=== PATIENT | female | born 1935 | race Caucasian/White ===

== ENCOUNTER → 2016-07-26 | Outpatient (CLI) | payer OTHER ==
[~2016-07-26] MED LIST: ACET-1257 PO; ARC10 PO; ATEN25TA PO; CLTP PO; CTP2 PO; DIPH-416 PO; ESCI1TAB10 PO; FRRG PO; FRS/40 PO; HYDR-5688 PO; KFL250 PO; LEVO75TA PO; LEVO75TA5 PO; LISI10TA PO; MISCTAB30 PO; MULT-190 PO; MULT-506 PO; NUTRTAB55 PO; PANT1TAB48 PO; POTA10CA28 PO; PROM12.57 PO; PRT40 PO; SIMV20TA2 PO; SPIR25TA PO; TRAM-10 PO; compound cream
[2016-07-26 16:08] LABS: BASO % 0.3 %; BASO ABS # 0.02 K/uL (0-0.2); COMPLETE YES; EOS % 2.7 %; HEMATOCRIT 38.5 % (37-47); IG% 0.2 %; LYMPH % 22.9 %; LYMPH ABS # 1.33 K/uL (1.2-3.4); MEAN CELL VOLUME 96.5 fL (80-100); MEAN CORPUSCULAR HEMOGLOBIN 33.6 pg (25-34); MEAN CORPUSCULAR HGB CONC 34.8 g/dl (32-36); MEAN PLATELET VOLUME 11.3 fL (7.4-10.4); MONO % 5.7 %; NEUT % 68.2 %; PLATELET COUNT 227 K/uL (130-400); RED BLOOD COUNT 3.99 M/uL (4.2-5.4); WHITE BLOOD COUNT 5.82 K/uL (4.8-10.8)
[2016-07-26 16:17] LABS: ALT/SGPT 14 U/L (12-78); AST/SGOT 15 U/L (15-37); BLOOD UREA NITROGEN 59 mg/dl (7-18); BUN/CREATININE RATIO 16.5 (10-20); CALCIUM 9.7 mg/dl (8.5-10.1); CARBON DIOXIDE 21 mmol/L (21-32); CHLORIDE 103 mmol/L (98-107); GLUCOSE 103 mg/dl (70-99); SODIUM 140 mmol/L (136-145)
[2016-07-26 16:27] LABS: ALKALINE PHOSPHATASE 60 U/L (45-117); THYROID STIMULATING HORMONE 0.479 uIu/ml (0.300-4.500)
== END | disposition home or self-care (01) ==
LOC: C.LABSPEC 14:45
PROVIDERS: ATTEND Internal Medicine
DX: I10 Essential (primary) hypertension (principal); R53.83 Other fatigue; E03.9 Hypothyroidism, unspecified

== ENCOUNTER 2016-07-27 12:20 | Inpatient (IN) | payer OTHER ==
[~2016-07-27] VITALS: Ht 170.2 cm; Wt 65.4 kg
[~2016-07-27 12:20] MED LIST changes: -ACET-1257 PO; -ARC10 PO; -DIPH-416 PO; -HYDR-5688 PO; -KFL250 PO; -LEVO75TA5 PO; -NUTRTAB55 PO; -POTA10CA28 PO; -PROM12.57 PO
[2016-07-27] MEDS ORDERED: ONDANSETRON INJ 8 MG in DEXTROSE 5% 50ML 50 ML IV PRN (12:30)
[2016-07-27 14:00] VITALS: BP 154/57; PULSE 35; TEMP 36.4; Ht 170.2 cm; Wt 65.4 kg
[2016-07-27 14:11] LABS: BASO % 0.5 %; BASO ABS # 0.03 K/uL (0-0.2); EOS % 2.7 %; HEMATOCRIT 36.6 % (37-47); IG% 0.4 %; LYMPH % 26.7 %; LYMPH ABS # 1.51 K/uL (1.2-3.4); MEAN CELL VOLUME 93.8 fL (80-100); MEAN CORPUSCULAR HEMOGLOBIN 33.3 pg (25-34); MEAN PLATELET VOLUME 10.5 fL (7.4-10.4); MONO % 6.5 %; NEUT % 63.2 %; PLATELET COUNT 215 K/uL (130-400); WHITE BLOOD COUNT 5.66 K/uL (4.8-10.8)
[2016-07-27 14:23] LABS: COMPLETE YES; MEAN CORPUSCULAR HGB CONC 35.5 g/dl (32-36); PARTIAL THROMBOPLASTIN RATIO 0.9
[2016-07-27 14:37] LABS: ALT/SGPT 14 U/L (12-78); BLOOD UREA NITROGEN 62 mg/dl (7-18); BUN/CREATININE RATIO 19.3 (10-20); CALCIUM 9.2 mg/dl (8.5-10.1); CARBON DIOXIDE 23 mmol/L (21-32); CHLORIDE 105 mmol/L (98-107); GLUCOSE 103 mg/dl (70-99); MAGNESIUM 2.6 mg/dl (1.8-2.4); POTASSIUM 3.6 mmol/L (3.5-5.1); SODIUM 139 mmol/L (136-145)
[2016-07-27 14:42] LABS: ALB/GLOB RATIO 1.1 (0.9-2); ALKALINE PHOSPHATASE 62 U/L (45-117); AST/SGOT 19 U/L (15-37); PHOSPHORUS 3.2 mg/dl (2.5-4.9)
--- NOTE | 2016-07-27 14:43 | DIAGNOSTIC IMAGING REPORT ---
CHEST 2 VIEWS ROUTINE CLINICAL HISTORY: RENAL FAILURE COMPARISON STUDY: 01/09/2013 FINDINGS: The heart is normal in size. There is gas present retrocardiac region, likely secondary to a hiatal hernia. There is no focal pulmonary consolidation. There is no failure. There are no pleural effusions. There is minor left basilar atelectasis. There is mild apical pleural thickening. There are postsurgical changes within the lumbar spine.[ IMPRESSION: No active disease in the chest. Electronically signed by: Christiano Mena M.D. 07/27/2016 2:41 PM Dictated Date/Time: 07/27/2016 2:41 PM
[2016-07-27] MEDS: SODIUM CHLORIDE 0.9% 1000ML 1,000 ML IV SCH ×2 (14:56→23:43)
[2016-07-27 15:56] VITALS: BP 135/55; PULSE 101; TEMP 36.4; O2SAT 91
--- NOTE | 2016-07-27 16:28 | HISTORY & PHYSICAL EXAMINATION ---
DATE OF ADMISSION: 07/27/2016 HISTORY OF PRESENT ILLNESS: An 81-year-old female admitted directly from home with acute renal failure and dehydration. The patient is with multiple medical problems including arterial hypertension, chronic kidney disease, history of spinal stenosis requiring surgery, hypothyroidism and memory deficit. She also has general debilitation and weakness and decline in functional ability. The patient was seen in the office yesterday for her regularly scheduled visit. She was having multiple problems. She has not been feeling well for a few weeks. Her appetite has declined. She is lacking energy. Requiring more sleep time over 13 hours. Not able to walk as she did. Does not really want to do anything or get up or move around. On examination yesterday, she seemed weak and tired. Multiple laboratory tests were done including a CBC showing WBC count of 5820, hemoglobin 13.4, hematocrit 38.5, and platelet count 227,000. Her chemistry profile results, which became available and I received them today, showed a sodium of 140, potassium 4.0, chloride 103, CO2 of 21, BUN 59, creatinine 3.6, glucose 103, and calcium 9.7. Total bilirubin 0.4. AST 15, ALT 14, and alkaline phosphatase 60. Total protein 7.7, albumin 3.9, and globulin 3.8. TSH is 0.479 and free T4 is 1.51. Once I received her lab results today, we called the patient and given the deterioration in her renal function. Her creatinine is usually around 2-2.5, but this marked significant increase in her BUN and creatinine. She is symptomatic as noted above. I made arrangements for her to be admitted. There was also quite a bit of confusion discovered yesterday about the medication that she has at home and what she should be taking. I did ask her to bring all the medications she has at home to the office for me to go through with them. At this point, the patient was admitted to medical bed for further evaluation and hydration and monitoring of her renal function. PAST MEDICAL HISTORY: 1. She was last hospitalized on 12/01/2015 with severe anemia. Her hemoglobin was 6.4. She had evidence of GI bleed. She was evaluated and had endoscopy done. She had peptic ulcer disease with gastric erosions. The anemia was thought to be related to her bleeding. She did require transfusion. She was on iron supplement after her discharge, but her hemoglobin seems to have recovered very nicely. 2. Spinal stenosis, requiring decompression surgery. The first time was done on 10/08/2009, but she had persistent pain and she required additional surgery to evacuate a seroma/hematoma. 3. Total left knee arthroplasty done on 09/22/2000. 4. Right total knee arthroplasty done on 02/21/2003. 5. Partial thyroidectomy back in 1976. She had a benign nodule. She has been hypothyroid and compensated. 6. Benign lesion removed from her left breast in the remote past. 7. Arterial hypertension. Longstanding. She has had required a multidrug regimen in the past. 8. History of gastric ulcer back in 2009. 9. Chronic kidney disease. Over the last 2-3 years, her renal function has been deteriorating. She does see Dr. Okeefe in nephrology. 10. Memory deficit and mental decline. She does see Dr. Benjamín Alicea in neurology and she is on Aricept. Initially, she was on 5 mg daily, but now she is on 10 mg daily. SOCIAL HISTORY: She is . She has 2 adopted children. Denied any smoking or alcohol or drugs. She is a retired registered nurse. She works at the [employer] on the 3rd floor in the past. FAMILY HISTORY: Her mother at age 80, had heart disease. Her father at age 79, had arterial hypertension. Her siblings are doing well. ALLERGIES: IT IS LISTED ON HER ALLERGY LIST THAT SHE HAS HAD REACTION TO MULTIPLE MEDICATIONS, INCLUDING AMITRIPTYLINE, AMLODIPINE, ATENOLOL, CELEBREX, CHLORTHALIDONE, ESTROGEN, GABAPENTIN, HYDROCHLOROTHIAZIDE, SULFA MEDICATIONS, METOPROLOL, AND PREDNISONE, but actually it is not really accurate because she is on atenolol. AMLODIPINE ONLY CAUSED SOME SWELLING IN HER ANKLES. CURRENT MEDICATIONS: Actually, I am not really sure what she is taking. Today, her put all the medications they have at home for her and brought them to the office. The list that I made from what he brought to the office Include: 1. Aricept 10 mg daily. 2. Promethazine 25 mg every 4 hours as needed. 3. Furosemide 40 mg twice a day. 4. Tramadol 50 mg 1-2 tablets every 4 hours as needed. 5. Lisinopril 5 mg daily. 6. Atenolol 25 mg daily. 7. Zofran ODT 8 mg as needed for nausea. 8. Levothyroxine 75 mcg daily. 9. Lomotil 2.5 mg as needed for diarrhea. Also, when her came to the office yesterday, he brought a note that they had these medications on hand, including the Zofran, levothyroxine, atenolol and Lomotil, but he did not think that she was taking them. I am not really sure what happened at this time, but in the past, they have been very meticulous with the medication list and also what she is taking. So, there is some confusion regarding this issue and it will be clarified. REVIEW OF SYSTEMS: She denied any headache. She is complaining of feeling weak and tired. She does get lightheaded. Denied any earache or sore throat or neck pain. Denied any chest pain, pressure or tightness. No shortness of breath. She has been feeling nauseous. Poor appetite. She has not been eating or drinking sufficiently. She has had nausea, but no vomiting. She has had some diarrhea. No blood in her stool that was noticeable. No urinary problem. She does have chronic pain in her back and extremities. There was no swelling in her ankles. PHYSICAL EXAMINATION: GENERAL: When she was seen in the office yesterday, her weight was 144.6 pounds, height 64 inches, and BMI 24.82. Her weight represents a significant weight loss since 03/23/2016. At that time, she weighed 159.4 pounds. VITAL SIGNS: Blood pressure 134/60, pulse 58, she has multiple premature beats and temperature 98.2. Her respiration was 16. SKIN: Warm and dry. No rash. No bruising. HEENT: She wears glasses. She has dentures. No mucosal abnormality in her nose, mouth or throat. NECK: Supple without lymph node or thyroid enlargement. No JVD. Normal carotid pulses. No bruit. Surgical scar from prior partial thyroidectomy. CHEST: Normal. HEART: Regular heart sounds with multiple premature beats. 1/6 systolic murmur. LUNGS: Clear. ABDOMEN: Soft and nontender. No organomegaly or masses. BACK: No spinal or CVA tenderness. Surgical scar. EXTREMITIES: No edema, clubbing, or cyanosis. No joint or muscle tenderness. Osteoarthritis. Surgical scars. Good pulses. NEUROLOGIC: She was alert, but slowing down significantly physically and mentally. There was no lateralized deficit. When I saw her in the office yesterday and the laboratory tests were done and the results are all as noted above. Also did the rhythm strips. She had runs of bigeminy. She also had a sinus bradycardia. LABORATORY DATA: Today's laboratory test done after her admission: CBC showed a WBC count of 5660, hemoglobin 13, hematocrit 36.6, and platelet count 215,000. Prothrombin time 11, INR 1.0, and PTT 24.5. Sodium 139, potassium 3.6, chloride 105, CO2 of 23, BUN 62, creatinine 3.2, glucose 103, calcium 9.2, phosphorus 3.2, and magnesium 2.6. Total bilirubin 0.5, AST 19, ALT 14, and alkaline phosphatase 62. Total protein 7.7, albumin 4.1, and globulin 3.6. Her chest x-ray showed no evidence of any congestive heart failure. No evidence of any significant disease noted. Her electrocardiogram showed a sinus bradycardia. Frequent premature ventricular complexes in the pattern of bigeminy. Nonspecific ST-T wave changes were also noted. Urinalysis and urine random sodium and creatinine are still pending. ASSESSMENT: 1. Acute renal failure. 2. Chronic kidney disease. 3. Dehydration. 4. Arterial hypertension. 5. Hypothyroidism. 6. Osteoarthritis. 7. History of depression. 8. Cognitive impairment. 9. History of peptic ulcer disease with bleeding, requiring transfusion, the last time was in November of 2015. 10. Sinus bradycardia. 11. Frequent premature ventricular contractions. PLAN: The patient was admitted to medical bed. Resuscitation level 1. All her laboratory tests were ordered. She was started on IV fluid with normal saline. Given Zofran for any nausea or vomiting. We will reintroduce her diet. See how she tolerates it. We will monitor her intake and output. Physical and occupation therapies will be ordered. We will monitor her renal functions. She will go back to her baseline with hydration. The patient has been seen by Dr. Okeefe in the past for her nephrology followup. At this point, we will hydrate her. Monitor her renal function. See how she does with her therapies. Decide on the need for any further testing or treatment.
[2016-07-27 17:47] LABS: URINE BILIRUBIN NEG (NEG); URINE NITRITE NEG (NEG); URINE SPECIFIC GRAVITY 1.018 (1.000-1.030); UROBILINOGEN NEG (NEG)
[2016-07-27 18:05] LABS: MANUAL MICROSCOPIC REQUIRED? NO; REVIEW REQ? NO; URINE APPEARANCE N (CLEAR); URINE COLOR N
[2016-07-27] MEDS: HEPARIN SOD 5000 UNIT/0.5 ML CARP SQ SCH (21:16)
[2016-07-28 01:35] VITALS: BP 122/51; PULSE 76; TEMP 36.4; O2SAT 100
--- NOTE | 2016-07-28 07:26 | Clinical Documentation Query ---
[facility] : CLINICAL DOCUMENTATION QUERY Patient is an 81 year old female admitted for evaluation and treatment of acute renal failure and dehydration. Documentation includes CKD, not otherwise specified. Baseline creatinine noted to be 2-2.5 mg/dl. Estimated GFR range during the interval coinciding with the creatinine range is 16-23 ml/min. She is being monitored by serial chemistries and is recieving IV NSS. Please clarify as clinically appropriate. Thank you. In your clinical opinion is this patient being managed for: ( x ) LORNA on CKD stage 4 ( ) Other explanation of clinical findings (Please Explain) ( ) Unable to determine (Please Define) ( ) Need to Discuss ( ) Not Agree The medical record reflects the following clinical findings, treatment, and risk factors. Clinical Indicators: As above Treatment:She is being monitored by serial chemistries and is recieving IV NSS Risk Factors: Age, hypertension Please clarify and document your clinical opinion in the progress notes and discharge summary. Terms such as "probable", "suspected", "likely", "questionable", "possible", or "still to be ruled out" are acceptable. IF IN AGREEMENT, YOU MUST DOCUMENT ABOVE DIAGNOSTIC STATEMENT IN DAILY PROGRESS NOTES AND DISCHARGE SUMMARY. This document is not part of the patient's record. Thank You, Ray Quiroga RN [phone]
[2016-07-28 07:41] LABS: BUN/CREATININE RATIO 19.8 (10-20); CALCIUM 8.2 mg/dl (8.5-10.1); CREATININE 2.2 mg/dl (0.60-1.20); POTASSIUM 3.9 mmol/L (3.5-5.1)
[2016-07-28 08:00] VITALS: O2SAT 100
[2016-07-28 08:25] VITALS: BP 164/64; PULSE 53; TEMP 36.5; O2SAT 97
[2016-07-28] MEDS ORDERED: NURSING VERBAL MED ORDER ONE (08:45)
[2016-07-28] MEDS ORDERED: ACETAMINOPHEN 325 MG TAB PO SCH (09:00)
[2016-07-28] MEDS: HEPARIN SOD 5000 UNIT/0.5 ML CARP SQ SCH ×2 (09:20→21:02)
[2016-07-28] MEDS: SODIUM CHLORIDE 0.9% 1000ML 1,000 ML IV SCH ×2 (09:23→19:45)
[2016-07-28] MEDS ORDERED: ACETAMINOPHEN 500 MG TAB PO PRN (11:30)
[2016-07-28] MEDS ORDERED: LISINOPRIL 5 MG TAB PO ONE (12:00)
[2016-07-28 16:07] VITALS: BP 111/62; PULSE 52; TEMP 37; O2SAT 98
[2016-07-28] MEDS: CEPHALEXIN MONOHYDRATE 250 MG CAP PO SCH ×2 (16:24→21:16)
[2016-07-28 16:32] VITALS: O2SAT 100
[2016-07-28] MEDS ORDERED: CIPROFLOXACIN 500 MG TAB PO SCH (20:00)
--- NOTE | 2016-07-28 20:57 | PROGRESS NOTE ---
DATE: 07/28/2016 SUBJECTIVE: An 81-year-old female admitted with dehydration and acute renal failure. Her medical problems also include arterial hypertension, chronic kidney disease, cognitive impairment, degenerative disc disease, history of spinal stenosis, osteoarthritis, general debilitation and decreased functional status. The patient was admitted. All her laboratory tests were ordered. She was started on IV fluid. Today, her condition has improved. She is much more awake and alert and communicative. Denied any headache or dizziness or lightheadedness. No chest pain, no shortness of breath. No abdominal pain, no nausea, no vomiting. No ankle edema. Her urinalysis did show evidence of urinary tract infection. PHYSICAL EXAMINATION: GENERAL: Well-developed in no distress. VITAL SIGNS: Blood pressure 164/64, pulse 53, respirations 17, temperature 36.5, oxygen saturation 97% on room air. SKIN: Warm and dry. No rash. HEENT: No evidence of any mucosal abnormality. NECK: No JVD. No adenopathy. HEART: Regular heart sounds, but with premature beats. LUNGS: Clear. ABDOMEN: Soft, nontender. BACK: Surgical scar. EXTREMITIES: No edema, clubbing, or cyanosis. TODAY'S LABORATORY TESTS: Sodium 146, potassium 3.9, chloride 113, CO2 24, BUN 44, creatinine 2.2, glucose 90, calcium 8.2. As noted, her urinalysis is showing evidence of urinary tract infection. ASSESSMENT: 1. Acute renal failure. 2. Dehydration. 3. Chronic kidney disease stage IV. 4. Arterial hypertension. 5. Cognitive impairment. 6. Osteoarthritis. 7. Degenerative disc disease and spinal stenosis. PLAN: 1. Her creatinine did show marked improvement. 2. We will continue hydration. 3. Continue physical therapy. 4. Urine will be sent for culture. 5. She was started on oral Keflex. 6. Continue with her therapy, decide on her ability to go back home, that is what it is anticipated.
[2016-07-29 00:08] VITALS: BP 159/68; PULSE 81; TEMP 36.6; O2SAT 95
[2016-07-29] MEDS: SODIUM CHLORIDE 0.9% 1000ML 1,000 ML IV SCH (05:31)
[2016-07-29] MEDS: CEPHALEXIN MONOHYDRATE 250 MG CAP PO SCH ×3 (05:31→20:51)
[2016-07-29] MEDS: LEVOTHYROXINE 75 MCG TAB PO SCH (05:31)
[2016-07-29] MEDS: TRAMADOL HCL 50 MG TAB PO PRN ×3 (05:34→20:12)
[2016-07-29 07:30] LABS: CREATININE 1.6 mg/dl (0.60-1.20)
[2016-07-29 07:31] LABS: BASO % 0.6 %; BASO ABS # 0.02 K/uL (0-0.2); BUN/CREATININE RATIO 17.2 (10-20); CALCIUM 7.6 mg/dl (8.5-10.1); COMPLETE YES; EOS % 3.1 %; HEMATOCRIT 28.8 % (37-47); IG% 0.3 %; LYMPH % 31.6 %; LYMPH ABS # 1.11 K/uL (1.2-3.4); MEAN CELL VOLUME 94.4 fL (80-100); MEAN CORPUSCULAR HEMOGLOBIN 32.8 pg (25-34); MEAN CORPUSCULAR HGB CONC 34.7 g/dl (32-36); MEAN PLATELET VOLUME 10.4 fL (7.4-10.4); MONO % 9.4 %; PLATELET COUNT 148 K/uL (130-400); POTASSIUM 3.6 mmol/L (3.5-5.1); RED BLOOD COUNT 3.05 M/uL (4.2-5.4); WHITE BLOOD COUNT 3.51 K/uL (4.8-10.8)
[2016-07-29 08:00] VITALS: O2SAT 95
[2016-07-29 08:04] VITALS: BP 180/73; PULSE 74; TEMP 36.2; O2SAT 91
[2016-07-29] MEDS: DONEPEZIL HCL 10 MG TAB PO SCH (08:21)
[2016-07-29] MEDS: LISINOPRIL 10 MG TAB PO SCH (08:22)
[2016-07-29] MEDS: HEPARIN SOD 5000 UNIT/0.5 ML CARP SQ SCH ×2 (08:27→20:53)
[2016-07-29] MEDS: SODIUM CHLORIDE 0.45% 1000ML 1,000 ML IV SCH ×2 (08:28→20:50)
[2016-07-29 14:20] VITALS: BP 131/75; PULSE 53; TEMP 36.8; O2SAT 97
[2016-07-29 14:58] VITALS: BP 150/60
[2016-07-29 15:25] VITALS: BP 143/64; PULSE 53; TEMP 36.4; O2SAT 97
--- NOTE | 2016-07-29 21:00 | PROGRESS NOTE ---
DATE: 07/29/2016 SUBJECTIVE: An 81-year-old female admitted with acute renal failure superimposed on chronic kidney disease. She was markedly dehydrated. Her medical problems also include arterial hypertension and degenerative joint and disk disease. Also, her urine culture is showing growth of gram negative bacilli. Her condition has markedly improved. She is quite more alert and communicative and sitting up in the chair and eating. Her appetite has improved. Denied any headache. No dizziness. No chest pain. No shortness of breath. No abdominal pain, no nausea, no vomiting. PHYSICAL EXAMINATION: GENERAL: Well-developed in no distress. VITAL SIGNS: Blood pressure 180/73, pulse 74, respirations 18, temperature 36.2, oxygen saturation 91% on room air. During the day after she received her medications, her blood pressure improved to 131/75 and 143/64. SKIN: Warm and dry. No rash. HEENT: No mucosal abnormality. NECK: No JVD, no adenopathy. HEART: Regular heart sounds. LUNGS: Clear. ABDOMEN: Soft, nontender. EXTREMITIES: No edema, clubbing, or cyanosis. TODAY'S LABORATORY TESTS: WBC count 3510, hemoglobin 10, hematocrit 28.8, platelet count 148,000. Sodium 150, potassium 3.6, chloride 119, CO2 21, BUN 28, creatinine 1.6, glucose 96, calcium 7.6. ASSESSMENT: 1. Acute renal failure, resolved. 2. Chronic kidney disease. 3. Arterial hypertension. 4. Dehydration. 5. Urinary tract infection. PLAN: 1. I changed her IV to half normal saline. 2. She is on oral Keflex. The results of the culture and sensitivity is still pending. 3. Continuing physical therapy she seems to be doing quite well. 4. The intent is for her to go back home. I spoke with her and her when I saw them this evening.
[2016-07-30] VITALS: BP 140/56; PULSE 72; TEMP 36.8; O2SAT 93
[2016-07-30] MEDS: TRAMADOL HCL 50 MG TAB PO PRN (02:27)
[2016-07-30] MEDS: LEVOTHYROXINE 75 MCG TAB PO SCH (05:24)
[2016-07-30] MEDS: CEPHALEXIN MONOHYDRATE 250 MG CAP PO SCH (05:25)
[2016-07-30 06:33] LABS: BASO % 0.4 %; BASO ABS # 0.02 K/uL (0-0.2); COMPLETE YES; EOS % 5.1 %; HEMATOCRIT 28.9 % (37-47); IG% 0.2 %; LYMPH % 31.5 %; LYMPH ABS # 1.48 K/uL (1.2-3.4); MEAN CELL VOLUME 94.4 fL (80-100); MEAN CORPUSCULAR HGB CONC 34.9 g/dl (32-36); MEAN PLATELET VOLUME 10.4 fL (7.4-10.4); MONO % 9.6 %; NEUT % 53.2 %; PLATELET COUNT 151 K/uL (130-400); RED BLOOD COUNT 3.06 M/uL (4.2-5.4)
[2016-07-30 06:59] LABS: CALCIUM 7.6 mg/dl (8.5-10.1); CREATININE 1.3 mg/dl (0.60-1.20); POTASSIUM 3.4 mmol/L (3.5-5.1)
[2016-07-30] MEDS ORDERED: KFL250 PO (07:55)
[2016-07-30] MEDS ORDERED: ARC10 PO (07:55)
[2016-07-30] MEDS ORDERED: ACET-1257 PO (07:55)
--- NOTE | 2016-07-30 07:58 | Discharge Instructions ---
Discharge Instructions Date of Service Jul 30, 2016. Admission Reason for Admission: Renal Failure, Dehydration Discharge Discharge Diagnosis / Problem: acute renal faiture. dehydration.chronic kidney disease. cognitive impairme Discharge Goals Goal(s): Decrease discomfort, Improve function, Increase independence, Improve disease control Activity Recommendations Activity Limitations: resume your previous activity . Instructions / Follow-Up Instructions / Follow-Up dr vincent in one week Current Hospital Diet Patient's current hospital diet: AHA Diet (Heart Healthy) Discharge Diet Recommended Diet: AHA Diet (Heart Healthy) Pending Studies Studies pending at discharge: no Medical Emergencies . Who to Call and When: Medical Emergencies: If at any time you feel your situation is an emergency, please call 911 immediately. . Non-Emergent Contact Non-Emergency issues call your: Primary Care Provider . . "Provider Documentation" section prepared by Daniel Vincent. VTE Core Measure Inpt VTE Proph given/why not?: Treatment not indicated
[2016-07-30] MEDS ORDERED: POTASSIUM CHLORIDE 10 MEQ TABCR PO ONE ×2 (08:00→08:30)
[2016-07-30 08:10] VITALS: BP 159/67; PULSE 93; TEMP 36.3; O2SAT 94
[2016-07-30] MEDS: LISINOPRIL 10 MG TAB PO SCH (09:29)
[2016-07-30] MEDS: DONEPEZIL HCL 10 MG TAB PO SCH (09:30)
[2016-07-30] MEDS: HEPARIN SOD 5000 UNIT/0.5 ML CARP SQ SCH (09:31)
[2016-07-30 09:40] VITALS: BP 159/67; PULSE 93; TEMP 36.3; O2SAT 94
[2016-07-30] MEDS: SODIUM CHLORIDE 0.45% 1000ML 1,000 ML IV SCH (09:47)
--- NOTE | 2016-07-30 21:47 | PROGRESS NOTE ---
DATE: 07/30/2016 An 81-year-old female admitted with acute renal failure and dehydration. She has chronic kidney disease, arterial hypertension, hypothyroidism. The patient was admitted. She was started on IV fluids. Physical and occupational therapies were ordered. Her condition improved. Her nausea subsided. She was tolerating her diet. She was improving with physical therapy. She was improving with hydration. Her creatinine normalized. Her urine showed evidence of urinary tract infection. The culture grew E. coli. She is on Keflex. She denied any headache or dizziness. No chest pain, no shortness of breath. No abdominal pain, no nausea, no vomiting. No problem urinating. PHYSICAL EXAMINATION: GENERAL: Well developed, in no distress. VITAL SIGNS: Blood pressure 159/67, pulse 93, respirations 16, temperature 36.3, oxygen saturation 94% on room air. SKIN: Warm and dry. No rash. HEENT: No mucosal abnormality. NECK: No adenopathy. No JVD. HEART: Regular heart sounds. LUNGS: Clear. ABDOMEN: Soft, nontender. EXTREMITIES: No edema, clubbing, or cyanosis. TODAY'S LABORATORY TESTS: WBC count 4700, hemoglobin 10.1, hematocrit 28.9, platelet count 151,000. Sodium 145, potassium 3.4, chloride 116, CO2 of 21, BUN 20, creatinine 1.3, glucose 81, calcium 7.6. As noted, her urine culture did grow E. coli. ASSESSMENT: 1. Acute renal failure. 2. Chronic kidney disease. 3. Dehydration. 4. Urinary tract infection. 5. Dementia. 6. Hypothyroidism. PLAN: 1. Overall, patient has improved remarkably since her admission. She is tolerating her diet. She is doing well with her therapy. Mentally she is much more alert and expressive. 2. She was continued on Keflex. 3. Discharged home today. 4. There was a confusion about her medications. Asked her to go by the new medication list. Her already brought all her medications to the office and we went through all her medications and later this afternoon, he came back and we did clarify all their questions they had about what she should be taking. 5. Follow up in the office in 1 week.
--- NOTE | 2016-08-08 23:09 | DISCHARGE SUMMARY ---
DISCHARGE DIAGNOSES: 1. Acute renal failure. 2. Dehydration. 3. Chronic kidney disease. 4. Arterial hypertension. 5. Hypothyroidism. 6. Osteoarthritis. 7. Frequent premature ventricular contractions. DISCHARGE MEDICATIONS: Included: 1. Extra strength Tylenol 500 mg every 4 hours as needed for pain. 2. Cephalexin 250 mg every 8 hours for 5 days. 3. Aricept 10 mg daily. 4. Calcium with vitamin D 600 mg twice a day. 5. Lexapro 20 mg daily. 6. Levothyroxine 75 mcg daily. 7. Lisinopril 10 mg twice a day. 8. Multivitamin 1 daily. 9. Ocuvite PreserVision 1 tablet daily. 10. Simvastatin 20 mg daily. She was on multiple other medications that were discontinued, including atenolol, clonidine, ferrous gluconate, furosemide, pantoprazole, spironolactone and tramadol. An 81-year-old female, admitted directly from home with acute renal failure and dehydration. Patient with multiple medical problems as noted above. She was seen in the office on the day prior to her admission. She was having multiple problems. She was not feeling well for a few weeks. Her appetite has declined. She was lacking energy. She was requiring more sleep, approximately 13 hours. She was not able to walk as she did before. She did not really want to do anything or move around. On examination, she seemed weak and tired. Multiple laboratory tests were done. Her creatinine increased to 3.6 and her BUN was 59. Once I received the results of her test results, I called the patient and made arrangements for her to be admitted for further evaluation and treatment. In addition to the problems that she was complaining of, I noted that she was more confused. She has not had any problem taking her medications as she should in the past, but there was significant confusion as far as what she has been taking and what she should be taking. PAST MEDICAL HISTORY, SOCIAL HISTORY AND FAMILY HISTORY: All as noted on her history and physical. ALLERGIES: IT IS NOTED THAT SHE HAS A LARGE NUMBER OF ALLERGIES, INCLUDING AMLODIPINE, AMITRIPTYLINE, ATENOLOL, CELEBREX, CHLORTHALIDONE, ESTROGEN, GABAPENTIN, HYDROCHLOROTHIAZIDE, SULFA MEDICATION, METOPROLOL AND PREDNISONE, BUT ACTUALLY SHE IS NOT REALLY ALLERGIC TO MOST OF THESE MEDICATIONS. She is on atenolol. She has taken hydrochlorothiazide. THE ONLY TRUE ALLERGY IS SULFA AND ALSO AMLODIPINE, WHICH CAUSED HER SWELLING IN HER ANKLES. MEDICATIONS ON ADMISSION: All as noted on her admission history and physical. PHYSICAL EXAMINATION AND ADMISSION LABORATORY TESTS: All as noted. HOSPITAL COURSE: The patient was admitted to a medical bed. Resuscitation level 1. All her laboratory tests were ordered. She was started on IV fluids. Given Zofran for nausea and vomiting. Physical and occupational therapies were ordered. Her renal function was monitored. With hydration, her renal function gradually improved. From 3.2 to 2.2 to 1.8 and on 07/30/2016, it was down to 1.3. Her condition improved. She was tolerating her therapies. She was able to ambulate. Her appetite improved. She was tolerating her diet. She did not have any recurrent nausea. No vomiting. Once her condition improved and her renal function returned toward the normal range, the patient was discharged home. Medications as noted above. Follow up in the office 1 week after her discharge.
[2016-10-08] MEDS ORDERED: DIPH-416 PO (14:21)
[2016-10-08] MEDS ORDERED: HYDR-5688 PO (14:21)
[2016-10-08] MEDS ORDERED: POTA10CA28 PO (14:21)
[2016-10-08] MEDS ORDERED: ESCI1TAB10 PO (14:21)
[2016-10-08] MEDS ORDERED: NUTRTAB55 PO (14:21)
[2016-10-08] MEDS ORDERED: LEVO75TA5 PO (14:21)
[2016-10-08] MEDS ORDERED: FRS/40 PO (14:21)
[2016-10-08] MEDS ORDERED: PROM12.57 PO (14:21)
[2016-10-08] MEDS ORDERED: SIMV20TA2 PO (14:21)
== END 2016-07-30 11:15 | disposition home or self-care (01) | DRG 683 ==
LOC: C.MS4W 13:11
PROVIDERS: ADMIT Internal Medicine; ATTEND Internal Medicine
DX: N17.9 Acute kidney failure, unspecified (principal); N39.0 Urinary tract infection, site not specified; E86.0 Dehydration; I12.9 Hypertensive chronic kidney disease with stage 1 through stage 4 chronic kidney disease, or unspecified chronic kidney disease; R53.81 Other malaise; Z87.19 Personal history of other diseases of the digestive system; Z96.653 Presence of artificial knee joint, bilateral; E89.0 Postprocedural hypothyroidism; Z87.11 Personal history of peptic ulcer disease; Z82.49 Family history of ischemic heart disease and other diseases of the circulatory system; Z88.8 Allergy status to other drugs, medicaments and biological substances; Z88.2 Allergy status to sulfonamides; Z79.899 Other long term (current) drug therapy; M19.90 Unspecified osteoarthritis, unspecified site; I49.3 Ventricular premature depolarization; F32.9 Major depressive disorder, single episode, unspecified; M48.00 Spinal stenosis, site unspecified; N18.4 Chronic kidney disease, stage 4 (severe); B96.20 Unspecified Escherichia coli [E. coli] as the cause of diseases classified elsewhere; F03.90 Unspecified dementia, unspecified severity, without behavioral disturbance, psychotic disturbance, mood disturbance, and anxiety

== ENCOUNTER → 2016-08-16 | Outpatient (CLI) | payer OTHER ==
[~2016-08-16] MED LIST changes: +ACET-1257 PO; +ARC10 PO; -ATEN25TA PO; +CIPR250T3 PO; -CTP2 PO; +DIPH-416 PO; -FRRG PO; +HYDR-5688 PO; +KFL250 PO; +LEVO75TA5 PO; -MISCTAB30 PO; +NUTRTAB55 PO; -PANT1TAB48 PO; +POTA10CA28 PO; +PROM12.57 PO; -PRT40 PO; -SPIR25TA PO; -TRAM-10 PO; -compound cream
[2016-08-16 14:55] LABS: BASO % 0.7 %; BASO ABS # 0.03 K/uL (0-0.2); COMPLETE YES; EOS % 2.9 %; HEMATOCRIT 39.1 % (37-47); IG% 0.2 %; LYMPH % 31.3 %; MONO % 8.7 %; NEUT % 56.2 %; PLATELET COUNT 271 K/uL (130-400); RED BLOOD COUNT 4.03 M/uL (4.2-5.4); WHITE BLOOD COUNT 4.47 K/uL (4.8-10.8)
[2016-08-16 15:33] LABS: ALT/SGPT 23 U/L (12-78); BLOOD UREA NITROGEN 17 mg/dl (7-18); BUN/CREATININE RATIO 12.3 (10-20); CALCIUM 8.8 mg/dl (8.5-10.1); CARBON DIOXIDE 25 mmol/L (21-32); CHLORIDE 105 mmol/L (98-107); GLUCOSE 101 mg/dl (70-99); POTASSIUM 3.2 mmol/L (3.5-5.1); SODIUM 140 mmol/L (136-145)
[2016-08-16 15:43] LABS: ALB/GLOB RATIO 1.1 (0.9-2); ALKALINE PHOSPHATASE 69 U/L (45-117); AST/SGOT 22 U/L (15-37); THYROID STIMULATING HORMONE 0.943 uIu/ml (0.300-4.500)
== END | disposition home or self-care (01) ==
LOC: C.LABSPEC 14:40
PROVIDERS: ATTEND Internal Medicine
DX: I12.9 Hypertensive chronic kidney disease with stage 1 through stage 4 chronic kidney disease, or unspecified chronic kidney disease (principal); N18.9 Chronic kidney disease, unspecified; E03.9 Hypothyroidism, unspecified

== ENCOUNTER → 2016-08-17 | Outpatient (CLI) | payer OTHER ==
[2016-08-17 13:29] LABS: URINE APPEARANCE CLOUDY (CLEAR); URINE BILIRUBIN NEG (NEG); URINE COLOR YELLOW; URINE NITRITE NEG (NEG); URINE PH 5.5 (4.5-7.5); URINE SPECIFIC GRAVITY 1.016 (1.000-1.030); UROBILINOGEN NEG (NEG)
[2016-08-17 13:37] LABS: MANUAL MICROSCOPIC REQUIRED? NO; REVIEW REQ? NO
== END | disposition home or self-care (01) ==
LOC: C.LABSPEC 12:34
PROVIDERS: ATTEND Internal Medicine
DX: N39.0 Urinary tract infection, site not specified (principal)

== ENCOUNTER → 2016-08-23 | Outpatient (CLI) | payer OTHER ==
--- NOTE | 2016-08-23 18:23 | DIAGNOSTIC IMAGING REPORT ---
CHEST 2 VIEWS ROUTINE CLINICAL HISTORY: DYSPNEA COMPARISON STUDY: 07/27/2016 FINDINGS: The heart is mildly enlarged. There is a retrocardiac opacity consistent with a hiatal hernia. There is no failure. There is no lobar consolidation. Prominent left basal markings are likely atelectatic. No pleural effusions are visualized. IMPRESSION: 1. Mild cardiomegaly 2. Hiatal hernia 3. Prominent left basilar markings likely atelectatic Electronically signed by: Christiano Mena M.D. 08/23/2016 6:21 PM Dictated Date/Time: 08/23/2016 6:20 PM
== END | disposition home or self-care (01) ==
LOC: C.RAD 17:57
PROVIDERS: ATTEND Internal Medicine
DX: R06.00 Dyspnea, unspecified (principal)

== ENCOUNTER → 2016-08-23 | Outpatient (CLI) | payer OTHER ==
[2016-08-23 15:46] LABS: BLOOD UREA NITROGEN 32 mg/dl (7-18); BUN/CREATININE RATIO 16.6 (10-20); CALCIUM 8.8 mg/dl (8.5-10.1); CARBON DIOXIDE 29 mmol/L (21-32); CHLORIDE 104 mmol/L (98-107); GLUCOSE 99 mg/dl (70-99); MAGNESIUM 2.5 mg/dl (1.8-2.4); POTASSIUM 4.1 mmol/L (3.5-5.1); SODIUM 140 mmol/L (136-145)
== END ==
LOC: C.LABSPEC 14:55
PROVIDERS: ATTEND Internal Medicine
DX: N18.4 Chronic kidney disease, stage 4 (severe) (principal); E87.6 Hypokalemia

== ENCOUNTER → 2016-10-18 | Day surgery (SDC) | payer OTHER ==
[2016-10-08 14:21] VITALS: Ht 170.2 cm; Wt 68.2 kg
[~2016-10-18] VITALS: Ht 170.2 cm; Wt 68.2 kg
[~2016-10-18] MED LIST changes: +500ML BSS 0.3ML EPI 1:1000PF IRRIG ONE; -ACET-1257 PO; +ACETAMINOPHEN 325 MG TAB PO PRN; +AMVISC PLUS 0.8ML SYRINGE INT OCU ONE; -ARC10 PO; +ATROPINE SULFATE 0.1 MG/ML 5ML SYR IV PRN; +BRIMONIDINE TART 0.2% OP SOLN PER DROP CHARGE ONE; +BSS FLUSH ONE; +ENDOCOAT 0.85ML SYRINGE INT OCU ONE; +EpHEDrine SULFATE INJ 50 MG/ML AMP IV PRN; +EpINEphrine INJ 1MG/ML AMP 1 MG/ML AMP ONE; +FENTANYL CITRATE INJ 50 MCG/1 ML 2 ML VIAL ONE; -KFL250 PO; +LACTATED RINGER'S 1000ML 500 ML IV SCH; -LEVO75TA PO; +LIDOCAINE 4% OP SOLN DROP CHARGE ONE; +LIDOCAINE 4% OP SOLN DROP CHARGE OPR SCH; +LIDOCAINE HCL 1% MPF 2 ML VIAL ONE; +MIDAZOLAM HCL 1 MG/ML 2ML VIAL ONE; +MOXIFLOXACIN OPH SOLN PER DROP CHARGE ONE; -MULT-190 PO; +POVIDONE-IODINE OP SOLN 30 ML BTL ONE; +PROPARACAINE 0.5% OP SOLN PER DROP CHARGE OPR SCH; +TOBRAMYCIN/DEXAMETHASONE OPH OINT PER APPLN CHARGE ONE
[2016-10-18] MEDS: PHENYLEPHRINE HCL 2.5% OP SOLN PER DROP CHARGE OPR SCH ×2 (10:54→10:59)
[2016-10-18] MEDS: TROPICAMIDE 1% OP SOLN PER DROP CHARGE OPR SCH ×2 (10:55→11:00)
[2016-10-18] MEDS: CYCLOPENTOLATE HCL 1% OP SOLN PER DROP CHARGE OPR SCH ×2 (10:56→11:01)
[2016-10-18] MEDS: KETOROLAC 0.5% OP SOLN PER DROP CHARGE OPR SCH ×2 (10:57→11:04)
[2016-10-18] MEDS: MOXIFLOXACIN OPH SOLN PER DROP CHARGE OPR SCH ×2 (10:57→11:07)
--- NOTE | 2016-10-18 12:10 | History & Physical Bridge - [place] ---
H&P Re-Evaluation Bridge Note: I have examined the patient, reviewed the History & Physical and in the interval since the performance of the History & Physical I have noted the following changes of clinical significance: No changes noted
[2016-10-18 12:37] VITALS: TEMP 36.5
--- NOTE | 2016-10-18 12:37 | Discharge Instructions-SurgCtr ---
Discharge Instructions Date of Service Oct 18, 2016. Visit Reason for Visit: Cataract Right Eye Discharge Discharge Diagnosis / Problem: cataract right eye Discharge Goals Goal(s): Improve function Activity Recommendations Activity Limitations: per Instructions/Follow-up section Lifting Limitations: no more than 5 pounds Anesthesia . Post Anesthesia Instructions: If you have had General Anesthesia or IV Sedation: * Do not drive today. * Resume driving when surgeon permits. * Do not make important decisions or sign legal documents today. * Call surgeon for: 1. Temperature elevations greater than 101 degrees F. 2. Uncontrollable pain. 3. Excessive bleeding. 4. Persistent nausea and vomiting. 5. Medication intolerance (nausea, vomiting or rash). * For nausea and vomiting use only clear liquids such as: tea, soda, bouillon until nausea subsides, then gradually increase diet as tolerated. * If you have any concerns or questions, call your surgeon's office. If physician is unavailable and it is an emergency, call 911 or go to the nearest emergency room. . Instructions / Follow-Up Instructions / Follow-Up ACTIVITY RECOMMENDATIONS: * Light activities * You may walk outside, read, watch television. * Mild irritation and blurred vision are common for the first few days, redness around the white part of the eye is common. MEDICATIONS: Resume previous medications unless instructed otherwise by your surgeon. Eye drops (today and tomorrow): Cipro - one drop in operative eye every 2 hours while awake Prednisolone 1% - one drop in operative eye every 2 hours while awake SPECIAL CARE INSTRUCTIONS: * If any problems or concerns, please call Dr. Salomon's office at . * Keep plastic shield taped over eye to sleep at night. * Keep plastic shield taped over eye except to administer eye drops. * Keep plastic shield on until office visit the following day. FOLLOW UP VISIT: Follow-up with Dr. Salomon in the [place] office as scheduled. If not already scheduled, please call the office at . Diet Recommendations Home Diet: resume previous diet Procedures Procedures Performed: Right Cataract Phacoemulsification With Intraocular Lens Implant Pending Studies Studies pending at discharge: no Medical Emergencies . Who to Call and When: Medical Emergencies: If at any time you feel your situation is an emergency, please call 911 immediately. . Non-Emergent Contact Non-Emergency issues call your: Group Home Paraprofessional . . "Provider Documentation" section prepared by Cory Salomon. .
--- NOTE | 2016-10-18 12:37 | [facility] Post Operative Brief Note ---
Immediate Operative Summary Operative Date Oct 18, 2016. Pre-Operative Diagnosis Right Eye Cataract Post-Operative Diagnosis same Procedure(s) Performed Right Cataract Phacoemulsification With Intraocular Lens Implant Surgeon Dr. Carol Salomon Auto Transport Driver Surgeon(s) 0 Estimated Blood Loss 0 Findings cataract right eye Specimens none Complication(s) None Disposition Recovery Room / PACU
[2016-10-18 12:54] VITALS: BP 172/63; PULSE 58; O2SAT 97
--- NOTE | 2016-10-18 13:02 | Anesthesia Progress Nt - [facility] ---
Anesthesia Post Op Note Date & Time Oct 18, 2016 at 13:02 Vital Signs Pain Intensity: 0 Vital Signs Past 12 Hours Date Time Temp Pulse Resp B/P (MAP) Pulse Ox O2 Delivery O2 Flow Rate FiO2 10/18/16 12:54 58 22 172/63 (99) 97 Room Air 10/18/16 12:37 36.5 75 16 179/72 (107) 98 Room Air 10/18/16 10:45 36.2 57 16 175/70 (105) 98 Room Air Notes Mental Status: alert / awake / arousable, participated in evaluation Pt Amnestic to Procedure: Yes Nausea / Vomiting: adequately controlled Pain: adequately controlled Airway Patency, RR, SpO2: stable & adequate BP & HR: stable & adequate Hydration State: stable & adequate Anesthetic Complications: no major complications apparent
--- NOTE | 2016-10-18 15:05 | OPERATIVE REPORT ---
DATE OF OPERATION: 10/18/2016 PREOPERATIVE DIAGNOSIS: Cataract, right eye. POSTOPERATIVE DIAGNOSIS: Cataract, right eye. PROCEDURE: Phacoemulsification cataract extraction with intraocular lens placement, right eye. SURGEON: Dr. Salomon. COMPLICATIONS: None. ESTIMATED BLOOD LOSS: None. ANESTHESIA: Topical with sedation. OPERATION AND FINDINGS: After informed consent was obtained in the holding area the patient was wheeled back to the Operating Room where cardiac monitoring leads and oxygen by nasal cannula was administered by Anesthesia. Gentle IV sedation was given, and the patient's right eye was prepped and draped in usual sterile fashion. A wire lid speculum was placed into the right eye and the operating microscope was swung into position. Using 0.12 forceps and a Supersharp blade a paracentesis port was made 3 o'clock hours away from the 9 o'clock position of patient's right eye. 1% non-preserved Lidocaine was then injected into the anterior chamber for anesthesia. A 2.2 mm keratotome blade was then used to make a shelved clear corneal incision at the 9 o'clock position of her right eye. Amvisc was injected into the anterior chamber and a cystotome and Utrata forceps were used to perform a curvilinear capsulorrhexis. BSS on a hydrodissection cannula was used to hydrodissect the lens nucleus away from the capsular bag. The phacoemulsification handpiece was then used in a stop and chop fashion to remove the lens nucleus. The irrigation and aspiration handpiece was then used to remove the residual cortical material. Amvisc was injected into the capsular bag and anterior chamber and a Bausch [employer] Lomb MX60, 19.5 Diopter intraocular lens was injected into the capsular bag. Irrigation and aspiration handpiece was used to remove the residual viscoelastic material. The wounds were hydrated and noted to be watertight. The wire lid speculum was removed from the eye. Vigamox, Brimonidine, and TobraDex ointment were placed on the eye and it was shielded. It should be noted that EndoCoat was used throughout the case to protect the cornea endothelium. DISPOSITION: The patient tolerated the procedure well and was wheeled to the post anesthesia care unit in stable condition. I attest to the content of the Intraoperative Record and any orders documented therein. Any exceptions are noted below. I attest to the content of the Intraoperative Record and any orders documented therein. Any exception s are noted below.
== END | disposition home or self-care (01) ==
LOC: X.SURG 10:12
PROVIDERS: ATTEND Ophthalmology
DX: H26.9 Unspecified cataract (principal); I25.10 Atherosclerotic heart disease of native coronary artery without angina pectoris; I12.9 Hypertensive chronic kidney disease with stage 1 through stage 4 chronic kidney disease, or unspecified chronic kidney disease; I50.9 Heart failure, unspecified; M19.90 Unspecified osteoarthritis, unspecified site; N18.9 Chronic kidney disease, unspecified; Z98.890 Other specified postprocedural states; Z96.653 Presence of artificial knee joint, bilateral; Z79.899 Other long term (current) drug therapy; Z68.23 Body mass index [BMI] 23.0-23.9, adult

== ENCOUNTER → 2016-11-01 | Day surgery (SDC) | payer OTHER ==
[2016-10-28 09:00] VITALS: Ht 170.2 cm; Wt 68.2 kg
[~2016-11-01] VITALS: Ht 170.2 cm; Wt 68.2 kg
[~2016-11-01] MED LIST changes: +LIDOCAINE 4% OP SOLN DROP CHARGE OPL SCH; -LIDOCAINE 4% OP SOLN DROP CHARGE OPR SCH; +LIDOCAINE HCL 2% 2 ML VIAL (20MG/ML) ONE; +PROPARACAINE 0.5% OP SOLN PER DROP CHARGE OPL SCH; -PROPARACAINE 0.5% OP SOLN PER DROP CHARGE OPR SCH; +PROPOFOL IV EMULSION 10 MG/ML 20 ML VIAL IV ONE
[2016-11-01] MEDS: PHENYLEPHRINE HCL 2.5% OP SOLN PER DROP CHARGE OPL SCH ×2 (09:57→10:06)
[2016-11-01] MEDS: TROPICAMIDE 1% OP SOLN PER DROP CHARGE OPL SCH ×2 (09:58→10:07)
[2016-11-01] MEDS: CYCLOPENTOLATE HCL 1% OP SOLN PER DROP CHARGE OPL SCH ×2 (10:01→10:08)
[2016-11-01] MEDS: MOXIFLOXACIN OPH SOLN PER DROP CHARGE OPL SCH ×2 (10:04→10:16)
[2016-11-01] MEDS: KETOROLAC 0.5% OP SOLN PER DROP CHARGE OPL SCH (10:08)
--- NOTE | 2016-11-01 11:15 | Discharge Instructions-SurgCtr ---
Discharge Instructions Date of Service Nov 01, 2016. Visit Reason for Visit: Cataract Left Eye Discharge Discharge Diagnosis / Problem: cataract left eye Discharge Goals Goal(s): Improve function Activity Recommendations Activity Limitations: per Instructions/Follow-up section Lifting Limitations: no more than 5 pounds Anesthesia . Post Anesthesia Instructions: If you have had General Anesthesia or IV Sedation: * Do not drive today. * Resume driving when surgeon permits. * Do not make important decisions or sign legal documents today. * Call surgeon for: 1. Temperature elevations greater than 101 degrees F. 2. Uncontrollable pain. 3. Excessive bleeding. 4. Persistent nausea and vomiting. 5. Medication intolerance (nausea, vomiting or rash). * For nausea and vomiting use only clear liquids such as: tea, soda, bouillon until nausea subsides, then gradually increase diet as tolerated. * If you have any concerns or questions, call your surgeon's office. If physician is unavailable and it is an emergency, call 911 or go to the nearest emergency room. . Instructions / Follow-Up Instructions / Follow-Up ACTIVITY RECOMMENDATIONS: * Light activities * You may walk outside, read, watch television. * Mild irritation and blurred vision are common for the first few days, redness around the white part of the eye is common. MEDICATIONS: Resume previous medications unless instructed otherwise by your surgeon. Eye drops (today and tomorrow): Cipro - one drop in operative eye every 2 hours while awake Prednisolone 1% - one drop in operative eye every 2 hours while awake SPECIAL CARE INSTRUCTIONS: * If any problems or concerns, please call Dr. Salomon's office at . * Keep plastic shield taped over eye to sleep at night. * Keep plastic shield taped over eye except to administer eye drops. * Keep plastic shield on until office visit the following day. FOLLOW UP VISIT: Follow-up with Dr. Salomon in the [place] office as scheduled. If not already scheduled, please call the office at . Diet Recommendations Home Diet: resume previous diet Procedures Procedures Performed: Left Cataract Phacoemulsification With Intraocular Lens Implant Pending Studies Studies pending at discharge: no Medical Emergencies . Who to Call and When: Medical Emergencies: If at any time you feel your situation is an emergency, please call 911 immediately. . Non-Emergent Contact Non-Emergency issues call your: High Speed Operator . . "Provider Documentation" section prepared by Cory Salomon. .
--- NOTE | 2016-11-01 11:15 | [facility] Post Operative Brief Note ---
Immediate Operative Summary Operative Date Nov 01, 2016. Pre-Operative Diagnosis Cataract Left Eye Post-Operative Diagnosis Same Procedure(s) Performed Left Cataract Phacoemulsification With Intraocular Lens Implant Surgeon Dr. Salomon Central Office Supervisor Surgeon(s) None Estimated Blood Loss 0 Findings cataract left eye Specimens 0 Complication(s) None Disposition Recovery Room / PACU
[2016-11-01 11:24] VITALS: TEMP 36.2
--- NOTE | 2016-11-01 11:25 | OPERATIVE REPORT ---
DATE OF OPERATION: 11/01/2016 POSTOPERATIVE DIAGNOSIS: Cataract, left eye. PROCEDURE: Phacoemulsification cataract extraction with intraocular lens placement, left eye. SURGEON: Dr. Salomon. COMPLICATIONS: None. ESTIMATED BLOOD LOSS: None. ANESTHESIA: Topical with sedation. OPERATION AND FINDINGS: After informed consent was obtained in the holding area the patient was wheeled back to the Operating Room where cardiac monitoring leads and oxygen by nasal cannula was administered by Anesthesia. Gentle IV sedation was given, and the patient's left eye was prepped and draped in usual sterile fashion. A wire lid speculum was placed into the left eye and the operating microscope was swung into position. Using 0.12 forceps and a Supersharp blade a paracentesis port was made 3 o'clock hours away from the 3 o'clock position of patient's left eye. 1% non-preserved Lidocaine was then injected into the anterior chamber for anesthesia. A 2.2 mm keratotome blade was then used to make a shelved clear corneal incision at the 3 o'clock position of his left eye. Amvisc was injected into the anterior chamber and a cystotome and Utrata forceps were used to perform a curvilinear capsulorrhexis. BSS on a hydrodissection cannula was used to hydrodissect the lens nucleus away from the capsular bag. The phacoemulsification handpiece was then used in a stop and chop fashion to remove the lens nucleus. The irrigation and aspiration handpiece was then used to remove the residual cortical material. Amvisc was injected into the capsular bag and anterior chamber and a Bausch & Lomb MX60 19.5 Diopter intraocular lens was injected into the capsular bag. Irrigation and aspiration handpiece was used to remove the residual viscoelastic material. The wounds were hydrated and noted to be watertight. The wire lid speculum was removed from the eye. Vigamox, Brimonidine, and TobraDex ointment were placed on the eye and it was shielded. It should be noted that EndoCoat was used during the case to protect the cornea endothelium. A mixture of 1 mL of non-preserved epinephrine and 3 mL of BSS was also injected into the eye at the beginning of the case to aid with pupillary dilation in this [place] patient. DISPOSITION: The patient tolerated the procedure well and was wheeled to the post anesthesia care unit in stable condition. I attest to the content of the Intraoperative Record and any orders documented therein. Any exceptions are noted below. I attest to the content of the Intraoperative Record and any orders documented therein. Any exception s are noted below.
--- NOTE | 2016-11-01 11:35 | Anesthesia Progress Nt - [facility] ---
Anesthesia Post Op Note Date & Time Nov 01, 2016 at 11:35 Vital Signs Pain Intensity: 0 Vital Signs Past 12 Hours Date Time Temp Pulse Resp B/P (MAP) Pulse Ox O2 Delivery O2 Flow Rate FiO2 11/01/16 11:24 36.2 50 16 116/55 (75) 97 Room Air 11/01/16 09:50 36.9 58 20 144/72 (96) 94 Room Air Notes Mental Status: alert / awake / arousable, participated in evaluation Pt Amnestic to Procedure: Yes Nausea / Vomiting: adequately controlled Pain: adequately controlled Airway Patency, RR, SpO2: stable & adequate BP & HR: stable & adequate Hydration State: stable & adequate Anesthetic Complications: no major complications apparent
[2016-11-01 11:38] VITALS: BP 143/60; PULSE 57; O2SAT 97
== END | disposition home or self-care (01) ==
LOC: X.SURG 09:20
PROVIDERS: ATTEND Ophthalmology
DX: H26.9 Unspecified cataract (principal); I10 Essential (primary) hypertension; Z98.41 Cataract extraction status, right eye; Z96.659 Presence of unspecified artificial knee joint

== ENCOUNTER 2017-03-14 19:19 | Inpatient (IN) | payer OTHER ==
[~2017-03-14] VITALS: Ht 170.2 cm; Wt 69.2 kg
[~2017-03-14 19:19] MED LIST changes: -500ML BSS 0.3ML EPI 1:1000PF IRRIG ONE; -ACETAMINOPHEN 325 MG TAB PO PRN; -AMVISC PLUS 0.8ML SYRINGE INT OCU ONE; -ATROPINE SULFATE 0.1 MG/ML 5ML SYR IV PRN; -BRIMONIDINE TART 0.2% OP SOLN PER DROP CHARGE ONE; -BSS FLUSH ONE; -CIPR250T3 PO; -ENDOCOAT 0.85ML SYRINGE INT OCU ONE; -EpHEDrine SULFATE INJ 50 MG/ML AMP IV PRN; -EpINEphrine INJ 1MG/ML AMP 1 MG/ML AMP ONE; -FENTANYL CITRATE INJ 50 MCG/1 ML 2 ML VIAL ONE; -LACTATED RINGER'S 1000ML 500 ML IV SCH; -LIDOCAINE 4% OP SOLN DROP CHARGE ONE; -LIDOCAINE 4% OP SOLN DROP CHARGE OPL SCH; -LIDOCAINE HCL 1% MPF 2 ML VIAL ONE; -LIDOCAINE HCL 2% 2 ML VIAL (20MG/ML) ONE; -MIDAZOLAM HCL 1 MG/ML 2ML VIAL ONE; -MOXIFLOXACIN OPH SOLN PER DROP CHARGE ONE; -POVIDONE-IODINE OP SOLN 30 ML BTL ONE; -PROPARACAINE 0.5% OP SOLN PER DROP CHARGE OPL SCH; -PROPOFOL IV EMULSION 10 MG/ML 20 ML VIAL IV ONE; -TOBRAMYCIN/DEXAMETHASONE OPH OINT PER APPLN CHARGE ONE
[2017-03-14] MEDS ORDERED: SODIUM CHLORIDE 0.9% 500ML 500 ML IV STA (19:29)
--- NOTE | 2017-03-14 19:34 | EMERGENCY ROOM VISIT NOTE ---
History Report prepared by Amelia: Rosa Carvajal Under the Supervision of: Dr. Getachew Wilson M.D. 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 The patient states that she felt faint tonight and lightheaded and she lost consciousness after her vision went dark. She reports that she did not hit her head during the episode and is now just feeling woozy and lightheaded. She notes that she has some dizziness and diarrhea for the last few days. The patient denies any chest pain , shortness of breath, urinary symptoms, abdominal pain and nausea. She reports a history of hypertension and previous kidney issues. She notes that her symptoms worsen with sitting up. Source of History: patient Onset: just SERVICE SHOP FOREMAN Position: other (global) Quality: other (syncope) Associated Symptoms: + LOC, + diarrhea, No chest pain, No SOB, No nausea, No abdominal pain, No urinary symptoms Note: Pt has dark vision, dizziness, and lightheadedness. Review of Systems See HPI for pertinent positives & negatives. A total of 10 systems reviewed and were otherwise negative. Past Medical & Surgical Medical Problems: (1) ACUTE RENAL FAIL.,DEHYDRATION (2) GI bleed (3) SYNCOPE, DEHYDRATION Family History No pertinent family history stated. Social History Smoking Status: Never Smoker Marital Status: Housing Status: lives with significant other Occupation Status: retired Current/Historical Medications Scheduled Calcium/Vitamin D (Caltrate 600 Plus *), 1 TAB PO QAM Escitalopram Oxalate (Lexapro), 20 MG PO QAM Furosemide (Lasix), 40 MG PO QAM Levothyroxine Sodium (Levothyroxine Sodium), 1 TAB PO QAM Lisinopril (Prinivil), 10 MG PO BID Multivitamin (Multivitamin), 1 TAB PO QAM Nutritional Supplements (Osteo Advance), 1 TAB PO QAM Potassium Chloride (Micro-K Ext Rel), 10 MEQ PO QAM Simvastatin (Zocor), 20 MG PO QPM Scheduled PRN Diphenoxylate/Atropine (Lomotil), 1 TAB PO DAILY PRN for PRN Hydrocodone/Acetaminophen 5MG/325MG ([place] 5MG/325MG), 1 TABLET PO QID PRN for Pain Promethazine (Phenergan ), 12.5 MG PO Q6H PRN for Nausea or Vomiting Allergies Coded Allergies: Amlodipine (Verified Allergy, Severe, ., 03/14/17) CAN TAKE LOWER DOSES, HIGHER DOSES CLOSES HER THROAT Atenolol (Verified Allergy, Severe, ., 03/14/17) CAN TAKE LOW DOSE-HIGHER DOSES CLOSE HER THROAT Estrogens (Verified Allergy, Intermediate, ., 03/14/17) ALLERGIC PREMPRO BUT TAKES PREMARIN AT HOME Methyltestosterone (Verified Allergy, Intermediate, ., 03/14/17) Replaces PREMPRO ALLERGIC TO PREMPRO, BUT CAN TAKE COMPONENTS SEPARATELY (TAKES AT HOME) Progestins (Verified Allergy, Intermediate, ., 03/14/17) Replaces PREMPRO ALLERGIC TO PREMPRO, BUT CAN TAKE COMPONENTS SEPARATELY (TAKES AT HOME) Amitriptyline (Verified Allergy, Unknown, ., 03/14/17) Celecoxib (Verified Allergy, Unknown, 03/14/17) Chlorthalidone (Verified Allergy, Unknown, 11/01/16) Gabapentin (Verified Allergy, Unknown, HIVES, 03/14/17) Hydrochlorothiazide (Verified Allergy, Unknown, 03/14/17) Metoprolol (Verified Allergy, Unknown, 03/14/17) Sulfa Antibiotics (Verified Allergy, Unknown, ., 03/14/17) Prednisone (Verified Adverse Reaction, Unknown, HEADACHE,FLUSHING, 03/14/17 ) Physical Exam Vital Signs Date Time Temp Pulse Resp B/P (MAP) Pulse Ox O2 Delivery O2 Flow Rate FiO2 03/14/17 20:32 67 19 187/69 97 Room Air 03/14/17 19:34 62 03/14/17 19:19 36.3 63 16 165/50 98 Room Air Physical Exam GENERAL: Patient is weak and tired appearing. She is symptomatic with sitting up. HEENT: No acute trauma, normocephalic atraumatic, mucous membranes dry, no nasal congestion, no scleral icterus. NECK: No stridor, no adenopathy, no meningismus, trachea is midline. LUNGS: No dyspnea. Clear to auscultation and equal bilaterally. No wheeze, no rhonchi. HEART: Regular rate and rhythm. No murmurs, rubs, gallops appreciated. ABDOMEN: Soft, nontender, bowel sounds positive, no masses appreciated, no peritonitis. BACK: No midline tenderness, no CVA tenderness EXTREMITIES: Normal motion all extremities, no cyanosis, no edema. NEUROLOGIC: Alert and oriented, no acute motor or sensory deficits, no focal weakness, cranial nerves grossly intact. SKIN: No rash, no jaundice, no diaphoresis. Medical Decision & Procedures ER Provider Diagnostic Interpretation: Radiology results and stated below per my review and radiologist interpretation: HEAD WITHOUT CONTRAST (CT) Findings: The paranasal sinuses and mastoid air cells are clear. Findings of considerable chronic small vessel change or perhaps slightly progressive compared to the prior exam. There is no evidence however for an acute intracranial abnormality. Mastoid air cells are clear. There is no deviation of the midline structures. Impression: 1. No acute intracranial abnormality. 2. Chronic small vessel change subtle progressive from the prior study The above report was generated using voice recognition software. It may contain grammatical, syntax or spelling errors. Electronically signed by: Sotero Hogan M.D. 03/14/2017 8:13 PM Dictated Date/Time: 03/14/2017 8:11 PM CHEST ONE VIEW PORTABLE FINDINGS: Mild emphysematous change. Minimal platelike atelectasis both lung bases. No focal infiltrate. IMPRESSION: No acute process The above report was generated using voice recognition software. It may contain grammatical, syntax or spelling errors. Electronically signed by: Sotero Hogan M.D. 03/14/2017 7:41 PM Dictated Date/Time: 03/14/2017 7:40 PM Laboratory Results 03/14/17 19:10 Red Blood Count 3.54, Mean Corpuscular Volume 95.5, Mean Corpuscular Hemoglobin 31.9, Mean Corpuscular Hemoglobin Concent 33.4, Mean Platelet Volume 9.5, Neutrophils (%) (Auto) 46.8, Lymphocytes (%) (Auto) 41.9, Monocytes (%) (Auto) 8.1, Eosinophils (%) (Auto) 2.8, Basophils (%) (Auto) 0.4, Neutrophils # (Auto) 2.66, Lymphocytes # (Auto) 2.38, Monocytes # (Auto) 0.46, Eosinophils # (Auto) 0.16, Basophils # (Auto) 0.02 03/14/17 19:10 Test 03/14/17 19:10 White Blood Count 5.68 K/uL (4.8-10.8) Red Blood Count 3.54 M/uL (4.2-5.4) Hemoglobin 11.3 g/dL (12.0-16.0) Hematocrit 33.8 % (37-47) Mean Corpuscular Volume 95.5 fL (80-100) Mean Corpuscular Hemoglobin 31.9 pg (25-34) Mean Corpuscular Hemoglobin Concent 33.4 g/dl (32-36) Platelet Count 247 K/uL (130-400) Mean Platelet Volume 9.5 fL (7.4-10.4) Neutrophils (%) (Auto) 46.8 % Lymphocytes (%) (Auto) 41.9 % Monocytes (%) (Auto) 8.1 % Eosinophils (%) (Auto) 2.8 % Basophils (%) (Auto) 0.4 % Neutrophils # (Auto) 2.66 K/uL (1.4-6.5) Lymphocytes # (Auto) 2.38 K/uL (1.2-3.4) Monocytes # (Auto) 0.46 K/uL (0.11-0.59) Eosinophils # (Auto) 0.16 K/uL (0-0.5) Basophils # (Auto) 0.02 K/uL (0-0.2) RDW Standard Deviation 46.4 fL (36.4-46.3) RDW Coefficient of Variation 13.2 % (11.5-14.5) Immature Granulocyte % (Auto) 0.0 % Immature Granulocyte # (Auto) 0.00 K/uL (0.00-0.02) Prothrombin Time 10.7 SECONDS (9.0-12.0) Prothromb Time International Ratio 1.0 (0.9-1.1) Activated Partial Thromboplast Time 23.8 SECONDS (21.0-31.0) Partial Thromboplastin Ratio 0.9 Anion Gap 9.0 mmol/L (3-11) Estimated GFR () 25.8 Estimated GFR (Non- 22.3 BUN/Creatinine Ratio 22.9 (10-20) Calcium Level 9.3 mg/dl (8.5-10.1) Phosphorus Level 4.3 mg/dl (2.5-4.9) Magnesium Level 2.6 mg/dl (1.8-2.4) Total Bilirubin 0.4 mg/dl (0.2-1) Direct Bilirubin < 0.1 mg/dl (0-0.2) Aspartate Amino Transf (AST/SGOT) 17 U/L (15-37) Alanine Aminotransferase (ALT/SGPT) 18 U/L (12-78) Alkaline Phosphatase 78 U/L (45-117) Total Creatine Kinase 45 U/L (26-192) Creatine Kinase MB 0.6 ng/ml (0.5-3.6) Creatine Kinase MB Ratio 1.3 (0-3.0) Troponin I < 0.015 ng/ml (0-0.045) Total Protein 8.0 gm/dl (6.4-8.2) Albumin 3.9 gm/dl (3.4-5.0) Lipase 2677 U/L (73-393) Laboratory results as reviewed by me. Medications Administered Medications (Trade) Dose Ordered Sig/Jace Route Start Time Stop Time Status Last Admin Dose Admin Sodium Chloride 500 ml @ 999 mls/hr Q31M STAT IV 03/14/17 19:29 03/14/17 19:59 DC 03/14/17 19:29 999 MLS/HR ECG Indication: syncope Rate (beats per minute): 73 Rhythm: sinus rhythm Findings: PVC (multiple), other (no STEMI, prolonged QTC, poor baseline) ED Course 1919: The patient was evaluated in room B8. A complete history and physical exam was performed. 1928: Sodium Chloride 500 ml @ 999 mls/hr IV. 2037: Discussed the patient's case with Dr. Chun. He will come in to see the patient. The patient will be evaluated for further treatment and disposition. 2055: Upon reevaluation, the patient is doing well. Discussed results and treatment plan with the patient. She verbalized understanding and agreement with the treatment plan. The patient will be evaluated for further management. Medical Decision Differential: Vaso-vagal, Intracerebral Event, Neurologic, Infectious, Volume Deficiency, Hypoglycemia, Electrolyte Abnormality, Cardiac Source, Toxicologic, amongst other pathologies entertained. 82 yr old female with worsening dementia and diarrhea over last few weeks who has not been eating well and this evening she had a syncopal event. With sitting up she becomes woozy and lightheaded thus laid back down and given IV NSS bolus. Labs with minimal worsening of Cr. Vitals stable. CT head looks good. She does have unexplained elevation of Lipase but she is without any abdominal pain, nausea, back pain. She is stable, breathing comfortably but with syncope and unusual lipase elevation I consulted her primary physician who will bring her in to hospital for further work-up and evaluation. Medication Reconcilliation Current Medication List: was personally reviewed by me Blood Pressure Screening Patient's blood pressure: Elevated blood pressure Blood pressure disposition: Referred to PCP Consults Time Called: 2031 Consulting Physician: Dr. Chun Returned Call: 2037 Discussed the patient's case with Dr. Chun. The patient will be evaluated for further treatment and disposition. Impression Primary Impression: Dehydration Additional Impressions: Syncope Elevated lipase Scribe Attestation The scribe's documentation has been prepared under my direction and personally reviewed by me in its entirety. I confirm that the note above accurately reflects all work, treatment, procedures, and medical decision making performed by me. Departure Information Dispostion Being Evaluated By Hospitalist Referrals Daniel Albert M.D. (PCP) Problem Qualifiers
--- NOTE | 2017-03-14 19:42 | DIAGNOSTIC IMAGING REPORT ---
CHEST ONE VIEW PORTABLE CLINICAL HISTORY: Generalized Weakness pain COMPARISON STUDY: 08/23/2016 FINDINGS: Mild emphysematous change. Minimal platelike atelectasis both lung bases. No focal infiltrate. IMPRESSION: No acute process The above report was generated using voice recognition software. It may contain grammatical, syntax or spelling errors. Electronically signed by: Sotreo Hogan M.D. 03/14/2017 7:41 PM Dictated Date/Time: 03/14/2017 7:40 PM
[2017-03-14 19:47] LABS: BASO % 0.4 %; BASO ABS # 0.02 K/uL (0-0.2); COMPLETE YES; EOS % 2.8 %; HEMATOCRIT 33.8 % (37-47); LYMPH % 41.9 %; LYMPH ABS # 2.38 K/uL (1.2-3.4); MEAN CELL VOLUME 95.5 fL (80-100); MEAN CORPUSCULAR HEMOGLOBIN 31.9 pg (25-34); MEAN CORPUSCULAR HGB CONC 33.4 g/dl (32-36); MEAN PLATELET VOLUME 9.5 fL (7.4-10.4); MONO % 8.1 %; NEUT % 46.8 %; PLATELET COUNT 247 K/uL (130-400); RED BLOOD COUNT 3.54 M/uL (4.2-5.4); WHITE BLOOD COUNT 5.68 K/uL (4.8-10.8)
[2017-03-14 20:04] LABS: PARTIAL THROMBOPLASTIN RATIO 0.9; PROTHROMBIN TIME (PATIENT) 10.7 SECONDS (9.0-12.0)
[2017-03-14 20:09] LABS: ALT/SGPT 18 U/L (12-78); BLOOD UREA NITROGEN 47 mg/dl (7-18); BUN/CREATININE RATIO 22.9 (10-20); CALCIUM 9.3 mg/dl (8.5-10.1); CARBON DIOXIDE 24 mmol/L (21-32); CHLORIDE 104 mmol/L (98-107); CREATININE 2.03 mg/dl (0.60-1.20); GLUCOSE 113 mg/dl (70-99); MAGNESIUM 2.6 mg/dl (1.8-2.4); POTASSIUM 4.1 mmol/L (3.5-5.1); SODIUM 137 mmol/L (136-145)
--- NOTE | 2017-03-14 20:15 | DIAGNOSTIC IMAGING REPORT ---
HEAD WITHOUT CONTRAST (CT) CT DOSE: 537.48 mGy.cm HISTORY: Mental status change Generalized Weakness TECHNIQUE: Multiaxial CT images of the head were performed without the use of intravenous contrast. A dose lowering technique was utilized adhering to the principles of ALARA. Comparison: 07/16/2011 Findings: The paranasal sinuses and mastoid air cells are clear. Findings of considerable chronic small vessel change or perhaps slightly progressive compared to the prior exam. There is no evidence however for an acute intracranial abnormality. Mastoid air cells are clear. There is no deviation of the midline structures. Impression: 1. No acute intracranial abnormality. 2. Chronic small vessel change subtle progressive from the prior study The above report was generated using voice recognition software. It may contain grammatical, syntax or spelling errors. Electronically signed by: Sotero Hogan M.D. 03/14/2017 8:13 PM Dictated Date/Time: 03/14/2017 8:11 PM
[2017-03-14 20:16] LABS: ALKALINE PHOSPHATASE 78 U/L (45-117); AST/SGOT 17 U/L (15-37); CKMB/CK RATIO 1.3 (0-3.0); PHOSPHORUS 4.3 mg/dl (2.5-4.9)
--- NOTE | 2017-03-14 22:13 | History and Physical ---
History & Physical Date of Service Mar 14, 2017. History & Physical ADMISSION DATE: 03/14/2017 CHIEF COMPLAINT: 82-year-old female admitted through the emergency room after she had a syncopal episode. PRESENT ILLNESS: patient with multiple medical problems including arterial hypertension, chronic kidney disease, hypothyroidism, depression, cognitive impairment with memory deficit, degenerative disc disease of the lumbar spine, and debilitation and functional decline. Patient was at home. She felt lightheaded. Who is having problem with her balance. Everything went black. She had a syncopal episode. Witnessed by her family. She did not strike her head. There was no incontinence. No seizure activity. She just felt weak and lightheaded and passed out. She denied any associated headache. No chest pain no palpitations. No shortness of breath. No nausea or vomiting. She has had recurrent diarrhea recently. Her appetite has declined. Her intake has been poor. Patient was brought to the emergency room by ambulance. She was evaluated by Dr. Dietrich. Multiple tests were done. She was back to her usual mental status. She was given IV fluid. I saw the patient in the emergency room. Arrangements were made for admission to PCU with telemetry. PAST MEDICAL HISTORY: * her last hospitalization was in July of 2016 with acute renal failure and dehydration. * Hospitalization in November of 2015 with severe anemia. Her hemoglobin was down to 6.4. She had evidence of GI bleed. She had peptic ulcer disease with gastric erosions. She did require transfusions. Her hemoglobin corrected with iron supplementation * Spinal stenosis. Lumbar spine. Had surgery in 2009. * left total knee arthroplasty in 2000 * Right total knee arthroplasty in 2002 * Partial thyroidectomy in 1976 for benign nodule. She has been hypothyroid. * Benign lesion removed from her left breast in the remote past * Arterial hypertension. Long-standing. * Chronic kidney disease. Her renal function has been deteriorating. She does see Dr. Okeefe in nephrology. * Cognitive impairment with rapidly declining mental function and memory deficit. She has had a neurology evaluation in the past. At one time she was on Aricept. * Bilateral cataract surgery. Right eye on 10/18/2016, left eye on 11/01/2016 SOCIAL HISTORY: she is . Has 2 adopted children. No history of any smoking or alcohol or drugs. 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 FAMILY HISTORY: her mother at age 80 of heart disease. Her father age 79 not sure of the immediate cause of his . He was also hypertensive. Siblings are well. ALLERGIES: she has a long list of allergic reactions to multiple medications including amitriptyline, amlodipine, atenolol, Celebrex, chlorthalidone, gabapentin, hydrochlorothiazide, metoprolol, prednisone. Also to sulfa. The only true allergy is to sulfa. Amlodipine caused swelling in her feet and ankles. She had been on atenolol. It is really questionable whether she had any true allergy to any of the other medications listed. CURRENT MEDICATIONS: as noted on her home medication list REVIEW OF SYSTEMS: she is resting comfortably. She denied any headache. No dizziness no lightheadedness. No earache sore throat. No neck pain.Denies any chest pain. No shortness of breath. No abdominal pain. She does complain of nausea at times. No vomiting. She has had intermittent diarrhea. EXAMINATION: GENERAL : Well developed. Well nourished. No acute distress.weight 70.7 kg, height 170.2 cm, BMI 24.4. VITAL SIGNS : Blood Pressure : 165/50, pulse 63, respirations 16, temperature 36.3, oxygen saturation 98% on room air SKIN : Warm and dry. No rash.Multiple bruises HEENT : She is post cataract surgery. She usually with glasses. Has dentures. No mucosal adenoma appendectomy noted. NECK : Supple. No adenopathy. No thyromegaly. No JVD. Normal carotid pulses. No carotid bruit.Scar from prior thyroid surgery CHEST : Normal HEART: Regular heart tones with 2/6 systolic murmur. No rub no gallop. LUNGS: Clear. Normal breath sounds. ABDOMEN: Soft nontender. No organomegaly or masses. Good bowel sounds. BACK: No spine or CVA tenderness.Surgical scar EXTREMITIES : No edema clubbing or cyanosis. No joint or muscle tenderness. Good peripheral pulses. Scars of her knees from prior surgeries NEUROLOGICAL EXAMINATION: She does have known cognitive impairment with memory deficit. At this time she is awake and alert and communicative. Answering appropriately. No evidence of any lateralized deficit. LABORATORY TEST; WBC count 5680, hemoglobin 11.3, hematocrit 33.8, platelet count 247,000. Sodium 137, potassium 4.1, chloride 104, CO2 24, BUN 47, creatinine 2.03, glucose 113, calcium 9.3, phosphorus 4.3, magnesium 2.6, total bilirubin 0.4, AST 17, ALT 18, alkaline phosphatase 78, total CK 45, MB fraction 0.6, troponin I less than 0.015, total protein 8.0, albumin 3.9, lipase 2677. Prothrombin time 10.7, INR 1.0, PTT 23.8. Chest x-ray showed no acute changes. CT scan showed no significant abnormalities of the head. Monitor is showing sinus rhythm. ASSESSMENT: * syncope * Dehydration * Acute superimposed on chronic renal failure * Elevated lipase. She is completely asymptomatic. We need to confirm. * Arterial hypertension * Hypothyroidism * Cognitive impairment * Degenerative disc disease and spinal stenosis lumbar spine had prior surgery PLAN: patient was admitted to PCU with telemetry. Resuscitation status one. All her laboratory tests were ordered. Will monitor for any arrhythmias. Repeat her electrocardiogram. Repeat her lipase. Decide on any need for abdominal imaging study. Physical and occupational therapies had been ordered. Her functional status has been declining significantly. Her memory deficit has been worsening. She will be hydrated. We'll monitor her renal function. Increase her activity as tolerated. Depending on how she does will decide if she needs to go to rehabilitation before being discharged home. I spoke with the patient, her and her daughter who were with her in the emergency room.
[2017-03-14 22:27] LABS: URINE APPEARANCE CLEAR (CLEAR); URINE BILIRUBIN NEG (NEG); URINE COLOR YELLOW; URINE EPITHELIAL CELL AUTO 0-5 /lpf (0-5); URINE NITRITE POS (NEG); URINE SPECIFIC GRAVITY 1.018 (1.000-1.030); UROBILINOGEN NEG (NEG); ZZUR CULT IF INDIC CLEAN CATCH YES
[2017-03-14 22:31] LABS: MANUAL MICROSCOPIC REQUIRED? NO; REVIEW REQ? NO
[2017-03-14 22:39] VITALS: BP 153/97; PULSE 74; TEMP 36.3; O2SAT 94
[2017-03-14] MEDS: SODIUM CHLORIDE 0.9% 1000ML 1,000 ML IV SCH (23:11)
[2017-03-14] MEDS: HEPARIN SOD 5000 UNIT/0.5 ML CARP SQ SCH (23:52)
[2017-03-14] MEDS: SIMVASTATIN 20 MG TAB PO SCH (23:53)
[2017-03-15] VITALS (8 sets, daily range): BP systolic 153–175; BP diastolic 70–97; PULSE 58–79; TEMP 36.3–36.8; O2SAT 94–98; Ht 170.2 cm; Wt 69.2 kg
[2017-03-15] MEDS: LEVOTHYROXINE 75 MCG TAB PO SCH (06:21)
[2017-03-15 06:22] LABS: BASO % 0.5 %; BASO ABS # 0.02 K/uL (0-0.2); COMPLETE YES; EOS % 3.2 %; HEMATOCRIT 32.4 % (37-47); LYMPH % 34.8 %; LYMPH ABS # 1.43 K/uL (1.2-3.4); MEAN CELL VOLUME 95.6 fL (80-100); MEAN CORPUSCULAR HEMOGLOBIN 31.6 pg (25-34); MEAN PLATELET VOLUME 9.4 fL (7.4-10.4); NEUT % 52.5 %; PLATELET COUNT 206 K/uL (130-400); RED BLOOD COUNT 3.39 M/uL (4.2-5.4); WHITE BLOOD COUNT 4.11 K/uL (4.8-10.8)
[2017-03-15 06:50] LABS: CALCIUM 8.9 mg/dl (8.5-10.1); CREATININE 1.56 mg/dl (0.60-1.20); POTASSIUM 4.1 mmol/L (3.5-5.1)
[2017-03-15 06:51] LABS: PHOSPHORUS 3.5 mg/dl (2.5-4.9)
[2017-03-15] MEDS: MULTIVITAMIN TAB PO SCH (07:57)
[2017-03-15] MEDS: HEPARIN SOD 5000 UNIT/0.5 ML CARP SQ SCH ×2 (07:57→20:33)
[2017-03-15] MEDS: SODIUM CHLORIDE 0.9% 1000ML 1,000 ML IV SCH ×2 (07:58→19:27)
[2017-03-15] MEDS: ACETAMINOPHEN 325 MG TAB PO PRN ×3 (09:02→23:54)
[2017-03-15] MEDS: ESCITALOPRAM OXALATE 20 MG TAB PO SCH (09:03)
[2017-03-15] MEDS: LISINOPRIL 10 MG TAB PO SCH ×2 (09:03→20:32)
--- NOTE | 2017-03-15 09:15 | Clinical Documentation Query ---
CLINICAL DOCUMENTATION QUERY An 82 yo female patient with multiple medical problems including arterial hypertension, chronic kidney disease, hypothyroidism, depression, cognitive impairment with memory deficit, degenerative disc disease of the lumbar spine, and debilitation and functional decline. In your clinical opinion is this patient being managed for: ( ) Chronic kidney disease, stage 4 (x ) Not Agree ( ) Other explanation of clinical findings (Please Explain) ( ) Unable to determine (Please Define) ( ) Need to Discuss The medical record reflects the following clinical findings, treatment, and risk factors. Clinical Indicators: GFR range 16.0 to 29.9, creatinine 2.03 Treatment: I&O, serial PRPs Risk Factors: Age, HTN, dehydration Please clarify and document your clinical opinion in the progress notes and discharge summary. Terms such as "probable", "suspected", "likely", "questionable", "possible", or "still to be ruled out" are acceptable. IF IN AGREEMENT, YOU MUST DOCUMENT ABOVE DIAGNOSTIC STATEMENT IN DAILY PROGRESS NOTES AND DISCHARGE SUMMARY. This document is not part of the patient's record. Thank You, Allyssa Bill RN [phone]
[2017-03-15] MEDS ORDERED: CIPROFLOXACIN 250 MG TAB PO ONE (12:00)
--- NOTE | 2017-03-15 14:33 | DIAGNOSTIC IMAGING REPORT ---
ABDOMEN LIMITED (US) HISTORY: Abnormal pancreatic enzymes elevated amylase, lipase. COMPARISON: None. FINDINGS: Pancreas: The pancreas demonstrates a normal echotexture. Liver: Unremarkable. Gallbladder: No gallbladder wall thickening. No gallstones. CBD: 5 mm Right kidney: No hydronephrosis. IMPRESSION: Normal study The above report was generated using voice recognition software. It may contain grammatical, syntax or spelling errors. Electronically signed by: Sotero Hogan M.D. 03/15/2017 2:31 PM Dictated Date/Time: 03/15/2017 2:30 PM
--- NOTE | 2017-03-15 18:06 | Progress Note ---
Progress Note Date of Service Mar 15, 2017. Progress Note 82-year-old female admitted with multiple problems including syncopal episode, severe dehydration, acute kidney failure superimposed on chronic kidney disease, arterial hypertension, hypothyroidism, elevated lipase, degenerative disc disease of the lumbar spine. General debilitation and weakness. Patient was admitted. On her laboratory tests were ordered. She was started on IV fluid. Imitated upper abdominal ultrasound was ordered because of the elevation of her lipase. Overall her condition has improved. She sitting in her chair. Denied any headache no dizziness no lightheadedness. No chest pain. No shortness of breath. She is tolerating her diet. No nausea no vomiting. She did have a bowel movement. She has no problem urinating. EXAMINATION : GENERAL: Well-developed. No acute distress. VITAL SIGNS: Blood pressure 173/72, pulse 68, respiration 18, temperature 36.5, oxygen saturation 97% on room air. SKIN: Warm and dry. No rash. Areas of bruising. HEENT: Wears glasses. No mucosal abnormality NECK: Supple. Nontender. No JVD no adenopathy. HEART: Regular heart sounds LUNGS: Clear. ABDOMEN: Soft nontender without organomegaly or masses BACK: Chronic lower back pain EXTREMITIES: No edema clubbing or cyanosis LABORATORY TESTS : WBC count 4110, hemoglobin 10.7, hematocrit 32.4, platelet count 20 6000. Sodium 140, potassium 4.1, chloride 109, CO2 23, BUNs 39, creatinine 1.56, glucose 91, calcium 8.9, phosphorus 3.5, albumin 3.4, amylase 176, lipase 613. Upper abdominal ultrasound was completely negative. ASSESSMENT : * Syncope. No documented arrhythmias. 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 She is quite awake and communicative. No evidence of any deficits. No evidence of any arrhythmias. Her renal function has improved. Just with hydration. * Her lipase has improved. Would continue monitoring. There is no obvious etiology for the elevation at this point. * Physical and occupational therapies have been ordered. * Continue all her medications. * Continue IV fluid tonight. * Repeating her laboratory tests in the morning
[2017-03-15] MEDS: CIPROFLOXACIN 250 MG TAB PO SCH (20:31)
[2017-03-15] MEDS: SIMVASTATIN 20 MG TAB PO SCH (20:32)
[2017-03-16] VITALS (10 sets, daily range): BP systolic 142–195; BP diastolic 61–83; PULSE 60–100; TEMP 36.3–36.9; O2SAT 93–97
[2017-03-16] MEDS: SODIUM CHLORIDE 0.9% 1000ML 1,000 ML IV SCH ×2 (04:49→13:50)
[2017-03-16] MEDS: LEVOTHYROXINE 75 MCG TAB PO SCH (05:35)
[2017-03-16] MEDS: ACETAMINOPHEN 325 MG TAB PO PRN ×3 (05:35→21:06)
[2017-03-16 06:12] LABS: BASO ABS # 0.04 K/uL (0-0.2); COMPLETE YES; EOS % 3.6 %; HEMATOCRIT 30.1 % (37-47); IG% 0.3 %; LYMPH % 37.4 %; LYMPH ABS # 1.46 K/uL (1.2-3.4); MEAN CELL VOLUME 95.6 fL (80-100); MEAN CORPUSCULAR HEMOGLOBIN 32.1 pg (25-34); MEAN CORPUSCULAR HGB CONC 33.6 g/dl (32-36); MEAN PLATELET VOLUME 9.3 fL (7.4-10.4); MONO % 10.3 %; NEUT % 47.4 %; PLATELET COUNT 192 K/uL (130-400); RED BLOOD COUNT 3.15 M/uL (4.2-5.4)
[2017-03-16 06:48] LABS: BUN/CREATININE RATIO 18.4 (10-20); CALCIUM 8.2 mg/dl (8.5-10.1); CREATININE 1.47 mg/dl (0.60-1.20)
[2017-03-16 06:54] LABS: PHOSPHORUS 2.4 mg/dl (2.5-4.9)
[2017-03-16] MEDS: HEPARIN SOD 5000 UNIT/0.5 ML CARP SQ SCH ×2 (07:56→21:04)
[2017-03-16] MEDS: LISINOPRIL 10 MG TAB PO SCH ×2 (07:57→21:02)
[2017-03-16] MEDS: MULTIVITAMIN TAB PO SCH (07:57)
[2017-03-16] MEDS: ESCITALOPRAM OXALATE 20 MG TAB PO SCH (07:57)
[2017-03-16] MEDS: CIPROFLOXACIN 250 MG TAB PO SCH ×2 (07:57→21:03)
[2017-03-16] MEDS ORDERED: HydrALAZINE HCL 20 MG/ML VIAL IV. PRN (12:00)
[2017-03-16] MEDS ORDERED: HydrALAZINE HCL 20 MG/ML VIAL ONE (12:28)
[2017-03-16] MEDS ORDERED: LORAZEPAM 0.5 MG TAB SL STA (13:31)
[2017-03-16] MEDS ORDERED: LORAZEPAM 0.5 MG TAB ONE (13:43)
--- NOTE | 2017-03-16 20:49 | Progress Note ---
Progress Note Date of Service Mar 16, 2017. Progress Note 82-year-old female admitted through the emergency room with: * syncope * Dehydration * Acute renal failure superimposed on chronic kidney disease * Arterial hypertension * General debilitation * Hypothyroidism * Degenerative disc disease lumbar spine * Urinary tract infection * Elevated lipase Patient was admitted. She was started on IV fluid. laboratory tests were ordered. Renal function monitored. Abdominal ultrasound was done because of the elevated lipase level. It was unremarkable. Her lipase level is coming down toward normal range. Her blood pressure has been elevated. Today she was given one dose of IV hydralazine. Her blood pressure improved. She had a reaction with diaphoresis. She was feeling anxious. She was given one dose of sublingual lorazepam. Her symptoms subsided. Hydralazine was discontinued. Physical and occupation therapy ordered. EXAMINATION: GENERAL : Well developed. Well nourished. No acute distress. VITAL SIGNS : Blood Pressure : 142/61, pulse 100, respiration 18, temperature 36.5, oxygen saturation 96% on room air SKIN : Warm and dry. No rash. HEENT :She was contacted. No mucosal abnormalities. NECK : Supple. No adenopathy. No thyromegaly. No JVD. Normal carotid pulses. No carotid bruit. HEART: Regular heart tones with 2/6 systolic murmur. No rub no gallop. LUNGS: Clear. Normal breath sounds. BACK: No spine or CVA tenderness. EXTREMITIES : No edema clubbing or cyanosis. No joint or muscle tenderness. LABORATORY TESTS: WBC count 3900, hemoglobin 10.1, hematocrit 30.1, platelet count 192,000. Sodium 142, potassium 4.0,chloride 112, CO2 22, BUN 27, creatinine 1.47, glucose 91, calcium 8.2, phosphorus 2.4, albumin 3.3, amylase 116, lipase 468. ASSESSMENT: * syncope * Dehydration * Acute superimposed on chronic renal failure * Arterial hypertension * Degenerative medication * Elevated amylase and lipase. Improving. No evidence of any biliary or pancreatic disease. PLAN: * continue the same medication * Clonidine was added to her antihypertensive regimen. She has had a reaction to other medications in the past including beta blockers and amlodipine. * Physical and occupational therapies * Anticipating that she will go back home after her acute hospitalization
[2017-03-16] MEDS: SIMVASTATIN 20 MG TAB PO SCH (21:03)
[2017-03-16] MEDS: CLONIDINE HCL 0.1 MG TAB PO SCH (21:03)
[2017-03-17 00:14] VITALS: BP 151/75; PULSE 71; TEMP 36.7; O2SAT 96
[2017-03-17] MEDS: SODIUM CHLORIDE 0.9% 1000ML 1,000 ML IV SCH ×2 (00:14→07:39)
[2017-03-17 04:28] VITALS: BP_SYST 162; BP_SYST 177; BP_DIAS 77; BP_DIAS 83; PULSE 74; TEMP 37.2; O2SAT 97
[2017-03-17] MEDS: LEVOTHYROXINE 75 MCG TAB PO SCH (06:20)
[2017-03-17 06:42] LABS: BASO % 0.4 %; BASO ABS # 0.02 K/uL (0-0.2); COMPLETE YES; EOS % 2.3 %; HEMATOCRIT 28.4 % (37-47); LYMPH % 28.5 %; LYMPH ABS # 1.35 K/uL (1.2-3.4); MEAN CELL VOLUME 96.3 fL (80-100); MEAN CORPUSCULAR HEMOGLOBIN 31.5 pg (25-34); MEAN CORPUSCULAR HGB CONC 32.7 g/dl (32-36); MEAN PLATELET VOLUME 9.3 fL (7.4-10.4); MONO % 8.4 %; NEUT % 60.4 %; PLATELET COUNT 179 K/uL (130-400); RED BLOOD COUNT 2.95 M/uL (4.2-5.4); WHITE BLOOD COUNT 4.74 K/uL (4.8-10.8)
[2017-03-17 07:14] LABS: BUN/CREATININE RATIO 14.2 (10-20); CALCIUM 7.7 mg/dl (8.5-10.1); CREATININE 1.32 mg/dl (0.60-1.20); PHOSPHORUS 2.3 mg/dl (2.5-4.9); POTASSIUM 3.9 mmol/L (3.5-5.1)
[2017-03-17 07:26] VITALS: BP 183/77; PULSE 70; TEMP 36.6; O2SAT 95
[2017-03-17] MEDS: CLONIDINE HCL 0.1 MG TAB PO SCH (07:36)
[2017-03-17] MEDS: MULTIVITAMIN TAB PO SCH (07:36)
[2017-03-17] MEDS: ESCITALOPRAM OXALATE 20 MG TAB PO SCH (07:37)
[2017-03-17] MEDS: LISINOPRIL 10 MG TAB PO SCH (07:37)
[2017-03-17] MEDS: CIPROFLOXACIN 250 MG TAB PO SCH (07:37)
[2017-03-17] MEDS: HEPARIN SOD 5000 UNIT/0.5 ML CARP SQ SCH (07:38)
[2017-03-17] MEDS: ACETAMINOPHEN 325 MG TAB PO PRN ×2 (08:02→15:49)
[2017-03-17 11:22] VITALS: BP 121/80; PULSE 56; TEMP 36.4; O2SAT 97
[2017-03-17 14:26] VITALS: BP 125/68; PULSE 62; TEMP 36.5; O2SAT 96
[2017-03-17] MEDS ORDERED: CIPR250T3 PO (17:35)
--- NOTE | 2017-03-17 17:37 | Discharge Instructions ---
Discharge Instructions Date of Service Mar 17, 2017. Admission Reason for Admission: Syncope, Dehydration Arterial hypertension Hypothyroidism Cognitive impairment Degenerative disc disease Osteoarthritis Discharge Discharge Diagnosis / Problem: syncope. Dehydration. Arterial hypertension. Discharge Goals Goal(s): Decrease discomfort, Improve function, Increase independence, Improve disease control, Improve nutritional status Activity Recommendations Activity Limitations: resume your previous activity . Instructions / Follow-Up Instructions / Follow-Up Dr. KIM in 1 week Current Hospital Diet Patient's current hospital diet: Regular Diet Discharge Diet Recommended Diet: Regular Diet Pending Studies Studies pending at discharge: no Medical Emergencies . Who to Call and When: Medical Emergencies: If at any time you feel your situation is an emergency, please call 911 immediately. . Non-Emergent Contact Non-Emergency issues call your: Primary Care Provider . . "Provider Documentation" section prepared by Daniel Vincent. . VTE Core Measure Inpt VTE Proph given/why not?: Treatment not indicated
--- NOTE | 2017-03-17 17:53 | Progress Note ---
Progress Note Date of Service Mar 17, 2017. Progress Note 82-year-old female admitted with syncopal episode. She was dehydrated. Her medical problems also include arterial hypertension osteoarthritis hypothyroidism degenerative disc disease of the lumbar spine. She was admitted. She was placed on the monitor. She did not the manifest any significant abnormalities. Today she presented with a short run of atrial fibrillation. The rate was controlled. Was very short lasting. Was completely asymptomatic. Her blood pressure was elevated. But it has improved since then. She does have chronic kidney disease. Her creatinine was elevated on admission because of the dehydration but with IV fluids her creatinine level improved. Physical and occupational therapies were ordered. She did well. She was ambulating with the therapist. EXAMINATION : GENERAL: Well-developed in no distress VITAL SIGNS: Blood pressure 121/80, pulse 56, respiration 18, temperature 36.4, oxygen saturation 97% on room air. SKIN: Warm and dry. No rash. HEENT: No mucosal abnormalities. NECK: Supple. Nontender. No JVD. HEART: Regular heart sounds. LUNGS: Clear. ABDOMEN: Soft nontender. BACK: No spinal tenderness. EXTREMITIES: No edema clubbing or cyanosis. LABORATORY TESTS : WBC count 4740, hemoglobin 9.3, hematocrit 28.4, platelet count 179,000. Sodium 144, potassium 3.9, chloride 1:15, CO2 22, BUNs 19, creatinine 1.32, glucose 95, calcium 7.7, phosphorus 2.3, albumin 3.2, amylase 80, lipase 213. ASSESSMENT : * Syncope * Dehydration * Chronic kidney disease with acute exacerbation related to the dehydration. * Elevated amylase and lipase level. Abdominal ultrasound showed no evidence of any biliary or pancreatic pathology. * Arterial hypertension * Urinary tract infection * Hypothyroidism * Cognitive impairment * Osteoarthritis * Degenerative disc disease PLAN : * I did see the patient early this morning. She was doing well. During the day she tolerated her therapy without any problem and she was ambulating. She is completely asymptomatic at this point. * Her family is at her bedside tonight her and her daughter. * She is anxious to go home. * I did not see any reason to keep her overnight so I did discharge her tonight. * Follow up in the office in one week * We will monitor her blood pressure during her office visits. I did put her on clonidine but I would hold off on that. Will decide on adding any additional medication in the future. * She is discharged on ciprofloxacin 250 mg twice a day for 7 days for her urinary tract infection.
[2017-03-17 18:07] VITALS: BP 125/68; PULSE 62; TEMP 36.5; O2SAT 96
--- NOTE | 2017-03-27 13:50 | Discharge Summary ---
Discharge Summary Date of Service Mar 27, 2017. Discharge Summary ADMISSION DATE: 03/14/2017 DISCHARGE DATE: 03/17/2017 DISCHARGE DIAGNOSES: * syncope * Dehydration * Arterial hypertension * Cognitive impairment * Hypothyroidism * Degenerative disc disease of the lumbar spine * Osteoarthritis * Acute superimposed on chronic renal insufficiency * urinary tract infection DISCHARGE MEDICATIONS: * ciprofloxacin 250 mg twice a day for 7 days * Calcium with vitamin D 600 mg in the morning * Lomotil 2.5 mg as needed for diarrhea * Lexapro 20 mg daily * Furosemide 40 mg daily * Lisinopril 10 mg twice a day * Multivitamin one daily * Potassium chloride 10 mEq daily * Simvastatin 20 mg daily * Nutritional supplement one daily 82-year-old female admitted through the emergency room after a syncopal episode. Patient with multiple medical problems as noted above. She is at home. With her . Her daughter is also staying with them. She has been having problem with her balance and equilibrium. She felt lightheaded. She fell backward. She had a syncopal episode. Witnessed by her family. There was no head trauma. No incontinence. No seizure activity. She felt weak and lightheaded and passed out. He denied any associated headache. No chest pain or palpitation. No shortness of breath. No nausea or vomiting. She has had recent diarrhea. Her appetite has declined. Her intake has been poor. She was brought to the emergency room by ambulance. Arrangements were made for admission to PCU with telemetry. PAST MEDICAL HISTORY, SOCIAL HISTORY, FAMILY HISTORY: As noted on admission history and physical ALLERGIES: multiple medications are listed as allergies. Including amitriptyline, chlorthalidone, hydrochlorothiazide, metoprolol, prednisone, atenolol, amlodipine, gabapentin, Celebrex, sulfa medication, estrogen, progesterone. It is not really sure at this point if these are all true allergies. ADMISSION MEDICATIONS: As noted on the home medication list PHYSICAL EXAMINATION AND LABORATORY TESTS ARE NOTED ON ADMISSION HITORY AND PHYSICAL HOSPITAL COURSE: patient was admitted to PCU. Resuscitation status I. All her laboratory tests were ordered. Her lipase was elevated. It was monitored. Physical and occupational therapies were ordered. On her laboratory tests were monitored. Her BUN and creatinine improved. Amylase and lipase were elevated. But they gradually came down toward the normal range. An abdominal ultrasound showed no evidence of abnormality in the liver bile ducts or pancreas. The exact etiology of the elevation of her lipase was not clearly determined. Her condition improved. She was tolerating her diet. She had a urinary tract infection. She was started on ciprofloxacin. Urine culture did grow Escherichia coli. Her blood pressure was elevated. She does have multiple intolerances to different medications for her blood pressure. Clonidine was added. Was tolerated. Her blood pressure improved. She was quite anxious to go home. Arrangements were made. Family support at home. Followup in the office in one week.
== END 2017-03-17 18:48 | disposition home or self-care (01) | DRG 683 ==
LOC: EDBD 19:19 → C.EDB 19:20 → C.MED 20:51 → ENRESERV 21:37
PROVIDERS: ADMIT Internal Medicine; ATTEND Internal Medicine
DX: N17.9 Acute kidney failure, unspecified (principal); N39.0 Urinary tract infection, site not specified; I12.9 Hypertensive chronic kidney disease with stage 1 through stage 4 chronic kidney disease, or unspecified chronic kidney disease; Z88.2 Allergy status to sulfonamides; R55 Syncope and collapse; F03.90 Unspecified dementia, unspecified severity, without behavioral disturbance, psychotic disturbance, mood disturbance, and anxiety; E86.0 Dehydration; E03.9 Hypothyroidism, unspecified; N18.9 Chronic kidney disease, unspecified; F32.9 Major depressive disorder, single episode, unspecified; M51.36 Other intervertebral disc degeneration, lumbar region; Z96.652 Presence of left artificial knee joint; M48.061 Spinal stenosis, lumbar region without neurogenic claudication; M19.90 Unspecified osteoarthritis, unspecified site; B96.20 Unspecified Escherichia coli [E. coli] as the cause of diseases classified elsewhere

== ENCOUNTER → 2017-06-20 | Outpatient (CLI) | payer OTHER ==
[~2017-06-20] MED LIST changes: +CIPR250T3 PO; -HYDR-5688 PO; -PROM12.57 PO
[2017-06-20 14:48] LABS: BASO % 0.6 %; BASO ABS # 0.02 K/uL (0-0.2); EOS % 2.6 %; EOS ABS # 0.09 K/uL (0-0.5); HEMATOCRIT 27.8 % (37-47); HEMOGLOBIN 8.9 g/dL (12.0-16.0); LYMPH % 21.6 %; LYMPH ABS # 0.75 K/uL (1.2-3.4); MEAN CELL VOLUME 86.3 fL (80-100); MEAN CORPUSCULAR HEMOGLOBIN 27.6 pg (25-34); MEAN PLATELET VOLUME 9.8 fL (7.4-10.4); MONO % 7.8 %; MONO ABS # 0.27 K/uL (0.11-0.59); NEUT % 67.4 %; NEUT ABS # 2.35 K/uL (1.4-6.5); PLATELET COUNT 295 K/uL (130-400); RED CELL DISTRIBUTION WIDTH CV 13.9 % (11.5-14.5); RED CELL DISTRIBUTION WIDTH SD 44.1 fL (36.4-46.3); WHITE BLOOD COUNT 3.48 K/uL (4.8-10.8)
[2017-06-20 14:58] LABS: ALBUMIN 3.7 gm/dl (3.4-5.0); ALT/SGPT 20 U/L (12-78); AST/SGOT 17 U/L (15-37); BLOOD UREA NITROGEN 27 mg/dl (7-18); CALCIUM 8.9 mg/dl (8.5-10.1); CARBON DIOXIDE 28 mmol/L (21-32); CREATININE 1.77 mg/dl (0.60-1.20); GLUCOSE 82 mg/dl (70-99); POTASSIUM 3.9 mmol/L (3.5-5.1); SODIUM 136 mmol/L (136-145)
[2017-06-20 15:09] LABS: ALKALINE PHOSPHATASE 77 U/L (45-117); TOTAL PROTEIN 7.5 gm/dl (6.4-8.2)
== END | disposition home or self-care (01) ==
LOC: C.LABSPEC 14:35
PROVIDERS: ATTEND Internal Medicine
DX: I12.9 Hypertensive chronic kidney disease with stage 1 through stage 4 chronic kidney disease, or unspecified chronic kidney disease (principal); E03.9 Hypothyroidism, unspecified; N18.9 Chronic kidney disease, unspecified; M62.838 Other muscle spasm

== ENCOUNTER 2017-07-14 05:15 | Inpatient (IN) | payer OTHER ==
[~2017-07-14] VITALS: Ht 170.2 cm; Wt 68.0 kg
[2017-07-14] MEDS ORDERED: ACETAMINOPHEN 500 MG TAB PO STA (05:30)
[2017-07-14] MEDS ORDERED: TRAMADOL HCL 50 MG TAB PO STA (05:30)
[2017-07-14] MEDS ORDERED: SODIUM CHLORIDE 0.9% 500ML 500 ML IV STA (05:30)
--- NOTE | 2017-07-14 05:36 | EMERGENCY ROOM VISIT NOTE ---
History First contact with patient: 05:30 Chief Complaint: LEG PAIN,LEG INJURY Stated Complaint: PAIN IN BOTH LEGS History of Present Illness The patient is a 82 year old female who presents to the Emergency Room for evaluation of bilateral lower leg pain. Notes pain from knees down that started this evening. notes she awoke around 2 am complaining of pain. Associated with difficulty keeping legs still. No medications prior to arrival. Regularly takes Tramadol but didn't have any last 24 hours. She is on Lexapro and the dose was decreased 2 days ago. She has no fevers, vomiting, syncope, cp, sob, abdominal pain, diarrhea, urinary symptoms, rashes, swelling, nor other symptoms. She had slide off bed last week without injury nor trauma. She did not strike her head. Notes mild headache this morning. No neck pain. She denies any low back pain, urinary/bowel changes. Family denies history of previous leg complaints like this. Family makes clear that patient is much more confused than her baseline and that she has been very weak, not eating and they are concerned that she is too weak to be at home. Review of Systems See HPI for pertinent positives & negatives. A total of 10 systems reviewed and were otherwise negative. Past Medical/Surgical History Medical Problems: (1) ACUTE RENAL FAIL.,DEHYDRATION (2) GI bleed (3) SYNCOPE, DEHYDRATION Social History Smoking Status: Never Smoker Marital Status: Housing Status: lives with significant other Occupation Status: retired Current/Historical Medications Scheduled Calcium/Vitamin D (Caltrate 600 Plus *), 1 TAB PO QAM Ciprofloxacin (Cipro), 250 MG PO BID Escitalopram Oxalate (Lexapro), 20 MG PO QAM Furosemide (Lasix), 40 MG PO QAM Levothyroxine Sodium (Levothyroxine Sodium), 1 TAB PO QAM Lisinopril (Prinivil), 10 MG PO BID Multivitamin (Multivitamin), 1 TAB PO QAM Nutritional Supplements (Osteo Advance), 1 TAB PO QAM Potassium Chloride (Micro-K Ext Rel), 10 MEQ PO QAM Simvastatin (Zocor), 20 MG PO QPM Scheduled PRN Diphenoxylate/Atropine (Lomotil), 1 TAB PO DAILY PRN for PRN Physical Exam Vital Signs Date Time Temp Pulse Resp B/P (MAP) Pulse Ox O2 Delivery O2 Flow Rate FiO2 07/14/17 06:49 64 18 128/71 100 Room Air 07/14/17 05:17 36.9 69 20 150/69 99 Room Air Physical Exam GENERAL: Patient is elderly/well appearing and in mild distress. EYES: Mildly sunken. No scleral icterus, unremarkable pupils. ENT: Mucous membranes dry, no nasal congestion. NECK: No masses appreciated, no meningismus, trachea is midline. RESPIRATORY: No dyspnea. Clear to auscultation and equal bilaterally. No wheeze , no rhonchi. CARDIOVASCULAR: Regular rate and rhythm. No murmurs, rubs, gallops appreciated. GASTROINTESTINAL: Abdomen soft, nontender, no peritonitis. Bowel sounds positive. No masses appreciated. BACK: No midline tenderness, no CVA tenderness EXTREMITIES: Good pulses bilateral lower legs. Vague TTP over lower legs from knees down bilaterally. Normal motion all extremities, no cyanosis, no edema. NEUROLOGIC: Alert and oriented, no acute motor or sensory deficits, no focal weakness, cranial nerves grossly intact. Mild dementia SKIN: No rash, no jaundice, no diaphoresis. Medical Decision & Procedures ER Provider Diagnostic Interpretation: Radiologist Reads: Imaging and Reads reviewed by me: CT HEAD WITHOUT CONTRAST: No intra or extra-axial mass lesions are visualized. There is no CT evidence of acute cortical infarction. There is no evidence of midline shift. There is no acute hemorrhage. No calvarial fractures are visualized. There are moderate white matter hypodensities likely on a small vessel basis. There is mild ventricular dilatation, likely secondary to volume loss. There is a stable calcification within the paramesencephalic cistern. There is no evidence of acute sinusitis IMPRESSION: No significant change from the preceding study. Moderately extensive white matter disease likely a small vessel basis. No acute intracranial findings. Electronically signed by: Christiano Mena M.D. CT LUMBAR SPINE WITHOUT CONTRAST: FINDINGS: There are postsurgical changes present. There are posterior laminectomies at the L3-S1 levels. There are postsurgical changes of discectomies and interbody fusions at the L4-5 and L5-S1 levels. There is a chronic grade 1 spondylolisthesis of L4 on L5. There is posterior spinal fusion with pedicle screw fixation at the L3-S1 levels. There is an old S1 fracture with anterior callus/remodeling. No acute fractures are visualized. Since the prior study, the patient has developed extensive degenerative changes at the L2-3 level with a vacuum disc and endplate irregularity. IMPRESSION: 1. Extensive postsurgical change 2. Progressive degenerative changes 3. Old S1 fracture 4. No acute fractures identified Electronically signed by: Christiano Mena M.D. Laboratory Results 07/14/17 05:44 Red Blood Count 3.15, Mean Corpuscular Volume 81.6, Mean Corpuscular Hemoglobin 26.3, Mean Corpuscular Hemoglobin Concent 32.3, Mean Platelet Volume 8.8, Neutrophils (%) (Auto) 46.9, Lymphocytes (%) (Auto) 33.8, Monocytes (%) (Auto) 15.0, Eosinophils (%) (Auto) 3.5, Basophils (%) (Auto) 0.8, Neutrophils # (Auto ) 1.75, Lymphocytes # (Auto) 1.26, Monocytes # (Auto) 0.56, Eosinophils # (Auto ) 0.13, Basophils # (Auto) 0.03 07/14/17 05:44 Test 07/14/17 05:44 07/14/17 06:02 White Blood Count 3.73 K/uL (4.8-10.8) Red Blood Count 3.15 M/uL (4.2-5.4) Hemoglobin 8.3 g/dL (12.0-16.0) Hematocrit 25.7 % (37-47) Mean Corpuscular Volume 81.6 fL (80-100) Mean Corpuscular Hemoglobin 26.3 pg (25-34) Mean Corpuscular Hemoglobin Concent 32.3 g/dl (32-36) Platelet Count 275 K/uL (130-400) Mean Platelet Volume 8.8 fL (7.4-10.4) Neutrophils (%) (Auto) 46.9 % Lymphocytes (%) (Auto) 33.8 % Monocytes (%) (Auto) 15.0 % Eosinophils (%) (Auto) 3.5 % Basophils (%) (Auto) 0.8 % Neutrophils # (Auto) 1.75 K/uL (1.4-6.5) Lymphocytes # (Auto) 1.26 K/uL (1.2-3.4) Monocytes # (Auto) 0.56 K/uL (0.11-0.59) Eosinophils # (Auto) 0.13 K/uL (0-0.5) Basophils # (Auto) 0.03 K/uL (0-0.2) RDW Standard Deviation 44.6 fL (36.4-46.3) RDW Coefficient of Variation 15.0 % (11.5-14.5) Immature Granulocyte % (Auto) 0.0 % Immature Granulocyte # (Auto) 0.00 K/uL (0.00-0.02) Red Blood Cell Morphology Unremarkable Anion Gap 5.0 mmol/L (3-11) Est Creatinine Clear Calc Drug Dose 19.4 ml/min Estimated GFR () 23.8 Estimated GFR (Non- 20.5 BUN/Creatinine Ratio 22.7 (10-20) Calcium Level 8.4 mg/dl (8.5-10.1) Phosphorus Level 2.2 mg/dl (2.5-4.9) Magnesium Level 2.6 mg/dl (1.8-2.4) Total Creatine Kinase 64 U/L (26-192) Urine Color YELLOW Urine Appearance CLEAR (CLEAR) Urine pH 7.0 (4.5-7.5) Urine Specific [place] 1.010 (1.000-1.030) Urine Protein NEG (NEG) Urine Glucose (UA) NEG (NEG) Urine Ketones NEG (NEG) Urine Occult Blood NEG (NEG) Urine Nitrite POS (NEG) Urine Bilirubin NEG (NEG) Urine Urobilinogen NEG (NEG) Urine Leukocyte Esterase MODERATE (NEG) Urine WBC (Auto) 5-10 /hpf (0-5) Urine RBC (Auto) 0-4 /hpf (0-4) Urine Hyaline Casts (Auto) 0 /lpf (0-5) Urine Epithelial Cells (Auto) 20-30 /lpf (0-5) Urine Bacteria (Auto) 3+ (NEG) Medications Administered Medications (Trade) Dose Ordered Sig/Jace Route Start Time Stop Time Status Last Admin Dose Admin Tramadol HCl (Ultram Tab) 50 mg NOW STAT PO 07/14/17 05:30 07/14/17 05:33 DC 07/14/17 05:46 50 MG Acetaminophen (Tylenol Tab) 1,000 mg NOW STAT PO 07/14/17 05:30 07/14/17 05:33 DC 07/14/17 05:46 1,000 MG Sodium Chloride 500 ml @ 999 mls/hr Q31M STAT IV 07/14/17 05:30 07/14/17 06:00 DC 07/14/17 05:46 999 MLS/HR Fentanyl Citrate (Fentanyl Inj) 25 mcg NOW STAT IV 07/14/17 06:19 07/14/17 06:21 DC 07/14/17 06:24 25 MCG Ceftriaxone Sodium (Rocephin Inj) 1 gm NOW STAT IV 07/14/17 06:32 07/14/17 06:33 DC 07/14/17 06:32 1 GM Medical Decision Differential: Sepsis, Infectious (UTI/Pneumonia/Meningitis/etc), Metabolic/ Electrolyte Abnormality, Cardiac, Dehydration, Anemia, Hepatic, Endocrine, Toxicologic, Neurologic, amongst other pathologies entertained. 82 yr old female with mild dementia who arrives for bilateral lower leg pain. Neuro exam intact as are pulses. No significant edema/swelling. Did just start decreasing Lexapro prior to this occurring. During course of stay patient developed worsening low back pain and increased headache thus CT lumbar and head ordered with her recent fall. Family makes clear patient is not acting her normal self and has stopped eating normally. This is consistent with dehydration by exam and worsening renal function from her baseline. NSS bolus given due to dehydration. Patient was initially given Tyl/Tramadol without improvement thus given small dose IV fentanyl for pain control. UA consistent with UTI which may be cause of her multiple symptoms and thus given IV Rocephin. Discussed findings with family who feel uncomfortable with monitoring her at home given her current confusion and lack of eating/drinking. Hospitalist consulted for further evaluation/management. Head Trauma GCS Score: 15 Medication Reconcilliation Current Medication List: was personally reviewed by ut Blood Pressure Screening Patient's blood pressure: Elevated blood pressure Will be monitored by hospitalist Impression Primary Impression: Urinary tract infection Additional Impressions: Confusion Fall Bilateral leg pain Headache Low back pain Dehydration Departure Information Referrals Daniel Albert M.D. (PCP) Patient Instructions My [facility] Problem Qualifiers
[2017-07-14 05:55] LABS: BASO % 0.8 %; BASO ABS # 0.03 K/uL (0-0.2); EOS % 3.5 %; EOS ABS # 0.13 K/uL (0-0.5); HEMATOCRIT 25.7 % (37-47); HEMOGLOBIN 8.3 g/dL (12.0-16.0); LYMPH % 33.8 %; LYMPH ABS # 1.26 K/uL (1.2-3.4); MEAN CELL VOLUME 81.6 fL (80-100); MEAN CORPUSCULAR HEMOGLOBIN 26.3 pg (25-34); MEAN CORPUSCULAR HGB CONC 32.3 g/dl (32-36); MEAN PLATELET VOLUME 8.8 fL (7.4-10.4); MONO ABS # 0.56 K/uL (0.11-0.59); NEUT % 46.9 %; NEUT ABS # 1.75 K/uL (1.4-6.5); PLATELET COUNT 275 K/uL (130-400); RED CELL DISTRIBUTION WIDTH SD 44.6 fL (36.4-46.3); WHITE BLOOD COUNT 3.73 K/uL (4.8-10.8)
[2017-07-14 06:12] LABS: CALCIUM 8.4 mg/dl (8.5-10.1); CREATININE 2.17 mg/dl (0.60-1.20); POTASSIUM 3.8 mmol/L (3.5-5.1)
[2017-07-14 06:16] LABS: PHOSPHORUS 2.2 mg/dl (2.5-4.9)
[2017-07-14] MEDS ORDERED: FENTANYL CITRATE INJ 50 MCG/1 ML 2 ML VIAL IV STA (06:19)
[2017-07-14] MEDS ORDERED: CEFTRIAXONE SOD INJ 1 GM ADDVIAL IV STA (06:32)
--- NOTE | 2017-07-14 06:46 | DIAGNOSTIC IMAGING REPORT ---
CT HEAD WITHOUT CONTRAST (CT) CLINICAL HISTORY: Headache following head trauma COMPARISON STUDY: March 14, 2017 TECHNIQUE: Axial CT of the brain is performed from the vertex to the skull base. IV contrast was not administered for this examination. A dose lowering technique was utilized adhering to the principles of ALARA. CT DOSE: 537.48 mGy.cm FINDINGS: No intra or extra-axial mass lesions are visualized. There is no CT evidence of acute cortical infarction. There is no evidence of midline shift. There is no acute hemorrhage. No calvarial fractures are visualized. There are moderate white matter hypodensities likely on a small vessel basis. There is mild ventricular dilatation, likely secondary to volume loss. There is a stable calcification within the paramesencephalic cistern. There is no evidence of acute sinusitis IMPRESSION: No significant change from the preceding study. Moderately extensive white matter disease likely a small vessel basis. No acute intracranial findings. Electronically signed by: Christiano Mena M.D. 07/14/2017 6:45 AM Dictated Date/Time: 07/14/2017 6:42 AM
--- NOTE | 2017-07-14 06:52 | DIAGNOSTIC IMAGING REPORT ---
CT LUMBAR SPINE WITHOUT CT DOSE: 662.73 mGy.cm CLINICAL HISTORY: Severe back pain status post trauma TECHNIQUE: Helical images were acquired in transverse plane. Reformatted sagittal and coronal images were reviewed. A dose lowering technique was utilized adhering to the principles of ALARA. CONTRAST: No contrast was administered COMPARISON STUDY: January 2010 FINDINGS: There are postsurgical changes present. There are posterior laminectomies at the L3-S1 levels. There are postsurgical changes of discectomies and interbody fusions at the L4-5 and L5-S1 levels. There is a chronic grade 1 spondylolisthesis of L4 on L5. There is posterior spinal fusion with pedicle screw fixation at the L3-S1 levels. There is an old S1 fracture with anterior callus/remodeling. No acute fractures are visualized. Since the prior study, the patient has developed extensive degenerative changes at the L2-3 level with a vacuum disc and endplate irregularity. IMPRESSION: 1. Extensive postsurgical change 2. Progressive degenerative changes 3. Old S1 fracture 4. No acute fractures identified Electronically signed by: Christiano Mena M.D. 07/14/2017 6:51 AM Dictated Date/Time: 07/14/2017 6:45 AM
[2017-07-14] MEDS ORDERED: SODIUM CHLORIDE 0.9% 1000ML 1,000 ML IV STA (07:06)
[2017-07-14 07:15] VITALS: O2SAT 100; Ht 170.2 cm; Wt 68.0 kg
[2017-07-14] MEDS ORDERED: TRAM-10 PO (08:38)
[2017-07-14] MEDS ORDERED: ESCI10TA17 PO (08:38)
[2017-07-14] MEDS ORDERED: DONE10TA12 PO (08:38)
[2017-07-14] MEDS ORDERED: TRAMADOL HCL 50 MG TAB PO PRN (08:45)
[2017-07-14] MEDS ORDERED: DIPHENOXYLATE/ATROPINE 2.5/0.025MG TAB PO PRN (08:45)
--- NOTE | 2017-07-14 08:59 | History and Physical ---
History & Physical Date & Time of Service: Jul 14, 2017 at 08:43 Chief Complaint: Pain In Both Legs Primary Care Physician: Daniel Albert M.D. History of Present Illness Source: patient, family This patient is an very pleasant 82-year-old female with history of depression, dementia, hypothyroidism, HTN, HL, anemia, CKD stage III, and lumbar fusion, who presents to the ER with acute onset of bilateral leg pain and paresthesias that occurred at 2:00 this morning. She did slide out of bed onto her knees about 5 days ago and was down on the ground just for a little bit until her could get her up to a chair. Since then, she did complain of some various muscle aches since then that she had not had before. She has chronic lower back pain since a lumbar surgery but does not think that this is any worse than usual. She has been able to ambulate, but has become weaker in the last few days. Denies fevers chills or sweats at home. Only recent change her medication is a decrease in dose of her Lexapro from 20 down to 15 mg once daily. She has had some cold symptoms off and on the last few weeks but seems better with that. She does have intermittent shortness of breath which seems chronic. Denies chest pain, abdominal pain, constipation, diarrhea, GI bleeding, nausea or vomiting. Her workup in the emergency room revealed a grossly positive urinalysis, worsening renal failure with a creatinine of 2.17. A CT of the lumbar spine showed worsening degenerative changes but no acute fractures. CT of the head showed nothing acute. Her laboratory values otherwise showed chronic anemia which was stable and normal electrolytes. She will be admitted for UTI, acute bilateral leg pain, and acute kidney injury with dehydration. Past Medical/Surgical History PMH: Hypothyroidism HTN HL Depression Chronic anemia CKD stage III Dementia History of chronic lower back pain PSH: Number laminectomy and fusion Breast lump removal-benign Partial or total thyroidectomy Bilateral TKA Bilateral CTS release Cataracts Family History Noncontributory due to advanced age Social History Smoking Status: Never Smoker Alcohol Use: 2 drinks per year Drug Use: none Marital Status: Housing status: lives with significant other Occupational Status: retired Immunizations History of Influenza Vaccine: No Influenza Vaccine Date: Feb 08, 2010 History of Tetanus Vaccine?: Unknown Tetanus Immunization Date: Oct 08, 1972 History of Pneumococcal: Yes Pneumococcal Date: Oct 09, 2007 History of Hepatitis B Vaccine: Unknown Allergies Coded Allergies: Amlodipine (Verified Allergy, Severe, ., 07/14/17) CAN TAKE LOWER DOSES, HIGHER DOSES CLOSES HER THROAT Atenolol (Verified Allergy, Severe, ., 07/14/17) CAN TAKE LOW DOSE-HIGHER DOSES CLOSE HER THROAT Estrogens (Verified Allergy, Intermediate, ., 07/14/17) ALLERGIC PREMPRO BUT TAKES PREMARIN AT HOME Methyltestosterone (Verified Allergy, Intermediate, ., 07/14/17) Replaces PREMPRO ALLERGIC TO PREMPRO, BUT CAN TAKE COMPONENTS SEPARATELY (TAKES AT HOME) Progestins (Verified Allergy, Intermediate, ., 07/14/17) Replaces PREMPRO ALLERGIC TO PREMPRO, BUT CAN TAKE COMPONENTS SEPARATELY (TAKES AT HOME) Amitriptyline (Verified Allergy, Unknown, ., 07/14/17) Celecoxib (Verified Allergy, Unknown, 07/14/17) Chlorthalidone (Verified Allergy, Unknown, 07/14/17) Clonazepam (Unverified Allergy, Unknown, UNKNOWN, 07/14/17) Gabapentin (Verified Allergy, Unknown, HIVES, 07/14/17) Hydrochlorothiazide (Verified Allergy, Unknown, 07/14/17) Metoprolol (Verified Allergy, Unknown, 07/14/17) Sulfa Antibiotics (Verified Allergy, Unknown, ., 07/14/17) Prednisone (Verified Adverse Reaction, Unknown, HEADACHE,FLUSHING, 07/14/17) Home Medications Scheduled Calcium/Vitamin D (Caltrate 600 Plus *), 1 TAB PO QAM Donepezil Hydrochloride (Aricept), 10 MG PO DAILY Escitalopram (Lexapro), 15 MG PO QPM Furosemide (Lasix), 40 MG PO QAM Levothyroxine Sodium (Levothyroxine Sodium), 1 TAB PO QAM Lisinopril (Prinivil), 5 MG PO DAILY Multivitamin (Multivitamin), 1 TAB PO QAM Nutritional Supplements (Osteo Advance), 1 TAB PO QAM Potassium Chloride (Micro-K Ext Rel), 10 MEQ PO QAM Simvastatin (Zocor), 20 MG PO QPM Scheduled PRN Diphenoxylate/Atropine (Lomotil), 1 TAB PO DAILY PRN for PRN Tramadol (Ultram), 50 MG PO Q8H PRN for Pain Review of Systems Constitutional: No fever, No chills Eyes: No problem reported ENT: + sore throat (Off and on the last few weeks) Respiratory: + shortness of breath (Occasionally) Cardiovascular: No chest pain Abdomen: No pain, No nausea, No vomiting, No diarrhea, No constipation, No GI bleeding Musculoskeletal: + joint pain (Chronic lower back pain) Genitourinary - Female: No dysuria, No urinary frequency, No urinary urgency Neurologic: + memory loss Psychiatric: + depression symptoms Endocrine: No problem reported Hematologic / Lymphatic: No problem reported Integumentary: No problem reported Allergic / Immunologic: No problem reported Physical Exam Vital Signs Date Time Temp Pulse Resp B/P (MAP) Pulse Ox O2 Delivery O2 Flow Rate FiO2 07/14/17 07:15 100 Room Air 07/14/17 06:49 64 18 128/71 100 Room Air 07/14/17 05:17 36.9 69 20 150/69 99 Room Air General Appearance: WD/WN, no apparent distress Head: normocephalic, atraumatic Eyes: normal inspection, PERRL, EOMI, sclerae normal ENT: hearing grossly normal, + pertinent finding (Mildly dry mucous membranes in the oropharynx) Neck: supple, no adenopathy, trachea midline, + pertinent finding (Right-sided carotid bruit) Respiratory/Chest: lungs clear, normal breath sounds, no respiratory distress, no accessory muscle use Cardiovascular: regular rate, rhythm, no edema, no murmur, normal peripheral pulses (2+ dorsalis pedis pulses bilaterally) Abdomen/GI: normal bowel sounds, soft, no pulsatile mass, + tenderness (In the suprapubic region without guarding or rebound tenderness, no masses) Back: normal inspection, no muscle spasm Extremities/Musculoskelatal: normal inspection, normal capillary refill, no pedal edema, normal range of motion, + calf tenderness (Got a cramp in the left calf with range of motion actively which was initially tender to palpation and then dissipated on exam), + pertinent finding (Chronic venous stasis changes with hemosiderin deposits in the bilateral distal legs, full 5 out of 5 strength in the upper and lower extremities throughout, sensation intact to light touch bilaterally in the lower extremities equally, DTRs unable to be obtained secondary to bilateral knee replacements in the patellar, no clonus in the ankles) Neurologic/Psych: no motor/sensory deficits (As above), alert, normal mood/ affect, oriented x 3 Skin: normal color, warm/dry, no rash Lymphatic: no adenopathy Diagnostics Laboratory Results Results Past 24 Hours Test 07/14/17 05:44 07/14/17 06:02 Range/Units White Blood Count 3.73 4.8-10.8 K/uL Red Blood Count 3.15 4.2-5.4 M/uL Hemoglobin 8.3 12.0-16.0 g/dL Hematocrit 25.7 37-47 % Mean Corpuscular Volume 81.6 80-100 fL Mean Corpuscular Hemoglobin 26.3 25-34 pg Mean Corpuscular Hemoglobin Concent 32.3 32-36 g/dl Platelet Count 275 130-400 K/uL Mean Platelet Volume 8.8 7.4-10.4 fL Neutrophils (%) (Auto) 46.9 % Lymphocytes (%) (Auto) 33.8 % Monocytes (%) (Auto) 15.0 % Eosinophils (%) (Auto) 3.5 % Basophils (%) (Auto) 0.8 % Neutrophils # (Auto) 1.75 1.4-6.5 K/uL Lymphocytes # (Auto) 1.26 1.2-3.4 K/uL Monocytes # (Auto) 0.56 0.11-0.59 K/uL Eosinophils # (Auto) 0.13 0-0.5 K/uL Basophils # (Auto) 0.03 0-0.2 K/uL RDW Standard Deviation 44.6 36.4-46.3 fL RDW Coefficient of Variation 15.0 11.5-14.5 % Immature Granulocyte % (Auto) 0.0 % Immature Granulocyte # (Auto) 0.00 0.00-0.02 K/uL Red Blood Cell Morphology Unremarkable Sodium Level 138 136-145 mmol/L Potassium Level 3.8 3.5-5.1 mmol/L Chloride Level 105 98-107 mmol/L Carbon Dioxide Level 28 21-32 mmol/L Anion Gap 5.0 3-11 mmol/L Blood Urea Nitrogen 49 7-18 mg/dl Creatinine 2.17 0.60-1.20 mg/dl Est Creatinine Clear Calc Drug Dose 19.4 ml/min Estimated GFR () 23.8 Estimated GFR (Non- 20.5 BUN/Creatinine Ratio 22.7 10-20 Random Glucose 100 70-99 mg/dl Calcium Level 8.4 8.5-10.1 mg/dl Phosphorus Level 2.2 2.5-4.9 mg/dl Magnesium Level 2.6 1.8-2.4 mg/dl Total Creatine Kinase 64 26-192 U/L Urine Color YELLOW Urine Appearance CLEAR CLEAR Urine pH 7.0 4.5-7.5 Urine Specific [place] 1.010 1.000-1.030 Urine Protein NEG NEG Urine Glucose (UA) NEG NEG Urine Ketones NEG NEG Urine Occult Blood NEG NEG Urine Nitrite POS NEG Urine Bilirubin NEG NEG Urine Urobilinogen NEG NEG Urine Leukocyte Esterase MODERATE NEG Urine WBC (Auto) 5-10 0-5 /hpf Urine RBC (Auto) 0-4 0-4 /hpf Urine Hyaline Casts (Auto) 0 0-5 /lpf Urine Epithelial Cells (Auto) 20-30 0-5 /lpf Urine Bacteria (Auto) 3+ NEG Microbiology Results 07/14/17 Urine Culture, Received Pending Diagnostic Radiology CT the lumbar spine and head reports reviewed-no acute disease EKG No ECG performed Impression Assessment and Plan This patient is an very pleasant 82-year-old female with history of depression, dementia, hypothyroidism, HTN, HL, anemia, CKD stage III, and lumbar fusion, who presents to the ER with acute onset of bilateral leg pain and paresthesias that occurred at 2:00 this morning. She did slide out of bed onto her knees about 5 days ago and was down on the ground just for a little bit until her could get her up to a chair. Since then, she did complain of some various muscle aches since then that she had not had before. She has chronic lower back pain since a lumbar surgery but does not think that this is any worse than usual. She has been able to ambulate, but has become weaker in the last few days. Denies fevers chills or sweats at home. Only recent change her medication is a decrease in dose of her Lexapro from 20 down to 15 mg once daily. She has had some cold symptoms off and on the last few weeks but seems better with that. She does have intermittent shortness of breath which seems chronic. Denies chest pain, abdominal pain, constipation, diarrhea, GI bleeding, nausea or vomiting. Her workup in the emergency room revealed a grossly positive urinalysis, worsening renal failure with a creatinine of 2.17. A CT of the lumbar spine showed worsening degenerative changes but no acute fractures. CT of the head showed nothing acute. Her laboratory values otherwise showed chronic anemia which was stable and normal electrolytes. She will be admitted for UTI, acute bilateral leg pain, and acute kidney injury with dehydration. UTI/generalized weakness/acute renal failure in the setting of CKD stage III/ dehydration-no evidence of sepsis at this time. The infection may be contributing to her weakness and recent fall out of bed. -Admit to medical floor -Continue Rocephin 1 g IV once daily -Follow urine culture -Continue IV fluids with normal saline at 75 ML's per hour -Follow PRP -Holding FLOR inhibitor Bilateral leg pain and numbness-no focal neurological deficits on exam. CT lumbar spine with significant degenerative changes and history of lumbar fusion. Perhaps this is all musculoskeletal and related to dehydration and renal failure especially with muscle cramping on exam. CPK was negative. -Consult orthopedic spine surgeon that did her surgery to see if any further imaging is necessary -Hydrating with fluids and treating UTI as above and will see if this helps resolve her symptoms HTN/HL-stable -Continue statin, holding lisinopril for acute renal failure Hypothyroidism-stable -Check TSH in the morning -Continue home dose of levothyroxine Chronic anemia-hemoglobin is fairly stable at 8.3, was 8.9-9 in the last few months. Likely of chronic kidney disease there is no obvious signs of bleeding -Check iron studies, B12, folate, Hemoccult stool -Follow CBC -May be candidate for Procrit as an outpatient Depression-actively being managed by geriatric psychiatry Dr. Perez, stable -Continue newly lowered dose of Lexapro 50 mg once daily -Is transitioning to Effexor next week and has it at home but will not give it here Depression-mild and stable -Continue donepezil -Supportive care and watch for delirium in the hospital Prophylaxis-heparin SQ Disposition-will need PT/OT evaluations to see if stable for discharge to home versus SNF/rehab -Expect stay 2-3 days Advanced Directives Existing Living Will: Yes Existing Power of Career Professional: Yes Resuscitation Status Full code VTE Prophylaxis Will order VTE Prophylaxis: Yes Additional Copies To Daniel Albert M.D.
--- NOTE | 2017-07-14 09:18 | DIAGNOSTIC IMAGING REPORT ---
CHEST ONE VIEW PORTABLE CLINICAL HISTORY: Shortness of breath COMPARISON STUDY: 03/14/2017 FINDINGS: The heart is at the upper limits of normal in size. There is no failure. There is no focal pulmonary consolidation. There are no pleural effusions.[ IMPRESSION: No active disease in the chest. Electronically signed by: Christiano Mena M.D. 07/14/2017 9:17 AM Dictated Date/Time: 07/14/2017 9:16 AM
[2017-07-14 10:24] VITALS: BP 155/69; PULSE 62; TEMP 36.1; O2SAT 100
[2017-07-14] MEDS: SODIUM CHLORIDE 0.9% 1000ML 1,000 ML IV SCH ×2 (10:35→23:20)
[2017-07-14] MEDS: ACETAMINOPHEN 325 MG TAB PO PRN ×3 (10:35→23:19)
[2017-07-14] MEDS: LEVOTHYROXINE 75 MCG TAB PO SCH (12:31)
[2017-07-14] MEDS: DONEPEZIL HCL 10 MG TAB PO SCH (12:31)
[2017-07-14] MEDS: MULTIVITAMIN TAB PO SCH (12:32)
[2017-07-14] MEDS: POTASSIUM CHLORIDE 10 MEQ TABCR PO SCH (12:32)
[2017-07-14] MEDS: CALCIUM 600MG + VIT D 400 IU TAB PO SCH (12:32)
[2017-07-14] MEDS ORDERED: NURSING VERBAL MED ORDER ONE (12:45)
[2017-07-14] MEDS: TRAMADOL HCL 50 MG TAB PO PRN ×2 (13:52→20:53)
[2017-07-14] MEDS: HEPARIN SOD 5000 UNIT/0.5 ML CARP SQ SCH ×2 (13:55→20:48)
[2017-07-14 15:50] VITALS: BP 158/68; PULSE 62; TEMP 36.8; O2SAT 99
--- NOTE | 2017-07-14 19:17 | CONSULTATION REPORT ---
DATE OF CONSULTATION: 07/14/2017 NOTICE TO RECEIVING DEMOCRAT/AGENCY This information is strictly Confidential and protected under [place] law. [place] law prohibits you from making any further disclosure of this information unless further disclosure is expressly permitted by the written consent of the person to whom it pertains or is authorized by law. A general authorization for the release of medical or other information is not sufficient for this purpose. Hospital accepts no responsibility if the information is made available to any other person, INCLUDING THE PATIENT. CHIEF COMPLAINT: Lower extremity weakness. REASON FOR CONSULTATION: Bilateral lower extremity weakness. HISTORY OF PRESENT ILLNESS: Dee is delightful. She is an 82-year-old female who I saw up on the floor approximately 6:30 on evening 07/14/2017. She was alert, seemed to be oriented. She had me confused with another surgeon, so I do agree she does have some dementia, but she was pleasant nevertheless. She presented and has had ongoing lower extremity difficulty, paresthesias, weakness over the last several days. She did slide of her bed. She went to the ground was able to get up. Her could get her up into a chair. She had some aches and pains, some chronic low back pain, lower extremity weakness. She did state to us that she does have difficulty with ambulation. Contrasted with her examination in in her bed she has pretty good motor strength. She had a workup in the Emergency Room which demonstrated a positive urinalysis, worsening renal failure. CT of the head was negative. I looked at the CT scan of the lumbar spine. There were some degenerative changes, but no fracture. Did not appear to have any significant stenosis. PAST MEDICAL HISTORY: Hypothyroidism, hypertension, depression, dementia, chronic anemia, renal disease. PAST SURGICAL HISTORY: Laminectomy and fusion I believe at [facility]; I cannot swear to that. She had a partial thyroidectomy, bilateral TKAs, cataract surgery, breast lump removed. FAMILY HISTORY: Noncontributory. SOCIAL HISTORY: Nonsmoker, non-ETOH user. She is , lives with significant other. She is retired. ALLERGIES: NUMEROUS. SCHEDULED MEDICATIONS: Numerous. P.R.N. MEDICATIONS: Lomotil and Ultram. REVIEW OF SYSTEMS: She denies to me any fevers, sweats, chills. Ear, nose and throat negative. Denies chest pain, palpitations. No nausea, vomiting, diarrhea, constipation. Occasional shortness of breath, but only occasional. No history of urinary frequency, urgency or dysuria. Positive for memory loss, depression. OBJECTIVE: VITAL SIGNS: Blood pressure stable 128/71. HEENT: Pupils react to light and accommodation. Pulse regular. Ear, nose and throat clear. ENT examination once again normal. NECK: Supple, no adenopathy. Trachea midline. LUNGS: Clear. CARDIAC: Regular rate and rhythm. ABDOMEN: Soft, nontender. EXTREMITIES: Normal to palpitation, normal capillary refill. There was no edema, adequate range of motion. No calf tenderness. I was able to get full strength 5/5 of the upper extremities with good creative services specialist. Quadriceps, dorsiflexors, plantar flexors were normal. Light touch normal. SKIN: Warm, dry. No lymphadenopathy. LABORATORY RESULTS: White count of 3.73, hemoglobin 8.3. Positive urine culture. CT scan of the spine did not demonstrate in my opinion a severe stenosis, although she has worsening degenerative changes, but no acute fractures. Well aligned lumbar spine. Again no central or lateral recess stenosis on the lumbar area. SUMMARY: Delightful 82-year-old female who is demented but alert, hypothyroidism, hypertension, anemia that is chronic, depression, early Alzheimer's with lower extremity weakness. DISPOSITION: Surgery is not indicated and really would be contraindicated. There are no surgical issues as far as the spine is concerned. I believe her weakness seems to be more global in nature, may be metabolic, and may be more fear-laden as well and brought on by fear; it is hard to tell. Disposition would include continue her medical regime. PT, OT and I will order those modalities. Get her up on her feet and walk. She will need a walker for support. She will need rehab placement and I will follow her daily.
[2017-07-14] MEDS: ESCITALOPRAM OXALATE 10 MG TAB PO SCH (20:49)
[2017-07-14] MEDS: SIMVASTATIN 20 MG TAB PO SCH (20:49)
[2017-07-15] VITALS: BP 165/63; PULSE 58; TEMP 36.8; O2SAT 99
[2017-07-15] MEDS: CEFTRIAXONE SOD INJ 1 GM in DEXTROSE 5% ADD-VANTAGE 50ML 50 ML IV SCH (05:43)
[2017-07-15] MEDS: LEVOTHYROXINE 75 MCG TAB PO SCH (05:44)
[2017-07-15] MEDS: HEPARIN SOD 5000 UNIT/0.5 ML CARP SQ SCH ×3 (05:48→21:31)
[2017-07-15 06:30] LABS: BASO % 0.6 %; BASO ABS # 0.02 K/uL (0-0.2); EOS % 5.2 %; EOS ABS # 0.16 K/uL (0-0.5); HEMATOCRIT 24.4 % (37-47); HEMOGLOBIN 7.4 g/dL (12.0-16.0); LYMPH % 42.1 %; MEAN CELL VOLUME 82.7 fL (80-100); MEAN CORPUSCULAR HEMOGLOBIN 25.1 pg (25-34); MEAN CORPUSCULAR HGB CONC 30.3 g/dl (32-36); MEAN PLATELET VOLUME 8.7 fL (7.4-10.4); MONO % 9.4 %; MONO ABS # 0.29 K/uL (0.11-0.59); NEUT % 42.7 %; NEUT ABS # 1.32 K/uL (1.4-6.5); PLATELET COUNT 229 K/uL (130-400); RED CELL DISTRIBUTION WIDTH CV 15.2 % (11.5-14.5); WHITE BLOOD COUNT 3.09 K/uL (4.8-10.8)
[2017-07-15 07:08] LABS: CALCIUM 7.8 mg/dl (8.5-10.1); CREATININE 1.54 mg/dl (0.60-1.20); POTASSIUM 3.6 mmol/L (3.5-5.1)
[2017-07-15] MEDS: CALCIUM 600MG + VIT D 400 IU TAB PO SCH (07:39)
[2017-07-15] MEDS: DONEPEZIL HCL 10 MG TAB PO SCH (07:39)
[2017-07-15] MEDS: MULTIVITAMIN TAB PO SCH (07:39)
[2017-07-15] MEDS: POTASSIUM CHLORIDE 10 MEQ TABCR PO SCH (07:40)
[2017-07-15 07:45] VITALS: BP 132/80; PULSE 60; TEMP 36.3; O2SAT 99
[2017-07-15] MEDS: TRAMADOL HCL 50 MG TAB PO PRN ×2 (07:46→13:44)
[2017-07-15 08:03] VITALS: O2SAT 99
[2017-07-15] MEDS: ACETAMINOPHEN 325 MG TAB PO PRN (09:05)
--- NOTE | 2017-07-15 12:07 | Clinical Documentation Query ---
BARBER [employer]ICKS : CLINICAL DOCUMENTATION QUERY Patient is an 82 year old female admitted with UTI, LORNA, and acute bilateral leg pain. ER provider documentation included the following: "Family makes clear that patient is much more confused than her baseline". As appropriate, consider this as a manifestation of the UTI and LORNA. That is, an altered mental status as a symptom of the clinical diagnosis of encephalopathy. Thank you. In your clinical opinion is this patient being managed for: ( x ) Encephalopathy due to UTI and LORNA. ( ) Not Agree ( ) Other explanation of clinical findings (Please Explain) ( ) Unable to determine (Please Define) ( ) Need to Discuss The medical record reflects the following clinical findings, treatment, and risk factors. Clinical Indicators: As above Treatment: IVF, antibiotics, UA, C&S Risk Factors: Age, infection, LORNA Please clarify and document your clinical opinion in the progress notes and discharge summary. Terms such as "probable", "suspected", "likely", "questionable", "possible", or "still to be ruled out" are acceptable. IF IN AGREEMENT, YOU MUST DOCUMENT ABOVE DIAGNOSTIC STATEMENT IN DAILY PROGRESS NOTES AND DISCHARGE SUMMARY. This document is not part of the patient's record. Thank You, Ray Quiroga, LAURYN [phone]
[2017-07-15 12:14] LABS: HEMATOCRIT 25.2 % (37-47)
[2017-07-15] MEDS: SODIUM CHLORIDE 0.9% 1000ML 1,000 ML IV SCH (13:18)
--- NOTE | 2017-07-15 13:45 | Hospitalist Progress Note ---
Hospitalist Progress Note Date of Service Jul 15, 2017. (Ida Jimenez, CLARYC) Subjective Pt evaluation today including: conversation w/ patient, conversation w/ family , physical exam, chart review, lab review, review of studies, review of inpatient medication list Patient seen and evaluated. Reporting feeling a little bit better today. Doesn't feel as weak today compared to yesterday but not baseline. States she is having some pain in the L hip today. She states she was on iron supplementation in the past but got constipation and stopped this. Also had iron infusions previously. Was admitted in 2016 for gastric erosions but no direct bleeding was noted. But did require transfusion due to Hgb 6.5 at that time Constitutional: No fever, No chills Respiratory: No cough, No shortness of breath Cardiovascular: No chest pain Abdomen: No pain, No nausea, No vomiting, No diarrhea, No constipation, No GI bleeding Musculoskeletal: + joint pain (L hip), No calf pain Heme: No abnormal bleeding/bruising (Ida Jimenez, CLARYC) Medications Current Inpatient Medications Medications (Trade) Dose Ordered Sig/Jace Route Start Time Stop Time Status Last Admin Dose Admin Heparin Sodium (Porcine) (Heparin Sq 5000 Unit/0.5ml) 5,000 unit Q8 SQ 07/14/17 14:00 08/13/17 13:59 07/15/17 05:48 5,000 UNIT Acetaminophen (Tylenol Tab) 650 mg Q4H PRN PO 07/14/17 08:45 08/13/17 08:44 07/15/17 09:05 650 MG Ceftriaxone Sodium 1 gm/ Dextrose 50 ml @ 100 mls/hr Q24H IV 07/15/17 06:00 07/19/17 05:59 07/15/17 05:43 100 MLS/HR Sodium Chloride 1,000 ml @ 75 mls/hr [id number] IV 07/14/17 10:30 08/13/17 10:29 07/15/17 13:18 75 MLS/HR Calcium/Vitamin D (Caltrate Plus Tab) 1 tab QAM PO 07/14/17 11:00 08/13/17 10:59 07/15/17 07:39 1 TAB Diphenoxylate HCl/ Atropine (Lomotil Tab) 1 tab DAILY PRN PO 07/14/17 08:45 08/13/17 08:44 Donepezil HCl (Aricept Tab) 10 mg DAILY PO 07/14/17 11:00 08/13/17 10:59 07/15/17 07:39 10 MG Escitalopram Oxalate (Lexapro Tab) 15 mg QPM PO 07/14/17 21:00 08/13/17 20:59 07/14/17 20:49 15 MG Levothyroxine Sodium (Synthroid Tab) 75 mcg DAILYBB PO 07/14/17 11:00 08/13/17 10:59 07/15/17 05:44 75 MCG Multivitamins (Multivitamin Tab) 1 tab QAM PO 07/14/17 11:00 08/13/17 10:59 07/15/17 07:39 1 TAB Potassium Chloride (Klor-Con M10) 10 meq QAM PO 07/14/17 11:00 08/13/17 10:59 07/15/17 07:40 10 MEQ Simvastatin (Zocor Tab) 20 mg QPM PO 07/14/17 21:00 08/13/17 20:59 07/14/17 20:49 20 MG Tramadol HCl (Ultram Tab) 50 mg Q6H PRN PO 07/14/17 12:45 08/13/17 12:44 07/15/17 07:46 50 MG Iron Sucrose 100 mg/Sodium Chloride 105 ml @ 420 mls/hr TODAY ONCE IV 07/15/17 14:00 07/15/17 14:14 Iron Sucrose 100 mg/Sodium Chloride 105 ml @ 420 mls/hr DAILY IV 07/16/17 08:00 07/16/17 08:14 (Ida Jimenez, PA-C) Objective Vital Signs Date Time Temp Pulse Resp B/P (MAP) Pulse Ox O2 Delivery O2 Flow Rate FiO2 07/15/17 08:30 Room Air 07/15/17 08:03 99 Room Air 07/15/17 07:45 36.3 60 14 132/80 (97) 99 Room Air 07/15/17 00:00 36.8 58 18 165/63 (97) 99 Room Air 07/15/17 00:00 Room Air 07/14/17 17:12 Room Air 07/14/17 15:50 36.8 62 18 158/68 (98) 99 Room Air (Ida Jimenez PA-C) Physical Exam General Appearance: WD/WN, no apparent distress ENT: hearing grossly normal Neck: supple, no JVD, trachea midline Respiratory/Chest: lungs clear, normal breath sounds, no respiratory distress, no accessory muscle use Cardiovascular: regular rate, rhythm, no gallop, no murmur Abdomen: normal bowel sounds, non tender, soft Extremities: + pertinent finding (chronic venous stasis changes ) Neurologic/Psychiatric: alert Skin: warm/dry (Ida Jimenez PA-C) Laboratory Results Last 24 Hours Test 07/15/17 06:15 07/15/17 09:34 07/15/17 12:04 White Blood Count 3.09 K/uL Red Blood Count 2.95 M/uL Hemoglobin 7.4 g/dL 8.0 g/dL Hematocrit 24.4 % 25.2 % Mean Corpuscular Volume 82.7 fL Mean Corpuscular Hemoglobin 25.1 pg Mean Corpuscular Hemoglobin Concent 30.3 g/dl Platelet Count 229 K/uL Mean Platelet Volume 8.7 fL Neutrophils (%) (Auto) 42.7 % Lymphocytes (%) (Auto) 42.1 % Monocytes (%) (Auto) 9.4 % Eosinophils (%) (Auto) 5.2 % Basophils (%) (Auto) 0.6 % Neutrophils # (Auto) 1.32 K/uL Lymphocytes # (Auto) 1.30 K/uL Monocytes # (Auto) 0.29 K/uL Eosinophils # (Auto) 0.16 K/uL Basophils # (Auto) 0.02 K/uL RDW Standard Deviation 46.0 fL RDW Coefficient of Variation 15.2 % Immature Granulocyte % (Auto) 0.0 % Immature Granulocyte # (Auto) 0.00 K/uL Red Blood Cell Morphology Unremarkable Sodium Level 141 mmol/L Potassium Level 3.6 mmol/L Chloride Level 113 mmol/L Carbon Dioxide Level 23 mmol/L Anion Gap 5.0 mmol/L Blood Urea Nitrogen 29 mg/dl Creatinine 1.54 mg/dl Est Creatinine Clear Calc Drug Dose 27.4 ml/min Estimated GFR () 36.0 Estimated GFR (Non- 31.1 BUN/Creatinine Ratio 18.6 Random Glucose 96 mg/dl Calcium Level 7.8 mg/dl Magnesium Level 2.4 mg/dl Iron Level 15 mcg/dl Total Iron Binding Capacity 311 mcg/dl Transferrin 237 mg/dl Transferrin % Saturation 5 % Ferritin 27.9 ng/ml Vitamin B12 Level 834 pg/mL Thyroid Stimulating Hormone (TSH) 0.221 uIu/ml Folate 19.74 ng/mL (Ida Jimenez PA-C) Assessment and Plan This patient is an very pleasant 82-year-old female with history of depression, dementia, hypothyroidism, HTN, HL, anemia, CKD stage III, and lumbar fusion, who presents to the ER with acute onset of bilateral leg pain and paresthesias that occurred at 2:00 this morning. Metabolic Encephalopathy 2/2 UTI and LORNA: RESOLVED - Patient appears to have some forgetfulness at baseline - family reporting normal mentation today - Aricept 10 mg daily Generalized Weakness 2/2 UTI vs Anemia vs Dehydration: IMPROVING - UCx with multiple organisms and therefore no sensitivities - review previous UCx and normally grows pansensitive E. coli and mildly resistent Klebsiella - all cx previously sensitive to Rocephin LORNA on CKD Stage III 2/2 Dehydration: IMPROVING - Continue to hold ACEI at this time and gentle hydration with NSS at 75 mL/hr Chronic Anemia likely of Chronic Disease given Kidney Disease: Iron Deficiency - Has H/O non-bleeding gastric erosions but had admission in 2016 requiring transfusion - reports receiving IV iron in the past; was originially on oral supplementation but developed constipation; hemoccult negative - Venofer 100 mg x 2 doses and will need outpatient follow-up as repeat testing - Possible candidate for Procrit as outpatient B/L Leg Pain and Numbness: IMPROVING - States she is more having L hip pain today which is chronic; CT does reveal significant degenerative changes and has H/O fusion - Will utilize Kpad and Lidoderm patch; Ultram PRN - Orthopedic Spine consulted - no surgical intervention - recommending PT/OT and walker use HTN and HLD: STABLE - ACEI on hold; Zocor 20 mg daily Hypothyroidism: STABLE - TSH midly lower than reference which may be normal varient given age - Synthroid 75 mcg daily Depression: Follows with Dr. Perez - Recent decrease in Lexapro - continue Lexapro 15 mg daily DVT Prophylaxis: Heparin 5000 units SC Q8H Disposition: - PT/OT evaluations Continued [facility] stay due to: multiple IV medications needed Discharge planning: uncertain (Ida Jimenez PA-C) Reviewed: Pt Seen/Exam by Me (Keena Bedolla MD) History Physician Hamper Maker Supervision Note: I interviewed and examined the patient. Discussed with IMMANUEL Jimenez and agree with findings and plan as documented in the note. Any exceptions or clarifications are listed here: Patient feeling better today, leg pain is improved, still with some tingling in the legs, no charley horses. Is eating and drinking. Denies chest pain or shortness of breath except with some with exertion, denies abdominal pain. Vitals reviewed Gen: Alert and awake and oriented, NAD HEENT: anicteric sclerae, EOMI CV: RRR no mgr nl S1S2 Pulm: CTAB no wcr Abd: +BS soft NT ND no masses or hernias Ext: no edema, 2+ DP pulses Skin: no rashes, warm/dry Neuro: full strength throughout This patient is an very pleasant 82-year-old female with history of depression, dementia, hypothyroidism, HTN, HL, anemia, CKD stage III, and lumbar fusion, who presents to the ER with acute onset of bilateral leg pain and paresthesias that occurred at 2:00 this morning. She did slide out of bed onto her knees about 5 days ago and was down on the ground just for a little bit until her could get her up to a chair. Since then, she did complain of some various muscle aches since then that she had not had before. She has chronic lower back pain since a lumbar surgery but does not think that this is any worse than usual. She has been able to ambulate, but has become weaker in the last few days. Denies fevers chills or sweats at home. Only recent change her medication is a decrease in dose of her Lexapro from 20 down to 15 mg once daily. She has had some cold symptoms off and on the last few weeks but seems better with that. She does have intermittent shortness of breath which seems chronic. Denies chest pain, abdominal pain, constipation, diarrhea, GI bleeding, nausea or vomiting. Her workup in the emergency room revealed a grossly positive urinalysis, worsening renal failure with a creatinine of 2.17. A CT of the lumbar spine showed worsening degenerative changes but no acute fractures. CT of the head showed nothing acute. Her laboratory values otherwise showed chronic anemia which was stable and normal electrolytes. She will be admitted for UTI, acute bilateral leg pain, and acute kidney injury with dehydration. UTI/generalized weakness/acute renal failure in the setting of CKD stage III/ dehydration-improved, clinically improved with Rocephin despite no urine culture to follow -Continue Rocephin -Discontinue IV fluids at this time Bilateral leg pain and numbness-no focal neurological deficits on exam. CT lumbar spine with significant degenerative changes and history of lumbar fusion. Perhaps this is all musculoskeletal and related to dehydration and renal failure especially with muscle cramping on exam. CPK was negative. -Consult orthopedic spine surgeon appreciated-recommended PT/OT and treatment as above for metabolic conditions Chronic anemia-hemoglobin is fairly stable at 8.3, was 8.9-9 in the last few months. Iron studies show iron deficiency and anemia of chronic disease with low transferrin saturation of 5%. Likely of chronic kidney disease there is no obvious signs of bleeding. Hemoccult negative -We will treat with IV Venofer 100 mg daily 2 days while here and then she can follow-up with nephrology for possible Procrit or continued IV iron infusions as an outpatient Other plan as above Documented By: Keena Bedolla (Keena Bedolla MD)
[2017-07-15 13:49] VITALS: BP 149/86; PULSE 68; TEMP 36.6; O2SAT 99
[2017-07-15] MEDS ORDERED: IRON SUCROSE INJ 100 MG in SODIUM CHLORIDE 0.9% 100ML 100 ML IV ONE (14:00)
[2017-07-15] MEDS ORDERED: LIDODERM (LIDOCAINE) PATCH 5% TD ONE (14:01)
[2017-07-15 14:58] VITALS: BP 157/66; PULSE 75; TEMP 36.3; O2SAT 90
[2017-07-15] MEDS: SIMVASTATIN 20 MG TAB PO SCH (21:29)
[2017-07-15] MEDS: ESCITALOPRAM OXALATE 10 MG TAB PO SCH (21:29)
[2017-07-16] VITALS (19 sets, daily range): BP systolic 143–181; BP diastolic 63–77; PULSE 56–67; TEMP 36.3–37.3; O2SAT 95–99
[2017-07-16] MEDS: TRAMADOL HCL 50 MG TAB PO PRN ×4 (00:45→17:16)
[2017-07-16] MEDS: ACETAMINOPHEN 325 MG TAB PO PRN ×2 (03:12→16:24)
[2017-07-16] MEDS: LEVOTHYROXINE 75 MCG TAB PO SCH (05:57)
[2017-07-16] MEDS: CEFTRIAXONE SOD INJ 1 GM in DEXTROSE 5% ADD-VANTAGE 50ML 50 ML IV SCH (05:57)
[2017-07-16] MEDS: HEPARIN SOD 5000 UNIT/0.5 ML CARP SQ SCH ×3 (05:59→20:33)
[2017-07-16] MEDS: CALCIUM 600MG + VIT D 400 IU TAB PO SCH (07:29)
[2017-07-16] MEDS: DONEPEZIL HCL 10 MG TAB PO SCH (07:29)
[2017-07-16] MEDS: MULTIVITAMIN TAB PO SCH (07:30)
[2017-07-16] MEDS: POTASSIUM CHLORIDE 10 MEQ TABCR PO SCH (07:30)
[2017-07-16] MEDS: LIDODERM (LIDOCAINE) PATCH 5% TD SCH (07:31)
[2017-07-16 07:37] LABS: HEMATOCRIT 22.6 % (37-47); MEAN CELL VOLUME 83.4 fL (80-100); MEAN CORPUSCULAR HEMOGLOBIN 25.8 pg (25-34); MEAN PLATELET VOLUME 9.5 fL (7.4-10.4); PLATELET COUNT 241 K/uL (130-400); RED CELL DISTRIBUTION WIDTH CV 15.2 % (11.5-14.5); RED CELL DISTRIBUTION WIDTH SD 46.3 fL (36.4-46.3); WHITE BLOOD COUNT 4.07 K/uL (4.8-10.8)
[2017-07-16] MEDS ORDERED: IRON SUCROSE INJ 100 MG in SODIUM CHLORIDE 0.9% 100ML 100 ML IV SCH (08:00)
[2017-07-16 08:05] LABS: CALCIUM 7.7 mg/dl (8.5-10.1); CREATININE 1.36 mg/dl (0.60-1.20)
[2017-07-16] MEDS: ONDANSETRON INJ 2 MG/ML 2 ML VIAL IV PRN ×2 (08:35→18:41)
[2017-07-16] MEDS ORDERED: ACETAMINOPHEN 325 MG TAB PO SCH (09:00)
--- NOTE | 2017-07-16 10:08 | Hospitalist Progress Note ---
Hospitalist Progress Note Date of Service Jul 16, 2017. Subjective Pt evaluation today including: conversation w/ patient Patient received IV iron this morning and within a few minutes had sudden onset of nausea and vomiting. It was nonbloody. Denies chest pain, abdominal pain. She had a normal bowel movement yesterday, no melena or hematochezia. She does still complain of this chronic dyspnea on exertion. She does feel a little lightheaded today. Hemoglobin is down to 7.0. All Other Systems: Reviewed and Negative Objective Vital Signs Date Time Temp Pulse Resp B/P (MAP) Pulse Ox O2 Delivery O2 Flow Rate FiO2 07/16/17 08:29 60 143/76 (98) 98 Room Air 07/16/17 07:58 36.3 64 18 148/67 (94) 98 07/16/17 07:32 36.4 67 20 155/63 (93) 99 Room Air 07/16/17 00:06 36.3 63 18 173/66 (101) 99 Room Air 07/16/17 00:00 Room Air 07/15/17 16:58 Room Air 07/15/17 14:58 36.3 75 20 157/66 (96) 90 Room Air 07/15/17 13:49 36.6 68 18 149/86 (107) 99 Room Air Physical Exam General Appearance: no apparent distress, + thin Eyes: normal inspection, sclerae normal ENT: hearing grossly normal, pharynx normal Neck: trachea midline Respiratory/Chest: lungs clear, normal breath sounds, no respiratory distress, no accessory muscle use Cardiovascular: regular rate, rhythm, no edema, no murmur Abdomen: normal bowel sounds, non tender, soft, no organomegaly Extremities: non-tender, normal inspection, no pedal edema, no calf tenderness Neurologic/Psychiatric: alert, normal mood/affect, oriented x 3 Skin: normal color, warm/dry, no rash Laboratory Results Last 24 Hours Test 07/15/17 12:04 07/16/17 06:56 Hemoglobin 8.0 g/dL 7.0 g/dL Hematocrit 25.2 % 22.6 % White Blood Count 4.07 K/uL Red Blood Count 2.71 M/uL Mean Corpuscular Volume 83.4 fL Mean Corpuscular Hemoglobin 25.8 pg Mean Corpuscular Hemoglobin Concent 31.0 g/dl RDW Standard Deviation 46.3 fL RDW Coefficient of Variation 15.2 % Platelet Count 241 K/uL Mean Platelet Volume 9.5 fL Sodium Level 140 mmol/L Potassium Level 4.0 mmol/L Chloride Level 111 mmol/L Carbon Dioxide Level 23 mmol/L Anion Gap 6.0 mmol/L Blood Urea Nitrogen 18 mg/dl Creatinine 1.36 mg/dl Est Creatinine Clear Calc Drug Dose 31.0 ml/min Estimated GFR () 41.9 Estimated GFR (Non- 36.1 BUN/Creatinine Ratio 13.3 Random Glucose 92 mg/dl Calcium Level 7.7 mg/dl Assessment and Plan This patient is an very pleasant 82-year-old female with history of depression, dementia, hypothyroidism, HTN, HL, anemia, CKD stage III, and lumbar fusion, who presents to the ER with acute onset of bilateral leg pain and paresthesias that occurred at 2:00 this morning. She did slide out of bed onto her knees about 5 days ago and was down on the ground just for a little bit until her could get her up to a chair. Since then, she did complain of some various muscle aches since then that she had not had before. She has chronic lower back pain since a lumbar surgery but does not think that this is any worse than usual. She has been able to ambulate, but has become weaker in the last few days. Denies fevers chills or sweats at home. Only recent change her medication is a decrease in dose of her Lexapro from 20 down to 15 mg once daily. She has had some cold symptoms off and on the last few weeks but seems better with that. She does have intermittent shortness of breath which seems chronic. Denies chest pain, abdominal pain, constipation, diarrhea, GI bleeding, nausea or vomiting. Her workup in the emergency room revealed a grossly positive urinalysis, worsening renal failure with a creatinine of 2.17. A CT of the lumbar spine showed worsening degenerative changes but no acute fractures. CT of the head showed nothing acute. Her laboratory values otherwise showed chronic anemia which was stable and normal electrolytes. She will be admitted for UTI, acute bilateral leg pain, and acute kidney injury with dehydration. UTI/generalized weakness/acute renal failure in the setting of CKD stage III/ dehydration-improved, clinically improved with Rocephin despite no urine culture to follow-mixed organisms. Creatinine continues to improve to 1.36 today. Still feels weak but this may be related to anemia as below. Leg pain is resolved and may have been due to acute renal failure. -Continue Rocephin and switch to Omnicef p.o. for a total of 7 days upon discharge -Discontinued IV fluids -Continue to hold FLOR inhibitor Bilateral leg pain and numbness-no focal neurological deficits on exam. CT lumbar spine with significant degenerative changes and history of lumbar fusion. Perhaps this is all musculoskeletal and related to dehydration and renal failure especially with muscle cramping on exam. CPK was negative. Orthopedic spine surgeon recommended PT/OT and treatment as above for metabolic conditions -Resolved now -PT/OT consults recommend acute rehab placement Worsening chronic anemia-hemoglobin had been fairly stable at 8.3, was 8.9-9 in the last few months. Today down to 7.0. Has H/O non-bleeding gastric erosions but had admission in 2016 requiring transfusion - reports receiving IV iron in the past; was originially on oral supplementation but developed constipation and had to stop Iron studies show iron deficiency and anemia of chronic disease with low transferrin saturation of 5%. Likely of chronic kidney disease there is no obvious signs of bleeding. Hemoccult stool negative - treated with IV Venofer 100 mg daily 2 days but developed acute nausea vomiting as an adverse side effect -Transfuse 2 units PRBCs today -Follow-up with nephrology for possible Procrit in the future Acute metabolic Encephalopathy 2/2 UTI and LORNA: RESOLVED Mild cognitive impairment-stable -Continue Aricept 10 mg daily HTN and HLD: STABLE - ACEI on hold; Zocor 20 mg daily Hypothyroidism: STABLE - TSH slightly low -Continue home dose of Synthroid 75 mcg daily Depression: Follows with Dr. Perez - Recent decrease in Lexapro - continue Lexapro 15 mg daily and transitioning to Effexor next week with slow titration upwards DVT Prophylaxis: Heparin 5000 units SC Q8H Disposition: - PT/OT evaluations-possibly do acute inpatient rehab versus home if gets stronger in 1-2 days
[2017-07-16] MEDS ORDERED: NURSING VERBAL MED ORDER ONE (17:15)
[2017-07-16] MEDS ORDERED: TRAMADOL HCL 50 MG TAB PO ONE (17:30)
[2017-07-16] MEDS ORDERED: MoRPHine SULFATE 2 MG/ML CARP ONE (18:32)
[2017-07-16] MEDS ORDERED: HydrALAZINE HCL 20 MG/ML VIAL IV. PRN (18:45)
--- NOTE | 2017-07-16 19:33 | DIAGNOSTIC IMAGING REPORT ---
ABD/PELVIS WITHOUT FOR STONE HISTORY: 82 years-old Female severe lower back pain, UTI, look for stone acute severe low back pain with urinary tract infection. COMPARISON: Lumbar spine CT 07/14/2017 TECHNIQUE: Multiple axial CT images of the abdomen and pelvis were obtained without contrast. A dose lowering technique was used consistent with the principals of BECK. FINDINGS: Linear subsegmental bibasilar opacities suggest atelectasis/scarring. Scattered solid nodules of the right lower lobe are seen measuring up to 5 mm. There is no pneumatosis or pneumoperitoneum identified. Imaged inferior cardiac chambers are mildly enlarged. Study is limited secondary to patient motion] IV contrast. Within the limitations of the study, the liver, gallbladder, spleen, pancreas and adrenal glands are within normal limits. Left kidney appears mildly atrophic with cortical thinning. No renal calculi or obstructive uropathy identified. Ureters appear unremarkable. Mild wall thickening of the urinary bladder with mild perivesicular stranding. Increased prominence of the uterine fundus suggests fibroid uterus with associated calcification. Cystic lesion of the left adnexum measures 3.6 x 3.2 cm. Calcifications are seen within the right adnexum measuring up to 1.4 cm. Atherosclerosis of the aorta without aneurysm. No bulky adenopathy identified. Moderate sized hiatal hernia with partially intrathoracic stomach. No bowel obstruction or focal bowel wall thickening identified. Moderate colonic diverticulosis without CT evidence of acute diverticulitis. Terminal ileum appears unremarkable. Soft tissues are unremarkable. The bones appear moderately demineralized. Degenerative changes noted within the bilateral hips and spine. Extensive posterior decompression with interbody julita and screw fusion at L3-S1. Remote S1 fracture. No acute compression deformity identified. IMPRESSION: 1. Motion degraded study. 2. No acute intra-abdominal or intrapelvic abnormality identified, specifically no renal calculi or obstructive uropathy. 3. Mild wall thickening of the bladder with mild perivesicular inflammatory stranding. Correlate with urinalysis to exclude cystitis. 4. Indeterminate 3.6 cm cystic lesion of the left adnexum. 5. Colonic diverticulosis without CT evidence of acute diverticulitis. 6. Moderate sized hiatal hernia with partially intrathoracic stomach. The above report was generated using voice recognition software. It may contain grammatical, syntax or spelling errors. Electronically signed by: Ever Morris M.D. 07/16/2017 7:32 PM Dictated Date/Time: 07/16/2017 7:24 PM
[2017-07-16] MEDS: SIMVASTATIN 20 MG TAB PO SCH (20:34)
[2017-07-16] MEDS: ESCITALOPRAM OXALATE 10 MG TAB PO SCH (20:34)
[2017-07-16] MEDS: MoRPHine SULFATE 2 MG/ML CARP IV PRN (22:19)
[2017-07-17] VITALS: O2SAT 96
[2017-07-17] MEDS: TRAMADOL HCL 50 MG TAB PO PRN ×4 (00:44→22:44)
[2017-07-17] MEDS: MoRPHine SULFATE 2 MG/ML CARP IV PRN (03:12)
[2017-07-17] MEDS: CEFTRIAXONE SOD INJ 1 GM in DEXTROSE 5% ADD-VANTAGE 50ML 50 ML IV SCH (05:49)
[2017-07-17] MEDS: HEPARIN SOD 5000 UNIT/0.5 ML CARP SQ SCH ×3 (05:50→21:40)
[2017-07-17] MEDS: LEVOTHYROXINE 75 MCG TAB PO SCH (05:52)
[2017-07-17 06:41] LABS: BASO % 0.4 %; BASO ABS # 0.02 K/uL (0-0.2); EOS % 1.6 %; EOS ABS # 0.08 K/uL (0-0.5); HEMATOCRIT 28.3 % (37-47); HEMOGLOBIN 9.1 g/dL (12.0-16.0); IG# 0.01 K/uL (0.00-0.02); LYMPH % 25.5 %; LYMPH ABS # 1.25 K/uL (1.2-3.4); MEAN CORPUSCULAR HGB CONC 32.2 g/dl (32-36); MEAN PLATELET VOLUME 8.6 fL (7.4-10.4); MONO % 7.5 %; MONO ABS # 0.37 K/uL (0.11-0.59); NEUT % 64.8 %; NEUT ABS # 3.18 K/uL (1.4-6.5); PLATELET COUNT 185 K/uL (130-400); RED CELL DISTRIBUTION WIDTH CV 15.3 % (11.5-14.5); RED CELL DISTRIBUTION WIDTH SD 46.8 fL (36.4-46.3); WHITE BLOOD COUNT 4.91 K/uL (4.8-10.8)
[2017-07-17 07:06] LABS: CALCIUM 7.7 mg/dl (8.5-10.1); CREATININE 1.28 mg/dl (0.60-1.20); POTASSIUM 4.1 mmol/L (3.5-5.1)
[2017-07-17] MEDS: DONEPEZIL HCL 10 MG TAB PO SCH (07:39)
[2017-07-17] MEDS: MULTIVITAMIN TAB PO SCH (07:39)
[2017-07-17] MEDS: CALCIUM 600MG + VIT D 400 IU TAB PO SCH (07:39)
[2017-07-17] MEDS: POTASSIUM CHLORIDE 10 MEQ TABCR PO SCH (07:39)
[2017-07-17] MEDS: LIDODERM (LIDOCAINE) PATCH 5% TD SCH (07:40)
[2017-07-17 08:00] VITALS: O2SAT 95
[2017-07-17] MEDS ORDERED: MoRPHine SULFATE 4 MG/ML 1 ML CARP\\VIAL IV PRN (08:00)
[2017-07-17 08:34] VITALS: BP 153/61; PULSE 60; TEMP 36.7; O2SAT 95
--- NOTE | 2017-07-17 09:58 | Hospitalist Progress Note ---
Hospitalist Progress Note Date of Service Jul 17, 2017. Subjective Pt evaluation today including: conversation w/ patient Patient had a lot of lower back pain last night which radiates sometimes into the left buttocks, says that her bilateral leg pain is much improved. She denies numbness or tingling in the legs. She did take a couple of doses of morphine last night and had an increased dose of tramadol yesterday. This morning after eating part of her breakfast, she began to have nausea and vomiting again. I witnessed the vomit and it is bilious in nature, no hematemesis. She denies chest pain or shortness of breath, denies abdominal pain. She thinks that her increased lower back pain over her usual chronic pain is due to inactivity and lying in the hospital bed a lot. Reviewed CT of the abdomen and pelvis results with her including the left adnexal cyst. All Other Systems: Reviewed and Negative Objective Vital Signs Date Time Temp Pulse Resp B/P (MAP) Pulse Ox O2 Delivery O2 Flow Rate FiO2 07/17/17 08:34 36.7 60 17 153/61 (91) 95 Room Air 07/17/17 08:00 95 Room Air 07/17/17 00:00 96 Room Air 07/16/17 23:30 36.7 58 20 181/67 (105) 95 Room Air 07/16/17 20:00 96 Room Air 07/16/17 18:00 36.5 57 20 175/71 96 07/16/17 17:00 36.3 59 20 172/75 99 07/16/17 16:30 36.7 56 20 172/77 98 07/16/17 16:00 Room Air 07/16/17 16:00 36.5 57 20 172/73 07/16/17 15:45 36.7 57 20 168/69 07/16/17 15:24 36.8 58 20 169/70 97 07/16/17 14:40 36.9 62 18 155/75 (101) 98 07/16/17 14:30 37.3 63 18 155/64 97 07/16/17 13:30 36.9 62 18 155/75 98 07/16/17 13:00 37.3 61 18 148/71 97 07/16/17 12:30 37.0 60 18 163/66 97 07/16/17 12:15 37.0 62 18 170/68 97 07/16/17 11:53 36.9 61 20 176/74 98 Physical Exam General Appearance: WD/WN, no apparent distress (Sitting in chair at the bedside) Eyes: normal inspection, sclerae normal ENT: hearing grossly normal Neck: trachea midline Respiratory/Chest: lungs clear, normal breath sounds, no respiratory distress, no accessory muscle use Cardiovascular: regular rate, rhythm, no edema, no gallop, no murmur Abdomen: normal bowel sounds, non tender, soft Extremities: normal inspection, no pedal edema, no calf tenderness, + pertinent finding (Negative straight leg raise bilaterally) Neurologic/Psychiatric: no motor/sensory deficits, alert, normal mood/affect, oriented x 3 Skin: normal color, warm/dry, no rash Laboratory Results Last 24 Hours Test 07/17/17 06:29 White Blood Count 4.91 K/uL Red Blood Count 3.37 M/uL Hemoglobin 9.1 g/dL Hematocrit 28.3 % Mean Corpuscular Volume 84.0 fL Mean Corpuscular Hemoglobin 27.0 pg Mean Corpuscular Hemoglobin Concent 32.2 g/dl Platelet Count 185 K/uL Mean Platelet Volume 8.6 fL Neutrophils (%) (Auto) 64.8 % Lymphocytes (%) (Auto) 25.5 % Monocytes (%) (Auto) 7.5 % Eosinophils (%) (Auto) 1.6 % Basophils (%) (Auto) 0.4 % Neutrophils # (Auto) 3.18 K/uL Lymphocytes # (Auto) 1.25 K/uL Monocytes # (Auto) 0.37 K/uL Eosinophils # (Auto) 0.08 K/uL Basophils # (Auto) 0.02 K/uL RDW Standard Deviation 46.8 fL RDW Coefficient of Variation 15.3 % Immature Granulocyte % (Auto) 0.2 % Immature Granulocyte # (Auto) 0.01 K/uL Sodium Level 140 mmol/L Potassium Level 4.1 mmol/L Chloride Level 112 mmol/L Carbon Dioxide Level 20 mmol/L Anion Gap 8.0 mmol/L Blood Urea Nitrogen 16 mg/dl Creatinine 1.28 mg/dl Est Creatinine Clear Calc Drug Dose 33.0 ml/min Estimated GFR () 45.1 Estimated GFR (Non- 38.9 BUN/Creatinine Ratio 12.5 Random Glucose 80 mg/dl Calcium Level 7.7 mg/dl Magnesium Level 2.3 mg/dl Assessment and Plan This patient is an very pleasant 82-year-old female with history of depression, dementia, hypothyroidism, HTN, HL, anemia, CKD stage III, and lumbar fusion, who presents to the ER with acute onset of bilateral leg pain and paresthesias that occurred at 2:00 this morning. She did slide out of bed onto her knees about 5 days ago and was down on the ground just for a little bit until her could get her up to a chair. Since then, she did complain of some various muscle aches since then that she had not had before. She has chronic lower back pain since a lumbar surgery but does not think that this is any worse than usual. She has been able to ambulate, but has become weaker in the last few days. Denies fevers chills or sweats at home. Only recent change her medication is a decrease in dose of her Lexapro from 20 down to 15 mg once daily. She has had some cold symptoms off and on the last few weeks but seems better with that. She does have intermittent shortness of breath which seems chronic. Denies chest pain, abdominal pain, constipation, diarrhea, GI bleeding, nausea or vomiting. Her workup in the emergency room revealed a grossly positive urinalysis, worsening renal failure with a creatinine of 2.17. A CT of the lumbar spine showed worsening degenerative changes but no acute fractures. CT of the head showed nothing acute. Her laboratory values otherwise showed chronic anemia which was stable and normal electrolytes. She is admitted for UTI, acute bilateral leg pain, and acute kidney injury with dehydration. UTI/generalized weakness/acute renal failure in the setting of CKD stage III/ dehydration-improved, continues to be clinically improved with Rocephin despite no urine culture to follow-mixed organisms. Creatinine continues to improve to 1.28 today. Her generalized weakness is improved and was likely related to anemia as below. Leg pain is resolved and may have been due to acute renal failure. -Continue Rocephin and switch to Omnicef p.o. for a total of 7 days upon discharge -Discontinued IV fluids -Continue to hold FLOR inhibitor and Lasix -Continues on low-dose potassium supplement and patient requesting switching to elixir rather than the tablet as it is hard to swallow Bilateral leg pain and numbness/acute on chronic lower back pain with left- sided sciatica-no focal neurological deficits on exam. CT lumbar spine with significant degenerative changes and history of lumbar fusion. Perhaps this is all musculoskeletal and related to dehydration and renal failure especially with muscle cramping on exam. CPK was negative. Orthopedic spine surgeon recommended PT/OT and treatment as above for metabolic conditions CT abdomen/pelvis without contrast without evidence of cause of acute lower back pain with left-sided radiation. Acute on chronic lower back pain with left-sided sciatica likely exacerbated here by relative inactivity and hospital bed -discussed with nursing and patient about ambulating 3 times daily -PT/OT consults recommend acute rehab placement, but patient tends to want to go home Nausea/vomiting-started after receiving IV Venofer yesterday. Also on morphine overnight which may be contributing. -Treat with IV Zofran -DC morphine and try Dilaudid as needed for severe pain in the lower back Worsening chronic anemia-hemoglobin had been fairly stable at 8.3, was 8.9-9 in the last few months. On 07/16 it dropped down to 7.0. She was given 2 units PRBCs Hemoglobin appropriately increased today to 9.1. She is symptomatically improved Has H/O non-bleeding gastric erosions but had admission in 2016 requiring transfusion - reports receiving IV iron in the past; was originially on oral supplementation but developed constipation and had to stop Iron studies show iron deficiency and anemia of chronic disease with low transferrin saturation of 5%. Likely of chronic kidney disease there is no obvious signs of bleeding. Hemoccult stool negative - treated with IV Venofer 100 mg daily 2 days but developed acute nausea vomiting as an adverse side effect -Follow-up with nephrology for possible Procrit in the future as an outpatient Acute metabolic Encephalopathy 2/2 UTI and LORNA: RESOLVED Mild cognitive impairment-stable -Continue Aricept 10 mg daily HTN and HLD: STABLE - ACEI on hold; Zocor 20 mg daily Hypothyroidism: STABLE - TSH slightly low -Continue home dose of Synthroid 75 mcg daily Depression: Follows with Dr. Perez - Recent decrease in Lexapro - continue Lexapro 15 mg daily and transitioning to Effexor next week with slow titration upwards Left adnexal cystic mass-3.6 [address] scan seen incidentally -Recommended outpatient [facility] follow-up and pelvic ultrasound -Discussed result with patient DVT Prophylaxis: Heparin 5000 units SC Q8H Disposition: - PT/OT evaluations-possibly do acute inpatient rehab versus home if gets stronger in 1-2 days and if tolerating p.o. given recent nausea and vomiting
[2017-07-17] MEDS ORDERED: HYDROmorphone INJ 0.5 MG/0.5 ML SYR IV PRN (10:00)
[2017-07-17] MEDS: ONDANSETRON INJ 2 MG/ML 2 ML VIAL IV PRN ×2 (10:00→16:24)
[2017-07-17] MEDS ORDERED: FAMOTIDINE IV INJ 20 MG in DEXTROSE 5% 100ML 100 ML IV SCH (10:00)
[2017-07-17] MEDS: FAMOTIDINE IV INJ 20 MG in SYRINGE 3 ML IV SCH ×2 (12:56→22:44)
[2017-07-17 14:25] VITALS: BP 154/72; PULSE 61; TEMP 36.4; O2SAT 97
[2017-07-17] MEDS: SIMVASTATIN 20 MG TAB PO SCH (20:34)
[2017-07-17] MEDS: ESCITALOPRAM OXALATE 10 MG TAB PO SCH (20:34)
[2017-07-17 22:06] VITALS: BP 172/74; PULSE 58; TEMP 36.7; O2SAT 95
[2017-07-18] VITALS (8 sets, daily range): BP systolic 144–196; BP diastolic 65–84; PULSE 60–71; TEMP 36.8; O2SAT 96–98
[2017-07-18] MEDS: ACETAMINOPHEN 325 MG TAB PO PRN (03:40)
[2017-07-18] MEDS: CEFTRIAXONE SOD INJ 1 GM in DEXTROSE 5% ADD-VANTAGE 50ML 50 ML IV SCH (05:52)
[2017-07-18] MEDS: LEVOTHYROXINE 75 MCG TAB PO SCH (05:52)
[2017-07-18] MEDS: TRAMADOL HCL 50 MG TAB PO PRN ×2 (05:53→17:08)
[2017-07-18] MEDS: HEPARIN SOD 5000 UNIT/0.5 ML CARP SQ SCH ×2 (05:55→13:14)
[2017-07-18 06:25] LABS: HEMATOCRIT 32.9 % (37-47); HEMOGLOBIN 10.8 g/dL (12.0-16.0); MEAN CORPUSCULAR HEMOGLOBIN 27.9 pg (25-34); MEAN CORPUSCULAR HGB CONC 32.8 g/dl (32-36); PLATELET COUNT 213 K/uL (130-400); RED CELL DISTRIBUTION WIDTH CV 15.9 % (11.5-14.5); RED CELL DISTRIBUTION WIDTH SD 48.6 fL (36.4-46.3); WHITE BLOOD COUNT 5.67 K/uL (4.8-10.8)
[2017-07-18 06:46] LABS: CALCIUM 8.4 mg/dl (8.5-10.1); CREATININE 1.37 mg/dl (0.60-1.20); POTASSIUM 4.1 mmol/L (3.5-5.1)
[2017-07-18] MEDS ORDERED: POTASSIUM CHLORIDE 20MEQ/15ML 473ML PO SCH (08:00)
[2017-07-18] MEDS: CALCIUM 600MG + VIT D 400 IU TAB PO SCH (09:08)
[2017-07-18] MEDS: DONEPEZIL HCL 10 MG TAB PO SCH (09:08)
[2017-07-18] MEDS: MULTIVITAMIN TAB PO SCH (09:08)
[2017-07-18] MEDS: LIDODERM (LIDOCAINE) PATCH 5% TD SCH (09:09)
[2017-07-18] MEDS: FAMOTIDINE IV INJ 20 MG in SYRINGE 3 ML IV SCH (09:09)
[2017-07-18] MEDS ORDERED: LISINOPRIL 10 MG TAB PO ONE (09:15)
[2017-07-18] MEDS ORDERED: NURSING VERBAL MED ORDER ONE (12:15)
[2017-07-18] MEDS ORDERED: VENLAFAXINE HCL XR 37.5 MG CAPXR PO SCH (12:30)
[2017-07-18] MEDS ORDERED: VENL37.593 PO (12:33)
[2017-07-18] MEDS ORDERED: LISI10TA PO (12:33)
[2017-07-18] MEDS ORDERED: CEFD1CAP14 PO (12:33)
[2017-07-18] MEDS ORDERED: LDDP5 TD (12:33)
[2017-07-18] MEDS ORDERED: POTA10SO10 PO (12:33)
--- NOTE | 2017-07-18 12:41 | Discharge Instructions ---
Discharge Instructions Date of Service Jul 18, 2017. Admission Reason for Admission: Bob,Uti Discharge Discharge Diagnosis / Problem: Urinary Tract Infection/Anemia Discharge Goals Goal(s): Decrease discomfort, Improve function, Increase independence Activity Recommendations Activity Limitations: resume your previous activity . Instructions / Follow-Up Instructions / Follow-Up Urinary Tract Infection: - You will be prescribed Omnicef twice a day. Start this on 07/19 as you had antibiotics in the hospital today. Take for 2 more days - Keep yourself hydrated. The best way to check is to look at your urine. You want your urine to be pale yellow or clear and that is a sign you are drinking enough. Anemia: - You have ongoing anemia and you were given some blood to help bring these numbers up. This may have caused some of your weakness. - Your blood counts are up to 10.8 which is great but will need monitored by your family doctor. Anti-Depressant: - Continue your prescribed taper to transition your Lexapro to Effexor. - For your chronic pain, if you are having severe pain you can take Tramadol occasionally. While on both Effexor and Lexapro but if other medications like Tylenol help the pain you can use this. High Blood Pressure: - Your blood pressure has been very high in the hospital. Recommend to take Lisinopril 10 mg daily. A prescription was sent to your pharmacy to help get better control of blood pressure. Please discuss this with your family doctor. Left Ovarian Cyst: - Recommend to have follow-up from gynecology as an outpatient to monitor Please follow-up with your PCP within 1 week. Current Hospital Diet Patient's current hospital diet: AHA Diet (Heart Healthy) Discharge Diet Recommended Diet: AHA Diet (Heart Healthy) Procedures Procedures Performed: CT lumbar spine CT abdomen/pelvis CT head Chest x-ray Pending Studies Studies pending at discharge: no Laboratory Results Last 24 Hours Test 07/18/17 06:08 White Blood Count 5.67 K/uL Red Blood Count 3.87 M/uL Hemoglobin 10.8 g/dL Hematocrit 32.9 % Mean Corpuscular Volume 85.0 fL Mean Corpuscular Hemoglobin 27.9 pg Mean Corpuscular Hemoglobin Concent 32.8 g/dl RDW Standard Deviation 48.6 fL RDW Coefficient of Variation 15.9 % Platelet Count 213 K/uL Mean Platelet Volume 9.0 fL Sodium Level 139 mmol/L Potassium Level 4.1 mmol/L Chloride Level 108 mmol/L Carbon Dioxide Level 22 mmol/L Anion Gap 8.0 mmol/L Blood Urea Nitrogen 16 mg/dl Creatinine 1.37 mg/dl Est Creatinine Clear Calc Drug Dose 30.8 ml/min Estimated GFR () 41.5 Estimated GFR (Non- 35.8 BUN/Creatinine Ratio 11.6 Random Glucose 94 mg/dl Calcium Level 8.4 mg/dl Magnesium Level 2.4 mg/dl Medical Emergencies . Who to Call and When: Medical Emergencies: If at any time you feel your situation is an emergency, please call 911 immediately. . Non-Emergent Contact Non-Emergency issues call your: Primary Care Provider Call Non-Emergent contact if: you have a fever, your pain is concerning you, you have any medication questions . . "Provider Documentation" section prepared by Ida Jimenez. .
[2017-07-18] MEDS ORDERED: LISINOPRIL 5 MG TAB PO ONE (12:45)
--- NOTE | 2017-07-18 14:32 | Discharge Summary ---
Discharge Summary Date of Service Jul 18, 2017. Discharge Summary Admission Date: Jul 14, 2017 at 10:01 Discharge Date: Jul 18, 2017 Discharge Disposition: Home with services Principal Diagnosis: Generalized Weakness from UTI and Anemia, LORNA Problems/Secondary Diagnoses: Hypothyroidism HTN Hypertensive urgency HLD Major depressive disorder Anemia of chronic kidney disease and iron deficiency CKD stage III Dementia Chronic lower back pain Nausea/vomiting Bilateral leg pain and numbness acute on chronic lower back pain with left-sided sciatica Acute metabolic Encephalopathy secondary to UTI and LORNA Mild cognitive impairment Left adnexal cystic mass-3.6 x [address] scan Immunizations: Have You Had Influenza Vaccine: No Influenza Vaccine Date: Feb 08, 2010 History of Tetanus Vaccine?: Unknown Tetanus Immunization Date: Oct 08, 1972 History of Pneumococcal: Yes Pneumococcal Date: Oct 09, 2007 History of Hepatitis B Vaccine: Unknown Procedures: CT LUMBAR SPINE WITHOUT FINDINGS: There are postsurgical changes present. There are posterior laminectomies at the L3-S1 levels. There are postsurgical changes of discectomies and interbody fusions at the L4-5 and L5-S1 levels. There is a chronic grade 1 spondylolisthesis of L4 on L5. There is posterior spinal fusion with pedicle screw fixation at the L3-S1 levels. There is an old S1 fracture with anterior callus/remodeling. No acute fractures are visualized. Since the prior study, the patient has developed extensive degenerative changes at the L2-3 level with a vacuum disc and endplate irregularity. IMPRESSION: 1. Extensive postsurgical change 2. Progressive degenerative changes 3. Old S1 fracture 4. No acute fractures identified CT HEAD WITHOUT CONTRAST (CT) FINDINGS: No intra or extra-axial mass lesions are visualized. There is no CT evidence of acute cortical infarction. There is no evidence of midline shift. There is no acute hemorrhage. No calvarial fractures are visualized. There are moderate white matter hypodensities likely on a small vessel basis. There is mild ventricular dilatation, likely secondary to volume loss. There is a stable calcification within the paramesencephalic cistern. There is no evidence of acute sinusitis IMPRESSION: No significant change from the preceding study. Moderately extensive white matter disease likely a small vessel basis. No acute intracranial findings. ABD/PELVIS WITHOUT FOR STONE FINDINGS: Linear subsegmental bibasilar opacities suggest atelectasis/scarring. Scattered solid nodules of the right lower lobe are seen measuring up to 5 mm. There is no pneumatosis or pneumoperitoneum identified. Imaged inferior cardiac chambers are mildly enlarged. Study is limited secondary to patient motion] IV contrast. Within the limitations of the study, the liver, gallbladder, spleen, pancreas and adrenal glands are within normal limits. Left kidney appears mildly atrophic with cortical thinning. No renal calculi or obstructive uropathy identified. Ureters appear unremarkable. Mild wall thickening of the urinary bladder with mild perivesicular stranding. Increased prominence of the uterine fundus suggests fibroid uterus with associated calcification. Cystic lesion of the left adnexum measures 3.6 x 3.2 cm. Calcifications are seen within the right adnexum measuring up to 1.4 cm. Atherosclerosis of the aorta without aneurysm. No bulky adenopathy identified. Moderate sized hiatal hernia with partially intrathoracic stomach. No bowel obstruction or focal bowel wall thickening identified. Moderate colonic diverticulosis without CT evidence of acute diverticulitis. Terminal ileum appears unremarkable. Soft tissues are unremarkable. The bones appear moderately demineralized. Degenerative changes noted within the bilateral hips and spine. Extensive posterior decompression with interbody julita and screw fusion at L3-S1. Remote S1 fracture. No acute compression deformity identified. IMPRESSION: 1. Motion degraded study. 2. No acute intra-abdominal or intrapelvic abnormality identified, specifically no renal calculi or obstructive uropathy. 3. Mild wall thickening of the bladder with mild perivesicular inflammatory stranding. Correlate with urinalysis to exclude cystitis. 4. Indeterminate 3.6 cm cystic lesion of the left adnexum. 5. Colonic diverticulosis without CT evidence of acute diverticulitis. 6. Moderate sized hiatal hernia with partially intrathoracic stomach. Consultations: 1. Orthopedic - Spine 2. PT/OT Medication Reconciliation New Medications: Cefdinir (Omnicef) 300 Mg Cap 300 MG PO Q12H, #4 CAP Start on 07/19. Lidocaine (Lidocaine) 1 Patch Tdsy 1 PATCH TD QAM for 7 Days, #7 PATCH Potassium Chloride (Potassium Chloride) 10 % Liq 10 MEQ PO QAM for 30 Days, #450 ML Venlafaxine Hcl (Venlafaxine Extended Rel) 37.5 Mg Cap 37.5 MG PO DAILY for 7 Days, #7 CAP Changed Medications: Lisinopril (Prinivil) 10 Mg Tab 10 MG PO DAILY for 30 Days, #30 TAB (Changed from: 5 MG) Continued Medications: Calcium/Vitamin D (Caltrate 600 Plus *) Tab 1 TAB PO QAM, 0 Refills Diphenoxylate/Atropine (Lomotil) Tab 1 TAB PO DAILY PRN for PRN, TAB Donepezil Hydrochloride (Aricept) 10 Mg Tab 10 MG PO DAILY, TAB Escitalopram (Lexapro) 10 Mg Tab 10 MG PO QPM, TAB Furosemide (Lasix) 40 Mg Tab 40 MG PO QAM, TAB Levothyroxine Sodium (Levothyroxine Sodium) 75 Mcg Tab 1 TAB PO QAM, TAB 3 Refills Multivitamin (Multivitamin) Tab 1 TAB PO QAM, 0 Refills Nutritional Supplements (Osteo Advance) 1 Tab Tab 1 TAB PO QAM Simvastatin (Zocor) 20 Mg Tab 20 MG PO QPM, TAB Tramadol (Ultram) 50 Mg Tab 50 MG PO Q8H PRN for Pain, TAB Discontinued Medications: Potassium Chloride (Micro-K Ext Rel) 10 Meq Capcr 10 MEQ PO QAM, CAP Discharge Exam Review of Systems: Constitutional: No fever, No chills ENT: No nasal symptoms, No sore throat Respiratory: No cough, No shortness of breath Cardiovascular: No chest pain Abdomen: No pain, No nausea, No vomiting, No diarrhea, No constipation Musculoskeletal: + problem reported (chronic low back pain - reporting at baseline), No swelling, No calf pain Genitourinary - Female: No dysuria, No urinary frequency Neurologic: No balance problems Hematologic / Lymphatic: No abnormal bleeding/bruising Integumentary: No rash Physical Exam: General Appearance: no apparent distress Eyes: sclerae normal Neck: supple, no JVD, trachea midline Respiratory/Chest: lungs clear, normal breath sounds, no respiratory distress, no accessory muscle use Cardiovascular: regular rate, rhythm, no gallop, no murmur Abdomen / GI: normal bowel sounds, non tender, soft Extremities: no calf tenderness, no pedal edema Neurologic/Psychiatric: alert Skin: normal color, warm/dry Hospital Course ADMISSION: This patient is an very pleasant 82-year-old female with history of depression, dementia, hypothyroidism, HTN, HL, anemia, CKD stage III, and lumbar fusion, who presents to the ER with acute onset of bilateral leg pain and paresthesias that occurred at 2:00 this morning. She did slide out of bed onto her knees about 5 days ago and was down on the ground just for a little bit until her could get her up to a chair. Since then, she did complain of some various muscle aches since then that she had not had before. She has chronic lower back pain since a lumbar surgery but does not think that this is any worse than usual. She has been able to ambulate, but has become weaker in the last few days. Denies fevers chills or sweats at home. Only recent change her medication is a decrease in dose of her Lexapro from 20 down to 15 mg once daily. She has had some cold symptoms off and on the last few weeks but seems better with that. She does have intermittent shortness of breath which seems chronic. Denies chest pain, abdominal pain, constipation, diarrhea, GI bleeding, nausea or vomiting. Her workup in the emergency room revealed a grossly positive urinalysis, worsening renal failure with a creatinine of 2.17. A CT of the lumbar spine showed worsening degenerative changes but no acute fractures. CT of the head showed nothing acute. Her laboratory values otherwise showed chronic anemia which was stable and normal electrolytes. She will be admitted for UTI, acute bilateral leg pain, and acute kidney injury with dehydration. HOSPITAL COURSE: Ms. Saldivar was admitted Generalized Weakness that appears to be from UTI vs LORNA vs Progressive Anemia. She had some mild encephalopathy on admission that is resolved and family reporting baseline mentation. LORNA resolved with gentle hydration and holding of Lasix and ACEI. Creatinine improved from 2.17 to 1.37. UA supports UTI however culture revealed multiple organisms and therefore no sensitivities or specific organisms obtained. UCx on previous assessments were pansensitive E. coli and mildly resistant Klebsiella with both being sensitive to Rocephin which was utilized during admission. She will complete UTI treatment with Cefdinir to complete a 7 day total course. During admission her chronic anemia progressively worsened and dropped to 7. She was initially treated with Venofer due to iron deficiency but developed nausea/vomiting. She states she was previously on iron supplementation but had to stop this due to constipation. She was transfused 2 units on 07/16 with hemoglobin stabilizing at 10.8 at this time. May be a candidate for Procrit as an outpatient if anemia continues. Her back pain is currently at baseline and she does report some pain into L hip and sciatica radiculopathy but is tolerable. She is ambulating hallways with a walker and deemed safe to return home. She has had significantly high BPs during admission to include systolics in 190s. Lisinopril was increased to 10 mg daily and will need to be monitored. She is to continue her previously prescribed Lexapro taper and Effexor initiation per Dr. Perez. Total Time Spent: Greater than 30 minutes This includes examination of the patient, discharge planning, medication reconciliation, and communication with other providers. Discharge Instructions Please refer to the electronic Patient Visit Report (Discharge Instructions) for additional information. Follow-Up With PCP within 1-2 weeks Additional Copies To Daniel Albert M.D. Reviewed: Pt Seen/Exam by Me History Physician Pediatric Critical Care Nurse Supervision Note: I interviewed and examined the patient. Discussed with IMMANUEL Jimenez and agree with findings and plan as documented in the note. Any exceptions or clarifications are listed here: This patient is an very pleasant 82-year-old female with history of depression, dementia, hypothyroidism, HTN, HL, anemia, CKD stage III, and lumbar fusion, who presents to the ER with acute onset of bilateral leg pain and paresthesias Her workup in the emergency room revealed a grossly positive urinalysis, worsening renal failure with a creatinine of 2.17. A CT of the lumbar spine showed worsening degenerative changes but no acute fractures. CT of the head showed nothing acute. Her laboratory values otherwise showed chronic anemia which was stable and normal electrolytes. She was admitted for UTI, acute bilateral leg pain, and acute kidney injury with dehydration. UTI/generalized weakness/acute renal failure in the setting of CKD stage III/ dehydration-improved, continues to be clinically improved with Rocephin despite no urine culture to follow-mixed organisms. Creatinine continues to improve. Her generalized weakness is improved and was likely related to anemia as below. Leg pain is resolved and may have been due to acute renal failure. -Continue Rocephin and switch to Omnicef p.o. for a total of 7 days upon discharge -Received IV fluids -Restarted FLOR inhibitor and Lasix -Continues on low-dose potassium supplement and patient requesting switching to elixir rather than the tablet as it is hard to swallow Bilateral leg pain and numbness/acute on chronic lower back pain with left- sided sciatica-no focal neurological deficits on exam. CT lumbar spine with significant degenerative changes and history of lumbar fusion. Perhaps this is all musculoskeletal and related to dehydration and renal failure especially with muscle cramping on exam. CPK was negative. Orthopedic spine surgeon recommended PT/OT and treatment as above for metabolic conditions CT abdomen/pelvis without contrast without evidence of cause of acute lower back pain with left-sided radiation. Acute on chronic lower back pain with left-sided sciatica likely exacerbated here by relative inactivity and hospital bed-now improved with ambulation -PT/OT consults recommend acute rehab placement, but patient tends to want to go home -Tramadol sparingly, acetaminophen as needed Nausea/vomiting-started after receiving IV Venofer. Also on morphine one evening which may be contributing-resolved -Treated with IV Zofran Acute on chronic anemia-hemoglobin had been fairly stable at 8.3, was 8.9-9 in the last few months. On 07/16 it dropped down to 7.0. She was given 2 units PRBCs Hemoglobin appropriately increased to 10. She is symptomatically improved and no longer has dyspnea on exertion Iron studies show iron deficiency and anemia of chronic disease with low transferrin saturation of 5%. Likely of chronic kidney disease there is no obvious signs of bleeding. Hemoccult stool negative - treated with IV Venofer 100 mg daily 2 days but developed acute nausea vomiting as an adverse side effect -Follow-up with nephrology for possible Procrit in the future as an outpatient Acute metabolic Encephalopathy secondary to UTI and LORNA: RESOLVED Mild cognitive impairment-stable -Continue Aricept 10 mg daily HTN and HLD: Had some significantly elevated blood pressures at times, treated with as needed IV hydralazine, restarted her FLOR inhibitor and her Lasix and had improvement. She has numerous allergies to a lot of blood pressure medications. -Continue lisinopril increased dose of 10 mg -Continue Lasix but at lower dose of 20 mg daily given dehydration on admission -Continue Zocor 20 mg daily Hypothyroidism: STABLE - TSH slightly low -Continue home dose of Synthroid 75 mcg daily Depression: Follows with Dr. Perez - Recent decrease in Lexapro - continue Lexapro taper down and transitioning to Effexor starting today with slow titration upwards Left adnexal cystic mass-3.6 x 3.[address] scan seen incidentally -Recommended outpatient [employer] follow-up and pelvic ultrasound -Discussed result with patient Stable for discharge to home today with home health Documented By: Keena Bedolla
[2017-07-18] MEDS ORDERED: FUROSEMIDE 20 MG TAB PO STA (15:31)
[2017-07-18] MEDS ORDERED: FRS/40 PO (16:45)
[2017-07-18] MEDS ORDERED: ESCITALOPRAM OXALATE 10 MG TAB PO SCH (21:00)
[2017-07-19] MEDS ORDERED: LISINOPRIL 5 MG TAB PO SCH (08:00)
[2017-07-19] MEDS ORDERED: LISINOPRIL 10 MG TAB PO SCH (08:00)
== END 2017-07-18 17:49 | disposition home or self-care (01) | DRG 682 ==
LOC: C.EDB 05:17 → EDBEDREQ 08:59 → ENRESERV 09:09 → C.4E 10:01
PROVIDERS: ADMIT Family Medicine; ATTEND Family Medicine
DX: N17.9 Acute kidney failure, unspecified (principal); G93.41 Metabolic encephalopathy; N39.0 Urinary tract infection, site not specified; E86.0 Dehydration; F02.80 Dementia in other diseases classified elsewhere, unspecified severity, without behavioral disturbance, psychotic disturbance, mood disturbance, and anxiety; G30.0 Alzheimer's disease with early onset; M54.5 Low back pain; E03.9 Hypothyroidism, unspecified; I12.9 Hypertensive chronic kidney disease with stage 1 through stage 4 chronic kidney disease, or unspecified chronic kidney disease; N18.3 Chronic kidney disease, stage 3 (moderate); F32.9 Major depressive disorder, single episode, unspecified; Z88.2 Allergy status to sulfonamides; D64.9 Anemia, unspecified; G31.84 Mild cognitive impairment of uncertain or unknown etiology; Z88.8 Allergy status to other drugs, medicaments and biological substances; Z98.1 Arthrodesis status; Z96.653 Presence of artificial knee joint, bilateral

== ENCOUNTER → 2017-07-21 | Outpatient (CLI) | payer OTHER ==
[~2017-07-21] MED LIST changes: +CEFD1CAP14 PO; -CIPR250T3 PO; +DONE10TA12 PO; +ESCI10TA17 PO; -ESCI1TAB10 PO; +LDDP5 TD; -POTA10CA28 PO; +POTA10SO10 PO; +TRAM-10 PO; +VENL37.593 PO
[2017-07-21 15:48] LABS: BASO % 0.6 %; BASO ABS # 0.03 K/uL (0-0.2); EOS % 3.1 %; EOS ABS # 0.16 K/uL (0-0.5); HEMOGLOBIN 11.7 g/dL (12.0-16.0); IG# 0.03 K/uL (0.00-0.02); LYMPH % 22.6 %; LYMPH ABS # 1.18 K/uL (1.2-3.4); MEAN CELL VOLUME 86.4 fL (80-100); MEAN CORPUSCULAR HEMOGLOBIN 26.6 pg (25-34); MEAN CORPUSCULAR HGB CONC 30.8 g/dl (32-36); MEAN PLATELET VOLUME 9.6 fL (7.4-10.4); MONO % 7.7 %; NEUT % 65.4 %; NEUT ABS # 3.42 K/uL (1.4-6.5); PLATELET COUNT 285 K/uL (130-400); RED CELL DISTRIBUTION WIDTH CV 17.3 % (11.5-14.5); RED CELL DISTRIBUTION WIDTH SD 53.1 fL (36.4-46.3); WHITE BLOOD COUNT 5.22 K/uL (4.8-10.8)
[2017-07-21 16:01] LABS: ALBUMIN 3.5 gm/dl (3.4-5.0); ALT/SGPT 30 U/L (12-78); BLOOD UREA NITROGEN 18 mg/dl (7-18); CALCIUM 8.9 mg/dl (8.5-10.1); CARBON DIOXIDE 28 mmol/L (21-32); CREATININE 1.58 mg/dl (0.60-1.20); GLUCOSE 95 mg/dl (70-99); POTASSIUM 3.5 mmol/L (3.5-5.1); SODIUM 136 mmol/L (136-145)
[2017-07-21 16:04] LABS: ALKALINE PHOSPHATASE 77 U/L (45-117); AST/SGOT 23 U/L (15-37); TOTAL PROTEIN 7.2 gm/dl (6.4-8.2)
== END | disposition home or self-care (01) ==
LOC: C.LABSPEC 14:25
PROVIDERS: ATTEND Internal Medicine
DX: D64.9 Anemia, unspecified (principal); R53.83 Other fatigue

== ENCOUNTER 2017-08-12 07:45 | Inpatient (IN) | payer OTHER ==
[~2017-08-12] VITALS: Ht 170.2 cm; Wt 69.0 kg
[~2017-08-12 07:45] MED LIST changes: -DONE10TA12 PO; -LEVO75TA5 PO; -SIMV20TA2 PO; -TRAM-10 PO
[2017-08-12] MEDS ORDERED: SODIUM CHLORIDE 0.9% 1000ML 1,000 ML IV STA (08:23)
[2017-08-12 08:32] LABS: BASO % 0.4 %; BASO ABS # 0.02 K/uL (0-0.2); EOS % 2.6 %; EOS ABS # 0.14 K/uL (0-0.5); HEMATOCRIT 34.8 % (37-47); HEMOGLOBIN 11.3 g/dL (12.0-16.0); IG# 0.01 K/uL (0.00-0.02); LYMPH % 33.7 %; LYMPH ABS # 1.84 K/uL (1.2-3.4); MEAN CELL VOLUME 85.1 fL (80-100); MEAN CORPUSCULAR HEMOGLOBIN 27.6 pg (25-34); MEAN CORPUSCULAR HGB CONC 32.5 g/dl (32-36); MEAN PLATELET VOLUME 9.7 fL (7.4-10.4); MONO % 7.3 %; NEUT % 55.8 %; NEUT ABS # 3.05 K/uL (1.4-6.5); PLATELET COUNT 208 K/uL (130-400); RED CELL DISTRIBUTION WIDTH CV 19.4 % (11.5-14.5); RED CELL DISTRIBUTION WIDTH SD 60.4 fL (36.4-46.3); WHITE BLOOD COUNT 5.46 K/uL (4.8-10.8)
[2017-08-12] MEDS ORDERED: DONE10TA12 PO (08:38)
[2017-08-12] MEDS ORDERED: TRAM-10 PO (08:38)
[2017-08-12 08:39] LABS: ALBUMIN 3.4 gm/dl (3.4-5.0); ALT/SGPT 21 U/L (12-78); BLOOD UREA NITROGEN 27 mg/dl (7-18); CALCIUM 9.2 mg/dl (8.5-10.1); CARBON DIOXIDE 26 mmol/L (21-32); CREATININE 1.57 mg/dl (0.60-1.20); GLUCOSE 103 mg/dl (70-99); LIPASE 433 U/L (73-393); POTASSIUM 3.5 mmol/L (3.5-5.1); SODIUM 138 mmol/L (136-145)
[2017-08-12 08:42] LABS: PTT PATIENT 23.4 SECONDS (21.0-31.0)
--- NOTE | 2017-08-12 08:49 | DIAGNOSTIC IMAGING REPORT ---
CHEST ONE VIEW PORTABLE CLINICAL HISTORY: EVALUATE WEAKNESS COMPARISON STUDY: Chest radiograph July 14, 2017. FINDINGS: A hiatal hernia is noted. Cardiomediastinal silhouette is stable. No evidence for pulmonary edema. No pneumothorax or pleural effusion is noted. Appearance of the chest is unchanged. IMPRESSION: No acute cardiopulmonary findings. Electronically signed by: Dariusz Hollins M.D. 08/12/2017 8:47 AM Dictated Date/Time: 08/12/2017 8:46 AM
[2017-08-12 08:56] LABS: ALKALINE PHOSPHATASE 86 U/L (45-117); AST/SGOT 17 U/L (15-37); TOTAL PROTEIN 7.4 gm/dl (6.4-8.2)
--- NOTE | 2017-08-12 09:23 | DIAGNOSTIC IMAGING REPORT ---
HEAD CT NONCONTRAST CT DOSE: 1675.84 mGycm HISTORY: Confusion. EVALUATE WEAKNESS TECHNIQUE: Multiaxial CT images of the head were performed without the use of intravenous contrast. Automated exposure control was utilized for this study. A dose lowering technique was utilized adhering to the principles of ALARA. Comparison: Head CT 07/14/2017. Findings: The paranasal sinuses and mastoid air cells are clear. The calvarium and skull base are intact. There is no mass, hematoma, midline shift, acute infarct. White matter hypodensity is nonspecific but suggestive of microvascular ischemic change. The ventricles and sulci demonstrate mild age-related involutional changes. Impression: Motion artifact. No significant change compared to the prior study. No acute intracranial abnormality. Electronically signed by: Tacos Welch M.D. 08/12/2017 9:21 AM Dictated Date/Time: 08/12/2017 9:16 AM
[2017-08-12] MEDS ORDERED: CEFTRIAXONE SOD INJ 1 GM ADDVIAL IV STA (09:37)
[2017-08-12] MEDS ORDERED: FRS/40 PO (09:51)
[2017-08-12] MEDS ORDERED: LISI-461 PO (09:51)
[2017-08-12] MEDS ORDERED: ESCI1TAB10 PO (09:54)
[2017-08-12] MEDS ORDERED: POTA10CA28 PO (09:54)
[2017-08-12] MEDS ORDERED: VENL75CA73 PO (09:54)
[2017-08-12] MEDS ORDERED: VENL1CAP92 PO (09:54)
[2017-08-12] MEDS ORDERED: ACETAMINOPHEN 500 MG TAB PO STA (12:28)
[2017-08-12] MEDS ORDERED: CEFTRIAXONE SOD INJ 1 GM in DEXTROSE 5% ADD-VANTAGE 50ML 50 ML IV SCH (14:00)
--- NOTE | 2017-08-12 14:17 | DIAGNOSTIC IMAGING REPORT ---
LEFT HIP 2 VIEWS HISTORY: left hip pain COMPARISON: None. FINDINGS: There is no fracture or dislocation. Soft tissues are unremarkable. The visualized pelvic bones are intact. Mild osteoarthritis within the left hip. The bones are osteopenic. IMPRESSION: Mild left hip osteoarthritis. No fractures. Electronically signed by: Tacos Welch M.D. 08/12/2017 2:15 PM Dictated Date/Time: 08/12/2017 2:12 PM
[2017-08-12] MEDS ORDERED: LEVO75TA5 PO (14:21)
[2017-08-12] MEDS ORDERED: SIMV20TA2 PO (14:21)
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
[2017-08-12] MEDS: HydrALAZINE HCL 20 MG/ML VIAL IV. PRN (15:29)
--- NOTE | 2017-08-12 15:50 | EMERGENCY ROOM VISIT NOTE ---
History Report prepared by Amelia: Silva Richard Under the Supervision of: Dr. Benjamín Mina M.D. First contact with patient: 07:59 Chief Complaint: CONFUSION Stated Complaint: CONFUSION Nursing Triage Summary: Pt presents to room b02 via [facility]. medic reports that pt lives at home with and has ongoing issues with confusion. called 911 today because pt was more confused thatn normal. pt oriented to person and place and able to report correctly who president is. pt reports "i have no idea what day or year it is." pt cooperative and follows commands. pt has shingles to left breast, left flank and left back. when asked why pt is at the hospital today pt reports "because of my shingles they are painful." History of Present Illness The patient is an 82 year old female who presents to the Emergency Room with worsened confusion starting this morning. The patient presents to the ED by EMS. Her called EMS today because the patient was more confused than usual. She has had an ongoing issue of confusion. Alzheimer's is being considered, but she has not yet been diagnosed. The patient reports that she just now developed shingles on the left flank and chest for which she has not yet seen her doctor. She states multiple times that she has lost her train of thought. Her reports she has had shingles for the past week. She has seen her PCP and finished a course of Valtrex. She reports pain around the shingles. She notes SOB which her states has been ongoing for months. Her legs appear more red than usual. She reports leg pain. She has not been eating much. She ate just a tablespoon of sweet potato for dinner yesterday. She has a history of kidney problems, back surgery, and knee replacement. She is on tramadol for chronic back pain. She has no history of stroke or cellulitis. Pt denies LOC, headache, fevers, chills, diaphoresis, visual changes , neck pain, chest pain, nausea, vomiting, abdominal pain, melena, hematochezia , urinary symptoms, numbness, weakness, lymphadenopathy, or other complaints. Source of History: patient, spouse/significant other Onset: this morning Position: other (mental status) Quality: other (confusion) Timing: worsening Associated Symptoms: + SOB Note: Pt reports leg pain. Review of Systems See HPI for pertinent positives and negatives. A total of ten systems were reviewed and were otherwise negative. Past Medical & Surgical Medical Problems: (1) ACUTE RENAL FAIL.,DEHYDRATION (2) LORNA (acute kidney injury) (3) Confusion (4) GI bleed (5) SYNCOPE, DEHYDRATION (6) UTI (urinary tract infection) Family History Noncontributory secondary to age. Social History Smoking Status: Never Smoker Drug Use: none Marital Status: Housing Status: lives with significant other Occupation Status: retired Current/Historical Medications Scheduled Donepezil Hydrochloride (Aricept), 10 MG PO DAILY Escitalopram Oxalate (Lexapro), 20 MG PO DAILY Furosemide (Lasix), 40 MG PO QAM Levothyroxine Sodium (Levothyroxine Sodium), 75 MG PO QAM Lisinopril (Zestril), 10 MG PO BID Potassium Chloride (Micro-K Ext Rel), 10 MEQ PO DAILY Simvastatin (Zocor), 20 MG PO QPM Venlafaxine Hcl (Effexor Xr), 37.5 MG PO DAILY Venlafaxine Hcl (Venlafaxine Extended Rel), 75 MG PO DAILY Scheduled PRN Tramadol (Ultram), 100 MG PO Q4H PRN for Pain Allergies Coded Allergies: Amlodipine (Verified Allergy, Severe, ., 08/12/17) CAN TAKE LOWER DOSES, HIGHER DOSES CLOSES HER THROAT Atenolol (Verified Allergy, Severe, ., 08/12/17) CAN TAKE LOW DOSE-HIGHER DOSES CLOSE HER THROAT Estrogens (Verified Allergy, Intermediate, ., 08/12/17) ALLERGIC PREMPRO BUT TAKES PREMARIN AT HOME Methyltestosterone (Verified Allergy, Intermediate, ., 08/12/17) Replaces PREMPRO ALLERGIC TO PREMPRO, BUT CAN TAKE COMPONENTS SEPARATELY (TAKES AT HOME) Progestins (Verified Allergy, Intermediate, ., 08/12/17) Replaces PREMPRO ALLERGIC TO PREMPRO, BUT CAN TAKE COMPONENTS SEPARATELY (TAKES AT HOME) Amitriptyline (Verified Allergy, Unknown, ., 08/12/17) Celecoxib (Verified Allergy, Unknown, 08/12/17) Chlorthalidone (Verified Allergy, Unknown, 08/12/17) Clonazepam (Unverified Allergy, Unknown, UNKNOWN, 08/12/17) Gabapentin (Verified Allergy, Unknown, HIVES, 08/12/17) Hydrochlorothiazide (Verified Allergy, Unknown, 08/12/17) Metoprolol (Verified Allergy, Unknown, 08/12/17) Sulfa Antibiotics (Verified Allergy, Unknown, ., 08/12/17) Prednisone (Verified Adverse Reaction, Unknown, HEADACHE,FLUSHING, 08/12/17) Physical Exam Vital Signs Date Time Temp Pulse Resp B/P (MAP) Pulse Ox O2 Delivery O2 Flow Rate FiO2 08/12/17 15:15 72 18 182/81 98 Room Air 08/12/17 14:26 71 186/96 99 Room Air 08/12/17 14:12 73 08/12/17 13:00 71 157/86 99 Room Air 08/12/17 12:00 69 17 212/97 100 Room Air 08/12/17 11:46 74 08/12/17 11:00 75 173/71 100 Room Air 08/12/17 10:09 73 20 166/78 100 Room Air 08/12/17 09:33 78 18 166/115 98 Room Air 181/116 08/12/17 07:57 36.7 72 18 179/73 100 Room Air 08/12/17 07:57 75 08/12/17 07:55 100 Room Air Physical Exam GENERAL: Awake, alert, well-appearing, in no distress HENT: Normocephalic, atraumatic. Oropharynx unremarkable. EYES: Normal conjunctiva. Sclera non-icteric. NECK: Supple. No nuchal rigidity. FROM. No masses. RESPIRATORY: Clear to auscultation. No wheezes. No rales. Normal respiratory effort. CARDIAC: Normal rate. Normal rhythm. No murmurs. No rubs. Extremities warm and well perfused. Pulses equal. No JVD. GI: Soft, non-distended. No tenderness to palpation. No rebound or guarding. No masses. RECTAL: Deferred. MUSCULOSKELETAL: Atraumatic. Chest examination reveals no tenderness. There is no CVA tenderness to palpation. No joint edema. LOWER EXTREMITIES: Calves are equal size bilaterally. No edema. Lower legs and feet with warmth, erythema, and tenderness. NEURO: Demented sensorium. No sensory or motor deficits noted. SKIN: Vesicular eruption on the left flank and left chest over the left breast and left nipple, no secondary cellulitis. Medical Decision & Procedures ER Provider Diagnostic Interpretation: Radiology results as stated below per my review and radiologist interpretation: CHEST ONE VIEW PORTABLE CLINICAL HISTORY: EVALUATE WEAKNESS COMPARISON STUDY: Chest radiograph July 14, 2017. FINDINGS: A hiatal hernia is noted. Cardiomediastinal silhouette is stable. No evidence for pulmonary edema. No pneumothorax or pleural effusion is noted. Appearance of the chest is unchanged. IMPRESSION: No acute cardiopulmonary findings. Electronically signed by: Dariusz Hollins M.D. 08/12/2017 8:47 AM Dictated Date/Time: 08/12/2017 8:[address]AST CT DOSE: 1675.84 mGycm HISTORY: Confusion. EVALUATE WEAKNESS TECHNIQUE: Multiaxial CT images of the head were performed without the use of intravenous contrast. Automated exposure control was utilized for this study. A dose lowering technique was utilized adhering to the principles of ALARA. Comparison: Head CT 07/14/2017. Findings: The paranasal sinuses and mastoid air cells are clear. The calvarium and skull base are intact. There is no mass, hematoma, midline shift, acute infarct. White matter hypodensity is nonspecific but suggestive of microvascular ischemic change. The ventricles and sulci demonstrate mild age-related involutional changes. Impression: Motion artifact. No significant change compared to the prior study. No acute intracranial abnormality. Electronically signed by: Tacos Welch M.D. 08/12/2017 9:21 AM Dictated Date/Time: 08/12/2017 9:16 AM LEFT HIP 2 VIEWS HISTORY: left hip pain COMPARISON: None. FINDINGS: There is no fracture or dislocation. Soft tissues are unremarkable. The visualized pelvic bones are intact. Mild osteoarthritis within the left hip. The bones are osteopenic. IMPRESSION: Mild left hip osteoarthritis. No fractures. Electronically signed by: Tacos Welch M.D. 08/12/2017 2:15 PM Dictated Date/Time: 08/12/2017 2:12 PM Laboratory Results 08/12/17 08:00 Red Blood Count 4.09, Mean Corpuscular Volume 85.1, Mean Corpuscular Hemoglobin 27.6, Mean Corpuscular Hemoglobin Concent 32.5, Mean Platelet Volume 9.7, Neutrophils (%) (Auto) 55.8, Lymphocytes (%) (Auto) 33.7, Monocytes (%) (Auto) 7.3, Eosinophils (%) (Auto) 2.6, Basophils (%) (Auto) 0.4, Neutrophils # (Auto) 3.05, Lymphocytes # (Auto) 1.84, Monocytes # (Auto) 0.40, Eosinophils # (Auto) 0.14, Basophils # (Auto) 0.02 08/12/17 08:00 Test 08/12/17 08:00 08/12/17 08:48 White Blood Count 5.46 K/uL (4.8-10.8) Red Blood Count 4.09 M/uL (4.2-5.4) Hemoglobin 11.3 g/dL (12.0-16.0) Hematocrit 34.8 % (37-47) Mean Corpuscular Volume 85.1 fL (80-100) Mean Corpuscular Hemoglobin 27.6 pg (25-34) Mean Corpuscular Hemoglobin Concent 32.5 g/dl (32-36) Platelet Count 208 K/uL (130-400) Mean Platelet Volume 9.7 fL (7.4-10.4) Neutrophils (%) (Auto) 55.8 % Lymphocytes (%) (Auto) 33.7 % Monocytes (%) (Auto) 7.3 % Eosinophils (%) (Auto) 2.6 % Basophils (%) (Auto) 0.4 % Neutrophils # (Auto) 3.05 K/uL (1.4-6.5) Lymphocytes # (Auto) 1.84 K/uL (1.2-3.4) Monocytes # (Auto) 0.40 K/uL (0.11-0.59) Eosinophils # (Auto) 0.14 K/uL (0-0.5) Basophils # (Auto) 0.02 K/uL (0-0.2) RDW Standard Deviation 60.4 fL (36.4-46.3) RDW Coefficient of Variation 19.4 % (11.5-14.5) Immature Granulocyte % (Auto) 0.2 % Immature Granulocyte # (Auto) 0.01 K/uL (0.00-0.02) Prothrombin Time 10.5 SECONDS (9.0-12.0) Prothromb Time International Ratio 1.0 (0.9-1.1) Activated Partial Thromboplast Time 23.4 SECONDS (21.0-31.0) Partial Thromboplastin Ratio 0.9 Anion Gap 9.0 mmol/L (3-11) Est Creatinine Clear Calc Drug Dose 26.9 ml/min Estimated GFR () 35.2 Estimated GFR (Non- 30.4 BUN/Creatinine Ratio 17.0 (10-20) Calcium Level 9.2 mg/dl (8.5-10.1) Magnesium Level 2.3 mg/dl (1.8-2.4) Total Bilirubin 0.4 mg/dl (0.2-1) Direct Bilirubin < 0.1 mg/dl (0-0.2) Aspartate Amino Transf (AST/SGOT) 17 U/L (15-37) Alanine Aminotransferase (ALT/SGPT) 21 U/L (12-78) Alkaline Phosphatase 86 U/L (45-117) Troponin I < 0.015 ng/ml (0-0.045) Total Protein 7.4 gm/dl (6.4-8.2) Albumin 3.4 gm/dl (3.4-5.0) Lipase 433 U/L (73-393) Thyroid Stimulating Hormone (TSH) 0.740 uIu/ml (0.300-4.500) Urine Color YELLOW Urine Appearance CLEAR (CLEAR) Urine pH 6.5 (4.5-7.5) Urine Specific [place] 1.018 (1.000-1.030) Urine Protein NEG (NEG) Urine Glucose (UA) NEG (NEG) Urine Ketones NEG (NEG) Urine Occult Blood NEG (NEG) Urine Nitrite NEG (NEG) Urine Bilirubin NEG (NEG) Urine Urobilinogen NEG (NEG) Urine Leukocyte Esterase MODERATE (NEG) Urine WBC (Auto) 10-30 /hpf (0-5) Urine RBC (Auto) 0-4 /hpf (0-4) Urine Hyaline Casts (Auto) 0 /lpf (0-5) Urine Epithelial Cells (Auto) 0-5 /lpf (0-5) Urine Bacteria (Auto) NEG (NEG) Laboratory results reviewed by me Medications Administered Medications (Trade) Dose Ordered Sig/Jace Route Start Time Stop Time Status Last Admin Dose Admin Sodium Chloride 1,000 ml @ 125 mls/hr Q8H STAT IV 08/12/17 08:23 08/12/17 16:22 08/12/17 09:31 125 MLS/HR Ceftriaxone Sodium (Rocephin Inj) 1 gm NOW STAT IV 4/6/18 09:37 08/12/17 09:39 DC 08/12/17 09:51 1 GM Acetaminophen (Tylenol Tab) 1,000 mg NOW STAT PO 08/12/17 12:28 08/12/17 12:30 DC 08/12/17 12:39 1,000 MG Hydralazine HCl (HydrALAZINE INJ) 10 mg Q4H PRN IV. 08/12/17 14:00 09/11/17 13:59 08/12/17 15:29 10 MG ECG Per My Interpretation Indication: altered mental status Rate (beats per minute): 74 Rhythm: normal sinus Findings: no acute ischemic change, no ectopy, other (normal intervals) ED Course 08: The patient was evaluated in room B2. A complete history and physical exam was performed. 0823: NSS 1000 ml @ 125 mls/hr IV. 0937: Rocephin Inj 1 gm IV. 1132: Upon reexamination, the patient was resting comfortably. I discussed the test results and treatment plan with her . The patient will be evaluated for further management. 1228: Acetaminophen 1000 mg PO. 1236: I discussed the patient's case with Dr. Lazaro, [facility] [place]. The patient will be evaluated for further treatment and disposition. Medical Decision Prior records/ancillary studies reviewed and summarized above. Nursing notes reviewed and agree them. Additional history obtained from her . The patient's history was concerning for altered mental status. Differential diagnosis: Etiologies such as infection, hypoglycemia, electrolyte abnormalities, cardiac sources, intracerebral event, toxicologic, neurologic, as well as others were entertained. Physical examination: As above. Lower extremity cellulitis present. Healing shingles rash in the left flank around T5 dermatome. ER treatment provided: IV Lock Normal saline hydration IV Rocephin On reassessment the patient felt better. Diagnostics interpretation by me: ECG: No acute ischemia The labs revealed an unremarkable CBC except for mild anemia. Chemistry panel was unremarkable. Cardiac markers negative. Urinalysis showed some white blood cells but no bacteria. Culture pending. Imaging studies: Chest x-ray and CAT scan as above The patient has confusion. She has new redness and tenderness to the legs. She has a history of cellulitis. This is concerning for recurrence. Urine culture is pending as she had some white cells in the urine. Further management will be necessary given the confusion and change in mental status. Consultation: A consultation was placed with the hospitalist. The case was discussed and diagnostics were reviewed. The patient was evaluated in the ER for further treatment. Medication Reconcilliation Current Medication List: was personally reviewed by me Blood Pressure Screening Patient's blood pressure: Elevated blood pressure Referred to hospitalist. Consults Time Called: 1215 Consulting Physician: Dr. Lazaro [facility] [place] Returned Call: [phone] Discussed the patient's case. The patient will be evaluated for further treatment and disposition. Impression Primary Impression: Altered mental status Additional Impression: Cellulitis Scribe Attestation The scribe's documentation has been prepared under my direction and personally reviewed by me in its entirety. I confirm that the note above accurately reflects all work, treatment, procedures, and medical decision making performed by me. Departure Information Dispostion Being Evaluated By Hospitalist Referrals Daniel Albert M.D. (PCP) Patient Instructions My [facility] Problem Qualifiers
[2017-08-12 17:53] VITALS: BP 199/93; PULSE 98; TEMP 36.4; O2SAT 97; Ht 170.2 cm; Wt 69.0 kg
[2017-08-12] MEDS: NSS + 20MEQ KCL 1000ML 1,000 ML IV SCH (18:27)
[2017-08-12] MEDS: LISINOPRIL 10 MG TAB PO SCH (21:17)
[2017-08-12] MEDS: DOXYCYCLINE IV 100 MG in DEXTROSE 5% 100ML 100 ML IV SCH (21:17)
[2017-08-12] MEDS: SIMVASTATIN 20 MG TAB PO SCH (21:18)
[2017-08-12] MEDS: HEPARIN SOD 5000 UNIT/0.5 ML CARP SQ SCH (21:22)
[2017-08-12] MEDS ORDERED: ONDANSETRON INJ 2 MG/ML 2 ML VIAL IV PRN (21:45)
[2017-08-12 23:00] VITALS: BP 171/76; PULSE 81; TEMP 36.7; O2SAT 96
[2017-08-13] MEDS: LEVOTHYROXINE 75 MCG TAB PO SCH (06:06)
[2017-08-13 07:00] LABS: HEMATOCRIT 34.6 % (37-47); HEMOGLOBIN 11.6 g/dL (12.0-16.0); MEAN CORPUSCULAR HEMOGLOBIN 28.2 pg (25-34); MEAN CORPUSCULAR HGB CONC 33.5 g/dl (32-36); MEAN PLATELET VOLUME 9.4 fL (7.4-10.4); PLATELET COUNT 230 K/uL (130-400); RED CELL DISTRIBUTION WIDTH CV 19.7 % (11.5-14.5); RED CELL DISTRIBUTION WIDTH SD 59.3 fL (36.4-46.3); WHITE BLOOD COUNT 7.53 K/uL (4.8-10.8)
[2017-08-13 07:31] LABS: CALCIUM 8.7 mg/dl (8.5-10.1); CREATININE 1.3 mg/dl (0.60-1.20); POTASSIUM 3.4 mmol/L (3.5-5.1)
[2017-08-13 07:54] VITALS: BP 179/73; PULSE 80; TEMP 36.8; O2SAT 96
[2017-08-13] MEDS ORDERED: ESCITALOPRAM OXALATE 20 MG TAB PO SCH (09:00)
[2017-08-13] MEDS: DOXYCYCLINE IV 100 MG in DEXTROSE 5% 100ML 100 ML IV SCH (09:21)
[2017-08-13] MEDS: VENLAFAXINE HCL XR 75 MG CAPXR PO SCH (09:21)
[2017-08-13] MEDS: NSS + 20MEQ KCL 1000ML 1,000 ML IV SCH (09:21)
[2017-08-13] MEDS: VENLAFAXINE HCL XR 37.5 MG CAPXR PO SCH (09:22)
[2017-08-13] MEDS: POTASSIUM CHLORIDE 10 MEQ TABCR PO SCH (09:22)
[2017-08-13] MEDS: LISINOPRIL 10 MG TAB PO SCH ×2 (09:22→20:58)
[2017-08-13] MEDS: DONEPEZIL HCL 10 MG TAB PO SCH (09:23)
[2017-08-13] MEDS: HEPARIN SOD 5000 UNIT/0.5 ML CARP SQ SCH ×2 (09:28→21:03)
--- NOTE | 2017-08-13 10:39 | Family Medicine Progress Note ---
Progress Note Date of Service Aug 13, 2017. Subjective Pt evaluation today including: conversation w/ patient, physical exam, chart review, lab review Pain: denies pain PO Intake: good Voiding: no voiding problems appeared to be more alert this morning but thinks she is still confused , states the confusion started 2 days ago. Has a baseline h/o dementia but feels confusion is worse Denies any CP/SOB/dysuria, abdominal pain Constitutional: No fever, No chills Eyes: No worsening of vision ENT: No hearing loss Respiratory: No cough, No sputum, No wheezing Cardiovascular: No chest pain Abdomen: No pain, No nausea, No vomiting Musculoskeletal: No joint pain Female : No dysuria Neurologic: No memory loss Skin: + rash (along left breast and back) Medications Current Inpatient Medications Medications (Trade) Dose Ordered Sig/Jace Route Start Time Stop Time Status Last Admin Dose Admin Acetaminophen (Tylenol Tab) 650 mg Q4H PRN PO 08/12/17 14:00 09/11/17 13:59 Hydralazine HCl (HydrALAZINE INJ) 10 mg Q4H PRN IV. 08/12/17 14:00 09/11/17 13:59 08/12/17 15:29 10 MG Potassium Chloride/Sodium Chloride 1,000 ml @ 75 mls/hr [id number] IV 08/12/17 17:30 09/11/17 17:29 08/13/17 09:21 75 MLS/HR Donepezil HCl (Aricept Tab) 10 mg DAILY PO 08/13/17 09:00 09/12/17 08:59 08/13/17 09:23 10 MG Levothyroxine Sodium (Synthroid Tab) 75 mcg DAILYBB PO 08/13/17 06:30 09/12/17 06:59 08/13/17 06:06 75 MCG Potassium Chloride (Klor-Con M10) 10 meq DAILY PO 08/13/17 09:00 09/12/17 08:59 08/13/17 09:22 10 MEQ Simvastatin (Zocor Tab) 20 mg QPM PO 08/12/17 21:00 09/11/17 20:59 08/12/17 21:18 20 MG Venlafaxine HCl (effeXOR EXTENDED REL CAP) 37.5 mg DAILY PO 08/13/17 09:00 09/12/17 08:59 08/13/17 09:22 37.5 MG Venlafaxine HCl (effeXOR EXTENDED REL CAP) 75 mg DAILY PO 08/13/17 09:00 09/12/17 08:59 08/13/17 09:21 75 MG Tramadol HCl (Ultram Tab) 50 mg Q4H PRN PO 08/12/17 14:15 09/11/17 14:14 Lisinopril (Zestril Tab) 10 mg BID PO 08/12/17 21:00 09/11/17 20:59 08/13/17 09:22 10 MG Heparin Sodium (Porcine) (Heparin Sq 5000 Unit/0.5ml) 5,000 unit Q12 SQ 08/12/17 21:00 09/11/17 20:59 08/13/17 09:28 5,000 UNIT Doxycycline Hyclate 100 mg/ Dextrose 110 ml @ 50 mls/hr BID IV 08/12/17 21:00 08/22/17 20:59 08/13/17 09:21 50 MLS/HR Ondansetron HCl (Zofran Inj) 4 mg Q6H PRN IV 08/12/17 21:45 09/11/17 21:44 08/12/17 21:58 4 MG Objective Vital Signs Date Time Temp Pulse Resp B/P (MAP) Pulse Ox O2 Delivery O2 Flow Rate FiO2 08/13/17 07:54 36.8 80 18 179/73 (108) 96 Room Air 08/13/17 00:00 Room Air 08/12/17 23:00 36.7 81 20 171/76 (107) 96 Room Air 08/12/17 17:53 36.4 98 18 199/93 97 Room Air 08/12/17 16:11 93 180/75 98 Room Air 08/12/17 15:15 72 18 182/81 98 Room Air 08/12/17 14:26 71 186/96 99 Room Air 08/12/17 14:12 73 08/12/17 13:00 71 157/86 99 Room Air 08/12/17 12:00 69 17 212/97 100 Room Air 08/12/17 11:46 74 08/12/17 11:00 75 173/71 100 Room Air Physical Exam General Appearance: WD/WN, no apparent distress Eyes: normal inspection ENT: hearing grossly normal Neck: supple Respiratory/Chest: chest non-tender, lungs clear, normal breath sounds, no respiratory distress, no accessory muscle use Cardiovascular: regular rate, rhythm Abdomen: normal bowel sounds, non tender, soft Extremities: no pedal edema Neurologic/Psychiatric: alert, normal mood/affect, oriented x 3 Skin: + rash (along left breast and upper back, has healing erythematous maculopapular lesions) Laboratory Results Last 24 Hours Test 08/13/17 06:23 White Blood Count 7.53 K/uL Red Blood Count 4.12 M/uL Hemoglobin 11.6 g/dL Hematocrit 34.6 % Mean Corpuscular Volume 84.0 fL Mean Corpuscular Hemoglobin 28.2 pg Mean Corpuscular Hemoglobin Concent 33.5 g/dl RDW Standard Deviation 59.3 fL RDW Coefficient of Variation 19.7 % Platelet Count 230 K/uL Mean Platelet Volume 9.4 fL Sodium Level 139 mmol/L Potassium Level 3.4 mmol/L Chloride Level 107 mmol/L Carbon Dioxide Level 23 mmol/L Anion Gap 9.0 mmol/L Blood Urea Nitrogen 21 mg/dl Creatinine 1.30 mg/dl Est Creatinine Clear Calc Drug Dose 32.5 ml/min Estimated GFR () 44.2 Estimated GFR (Non- 38.2 BUN/Creatinine Ratio 15.8 Random Glucose 136 mg/dl Calcium Level 8.7 mg/dl Assessment and Plan 82 y/o F Hx dementia, HTN, CKD III, hypothyroidism, recent shingles - presents with AMS and lower extremity erythema as noted by her . AMS: - Initial CT head neg, CXR neg - UA positive for moderate leuc esterase and mod WBC - UC /BC currently pending - h/o shingles, already treated with Valtrex - Doxycycline has been discontinued. Will follow up on Urine culture results Hypothyroidism: - Continue Synthroid Hypertension - prn hydralazine, continue home lisinopril - hold Lasix for now Depression/anxiety - continue venlafaxine - patient tapered off of escitalopram earlier this month but concerned about symptoms worsening after taper Full code DVT prophylaxis: heparin subq, scds Resident Physician Supervision Note: I interviewed and examined the patient. Discussed with Dr. Neff and agree with findings and plan as documented in the note. Any exceptions or clarifications are listed here: None Documented By: Baljinder Parker getting up and out of bed, not much of any meaningful HPI or ROS obtainable vitals noted nad breathing unlabored shingles rash across L chest and back appearing scabbed and no surrounding/tracking erythema encephalopathy (delirium on dementia) - likely from shingles and dehydration, follow urine cultures although doubt UTI, does not appear to have cellulitis w shingles hopefully can discharge to home once improves some, although dpeending on family input may need SNF Resident Tracking Resident Involvement: Resident Care Provided Care Provided: Adult Hospital Medicine Resident Tracking Resident Involvement: Resident Care Provided Care Provided: Adult Hospital Medicine
[2017-08-13 15:55] VITALS: BP 195/85; PULSE 80; TEMP 36.4; O2SAT 97
[2017-08-13] MEDS: HydrALAZINE HCL 20 MG/ML VIAL IV. PRN (15:59)
[2017-08-13] MEDS: ACETAMINOPHEN 325 MG TAB PO PRN (15:59)
[2017-08-13 16:49] VITALS: BP 178/79; PULSE 95
[2017-08-13 18:48] VITALS: BP 120/78; PULSE 97
[2017-08-13] MEDS: SIMVASTATIN 20 MG TAB PO SCH (20:57)
[2017-08-13] MEDS: TRAMADOL HCL 50 MG TAB PO PRN (23:08)
[2017-08-14] VITALS (8 sets, daily range): BP systolic 164–183; BP diastolic 75–96; PULSE 84–103; TEMP 36.3–36.7; O2SAT 95–97
[2017-08-14] MEDS: HydrALAZINE HCL 20 MG/ML VIAL IV. PRN ×2 (00:30→15:53)
[2017-08-14] MEDS: TRAZODONE HCL 50 MG TAB PO PRN ×2 (01:51→19:42)
[2017-08-14] MEDS: NSS + 20MEQ KCL 1000ML 1,000 ML IV SCH ×2 (02:10→16:22)
[2017-08-14] MEDS: LEVOTHYROXINE 75 MCG TAB PO SCH (05:41)
[2017-08-14 06:57] LABS: HEMATOCRIT 35.5 % (37-47); HEMOGLOBIN 11.7 g/dL (12.0-16.0); MEAN CELL VOLUME 84.9 fL (80-100); MEAN PLATELET VOLUME 9.9 fL (7.4-10.4); PLATELET COUNT 251 K/uL (130-400); RED CELL DISTRIBUTION WIDTH CV 20.2 % (11.5-14.5); RED CELL DISTRIBUTION WIDTH SD 61.7 fL (36.4-46.3); WHITE BLOOD COUNT 7.88 K/uL (4.8-10.8)
[2017-08-14 07:30] LABS: CALCIUM 8.8 mg/dl (8.5-10.1); CREATININE 1.15 mg/dl (0.60-1.20); POTASSIUM 3.8 mmol/L (3.5-5.1)
[2017-08-14] MEDS: DONEPEZIL HCL 10 MG TAB PO SCH (07:50)
[2017-08-14] MEDS: VENLAFAXINE HCL XR 75 MG CAPXR PO SCH (07:50)
[2017-08-14] MEDS: VENLAFAXINE HCL XR 37.5 MG CAPXR PO SCH (07:51)
[2017-08-14] MEDS: POTASSIUM CHLORIDE 10 MEQ TABCR PO SCH (07:51)
[2017-08-14] MEDS: LISINOPRIL 10 MG TAB PO SCH ×2 (07:51→19:43)
[2017-08-14] MEDS: TRAMADOL HCL 50 MG TAB PO PRN ×2 (08:02→19:42)
[2017-08-14] MEDS: HEPARIN SOD 5000 UNIT/0.5 ML CARP SQ SCH ×2 (08:02→20:45)
--- NOTE | 2017-08-14 12:04 | Family Medicine Progress Note ---
Progress Note Date of Service Aug 14, 2017. Subjective Pt evaluation today including: conversation w/ patient, physical exam, chart review, lab review Pain: denies pain PO Intake: good Did not sleep overnight. appears to be confused and is reading out everything that appears on TV. Additional Comments: unable to obtain as she is very confused. Medications Current Inpatient Medications Medications (Trade) Dose Ordered Sig/Jace Route Start Time Stop Time Status Last Admin Dose Admin Acetaminophen (Tylenol Tab) 650 mg Q4H PRN PO 08/12/17 14:00 09/11/17 13:59 08/13/17 15:59 650 MG Hydralazine HCl (HydrALAZINE INJ) 10 mg Q4H PRN IV. 08/12/17 14:00 09/11/17 13:59 08/14/17 00:30 10 MG Potassium Chloride/Sodium Chloride 1,000 ml @ 75 mls/hr [id number] IV 08/12/17 17:30 09/11/17 17:29 08/14/17 02:10 75 MLS/HR Donepezil HCl (Aricept Tab) 10 mg DAILY PO 08/13/17 09:00 09/12/17 08:59 08/14/17 07:50 10 MG Levothyroxine Sodium (Synthroid Tab) 75 mcg DAILYBB PO 08/13/17 06:30 09/12/17 06:59 08/14/17 05:41 75 MCG Potassium Chloride (Klor-Con M10) 10 meq DAILY PO 08/13/17 09:00 09/12/17 08:59 08/14/17 07:51 10 MEQ Simvastatin (Zocor Tab) 20 mg QPM PO 08/12/17 21:00 09/11/17 20:59 08/13/17 20:57 20 MG Venlafaxine HCl (effeXOR EXTENDED REL CAP) 37.5 mg DAILY PO 08/13/17 09:00 09/12/17 08:59 08/14/17 07:51 37.5 MG Venlafaxine HCl (effeXOR EXTENDED REL CAP) 75 mg DAILY PO 08/13/17 09:00 09/12/17 08:59 08/14/17 07:50 75 MG Tramadol HCl (Ultram Tab) 50 mg Q4H PRN PO 08/12/17 14:15 09/11/17 14:14 08/14/17 08:02 50 MG Lisinopril (Zestril Tab) 10 mg BID PO 08/12/17 21:00 09/11/17 20:59 08/14/17 07:51 10 MG Heparin Sodium (Porcine) (Heparin Sq 5000 Unit/0.5ml) 5,000 unit Q12 SQ 08/12/17 21:00 09/11/17 20:59 08/14/17 08:02 5,000 UNIT Ondansetron HCl (Zofran Inj) 4 mg Q6H PRN IV 08/12/17 21:45 09/11/17 21:44 08/12/17 21:58 4 MG Trazodone HCl (Desyrel Tab) 25 mg QPM PRN PO 08/14/17 01:00 09/13/17 00:59 08/14/17 01:51 25 MG Objective Vital Signs Date Time Temp Pulse Resp B/P (MAP) Pulse Ox O2 Delivery O2 Flow Rate FiO2 08/14/17 08:51 103 173/82 (112) 08/14/17 08:00 Room Air 08/14/17 07:38 36.3 102 18 182/81 (114) 95 08/14/17 00:18 91 20 183/75 (111) 97 Room Air 08/14/17 00:00 Room Air 08/13/17 20:00 Room Air 08/13/17 18:48 97 120/78 (92) 08/13/17 16:49 95 178/79 (112) 08/13/17 16:00 Room Air 08/13/17 15:55 36.4 80 18 195/85 (121) 97 Room Air Physical Exam General Appearance: WD/WN, no apparent distress Eyes: normal inspection ENT: hearing grossly normal Neck: supple Respiratory/Chest: lungs clear, normal breath sounds, no respiratory distress, no accessory muscle use Cardiovascular: regular rate, rhythm Abdomen: normal bowel sounds, non tender Extremities: no pedal edema, no calf tenderness Neurologic/Psychiatric: alert Skin: + pertinent finding (maculopapular rash on left beast and left upper back - appears to be healing) Laboratory Results 08/14/17 06:29 08/14/17 06:29 Test 08/14/17 06:29 Red Blood Count 4.18 M/uL (4.2-5.4) Mean Corpuscular Volume 84.9 fL (80-100) Mean Corpuscular Hemoglobin 28.0 pg (25-34) Mean Corpuscular Hemoglobin Concent 33.0 g/dl (32-36) RDW Standard Deviation 61.7 fL (36.4-46.3) RDW Coefficient of Variation 20.2 % (11.5-14.5) Mean Platelet Volume 9.9 fL (7.4-10.4) Anion Gap 9.0 mmol/L (3-11) Est Creatinine Clear Calc Drug Dose 36.7 ml/min Estimated GFR () 51.3 Estimated GFR (Non- 44.3 BUN/Creatinine Ratio 14.1 (10-20) Calcium Level 8.8 mg/dl (8.5-10.1) Assessment and Plan 82 y/o F Hx dementia, HTN, CKD III, hypothyroidism, recent shingles - presents with AMS and lower extremity erythema as noted by her . She has been very confused through the night and hasn't slept at all however she is not agitated. She answers questions and follows commands. denies any dysuria, abdominal pain or has no leucocytosis or fever to suggest a UTI though her UC is growing Enterococcus AMS: appears to be delirium in a setting of dementia . - Initial CT head neg, CXR neg - h/o shingles, already treated with Valtrex - likely sec to dementia and worsened by hospital setting delirium Asymptomatic bacteriuria: less likely it is contributing to delirium - UA positive for moderate leuc esterase and mod WBC - UC positive for enterococcus species deferring treatment as she is asymptomatic, no fever, leucocytosis Hypothyroidism: - Continue Synthroid Hypertension - prn hydralazine, continue home lisinopril - hold Lasix for now Depression/anxiety - continue venlafaxine - patient tapered off of escitalopram earlier this month Full code DVT prophylaxis: heparin subq, scds Resident Physician Supervision Note: I interviewed and examined the patient. Discussed with Dr. Neff and agree with findings and plan as documented in the note. Any exceptions or clarifications are listed here: None Documented By: Baljinder Parker reading and spelling. no meaningful HPI or ROS vitals noted nad breathing unlabored no pallor or icterus encephalopathy (delirium on dementia) - likely from shingles and dehydration, follow urine cultures although doubt UTI, does not appear to have cellulitis w shingles, hold abx dispo - extensive discussion with , he's been taking care of her for years, feels he'll be able to do ok in her present state just needs more hands - dtr coming up to help but lives [place] and won't get here till late tomorrow - asks if Tuesday would be OK. Resident Tracking Resident Involvement: Resident Care Provided Care Provided: Adult Hospital Medicine
[2017-08-14] MEDS: SIMVASTATIN 20 MG TAB PO SCH (19:42)
[2017-08-14] MEDS: ACETAMINOPHEN 325 MG TAB PO PRN (20:43)
[2017-08-14] MEDS ORDERED: TRAZODONE HCL 50 MG TAB PO ONE (22:15)
[2017-08-15] MEDS: NSS + 20MEQ KCL 1000ML 1,000 ML IV SCH ×2 (05:01→18:21)
[2017-08-15] MEDS: LEVOTHYROXINE 75 MCG TAB PO SCH (05:36)
[2017-08-15 06:14] LABS: HEMATOCRIT 33.1 % (37-47); HEMOGLOBIN 11.1 g/dL (12.0-16.0); MEAN CELL VOLUME 84.2 fL (80-100); MEAN CORPUSCULAR HEMOGLOBIN 28.2 pg (25-34); MEAN CORPUSCULAR HGB CONC 33.5 g/dl (32-36); MEAN PLATELET VOLUME 9.1 fL (7.4-10.4); PLATELET COUNT 216 K/uL (130-400); RED CELL DISTRIBUTION WIDTH CV 20.4 % (11.5-14.5); RED CELL DISTRIBUTION WIDTH SD 61.3 fL (36.4-46.3); WHITE BLOOD COUNT 8.04 K/uL (4.8-10.8)
[2017-08-15 06:54] LABS: CALCIUM 8.9 mg/dl (8.5-10.1); CREATININE 1.03 mg/dl (0.60-1.20); POTASSIUM 4.2 mmol/L (3.5-5.1)
--- NOTE | 2017-08-15 06:59 | Family Medicine Progress Note ---
Progress Note Date of Service Aug 15, 2017. Subjective Pt evaluation today including: conversation w/ patient The patient was seen and examined at bedside. Pt continues to be confused. present at bedside. Per pt is doing much better than yesterday. Denies having any pain. Eating and urinating well. Plan of care was described to the patient and and all questions were answered. Constitutional: No fever, No sweats ENT: No hearing loss Respiratory: No cough, No sputum, No wheezing, No shortness of breath Cardiovascular: No chest pain Abdomen: No pain, No nausea, No vomiting Musculoskeletal: No joint pain Female : No dysuria Psychiatric: No depression symptoms Additional Comments: Unable to determine how meaningful the ROS is due to patients baseline medical condition of confusion. 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 (says it's 2019)) Skin: normal color, warm/dry Assessment and Plan 82F Hx dementia, HTN, CKD III, hypothyroidism, recent shingles - presents with AMS and lower extremity erythema as noted by her . After receiving the Amoxicillin pt is clinically improving. AMS: 2/2 to UTI (Enterococcus Faecealis), dehydration and recently treated for shingles Initial CT head neg, CXR neg Amoxicillin 500mg BID Day #1 LORNA (resolved) Creatinine back at baseline. (1.0 from 1.6) Restarting Lasix due to normalized Creatinine. Continue IVF @75mls/hr due to poor PO intake. Hypothyroidism Continue Synthroid Hypertension prn hydralazine, continue home lisinopril Depression/anxiety continue venlafaxine patient tapered off of escitalopram earlier this month Dispo: Med Surg, PT and OT on board - to be honest if she regains her baseline that is described by her she should be able to go home without services. She did show dramatic improvement today. DVT prophylaxis: Hep SQ BID. FULL CODE Resident Involvement: Resident Care Provided Care Provided: Adult Hospital Medicine Reviewed: Pt Seen/Exam by Me History no new concerns. mentation clearing Constitutional: denies: fever Respiratory: negative: short of breath Cardiovascular: denies chest pain General Appearance: no apparent distress Respiratory: lungs clear, no respiratory distress Cardiovascular: regular rate, rhythm Neurologic/Psychiatric: alert Skin Characteristics: warm/dry Assessment/Plan Resident Physician Supervision Note: I independently interviewed and examined the patient and verified the urban history and physical, reviewed labs and image studies, discussed the case with the resident Dr. Duenas and agree with the findings and care plan.
[2017-08-15] MEDS: VENLAFAXINE HCL XR 75 MG CAPXR PO SCH (07:45)
[2017-08-15] MEDS: POTASSIUM CHLORIDE 10 MEQ TABCR PO SCH (07:46)
[2017-08-15] MEDS: LISINOPRIL 10 MG TAB PO SCH ×2 (07:46→21:04)
[2017-08-15] MEDS: DONEPEZIL HCL 10 MG TAB PO SCH (07:46)
[2017-08-15] MEDS: VENLAFAXINE HCL XR 37.5 MG CAPXR PO SCH (07:46)
[2017-08-15 07:51] VITALS: BP 174/79; PULSE 84; TEMP 36.6; O2SAT 98
[2017-08-15] MEDS: HEPARIN SOD 5000 UNIT/0.5 ML CARP SQ SCH ×2 (07:54→21:11)
[2017-08-15 08:00] VITALS: O2SAT 98
[2017-08-15] MEDS: AMOXICILLIN 500 MG CAP PO SCH ×2 (09:29→21:03)
[2017-08-15 15:50] VITALS: BP 179/70; PULSE 74; TEMP 36.5; O2SAT 96
[2017-08-15 16:00] VITALS: O2SAT 96
[2017-08-15] MEDS: TRAMADOL HCL 50 MG TAB PO PRN (21:02)
[2017-08-15] MEDS: SIMVASTATIN 20 MG TAB PO SCH (21:02)
[2017-08-15 21:11] VITALS: BP 184/74; PULSE 83
[2017-08-15] MEDS: TRAZODONE HCL 50 MG TAB PO PRN (23:16)
[2017-08-15 23:38] VITALS: BP 184/71; PULSE 76; TEMP 36.5; O2SAT 95
[2017-08-16] MEDS: HydrALAZINE HCL 20 MG/ML VIAL IV. PRN (00:02)
[2017-08-16] MEDS: LEVOTHYROXINE 75 MCG TAB PO SCH (05:28)
[2017-08-16] MEDS: NSS + 20MEQ KCL 1000ML 1,000 ML IV SCH (05:28)
[2017-08-16 07:21] LABS: HEMATOCRIT 34.6 % (37-47); HEMOGLOBIN 11.4 g/dL (12.0-16.0); MEAN CELL VOLUME 85.4 fL (80-100); MEAN CORPUSCULAR HEMOGLOBIN 28.1 pg (25-34); MEAN CORPUSCULAR HGB CONC 32.9 g/dl (32-36); MEAN PLATELET VOLUME 9.7 fL (7.4-10.4); PLATELET COUNT 239 K/uL (130-400); RED CELL DISTRIBUTION WIDTH CV 21.4 % (11.5-14.5); RED CELL DISTRIBUTION WIDTH SD 64.8 fL (36.4-46.3); WHITE BLOOD COUNT 6.77 K/uL (4.8-10.8)
[2017-08-16 07:24] VITALS: BP 180/78; PULSE 98; TEMP 36.7; O2SAT 96
[2017-08-16 07:50] LABS: CALCIUM 8.6 mg/dl (8.5-10.1); CREATININE 0.95 mg/dl (0.60-1.20); POTASSIUM 4.3 mmol/L (3.5-5.1)
[2017-08-16] MEDS: VENLAFAXINE HCL XR 75 MG CAPXR PO SCH (08:22)
[2017-08-16] MEDS: DONEPEZIL HCL 10 MG TAB PO SCH (08:22)
[2017-08-16] MEDS: POTASSIUM CHLORIDE 10 MEQ TABCR PO SCH (08:23)
[2017-08-16] MEDS: LISINOPRIL 10 MG TAB PO SCH (08:23)
[2017-08-16] MEDS: VENLAFAXINE HCL XR 37.5 MG CAPXR PO SCH (08:23)
[2017-08-16] MEDS: AMOXICILLIN 500 MG CAP PO SCH (08:23)
[2017-08-16] MEDS: HEPARIN SOD 5000 UNIT/0.5 ML CARP SQ SCH (08:25)
[2017-08-16] MEDS ORDERED: FUROSEMIDE 40 MG TAB PO SCH (09:00)
[2017-08-16 09:44] VITALS: BP 158/75
[2017-08-16] MEDS ORDERED: AMX500 PO (12:16)
--- NOTE | 2017-08-16 12:20 | Discharge Instructions ---
Discharge Instructions Date of Service Aug 16, 2017. Admission Reason for Admission: Confusion Discharge Discharge Diagnosis / Problem: Complicated UTI Discharge Goals Goal(s): Decrease discomfort, Improve function, Increase independence, Improve disease control, Improve nutritional status, Learn about illness Activity Recommendations Activity Limitations: per Instructions/Follow-up section . Instructions / Follow-Up Instructions / Follow-Up You have been diagnosed with a Urinary traction infection that is likely the cause of your confusion. Information about Urinary Tract infections will be printed for you on discharge. Please read this information carefully. You are also being prescribed Amoxicillin for your infection. Please take this medication every 12 hours as prescribed. You can start your first dose tonight between 7pm and 10pm. Return to your primary care provider or Emergency Room if you are experiencing a recurrence of your confusion or altered mental status. Please follow up with your primary care provider in one week. Current Hospital Diet Patient's current hospital diet: Regular Diet Discharge Diet Recommended Diet: AHA Diet (Heart Healthy) Pending Studies Studies pending at discharge: no Medical Emergencies . Who to Call and When: Medical Emergencies: If at any time you feel your situation is an emergency, please call 911 immediately. . Non-Emergent Contact Non-Emergency issues call your: Primary Care Provider . . "Provider Documentation" section prepared by Sotero Duenas. . Resident Involvement: Resident Care Provided Care Provided: Adult Hospital Medicine
[2017-08-16 12:27] VITALS: BP 158/75; PULSE 98; TEMP 36.7; O2SAT 96
--- NOTE | 2017-08-16 12:29 | Discharge Summary ---
Discharge Summary Date of Service Aug 16, 2017. Discharge Summary Admission Date: Aug 15, 2017 at 08:15 Discharge Date: Aug 16, 2017 Discharge Disposition: Home Principal Diagnosis: Metabolic encephalopathy secondary to Complicated UTI Problems/Secondary Diagnoses: LORNA Hypothyroidism Dementia Recent Shingles Depression/Anxiety HTN Immunizations: Have You Had Influenza Vaccine: No Influenza Vaccine Date: Feb 08, 2010 History of Tetanus Vaccine?: Unknown Tetanus Immunization Date: Oct 08, 1972 History of Pneumococcal: Yes Pneumococcal Date: Oct 09, 2007 History of Hepatitis B Vaccine: Unknown Procedures: HEAD CT NONCONTRAST CT DOSE: 1675.84 mGycm HISTORY: Confusion. EVALUATE WEAKNESS Impression: Motion artifact. No significant change compared to the prior study. No acute intracranial abnormality. LEFT HIP 2 VIEWS HISTORY: left hip pain IMPRESSION: Mild left hip osteoarthritis. No fractures. CHEST ONE VIEW PORTABLE CLINICAL HISTORY: EVALUATE WEAKNESS IMPRESSION: No acute cardiopulmonary findings. Medication Reconciliation New Medications: Amoxicillin (Amoxicillin) 500 Mg Cap 500 MG PO BID for 6 Days, #12 CAP Continued Medications: Donepezil Hydrochloride (Aricept) 10 Mg Tab 10 MG PO DAILY, TAB Escitalopram Oxalate (Lexapro) 20 Mg Tab 20 MG PO DAILY, TAB Furosemide (Lasix) 40 Mg Tab 40 MG PO QAM, TAB Levothyroxine Sodium (Levothyroxine Sodium) 75 Mcg Tab 75 MG PO QAM, TAB 3 Refills Lisinopril (Zestril) 10 Mg Tab 10 MG PO BID, TAB Potassium Chloride (Micro-K Ext Rel) 10 Meq Capcr 10 MEQ PO DAILY, CAP Simvastatin (Zocor) 20 Mg Tab 20 MG PO QPM, TAB Tramadol (Ultram) 50 Mg Tab 100 MG PO Q4H PRN for Pain, TAB Venlafaxine Hcl (Effexor Xr) 37.5 Mg Cap 37.5 MG PO DAILY for 30 Days, #30 CAP Venlafaxine Hcl (Venlafaxine Extended Rel) 75 Mg Cap 75 MG PO DAILY, CAP Discharge Exam The patient was seen and examined at bedside. No acute overnight events. Pt appears much improved from previous day. Constitutional: No fever, No sweats ENT: No hearing loss Respiratory: No cough, No sputum, No wheezing, No shortness of breath Cardiovascular: No chest pain Abdomen: No pain, No nausea, No vomiting Musculoskeletal: No joint pain Female : No dysuria, +incontinence overnight Psychiatric: No depression symptoms Physical Exam General Appearance: WD/WN, no apparent distress Eyes: normal inspection, PERRL ENT: normal ENT inspection Neck: supple, no adenopathy Respiratory/Chest: chest non-tender, lungs clear, normal breath sounds, no respiratory distress, no accessory muscle use Cardiovascular: regular rate, rhythm, no edema, no gallop, no JVD, no murmur Abdomen: normal bowel sounds, non tender, soft Extremities: normal range of motion, non-tender, normal inspection, no pedal edema, no calf tenderness 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 Skin: normal color, warm/dry Hospital Course 82F with a PMHx of dementia, HTN, CKD III, hypothyroidism, recent shingles - presents with AMS and lower extremity erythema as noted by her . CT of the head was negative. Urine cultures grew Enterococcus Faecealis that was sensitive to Amoxicillin. Pt improved dramatically after receiving 3 doses of Amoxicillin 500mg BID and was discharged in good condition. Pt's Lasix was held on admission due to acute kidney injury. It was restarted on hospital day #3. All home meds were resumed on discharge. Patient was discharged to complete a 7 day course of Amoxicillin. We recommend follow up with PCP in one week. Total Time Spent: Greater than 30 minutes This includes examination of the patient, discharge planning, medication reconciliation, and communication with other providers. Discharge Instructions Please refer to the electronic Patient Visit Report (Discharge Instructions) for additional information. Additional Copies To Daniel Albert M.D. Resident Involvement: Resident Care Provided Care Provided: Adult Hospital Medicine Reviewed: Pt Seen/Exam by Me History sitting in chair comfortably. at bedside. mentation back to baseline Constitutional: denies: fever Respiratory: negative: short of breath Cardiovascular: denies chest pain General Appearance: no apparent distress Respiratory: lungs clear, no respiratory distress Cardiovascular: regular rate, rhythm Neurologic/Psychiatric: alert Skin Characteristics: warm/dry Assessment/Plan Resident Physician Supervision Note: I independently interviewed and examined the patient and verified the urban history and physical, reviewed labs and image studies, discussed the case with the resident Dr. Duenas and agree with the findings and care plan. Time spent in discharge 35 min
== END 2017-08-16 13:02 | disposition home health service (06) | DRG 689 ==
LOC: EDBD 07:45 → C.EDB 07:45 → C.MS2W 13:54 → ENRESERV 15:30 → OBSVTOIN 08-15 08:15
PROVIDERS: ADMIT Internal Medicine; ATTEND Family Medicine
DX: N39.0 Urinary tract infection, site not specified (principal); N17.9 Acute kidney failure, unspecified; G93.41 Metabolic encephalopathy; Z88.8 Allergy status to other drugs, medicaments and biological substances; Z88.2 Allergy status to sulfonamides; E03.9 Hypothyroidism, unspecified; N18.3 Chronic kidney disease, stage 3 (moderate); F41.8 Other specified anxiety disorders; E78.5 Hyperlipidemia, unspecified; E86.0 Dehydration; I12.9 Hypertensive chronic kidney disease with stage 1 through stage 4 chronic kidney disease, or unspecified chronic kidney disease; B02.9 Zoster without complications; B95.2 Enterococcus as the cause of diseases classified elsewhere

== ENCOUNTER → 2017-09-22 | Outpatient (CLI) | payer OTHER ==
[~2017-09-22] MED LIST changes: +AMX500 PO; -CEFD1CAP14 PO; -CLTP PO; -DIPH-416 PO; +DONE10TA12 PO; -ESCI10TA17 PO; +ESCI1TAB10 PO; -LDDP5 TD; +LEVO75TA5 PO; +LISI-461 PO; -LISI10TA PO; -MULT-506 PO; -NUTRTAB55 PO; +POTA10CA28 PO; -POTA10SO10 PO; +SIMV20TA2 PO; +TRAM-10 PO; +VENL1CAP92 PO; -VENL37.593 PO; +VENL75CA73 PO
--- NOTE | 2017-09-22 17:17 | DIAGNOSTIC IMAGING REPORT ---
BILATERAL LOWER EXTREMITY VENOUS DOPPLER HISTORY: B/L LEG SWELLING, R/O DVT COMPARISON STUDY: None. FINDINGS: There is normal compressibility, flow, and augmentation within the bilateral lower extremity deep venous systems. IMPRESSION: No DVT within the right or left lower extremity. Electronically signed by: Tacos Welch M.D. 09/22/2017 5:16 PM Dictated Date/Time: 09/22/2017 5:16 PM
== END | disposition home or self-care (01) ==
LOC: C.ULTR 15:39
PROVIDERS: ATTEND Internal Medicine
DX: M79.89 Other specified soft tissue disorders (principal)

== ENCOUNTER → 2017-12-12 | Outpatient (CLI) | payer OTHER ==
[~2017-12-12] MED LIST changes: -VENL1CAP92 PO; +VENL37.52 PO
[2017-12-12 18:23] LABS: BLOOD UREA NITROGEN 41 mg/dl (7-18); CALCIUM 8.6 mg/dl (8.5-10.1); CARBON DIOXIDE 26 mmol/L (21-32); CREATININE 1.83 mg/dl (0.60-1.20); GLUCOSE 121 mg/dl (70-99); POTASSIUM 4.2 mmol/L (3.5-5.1); SODIUM 135 mmol/L (136-145)
== END | disposition home or self-care (01) ==
LOC: C.LABSPEC 17:46
PROVIDERS: ATTEND Internal Medicine
DX: R60.9 Edema, unspecified (principal)

== ENCOUNTER 2017-12-28 02:50 | Inpatient (IN) | payer OTHER ==
[~2017-12-28] VITALS: Ht 170.2 cm; Wt 73.4 kg
[2017-12-28] VITALS (16 sets, daily range): BP systolic 142–190; BP diastolic 61–78; PULSE 63–84; TEMP 36.3–36.8; O2SAT 95–100; Ht 170.2 cm; Wt 73.4 kg
--- NOTE | 2017-12-28 03:19 | EMERGENCY ROOM VISIT NOTE ---
History Report prepared by Amelia: Giovanny Lopez Under the Supervision of: Dr. Naa Sánchez D.O. First contact with patient: 03:05 Chief Complaint: LEG PAIN,LEG INJURY Stated Complaint: SEVERE LEG PAIN History of Present Illness The patient is an 82 year old female who presents to the Emergency Room with complaints of constant leg pain beginning yesterday. The patient states that her legs have been swollen for the last few months. She notes that she takes Lasix and has her legs drained a few times a week. She reports that her Lasix dose was increased from 40mg to 80mg three weeks ago. The patient states that her increased Lasix dose did not change her leg swelling. Per , the patient has had blisters on her legs for the last month. He notes that the patient has about 1-2 blisters on each leg. He reports that the patient's blisters have all broken and are draining. He states that the patient has pads and wrapping around her legs. He notes that the patient does not typically have pain, but he reports that the patient developed leg pain yesterday. The patient states that her symptoms improve when she has her legs up. 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 She denies any fever, chills, nausea, vomiting, and abdominal pain. She reports that she takes Tramadol and Tylenol with some relief of her symptoms. She notes that she takes two tramadol a day. The patient states that she last had tramadol at 2000 last night. She notes that she had two Tylenol at 2300. Per daughter, the patient had four cookies, pretzels, cheese and crackers, and cake for dinner. The patient denies any increased standing and increased salty food intake. Per , the patient has a history of kidney problems. Source of History: patient, family (daughter), spouse/significant other ( ) Onset: yesterday Position: leg (bilateral) Timing: constant Modifying Factors (Relieving): other (having legs up, Tramadol, Tylenol) Associated Symptoms: No fevers, No chills, No nausea, No vomiting, No abdominal pain Note: The patient also complains of leg swelling and blisters on her legs. Review of Systems See HPI for pertinent positives & negatives. A total of 10 systems reviewed and were otherwise negative. Past Medical & Surgical Medical Problems: (1) ACUTE RENAL FAIL.,DEHYDRATION (2) LORNA (acute kidney injury) (3) Carpal tunnel syndrome (4) Confusion (5) GI bleed (6) Lower extremity pain (7) SYNCOPE, DEHYDRATION (8) UTI (urinary tract infection) Surgical Problems: (1) History of bilateral knee replacement Family History Diabetes mellitus Hypertension Social History Smoking Status: Never Smoker Drug Use: none Marital Status: Housing Status: lives with family Occupation Status: retired Current/Historical Medications Scheduled Donepezil Hydrochloride (Aricept), 10 MG PO DAILY Furosemide (Lasix), 40 MG PO BID Levothyroxine Sodium (Levothyroxine Sodium), 75 MG PO QAM Lisinopril (Zestril), 10 MG PO DAILY Misc Natural Products (Osteo Bi-Flex Triple Stre), 1 TAB PO DAILY Modafinil (Provigil), 100 MG PO QAM Multivitamin (Multivitamin), 1 TAB PO DAILY Potassium Chloride (Micro-K Ext Rel), 10 MEQ PO DAILY Simvastatin (Zocor), 20 MG PO QPM Scheduled PRN Tramadol (Ultram), 100 MG PO Q4H PRN for Pain Allergies Coded Allergies: Amlodipine (Verified Allergy, Severe, ., 12/28/17) CAN TAKE LOWER DOSES, HIGHER DOSES CLOSES HER THROAT Atenolol (Verified Allergy, Severe, ., 12/28/17) CAN TAKE LOW DOSE-HIGHER DOSES CLOSE HER THROAT Pregabalin (Verified Allergy, Severe, altered mental status, 12/28/17) Estrogens (Verified Allergy, Intermediate, ., 12/28/17) ALLERGIC PREMPRO BUT TAKES PREMARIN AT HOME Methyltestosterone (Verified Allergy, Intermediate, ., 12/28/17) Replaces PREMPRO ALLERGIC TO PREMPRO, BUT CAN TAKE COMPONENTS SEPARATELY (TAKES AT HOME) Progestins (Verified Allergy, Intermediate, ., 12/28/17) Replaces PREMPRO ALLERGIC TO PREMPRO, BUT CAN TAKE COMPONENTS SEPARATELY (TAKES AT HOME) Amitriptyline (Verified Allergy, Unknown, ., 12/28/17) Celecoxib (Verified Allergy, Unknown, 12/28/17) Chlorthalidone (Verified Allergy, Unknown, 12/28/17) Clonazepam (Unverified Allergy, Unknown, UNKNOWN, 08/12/17) Gabapentin (Verified Allergy, Unknown, HIVES, 08/12/17) Hydrochlorothiazide (Verified Allergy, Unknown, 08/12/17) Metoprolol (Verified Allergy, Unknown, 08/12/17) Sulfa Antibiotics (Verified Allergy, Unknown, ., 08/12/17) Prednisone (Verified Adverse Reaction, Unknown, HEADACHE,FLUSHING, 08/12/17) Physical Exam Vital Signs Date Time Temp Pulse Resp B/P (MAP) Pulse Ox O2 Delivery O2 Flow Rate FiO2 12/28/17 05:46 77 20 170/86 98 Room Air 12/28/17 04:18 82 18 155/72 96 Room Air 12/28/17 03:14 76 12/28/17 02:56 37.0 77 20 130/74 96 Room Air Physical Exam HEENT: Head - normocephalic and atraumatic Pupils are equal, round, and reactive to light. Extraocular eye muscles are intact, and sclera are anicteric. Nose - moist nasal mucosa without discharge. Mouth - moist buccal mucosa. Oropharynx is nonerythematous and there is no tonsillar exudate or edema noted. Neck: Supple; no JVD, nuchal rigidity, cervical lymphadenopathy. Heart: Regular rate and rhythm. There is a normal S1 and S2 with no murmurs, clicks, or gallops appreciated. Lungs: Clear to auscultation bilaterally with no wheezes, rales, or rhonchi. Abdomen: Soft, completely nontender, nondistended, with good bowel sounds. There are no palpable pulsatile masses or hepatosplenomegaly. There is no guarding, rigidity, or rebound noted. Extremities: No evidence of cyanosis or clubbing. There are easily palpable peripheral pulses. Lower extremities have peripheral vascular changes, 2+ edema in both legs, the medial aspect of the right ankle has a water filled blister, small areas of skin breakdown on the posterior ankles. Skin: warm and dry with good turgor and no rashes. Medical Decision & Procedures ER Provider Diagnostic Interpretation: Radiology results as stated below per my review and interpretation: CHEST X-RAY: Elevated left hemidiaphragm. Borderline cardiomegaly. No obvious pulmonary infiltrate. Slight left sided pleural effusion. Laboratory Results 12/28/17 03:35 Red Blood Count 2.51, Mean Corpuscular Volume 92.4, Mean Corpuscular Hemoglobin 29.5, Mean Corpuscular Hemoglobin Concent 31.9, Mean Platelet Volume 8.6, Neutrophils (%) (Auto) 54.0, Lymphocytes (%) (Auto) 28.1, Monocytes (%) (Auto) 11.0, Eosinophils (%) (Auto) 5.6, Basophils (%) (Auto) 1.1, Neutrophils # (Auto ) 3.00, Lymphocytes # (Auto) 1.56, Monocytes # (Auto) 0.61, Eosinophils # (Auto ) 0.31, Basophils # (Auto) 0.06 12/28/17 03:35 Test 12/28/17 03:35 White Blood Count 5.55 K/uL (4.8-10.8) Red Blood Count 2.51 M/uL (4.2-5.4) Hemoglobin 7.4 g/dL (12.0-16.0) Hematocrit 23.2 % (37-47) Mean Corpuscular Volume 92.4 fL (80-100) Mean Corpuscular Hemoglobin 29.5 pg (25-34) Mean Corpuscular Hemoglobin Concent 31.9 g/dl (32-36) Platelet Count 282 K/uL (130-400) Mean Platelet Volume 8.6 fL (7.4-10.4) Neutrophils (%) (Auto) 54.0 % Lymphocytes (%) (Auto) 28.1 % Monocytes (%) (Auto) 11.0 % Eosinophils (%) (Auto) 5.6 % Basophils (%) (Auto) 1.1 % Neutrophils # (Auto) 3.00 K/uL (1.4-6.5) Lymphocytes # (Auto) 1.56 K/uL (1.2-3.4) Monocytes # (Auto) 0.61 K/uL (0.11-0.59) Eosinophils # (Auto) 0.31 K/uL (0-0.5) Basophils # (Auto) 0.06 K/uL (0-0.2) RDW Standard Deviation 47.0 fL (36.4-46.3) RDW Coefficient of Variation 13.9 % (11.5-14.5) Immature Granulocyte % (Auto) 0.2 % Immature Granulocyte # (Auto) 0.01 K/uL (0.00-0.02) Red Blood Cell Morphology Unremarkable Anion Gap 4.0 mmol/L (3-11) Est Creatinine Clear Calc Drug Dose 24.0 ml/min Estimated GFR () 30.7 Estimated GFR (Non- 26.5 BUN/Creatinine Ratio 28.5 (10-20) Calcium Level 7.9 mg/dl (8.5-10.1) Total Bilirubin 0.1 mg/dl (0.2-1) Direct Bilirubin < 0.1 mg/dl (0-0.2) Aspartate Amino Transf (AST/SGOT) 17 U/L (15-37) Alanine Aminotransferase (ALT/SGPT) 18 U/L (12-78) Alkaline Phosphatase 85 U/L (45-117) Total Protein 6.7 gm/dl (6.4-8.2) Albumin 2.7 gm/dl (3.4-5.0) Laboratory results per my review. Medications Administered Medications (Trade) Dose Ordered Sig/Jace Route Start Time Stop Time Status Last Admin Dose Admin Tramadol HCl (Ultram Tab) 50 mg NOW STAT PO 12/28/17 03:22 12/28/17 03:24 DC 12/28/17 03:43 50 MG Procedure Medications Administered: Tramadol HCl 50mg PO. ECG Per My Interpretation Indication: SOB/dyspnea Rate (beats per minute): 74 Rhythm: normal sinus Findings: no ectopy, other (No ischemia, no ST segment changes) ED Course 0307: The patient was evaluated in room A11. A complete history and physical examination were performed. Nursing notes and previous electronic medical records were reviewed. IV lock was established and labs were drawn as above. 0322: Tramadol HCl 50mg PO 0418: I reevaluated and updated the patient. I heme tested her stool. The heme test came back negative. With further questioning and confirmation by her , she states that she gets extremely SOB with any exercise. The explains that the patient would sleep 20 hours a day. An EKG was obtained. An IV lock was initiated and labs were drawn as above. The patient was typed and crossed for 1 unit of packed red blood cells. A chest x-ray was obtained. 0433: Dr. Garrett will be down to see the patient. 0508: Upon reevaluation, I discussed findings and results with the patient. She and her family verbalized agreement of the treatment plan. I spoke with Dr. Barrios, resident sulfonation equipment operator for Dr. Garrett of the [facility] [place]. The patient will be evaluated for further management and care. Medical Decision The patient is an 82 year old female who presents to the Emergency Room with complaints of constant leg pain beginning yesterday. Differential diagnoses include: cellulitis, worsening lower extremity edema, wound infections, dehydration, and acute exacerbation of chronic lower extremity pain. Lab Results Show: Hemoglobin 7.4. WBC 5.5. BUN 50. Creatinine 1.7. Glucose 100. This is an 82-year-old female patient presents to the emergency department with bilateral lower extremity pain. In the process of checking routine laboratory studies, the patient had no significant leukocytosis but was extremely anemic. Hemoglobin was less than 8. Heme testing of the stool was negative. The patient's daughter explains that she has a history of previous anemia with blood transfusion. I discussed the case with the [facility] Hospitalist and they will evaluate for further management. Medication Reconcilliation Current Medication List: was personally reviewed by me Blood Pressure Screening Patient's blood pressure: Elevated blood pressure Elevated blood pressure will be monitored by hospitalist. Consults Time Called: 0426 Consulting Physician: Dr. Barrios, resident sulfonation equipment operator for Dr. Garrett - Hospitalist, [facility] Returned Call: [phone] Discussed the patient's case. The patient will be evaluated for further management. Impression Primary Impression: Anemia Additional Impression: Lower extremity edema Scribe Attestation The scribe's documentation has been prepared under my direction and personally reviewed by me in its entirety. I confirm that the note above accurately reflects all work, treatment, procedures, and medical decision making performed by me. Departure Information Dispostion Being Evaluated By Hospitalist Referrals Daniel Albert M.D. (PCP) Patient Instructions My [facility] Problem Qualifiers Primary Impression: Anemia Anemia type: unspecified type Qualified Codes: D64.9 - Anemia, unspecified
[2017-12-28] MEDS ORDERED: TRAMADOL HCL 50 MG TAB PO STA (03:22)
[2017-12-28 03:44] LABS: BASO % 1.1 %; BASO ABS # 0.06 K/uL (0-0.2); EOS % 5.6 %; EOS ABS # 0.31 K/uL (0-0.5); HEMATOCRIT 23.2 % (37-47); HEMOGLOBIN 7.4 g/dL (12.0-16.0); IG# 0.01 K/uL (0.00-0.02); LYMPH % 28.1 %; LYMPH ABS # 1.56 K/uL (1.2-3.4); MEAN CELL VOLUME 92.4 fL (80-100); MEAN CORPUSCULAR HEMOGLOBIN 29.5 pg (25-34); MEAN CORPUSCULAR HGB CONC 31.9 g/dl (32-36); MEAN PLATELET VOLUME 8.6 fL (7.4-10.4); MONO ABS # 0.61 K/uL (0.11-0.59); PLATELET COUNT 282 K/uL (130-400); RED CELL DISTRIBUTION WIDTH CV 13.9 % (11.5-14.5); WHITE BLOOD COUNT 5.55 K/uL (4.8-10.8)
[2017-12-28 04:01] LABS: BLOOD UREA NITROGEN 50 mg/dl (7-18); CALCIUM 7.9 mg/dl (8.5-10.1); CARBON DIOXIDE 29 mmol/L (21-32); CREATININE 1.76 mg/dl (0.60-1.20); GLUCOSE 100 mg/dl (70-99); POTASSIUM 4.1 mmol/L (3.5-5.1); SODIUM 138 mmol/L (136-145)
[2017-12-28 04:47] LABS: ALBUMIN 2.7 gm/dl (3.4-5.0); ALKALINE PHOSPHATASE 85 U/L (45-117); ALT/SGPT 18 U/L (12-78); AST/SGOT 17 U/L (15-37); TOTAL PROTEIN 6.7 gm/dl (6.4-8.2)
[2017-12-28] MEDS ORDERED: MAGNESIUM HYDROXIDE SUSP 30 ML UDC PO PRN (05:45)
[2017-12-28] MEDS ORDERED: ACETAMINOPHEN 325 MG TAB PO PRN (05:45)
[2017-12-28] MEDS ORDERED: MoRPHine SULFATE 2 MG/ML CARP IV PRN (05:45)
[2017-12-28] MEDS ORDERED: ONDANSETRON INJ 2 MG/ML 2 ML VIAL IV PRN (05:45)
[2017-12-28] MEDS ORDERED: MODA100T17 PO (05:54)
[2017-12-28] MEDS ORDERED: MISCTAB88 PO (05:56)
[2017-12-28] MEDS ORDERED: MULT-506 PO (05:56)
--- NOTE | 2017-12-28 06:19 | History and Physical ---
History & Physical Date & Time of Service: Dec 28, 2017 at 05:48 Chief Complaint: Severe Leg Pain Primary Care Physician: Daniel Albert M.D. History of Present Illness Source: patient, family Patient is an 82 year old female with a past medical history of lower extremity lymphedema associated with chronic leg pain, hypertension, dementia, depression , multiple back surgeries, and hypothyroidism that presents with intractable leg pain that started yesterday evening. The patient returned for dinner with her family and was complaining of severe, 8/10, burning leg pain over the calves that came on suddenly. She currently takes Tramadol and Tylenol at home for the pain although tonight it did not appear to control her pain. She has also been complaining of worsening fatigue, weakness, and exertional shortness of breath over the last week. Her states the swelling and redness in her legs is actually improved compared to her baseline. He also states the she had a blister on her left leg yesterday although regularly gets 1-2 over each leg throughout the week. She tries to keep her legs elevated although it sounds like she is not very compliant with that as she is more comfortable when her legs are down. She follows with a lymphedema clinic in [place] regularly. The patient also recently had her dose of Lasix increased from 40mg to 80mg PO Daily. It also appear that the patient has a fairly poor diet eating mainly sweets and junk food along with cheese and cold cuts. Past Medical/Surgical History Medical Problems: (1) ACUTE RENAL FAIL.,DEHYDRATION (2) LORNA (acute kidney injury) (3) Altered mental status (4) Bilateral leg pain (5) Carpal tunnel syndrome (6) Cellulitis (7) Confusion (8) Confusion (9) Dehydration (10) Dehydration (11) Elevated lipase (12) Fall (13) GI bleed (14) Headache (15) Low back pain (16) Lower extremity pain (17) Syncope (18) SYNCOPE, DEHYDRATION (19) Urinary tract infection (20) UTI (urinary tract infection) Surgical Problems: (1) History of bilateral knee replacement Family History Diabetes mellitus Hypertension Social History Smoking Status: Never Smoker Smokeless Tobacco Use: No Alcohol Use: none Drug Use: none Marital Status: Housing status: lives with significant other Occupational Status: retired Immunizations History of Influenza Vaccine: No Influenza Vaccine Date: Feb 08, 2010 History of Tetanus Vaccine?: Unknown Tetanus Immunization Date: Oct 08, 1972 History of Pneumococcal: Yes Pneumococcal Date: Oct 09, 2007 History of Hepatitis B Vaccine: Unknown Allergies Coded Allergies: Amlodipine (Verified Allergy, Severe, ., 12/28/17) CAN TAKE LOWER DOSES, HIGHER DOSES CLOSES HER THROAT Atenolol (Verified Allergy, Severe, ., 12/28/17) CAN TAKE LOW DOSE-HIGHER DOSES CLOSE HER THROAT Pregabalin (Verified Allergy, Severe, altered mental status, 12/28/17) Estrogens (Verified Allergy, Intermediate, ., 12/28/17) ALLERGIC PREMPRO BUT TAKES PREMARIN AT HOME Methyltestosterone (Verified Allergy, Intermediate, ., 12/28/17) Replaces PREMPRO ALLERGIC TO PREMPRO, BUT CAN TAKE COMPONENTS SEPARATELY (TAKES AT HOME) Progestins (Verified Allergy, Intermediate, ., 12/28/17) Replaces PREMPRO ALLERGIC TO PREMPRO, BUT CAN TAKE COMPONENTS SEPARATELY (TAKES AT HOME) Amitriptyline (Verified Allergy, Unknown, ., 12/28/17) Celecoxib (Verified Allergy, Unknown, 12/28/17) Chlorthalidone (Verified Allergy, Unknown, 12/28/17) Clonazepam (Unverified Allergy, Unknown, UNKNOWN, 08/12/17) Gabapentin (Verified Allergy, Unknown, HIVES, 08/12/17) Hydrochlorothiazide (Verified Allergy, Unknown, 08/12/17) Metoprolol (Verified Allergy, Unknown, 08/12/17) Sulfa Antibiotics (Verified Allergy, Unknown, ., 08/12/17) Prednisone (Verified Adverse Reaction, Unknown, HEADACHE,FLUSHING, 08/12/17) Home Medications Scheduled Diclofenac Sod (Voltaren), 1 APPLN EXT TID Donepezil Hydrochloride (Aricept), 10 MG PO DAILY Furosemide (Lasix), 1 TAB PO DAILY Levothyroxine Sodium (Levothyroxine Sodium), 75 MG PO QAM Lisinopril (Zestril), 10 MG PO DAILY Misc Natural Products (Osteo Bi-Flex Triple Stre), 1 TAB PO DAILY Modafinil (Provigil), 100 MG PO QAM Multivitamin (Multivitamin), 1 TAB PO DAILY Potassium Chloride (Micro-K Ext Rel), 10 MEQ PO DAILY Simvastatin (Zocor), 20 MG PO QPM Scheduled PRN Tramadol (Ultram), 100 MG PO Q4H PRN for Pain Review of Systems Constitutional: + weakness, + fatigue, No fever, No chills, No sweats, No weight loss Eyes: No worsening of vision, No diplopia Respiratory: + shortness of breath, No cough, No sputum, No wheezing Cardiovascular: No chest pain, No orthopnea, No palpitations Abdomen: No pain, No nausea, No vomiting, No diarrhea, No constipation Musculoskeletal: + swelling, + calf pain, No joint pain Genitourinary - Female: No dysuria Neurologic: + weakness, + balance problems, No memory loss, No numbness/ tingling Psychiatric: + anhedonism Endocrine: + fatigue Integumentary: + problem reported (Lower extremity erythema, chronic skin changes, weeping, edema) Physical Exam Vital Signs Date Time Temp Pulse Resp B/P (MAP) Pulse Ox O2 Delivery O2 Flow Rate FiO2 12/28/17 05:46 77 20 170/86 98 Room Air 12/28/17 04:18 82 18 155/72 96 Room Air 12/28/17 03:14 76 12/28/17 02:56 37.0 77 20 130/74 96 Room Air General Appearance: WD/WN, no apparent distress Head: normocephalic, atraumatic Eyes: normal inspection, sclerae normal Neck: supple, no carotid bruits Respiratory/Chest: chest non-tender, lungs clear, normal breath sounds, no respiratory distress, no accessory muscle use Cardiovascular: regular rate, rhythm, no edema, no gallop, no murmur Abdomen/GI: normal bowel sounds, non tender, soft Back: normal inspection, no CVA tenderness Extremities/Musculoskelatal: + pertinent finding (TTP over the lower extremities bilaterally at the calf region. Erythema over the lower extremities bilaterally. No visible discharge or ceeping from the legs. Dried skin from a broken blister evident at the medial malleolus of the left leg. +1 Pitting edema of the lower extremities. Warm to touch.) Neurologic/Psych: alert, normal reflexes, oriented x 3 Diagnostics Laboratory Results Results Past 24 Hours Test 12/28/17 03:35 Range/Units White Blood Count 5.55 4.8-10.8 K/uL Red Blood Count 2.51 4.2-5.4 M/uL Hemoglobin 7.4 12.0-16.0 g/dL Hematocrit 23.2 37-47 % Mean Corpuscular Volume 92.4 80-100 fL Mean Corpuscular Hemoglobin 29.5 25-34 pg Mean Corpuscular Hemoglobin Concent 31.9 32-36 g/dl Platelet Count 282 130-400 K/uL Mean Platelet Volume 8.6 7.4-10.4 fL Neutrophils (%) (Auto) 54.0 % Lymphocytes (%) (Auto) 28.1 % Monocytes (%) (Auto) 11.0 % Eosinophils (%) (Auto) 5.6 % Basophils (%) (Auto) 1.1 % Neutrophils # (Auto) 3.00 1.4-6.5 K/uL Lymphocytes # (Auto) 1.56 1.2-3.4 K/uL Monocytes # (Auto) 0.61 0.11-0.59 K/uL Eosinophils # (Auto) 0.31 0-0.5 K/uL Basophils # (Auto) 0.06 0-0.2 K/uL RDW Standard Deviation 47.0 36.4-46.3 fL RDW Coefficient of Variation 13.9 11.5-14.5 % Immature Granulocyte % (Auto) 0.2 % Immature Granulocyte # (Auto) 0.01 0.00-0.02 K/uL Red Blood Cell Morphology Unremarkable Sodium Level 138 136-145 mmol/L Potassium Level 4.1 3.5-5.1 mmol/L Chloride Level 105 98-107 mmol/L Carbon Dioxide Level 29 21-32 mmol/L Anion Gap 4.0 3-11 mmol/L Blood Urea Nitrogen 50 7-18 mg/dl Creatinine 1.76 0.60-1.20 mg/dl Est Creatinine Clear Calc Drug Dose 24.0 ml/min Estimated GFR () 30.7 Estimated GFR (Non- 26.5 BUN/Creatinine Ratio 28.5 10-20 Random Glucose 100 70-99 mg/dl Calcium Level 7.9 8.5-10.1 mg/dl Total Bilirubin 0.1 0.2-1 mg/dl Direct Bilirubin < 0.1 0-0.2 mg/dl Aspartate Amino Transf (AST/SGOT) 17 15-37 U/L Alanine Aminotransferase (ALT/SGPT) 18 12-78 U/L Alkaline Phosphatase 85 45-117 U/L Total Protein 6.7 6.4-8.2 gm/dl Albumin 2.7 3.4-5.0 gm/dl Impression Assessment and Plan Patient is an 82 year old female with a past medical history of lower extremity lymphedema associated with chronic leg pain, hypertension, dementia, depression , multiple back surgeries, and hypothyroidism that presents with intractable leg pain that started yesterday evening Intractable lower extremity/ Chronic Lower Extremity Lymphedema - Chronic leg pain from lymphedema vs Ischemic leg pain vs DVT - Lower Extremity Venous and Arterial Duplex US - Continue home Tramadol + Tylenol - Morphine 2mg IV q2h - Albumin 12.5mg --> Possible 3rd spacing from nutritional deficiency contributing to lower extremity edema - Wound Care Consult - Hold home Lasix Anemia - Secondary to nutritional deficiency? - Hemoccult negative and no known source of bleed - Hgb 11.4 on 08/16, Currently 7.4 - Repeat H/H at 7:30 for recheck for lab error - Type and Cross 2 units on hold LORNA - Creatinine of 1.76, Recently 1.83 on 12/12, and previously 0.95 on 08/16 - IV NS @ 60 mls/hr + Albumin - Daily BMP Hypertension - Continue home Lisinopril Hypothyroidism - Continue home Synthroid DVT - SCDs Code Status - Full Resuscitation Attending addendum: I have physically seen this patient, have supervised the medical residents activities, and agree with the H&P unless as otherwise noted. Assessment and Plan: Intractable lower extremity pain/chronic lymphedema-- Differential includes worsening lymphedema versus edema versus ischemic leg pain versus DVT. Order lower extremity venous and arterial Dopplers. Albumin 25 g IV every hour 2 Morphine 2 mg IV every 2 hours as needed severe pain Tramadol 50 mg p.o. every 4 hours as needed moderate pain. Anemia-- Hemoglobin is dropped 4 g from 11.4-7.4. H&H every 6 hours Hypertension Continue lisinopril home dose with hold parameters. Remaining orders and notations as above. Advanced Directives Existing Advance Directive: No Existing Living Will: No Existing Power of Pipe Insulator Helper: No Resuscitation Status Full Resuscitation VTE Prophylaxis Will order VTE Prophylaxis: Yes Resident Tracking Resident Involvement: Resident Care Provided Care Provided: Adult [facility]
--- NOTE | 2017-12-28 06:41 | DIAGNOSTIC IMAGING REPORT ---
CHEST ONE VIEW PORTABLE HISTORY: 82 years-old Female sob acute shortness of breath COMPARISON: Chest radiograph 08/12/2017, CT abdomen and pelvis 07/16/2017 TECHNIQUE: Portable AP view of the chest FINDINGS: Cardiac silhouette is upper limits of normal in size. Calcification of the aorta. Mild left hemidiaphragmatic elevation. Mild biapical pleural thickening/pleural parenchymal scarring without pneumothorax, pleural effusion or overt pulmonary edema. Linear subsegmental bibasilar opacities. Moderate hiatal hernia. Degenerative changes of the shoulders and spine. IMPRESSION: 1. Linear subsegmental bibasilar opacities favor atelectasis. 2. Moderate sized hiatal hernia. The above report was generated using voice recognition software. It may contain grammatical, syntax or spelling errors. Electronically signed by: Ever Morris M.D. 12/28/2017 6:40 AM Dictated Date/Time: 12/28/2017 6:39 AM
[2017-12-28 07:30] LABS: HEMATOCRIT 23.3 % (37-47); HEMOGLOBIN 7.5 g/dL (12.0-16.0)
[2017-12-28] MEDS: SODIUM CHLORIDE 0.9% 1000ML 1,000 ML IV SCH ×2 (07:34→21:48)
[2017-12-28] MEDS ORDERED: ALBUMIN HUMAN 25% 12.5 GM/50 ML VIAL IV ONE (07:45)
[2017-12-28] MEDS: DONEPEZIL HCL 10 MG TAB PO SCH (09:40)
[2017-12-28] MEDS: LISINOPRIL 10 MG TAB PO SCH (09:40)
[2017-12-28] MEDS: POTASSIUM CHLORIDE 10 MEQ TABCR PO SCH (09:40)
[2017-12-28] MEDS: MODAFINIL 100 MG TAB PO SCH (09:40)
[2017-12-28] MEDS: LEVOTHYROXINE 75 MCG TAB PO SCH (09:40)
--- NOTE | 2017-12-28 11:14 | Family Medicine Progress Note ---
Progress Note Date of Service Dec 28, 2017. Subjective Pt evaluation today including: conversation w/ patient, physical exam, chart review, lab review, review of inpatient medication list See H&P for details on history and physical exam. Assessment and Plan Mrs. Saldivar is an 82 year old female with a past medical history of lower extremity lymphedema associated with chronic leg pain, hypertension, dementia, depression, multiple back surgeries, and hypothyroidism who was admitted for anemia & leg pain. Intractable lower extremity/ Chronic Lower Extremity Lymphedema - Chronic leg pain from lymphedema vs DVT - Lower Extremity Venous Duplex US ordered - pt now reporting that lower leg pain is chronic, but that her pain is mostly from the lateral aspect of her thigh -> consistent with iliotibial band syndrome and piriformis strain -> worked w/Dr. Parker to do isometric stretching exercises -> voltaren gel ordered - Continue home Tramadol + Tylenol - Albumin 12.5mg ordered given low albumin could be contributing to possible 3rd spacing from nutritional deficiency, causing lower extremity edema - Wound Care Consult - Hold home Lasix given prerenal azotemia Anemia - hx of anemia, received 2 units of blood in July for a Hgb <8 - folate and B12 normal in July. Iron studies showed low iron, low transferrin saturation - Hemoccult negative and no known source of bleed. Pt denies postmenopausal bleeding. Unsure of when her last colonoscopy was -> would benefit from outpatient colonoscopy to r/o gastrointestinal bleeding - Hgb 7.5 today and symptomatic w/SOBOE, will transfuse 2 units - per review of record, pt vomited after venofer administration. Will retry venofer tomorrow Prerenal azotemia, likely iatrogenic in origin - Creatinine of 1.76, Recently 1.83 on 12/12, and previously 0.95 on 08/16 - IV NS @ 60 mls/hr + Albumin - likely secondary to intravascular volume depletion in the setting of daily Lasix, that was recently raised to 80mg daily Hypertension - Continue home Lisinopril Hypothyroidism - Continue home Synthroid DVT - SCDs Code Status - Full Resuscitation Resident Physician Supervision Note: I interviewed and examined the patient. Discussed with Dr. Escalante and agree with findings and plan as documented in the note. Any exceptions or clarifications are listed here: None Documented By: Baljinder Parker as above. also L hip pain - points to lateral - radiates down side of leg ost/ msk - L sided buttock (piriformis region) and lateral thigh (IT band region ) musculature high tone/tender/decreased ROM - piriformis region treated wtih post isometric relaxation with improvement in ROM - pt tolerated well vitals noted nad breathing unlabored otherwise as above anemia, venous stasis/edema - as above hip pain - biomechanical IT band -- voltaren gel somatic dysfunction pelvis - OMT as above PT/OT eval and treat as well Resident Tracking Resident Involvement: Resident Care Provided Care Provided: Adult Hospital Medicine
[2017-12-28] MEDS: TRAMADOL HCL 50 MG TAB PO PRN ×2 (12:20→19:17)
--- NOTE | 2017-12-28 16:01 | DIAGNOSTIC IMAGING REPORT ---
VENOUS DOPP LOWER EXT UNILAT CLINICAL HISTORY: 82 years-old Female presenting with Lower extremity pain. TECHNIQUE: Real-time grayscale and color and spectral Doppler ultrasound imaging of the veins of the right lower extremity was performed. Compression and augmentation were also utilized. COMPARISON: 09/22/2017. FINDINGS: RIGHT: Common femoral vein: Patent. Greater saphenous vein: Patent. Deep femoral vein: Patent. Femoral vein: Patent. Popliteal vein: Patent. Calf veins: Patent. Other: Dilated subcutaneous lymphatics. IMPRESSION: No evidence of deep venous thrombosis. Electronically signed by: Luke Chambers M.D. 12/28/2017 4:00 PM Dictated Date/Time: 12/28/2017 3:59 PM
[2017-12-28] MEDS: DICLOFENAC SOD 1% GEL 100 GM TUBE EXT SCH ×2 (16:12→20:56)
[2017-12-28] MEDS ORDERED: SIMVASTATIN 20 MG TAB PO SCH (21:00)
[2017-12-28] MEDS ORDERED: LOPERAMIDE HCL 2 MG CAP PO PRN (22:15)
[2017-12-29] VITALS (7 sets, daily range): BP systolic 137–186; BP diastolic 70–82; PULSE 69–93; TEMP 36.3–36.7; O2SAT 97–99
[2017-12-29 06:16] LABS: BASO % 0.9 %; BASO ABS # 0.05 K/uL (0-0.2); EOS % 4.7 %; EOS ABS # 0.25 K/uL (0-0.5); HEMATOCRIT 30.2 % (37-47); IG# 0.02 K/uL (0.00-0.02); LYMPH % 17.8 %; LYMPH ABS # 0.94 K/uL (1.2-3.4); MEAN CELL VOLUME 88.8 fL (80-100); MEAN CORPUSCULAR HEMOGLOBIN 29.4 pg (25-34); MEAN CORPUSCULAR HGB CONC 33.1 g/dl (32-36); MEAN PLATELET VOLUME 8.8 fL (7.4-10.4); MONO % 7.8 %; MONO ABS # 0.41 K/uL (0.11-0.59); NEUT % 68.4 %; NEUT ABS # 3.61 K/uL (1.4-6.5); PLATELET COUNT 258 K/uL (130-400); RED CELL DISTRIBUTION WIDTH SD 45.9 fL (36.4-46.3); WHITE BLOOD COUNT 5.28 K/uL (4.8-10.8)
[2017-12-29] MEDS: LEVOTHYROXINE 75 MCG TAB PO SCH (06:27)
[2017-12-29 06:50] LABS: CALCIUM 8.5 mg/dl (8.5-10.1); CREATININE 1.41 mg/dl (0.60-1.20); POTASSIUM 4.2 mmol/L (3.5-5.1)
[2017-12-29] MEDS: DICLOFENAC SOD 1% GEL 100 GM TUBE EXT SCH ×2 (08:07→14:13)
[2017-12-29] MEDS: LISINOPRIL 10 MG TAB PO SCH (08:07)
[2017-12-29] MEDS: DONEPEZIL HCL 10 MG TAB PO SCH (08:07)
[2017-12-29] MEDS: POTASSIUM CHLORIDE 10 MEQ TABCR PO SCH (08:08)
[2017-12-29] MEDS: MODAFINIL 100 MG TAB PO SCH (08:16)
[2017-12-29] MEDS: TRAMADOL HCL 50 MG TAB PO PRN ×2 (08:16→14:35)
[2017-12-29] MEDS ORDERED: IRON SUCROSE INJ 100 MG in SODIUM CHLORIDE 0.9% 100ML 100 ML IV SCH (11:15)
--- NOTE | 2017-12-29 12:13 | Clinical Documentation Query ---
CLINICAL DOCUMENTATION QUERY Dr. MONROY, In your clinical opinion is this patient being managed for: ( ) Acute kidney failure ( ) CKD stage III ( ) LORNA on CKD stage III ( x ) Not Agree - LORNA documented. I really can't honesty comment on CKD - if you look back she has some totally normal (<1) creatinine values as recently as august of this year. Remember, using creatinine as a surrogate for eGFR is an exact science that is based off the cockroft-gault equation - and because age is part of that equation it is widely held that it becomes less accurate the further beyond about age 70 the patient is - so even though her eGFR in the EMR is always low, it's really hard to trust it as a chronic diagnosis because of this, as well as because of her frequently fluctuating creatinine, as well as because the main reasons for her fluctuating creatinine appear to be outside influences (anemia and diuretics (that she may not actually need)). So I would not feel ethical or honest documenting CKD in this patient for all of the above reasons. ( ) Other explanation of clinical findings (No explanation is considered a No Response) ( ) Unable to determine ( ) Need to Discuss (Phone CDS or qliq) (No discussion is considered a No Response) The medical record reflects the following clinical findings, treatment, and risk factors. Clinical Indicators: The diagnosis of LORNA is noted in the H/P. It has been removed from the subsequent progress note on 12/28 and changed to prerenal azotemia. Review of historical Cr and GFR reveals Cr range of 1.3-1.58 with GFR 25.2-38.9. There is a three day period in August 2017 with Cr range of 0.95-1.15 (GFR 44.3-55.8) when pt was hospitalized and receiving IV fluids. Pt's initial Cr 1.75 with GFR 26.5 Treatment: 1L NSS 60 cc/hr, monitor PRP's Risk Factors: age, HTN Please clarify and document your clinical opinion in the progress notes and discharge summary. Terms such as "probable", "suspected", "likely", "questionable", "possible", or "still to be ruled out" are acceptable. IF IN AGREEMENT, YOU MUST DOCUMENT ABOVE DIAGNOSTIC STATEMENT IN DAILY PROGRESS NOTES AND DISCHARGE SUMMARY. This document is not part of the patient's record. Thank You, Katherine Hoang RN [phone]
[2017-12-29] MEDS ORDERED: FURO-85 PO (16:23)
--- NOTE | 2017-12-29 16:33 | Discharge Instructions ---
Discharge Instructions Date of Service Dec 29, 2017. Admission Reason for Admission: Anemia, Lower Extremity Pain Discharge Discharge Diagnosis / Problem: Anemia Discharge Goals Goal(s): Decrease discomfort, Improve disease control Activity Recommendations Activity Limitations: resume your previous activity . Instructions / Follow-Up Instructions / Follow-Up You were admitted to [facility] due to anemia. Below is a summary of your admission: 1) Anemia -> you were transfused 2 units of blood, which brought your hemoglobin up from 7.5 to 10 -> we also gave you an infusion of IV iron because your anemia is caused by iron deficiency -> we are working on arranging outpatient IV iron infusions for you weekly, and we will be in touch about this -> given that you have not had a colonoscopy in a number of years, we also recommend that you have one within the next few months. We will also be arranging this for you. THis is to make sure your iron deficiency anemia is not caused by blood loss 2) Leg swelling -> we reduced your dose of lasix from 40mg twice a day to 20mg daily -> when you follow up with your PCP, he can decide if you require a change in this dose -> the best treatment for your leg swelling is compression stockings and exercise -> there is a physical therapy center in [place] that deals with leg swelling and is very helpful, we recommend follow up there -> for your left sided thigh pain, you can use the voltaren gel as needed to help with the pain 3) Kidneys - your kidney numbers were slightly high when you came in, this was likely due to dehydration from your high Lasix dose, which is why we reduced it If you have any abdominal pain, notice blood in your stools, have chest pain or shortness of breath, please seek medical attention. Current Hospital Diet Patient's current hospital diet: AHA Diet (Heart Healthy) Discharge Diet Recommended Diet: AHA Diet (Heart Healthy) Pending Studies Studies pending at discharge: no Medical Emergencies . Who to Call and When: Medical Emergencies: If at any time you feel your situation is an emergency, please call 911 immediately. . Non-Emergent Contact Non-Emergency issues call your: Primary Care Provider . . "Provider Documentation" section prepared by Macario Escalante. .
[2017-12-29] MEDS ORDERED: VLTG EXT (16:36)
--- NOTE | 2017-12-29 16:36 | Discharge Summary ---
Discharge Summary Date of Service Dec 29, 2017. Discharge Summary Admission Date: Dec 28, 2017 at 05:48 Discharge Date: Dec 29, 2017 Discharge Disposition: Home Principal Diagnosis: Anemia Problems/Secondary Diagnoses: 1) Chronic lower extremity lymphedema 2) Iatrogenic prerenal azotemia 3) Hypertension 4) Hypothyroidism Immunizations: Have You Had Influenza Vaccine: No Influenza Vaccine Date: Feb 08, 2010 History of Tetanus Vaccine?: Unknown Tetanus Immunization Date: Oct 08, 1972 History of Pneumococcal: Yes Pneumococcal Date: Oct 09, 2007 History of Hepatitis B Vaccine: Unknown Procedures: CHEST ONE VIEW PORTABLE IMPRESSION: 1. Linear subsegmental bibasilar opacities favor atelectasis. 2. Moderate sized hiatal hernia. Venous Dopplers RIGHT: Common femoral vein: Patent. Greater saphenous vein: Patent. Deep femoral vein: Patent. Femoral vein: Patent. Popliteal vein: Patent. Calf veins: Patent. Other: Dilated subcutaneous lymphatics. IMPRESSION: No evidence of deep venous thrombosis. Medication Reconciliation New Medications: Furosemide (Lasix) 20 Mg Tab 1 TAB PO DAILY for 30 Days, #30 TAB 1 Refill Diclofenac Sod (Voltaren) 100 Appln/100 Gm Gel 1 APPLN EXT TID for 14 Days, #1 TUBE 3 Refills Continued Medications: Donepezil Hydrochloride (Aricept) 10 Mg Tab 10 MG PO DAILY, TAB Levothyroxine Sodium (Levothyroxine Sodium) 75 Mcg Tab 75 MG PO QAM, TAB 3 Refills Lisinopril (Zestril) 10 Mg Tab 10 MG PO DAILY Misc Natural Products (Osteo Bi-Flex Triple Stre) 1 Tab Tab 1 TAB PO DAILY Modafinil (Provigil) 100 Mg Tab 100 MG PO QAM, TAB Multivitamin (Multivitamin) Tab 1 TAB PO DAILY, TAB Potassium Chloride (Micro-K Ext Rel) 10 Meq Capcr 10 MEQ PO DAILY, CAP Simvastatin (Zocor) 20 Mg Tab 20 MG PO QPM, TAB Tramadol (Ultram) 50 Mg Tab 100 MG PO Q4H PRN for Pain, TAB Discontinued Medications: Furosemide (Lasix) 40 Mg Tab 40 MG PO BID Discharge Exam Mrs. Saldivar reports she feels well today. She states she feels like she has more energy. She denies chest pain, shortness of breath, and states that her calves are not bothering her any more than usual. She also reports improvement in her left thigh pain. Review of Systems: Constitutional: No fever, No chills Respiratory: No shortness of breath Cardiovascular: No chest pain Abdomen: No pain, No nausea, No vomiting, No diarrhea Musculoskeletal: No joint pain Physical Exam: General Appearance: WD/WN, no apparent distress Respiratory/Chest: lungs clear, normal breath sounds, no respiratory distress, no accessory muscle use Cardiovascular: regular rate, rhythm, no edema, no murmur Abdomen / GI: non tender, soft Extremities: + pertinent finding (bilateral leg swelling, up to knees, w/ chronic venous stasis changes bilterally) Hospital Course Mrs. Saldivar is an 82 year old female with a past medical history of lower extremity lymphedema associated with chronic leg pain, hypertension, dementia, depression, multiple back surgeries, and hypothyroidism who was admitted for anemia & leg pain. Intractable lower extremity/ Chronic Lower Extremity Lymphedema - Chronic leg pain from lymphedema vs DVT -> ordered b/l venous duplexes, however patient only allowed us to complete right one which was negative -> had a discussion regarding risks of not completing the U/S, but patient declined checking the left side - pt also reported that her lower leg pain is chronic, but that her unrelenting pain is mostly from the lateral aspect of her left thigh -> consistent with iliotibial band syndrome and piriformis strain -> worked w/Dr. Parker to do isometric stretching exercises -> voltaren gel prescribed - Continue home Tramadol + Tylenol Anemia - hx of anemia, received 2 units of blood in July for a Hgb <8 - folate and B12 normal in July. Iron studies showed low iron, low transferrin saturation - Hemoccult negative and no known source of bleed. Pt denies postmenopausal bleeding. Unsure of when her last colonoscopy was -> we are organizing outpatient f/u with GI for possible colonoscopy - Hgb 7.5 on arrival and symptomatic w/SOBOE, transfused 2 units and Hgb 10 on d /c - pt also received 1 Venofer transfusion -> will organize a series of transfusions in outpatient setting Prerenal azotemia, likely iatrogenic in origin - Creatinine of 1.76 w/BUN of 50 on admission - Treated w/ IV NS + Albumin - likely secondary to intravascular volume depletion in the setting of daily Lasix, that was recently raised to 80mg daily - lasix held on admission and dose decreased to 20mg daily on d/c -> f/u with PCP to determine if dose needs to be readjusted - creatinine 1.41 on discharge, recommend repeat BMP in outpatient setting to ensure improvement Resident Physician Supervision Note: I interviewed and examined the patient. Discussed with Dr. Escalante and agree with findings and plan as documented in the note. Any exceptions or clarifications are listed here: None Documented By: Baljinder Elena feeling better feels up to going home and feels safe at home vitlas noted nad breathing unlabored no pallor or icterus labs reviewed iron deficiency anemia - improved w tranfusion. will ask navigator to work on ongoing outpt IV iron. should have colo in near future for completeness - will ask for referral LORNA - likely diuretic + ?poor forward flow from anemia - reduced diuretic as above. transfused as above. f/u BMP next week venous stasis edema - compression. since diuretics didn't appear to be helping , and likely contributory to elevated creatinine - reducing dose. if no clear worsening by next week, would ask PCP to consider dc diuretics altogether. as above, f/u BMP, f/u [facility] for edema therapy hip pain - piriformis (improved w OMT) and IT band (improved w voltaren gel) related Total Time Spent: Greater than 30 minutes This includes examination of the patient, discharge planning, medication reconciliation, and communication with other providers. Discharge Instructions Please refer to the electronic Patient Visit Report (Discharge Instructions) for additional information. Additional Copies To Daniel Albert M.D.; Ivette SimthC.R.N.P. Resident Tracking Resident Involvement: Resident Care Provided Care Provided: Adult [facility]
== END 2017-12-29 18:00 | disposition home or self-care (01) | DRG 607 ==
LOC: C.EDB 02:52 → C.MED 05:48 → ENRESERV 06:26
PROVIDERS: ADMIT Student in an Organized Health Care Education/Training Program; ATTEND Hospitalist
DX: I89.0 Lymphedema, not elsewhere classified (principal); N17.9 Acute kidney failure, unspecified; I87.8 Other specified disorders of veins; I10 Essential (primary) hypertension; E03.9 Hypothyroidism, unspecified; D50.9 Iron deficiency anemia, unspecified; M79.661 Pain in right lower leg; M79.662 Pain in left lower leg; R79.89 Other specified abnormal findings of blood chemistry; F03.90 Unspecified dementia, unspecified severity, without behavioral disturbance, psychotic disturbance, mood disturbance, and anxiety; Z79.899 Other long term (current) drug therapy; Z88.2 Allergy status to sulfonamides

== ENCOUNTER 2018-10-28 10:03 | Inpatient (IN) ==
[2018-10-28] MEDS ORDERED: SODIUM CHLORIDE 0.9% 500 ML IV SCH (10:30)
[2018-10-28 10:54] LABS: Appearance Urine Clear (Clear); Bilirubin Urine Negative (Negative); Blood Urine Negative (Negative); Color Urine Yellow; Glucose Urine UA Negative (Negative); Ketones Urine Negative (Negative); Leukocyte Esterase Urine Negative (Negative); Nitrite Urine Negative (Negative); Protein Urine Negative (Negative); Specific Gravity Urine 1.014 (1.000-1.030); Urobilinogen Urine Negative (Negative)
--- NOTE | 2018-10-28 11:01 | XRay Report ---
XR chest 1V portable CLINICAL HISTORY: weakness COMPARISON STUDY: Chest radiograph July 26, 2018. FINDINGS: There is no pneumothorax or pleural effusion. Mild cardiomegaly is unchanged. Cardiomediast inal silhouette is stable. No evidence for pulmonary edema. Patient is mildly rotated. Mild bibasilar opacities favor atelectasis. IMPRESSION: 1. No acute cardiopulmonary findings. 2. Mild bibasilar opacities favor atelectasis. Electronically signed by: Dariusz Hollins M.D. 10/28/2018 10:59 AM
[2018-10-28 11:17] LABS: Basophils # (auto) 0.03 K/uL (0-0.2); Basophils % (auto) 0.6 %; Eosinophils # (auto) 0.19 K/uL (0-0.5); Eosinophils % (auto) 3.6 %; Hematocrit (blood only) 37.3 % (37-47); Hemoglobin 12.7 g/dL (12.0-16.0); Immature Granulocytes # (auto) 0.01 K/uL (0.00-0.02); Immature Granulocytes % (auto) 0.2 %; Lymphocytes # (auto) 1.17 K/uL (1.2-3.4); Mean Corpuscular Volume 96.9 fL (80-100); Mean Platelet Volume 9.9 fL (7.4-10.4); Monocytes # (auto) 0.49 K/uL (0.11-0.59); Monocytes % (auto) 9.2 %; Neutrophils # (auto) 3.43 K/uL (1.4-6.5); Neutrophils % (auto) 64.4 %; Platelet Count 212 K/uL (130-400); RDW Coefficient of Variation 13.1 % (11.5-14.5); RDW Standard Deviation 46.1 fL (36.4-46.3); Red Blood Count 3.85 M/uL (4.2-5.4); White Blood Count 5.32 K/uL (4.8-10.8)
--- NOTE | 2018-10-28 12:06 | CT Scan Report ---
CT OF THE HEAD WITHOUT CONTRAST CLINICAL HISTORY: Confusion. COMPARISON STUDY: Head CT August 03, 2018. CT DOSE: 614.27 mGy.cm TECHNIQUE: Helical axial images of the head were obtained without IV contrast. Automated exposure con trol was utilized for the study. A dose lowering technique was utilized adhering to the principles o f ALARA. FINDINGS: No acute intracranial hemorrhage, midline shift or mass effect is present. Ventricular dila tation is unchanged. The basilar cisterns are patent. There are no extra axial collections. White mat ter hypodensities are unchanged. There are no findings to suggest acute dural sinus thrombosis or acu te territorial infarct. There is no calvarial fracture. IMPRESSION: No acute intracranial findings. No change in appearance of the brain. Electronically signed by: Dariusz Hollins M.D. 10/28/2018 12:05 PM
[2018-10-28 12:29] LABS: Alanine Aminotransferase 25 U/L (12-78); Albumin Level 3.5 gm/dl (3.4-5.0); Aspartate Aminotransferase 23 U/L (15-37); BUN Creatinine Ratio 19.5 (10-20); Blood Urea Nitrogen 33 mg/dl (7-18); Calcium 9.4 mg/dl (8.5-10.1); Carbon Dioxide 29 mmol/L (21-32); Chloride 104 mmol/L (98-107); Est GFR (African American) 32.2; Est GFR (Non-African American) 27.8; Glucose 98 mg/dl (70-99); Sodium 141 mmol/L (136-145)
[2018-10-28 12:40] LABS: Albumin Globulin Ratio 0.9 (0.9-2); Alkaline Phosphatase 116 U/L (45-117); Bilirubin,Total 0.4 mg/dl (0.2-1); Globulin 4.1 gm/dl (2.5-4.0); Total Protein 7.6 gm/dl (6.4-8.2)
--- NOTE | 2018-10-28 13:02 | Emergency Department Note ---
Entered by Juvenal Gimenez acting as a scribe for Kurt Elias M.D. History of Present Illness General Chief complaint: Confusion Stated complaint: AMS, KIDNEY INFECTION Source: patient and other () History of Present Illness Onset (ago): day(s) 5 Location: head (global) Pain Consistency: + other (worsening confusion) Quality: + other (confusion) Relieved By: not by medication (Ciprofloxacin) Exacerbated By: + other (urinary infection) Associated symptoms: no headaches The patient is an 83 year old female who presents to the Emergency Room with worsening confusion beginning about 5 days ago. The at bedside reports that the patient was diagnosed with a urinary infection a few days ago and has been taking Ciprofloxacin for the past three days. He states that the antibiotic is not helping, and her confusion has been worsening. The patient states that she is forgetting things and not remembering where she is, but she denies hallucinations. She states that she is eating and drinking well, although she did not eat this morning. The patient denies fatigue, pain, urinary burning/frequency, headaches, visual changes, or falls. The patient lives at [facility] with her . Home Medications Home Medications Medication Instructions Recorded Confirmed Type levothyroxine 75 mcg PO QAM #0 tab 10/08/16 10/28/18 History simvastatin 20 mg PO QAM #0 tab 10/08/16 10/28/18 History donepezil 10 mg PO QAM #0 tab 07/14/17 10/28/18 History potassium chloride 10 meq PO QPM #0 cap 08/12/17 10/28/18 History mirtazapine 15 mg PO HS 04/16/18 10/28/18 History pantoprazole 40 mg PO QAM 04/16/18 10/28/18 History furosemide 40 mg PO QAM 08/03/18 10/28/18 History venlafaxine 150 mg PO QAM 08/03/18 10/28/18 History acetaminophen 325 mg PO Q6H PRN 10/28/18 10/28/18 History ciprofloxacin HCl 250 mg PO BID 10/28/18 10/28/18 History glucosamine-chondroitin [Osteo 1 tab PO QAM 10/28/18 10/28/18 History Bi-Flex] iron,carbonyl-vitamin C [Vitron-C] 1 tab PO DAILY 10/28/18 10/28/18 History totwbohj-ncr-VR-lycopen-lutein 1 tab PO DAILY 10/28/18 10/28/18 History [Centrum Silver] tramadol 50 mg PO DAILY PRN 10/28/18 10/28/18 History vit C-E-zinc lxm-hpmdku-aacdgy 1 tab PO DAILY 10/28/18 10/28/18 History [[facility]] Allergies Allergy/AdvReac Type Severity Reaction Status Date / Time celecoxib Allergy Severe THROAT Verified 10/28/18 10:37 TIGHTENS pregabalin Allergy Severe altered Verified 10/28/18 10:37 mental status amitriptyline Allergy Intermediate NERVOUSNESS Verified 10/28/18 10:37 amlodipine Allergy Intermediate HEAD FILLS Verified 10/28/18 10:37 UP, ABD PAIN gabapentin Allergy Intermediate HIVES Verified 10/28/18 10:37 metoprolol Allergy Intermediate HEAD FILLS Verified 10/28/18 10:37 UP atenolol Allergy Unknown Unknown Verified 10/28/18 10:37 chlorthalidone Allergy Unknown CAN'T Verified 10/28/18 10:37 REMEMBER clonazepam Allergy Unknown CAN'T Verified 10/28/18 10:37 REMEMBER Estrogens Allergy Unknown CAN'T Verified 10/28/18 10:37 REMEMBER hydrochlorothiazide Allergy Unknown CAN'T Verified 10/28/18 10:37 REMEMBER methyltestosterone Allergy Unknown CAN'T Verified 10/28/18 10:37 REMEMBER Progestins Allergy Unknown CAN'T Verified 10/28/18 10:37 REMEMBER Sulfa (Sulfonamide Allergy Unknown CAN'T Verified 10/28/18 10:37 Antibiotics) REMEMBER prednisone AdvReac Intermediate [place],FL Verified 10/28/18 10:37 USHING Past Med/Surg History Medical History GI bleed UTI (urinary tract infection) LORNA (acute kidney injury) Infection HTN (hypertension) HLD (hyperlipidemia) Hypothyroidism CKD (chronic kidney disease), stage III Chronic cellulitis Iron deficiency anemia Pneumonia (Acute) Cognitive decline Toxic encephalopathy CKD (chronic kidney disease), stage III Cataract Chronic anemia Dementia Depression HLD (hyperlipidemia) HTN (hypertension) Iron deficiency anemia Lumbar spinal stenosis Osteoarthritis Surgical History H/O laminectomy History of carpal tunnel release History of thyroidectomy History of total knee arthroplasty S/P lumpectomy of breast Family History Unknown No problems noted. Social History Preferred Language: Belarusian Communication Ability: Effective Communication Ability Comment: alert to person only Security Auditor Required: No Beliefs That Will Affect Care: None marital status: Current Living Situation: Spouse and Family current occupational status: retired Other Information That Helps Us Care for You: No Feels Safe at Home: Yes Safety Concerns: Feels Safe At This Time Smoking Status: Never smoker Do You Dip or Chew Tobacco: No Second Hand Exposure: No Tobacco Cessation Education Requested by Patient: No Hx Alcohol Use: No Hx Substance Use: No Review of Systems See HPI for pertinent positives & negatives. and A total of 10 systems reviewed and were otherwise negative Physical Exam Vital Signs Vital Signs - 24 hr 10/28/18 10:12 10/28/18 10:45 10/28/18 10:48 Temperature 36.4 C L Temperature Source Oral Sepsis Recent Fever Within 48 Hours No Sepsis Action Taken by Nursing No Action Required Pulse Rate 72 68 Pulse Rate [Finger] Pulse Rate from SpO2 Sensor Respiratory Rate 20 18 Blood Pressure 136/84 149/79 H Blood Pressure [Right Arm] Blood Pressure Mean 101 102 Blood Pressure Mean [Right Arm] Pulse Oximetry 98 97 98 Oxygen Delivery Method Room Air Room Air Room Air 10/28/18 11:02 10/28/18 11:03 10/28/18 11:16 Temperature Temperature Source Sepsis Recent Fever Within 48 Hours Sepsis Action Taken by Nursing Pulse Rate 67 64 Pulse Rate [Finger] 63 Pulse Rate from SpO2 Sensor Respiratory Rate 19 17 15 Blood Pressure 149/81 H 166/84 H Blood Pressure [Right Arm] 149/81 H Blood Pressure Mean 103 111 Blood Pressure Mean [Right Arm] 103 Pulse Oximetry 98 98 Oxygen Delivery Method Room Air Room Air 10/28/18 11:31 10/28/18 11:46 10/28/18 11:49 Temperature Temperature Source Sepsis Recent Fever Within 48 Hours Sepsis Action Taken by Nursing Pulse Rate 61 63 64 Pulse Rate [Finger] Pulse Rate from SpO2 Sensor Respiratory Rate 13 19 17 Blood Pressure 170/76 H 178/72 H 174/77 H Blood Pressure [Right Arm] Blood Pressure Mean 107 107 109 Blood Pressure Mean [Right Arm] Pulse Oximetry 98 99 100 Oxygen Delivery Method Room Air Room Air Room Air 10/28/18 12:01 10/28/18 12:31 10/28/18 13:00 Temperature Temperature Source Sepsis Recent Fever Within 48 Hours Sepsis Action Taken by Nursing Pulse Rate 62 60 62 Pulse Rate [Finger] Pulse Rate from SpO2 Sensor 63 Respiratory Rate 15 14 17 Blood Pressure 167/88 H 158/89 H Blood Pressure [Right Arm] Blood Pressure Mean 114 112 Blood Pressure Mean [Right Arm] Pulse Oximetry 99 99 Oxygen Delivery Method Room Air Room Air 10/28/18 13:01 10/28/18 13:31 10/28/18 14:01 Temperature Temperature Source Sepsis Recent Fever Within 48 Hours Sepsis Action Taken by Nursing Pulse Rate 65 81 64 Pulse Rate [Finger] Pulse Rate from SpO2 Sensor Respiratory Rate 20 18 16 Blood Pressure 169/105 H 156/100 H 150/76 H Blood Pressure [Right Arm] Blood Pressure Mean 126 118 100 Blood Pressure Mean [Right Arm] Pulse Oximetry 96 97 98 Oxygen Delivery Method Room Air Room Air Room Air GENERAL: Awake, alert to person, in no distress HENT: Normocephalic, atraumatic. EYES: Normal conjunctiva. Sclera non-icteric. NECK: Supple. No nuchal rigidity. RESPIRATORY: Clear to auscultation. No wheezes. Normal respiratory effort. CARDIAC: Normal rate. Normal rhythm. Extremities warm and well perfused. GI: Soft, non-distended. No tenderness to palpation. RECTAL: Deferred. MUSCULOSKELETAL: Atraumatic. Chest examination reveals no tenderness. There is no CVA tenderness to palpation. LOWER EXTREMITIES: Bilateral chronic stasis changes. Calves are equal size bilaterally and non-tender. No edema NEURO: Not alert to season, month, recent events, or year. No sensory or motor deficits noted. No facial droop. SKIN: Warm and dry. No jaundice noted. Course 1025: The patient was evaluated in room B6. A complete history and physical examination were performed. 1250: I updated the patient and on findings. 1259: I consulted Dr. Segura [facility] Hospitalist. The patient will be reevaluated for hospitalization. Administered Medications Acetaminophen (Tylenol) 650 mg PO Q4H PRN PRN Reason: pain/fever Stop: 11/27/18 15:05 Last Admin: 06/22/19 16:20 Dose: 650 mg Documented by: [id number] Cefuroxime Axetil (Ceftin) 500 mg PO DAILY [facility] Stop: 11/02/18 15:29 Last Admin: 10/28/18 15:52 Dose: 500 mg Documented by: [id number] Lactated Ringer's (Lr) 1,000 mls @ 80 mls/hr IV .[id number] NEHAL Stop: 10/29/18 03:35 Last Admin: 10/28/18 15:46 Dose: 80 mls/hr Documented by: [id number] Menthol (Nice) 1 lilia BUCCAL PRN PRN PRN Reason: Sore Throat Stop: 11/27/18 15:54 Last Admin: 10/28/18 16:20 Dose: 1 lilia Documented by: [id number] Discontinued Medications Sodium Chloride (Nss) 500 mls @ 999 mls/hr IV .[id number] NEHAL Stop: 10/28/18 11:00 Last Infusion: 10/28/18 11:38 Dose: 0 mls/hr Documented by: [id number] Admin: 10/28/18 11:03 Dose: 999 mls/hr Documented by: [id number] Medical Decision Making Differential Diagnosis Differential diagnosis includes: metabolic, infection, hypoglycemia, electrolyte abnormalities, cardiac sources, intracerebral event, toxicologic, neurologic, as well as others were entertained. Medical Records Attestation: I reviewed the patient's medical records. Home Medications Current Medication List: was personally reviewed by me Laboratory Data Attestation: I reviewed the patient's lab results. Result diagrams: 10/28/18 11:03 10/28/18 11:03 Lab Results 10/28/18 10/28/18 10/28/18 Range/Units 10:25 11:03 11:03 WBC 5.32 (4.8-10.8) K/uL RBC 3.85 L (4.2-5.4) M/uL Hgb 12.7 (12.0-16.0) g/dL Hct 37.3 (37-47) % MCV 96.9 (80-100) fL MCH 33.0 (25-34) pg MCHC 34.0 (32-36) g/dL RDW Std Deviation 46.1 (36.4-46.3) fL RDW Coeff of Jeannie 13.1 (11.5-14.5) % Plt Count 212 (130-400) K/uL MPV 9.9 (7.4-10.4) fL Immature Gran % (Auto) 0.2 % Neut % (Auto) 64.4 % Lymph % (Auto) 22.0 % [place] % (Auto) 9.2 % Eos % (Auto) 3.6 % Baso % (Auto) 0.6 % Immature Gran # (Auto) 0.01 (0.00-0.02) K/uL Neut # (Auto) 3.43 (1.4-6.5) K/uL Lymph # (Auto) 1.17 L (1.2-3.4) K/uL [place] # (Auto) 0.49 (0.11-0.59) K/uL Eos # (Auto) 0.19 (0-0.5) K/uL Baso # (Auto) 0.03 (0-0.2) K/uL Sodium 141 (136-145) mmol/L Potassium 4.0 (3.5-5.1) mmol/L Chloride 104 (98-107) mmol/L Carbon Dioxide 29 (21-32) mmol/L Anion Gap 8.0 (3-11) BUN 33 H (7-18) mg/dl Creatinine 1.68 H (0.6-1.2) mg/dl Est Cr Clr Drug Dosing Not Reportable Est GFR ( Amer) 32.2 Est GFR (Non-Af Amer) 27.8 BUN/Creatinine Ratio 19.5 (10-20) Glucose 98 (70-99) mg/dl POC Lactic Acid Darryl (0.90-1.70) mmol/L Calcium 9.4 (8.5-10.1) mg/dl Total Bilirubin 0.4 (0.2-1) mg/dl AST 23 (15-37) U/L ALT 25 (12-78) U/L Alkaline Phosphatase 116 (45-117) U/L Ammonia (11-32) umol/L Troponin I (0-0.045) ng/ml Total Protein 7.6 (6.4-8.2) gm/dl Albumin 3.5 (3.4-5.0) gm/dl Globulin 4.1 H (2.5-4.0) gm/dl Albumin/Globulin Ratio 0.9 (0.9-2) TSH 0.348 (0.300-4.500) uIu/ml Urine Color Yellow Urine Appearance Clear (Clear) Urine pH 7.0 (4.5-7.5) Ur Specific [place] 1.014 (1.000-1.030) Urine Protein Negative (Negative) Urine Glucose (UA) Negative (Negative) Urine Ketones Negative (Negative) Urine Blood Negative (Negative) Urine Nitrite Negative (Negative) Urine Bilirubin Negative (Negative) Urine Urobilinogen Negative (Negative) Ur Leukocyte Esterase Negative (Negative) 10/28/18 10/28/18 10/28/18 Range/Units 11:03 11:03 11:08 WBC (4.8-10.8) K/uL RBC (4.2-5.4) M/uL Hgb (12.0-16.0) g/dL Hct (37-47) % MCV (80-100) fL MCH (25-34) pg MCHC (32-36) g/dL RDW Std Deviation (36.4-46.3) fL RDW Coeff of Jeannie (11.5-14.5) % Plt Count (130-400) K/uL MPV (7.4-10.4) fL Immature Gran % (Auto) % Neut % (Auto) % Lymph % (Auto) % [place] % (Auto) % Eos % (Auto) % Baso % (Auto) % Immature Gran # (Auto) (0.00-0.02) K/uL Neut # (Auto) (1.4-6.5) K/uL Lymph # (Auto) (1.2-3.4) K/uL [place] # (Auto) (0.11-0.59) K/uL Eos # (Auto) (0-0.5) K/uL Baso # (Auto) (0-0.2) K/uL Sodium (136-145) mmol/L Potassium (3.5-5.1) mmol/L Chloride (98-107) mmol/L Carbon Dioxide (21-32) mmol/L Anion Gap (3-11) BUN (7-18) mg/dl Creatinine (0.6-1.2) mg/dl Est Cr Clr Drug Dosing Est GFR ( Amer) Est GFR (Non-Af Amer) BUN/Creatinine Ratio (10-20) Glucose (70-99) mg/dl POC Lactic Acid Darryl 1.57 (0.90-1.70) mmol/L Calcium (8.5-10.1) mg/dl Total Bilirubin (0.2-1) mg/dl AST (15-37) U/L ALT (12-78) U/L Alkaline Phosphatase (45-117) U/L Ammonia 14.0 (11-32) umol/L Troponin I < 0.015 (0-0.045) ng/ml Total Protein (6.4-8.2) gm/dl Albumin (3.4-5.0) gm/dl Globulin (2.5-4.0) gm/dl Albumin/Globulin Ratio (0.9-2) TSH (0.300-4.500) uIu/ml Urine Color Urine Appearance (Clear) Urine pH (4.5-7.5) Ur Specific [place] (1.000-1.030) Urine Protein (Negative) Urine Glucose (UA) (Negative) Urine Ketones (Negative) Urine Blood (Negative) Urine Nitrite (Negative) Urine Bilirubin (Negative) Urine Urobilinogen (Negative) Ur Leukocyte Esterase (Negative) Imaging Data Radiologist's Impression: Radiology results as stated below per my review and the radiologist's interpretation: XR chest 1V portable CLINICAL HISTORY: weakness COMPARISON STUDY: Chest radiograph July 26, 2018. FINDINGS: There is no pneumothorax or pleural effusion. Mild cardiomegaly is unchanged. Cardiomediastinal silhouette is stable. No evidence for pulmonary edema. Patient is mildly rotated. Mild bibasilar opacities favor atelectasis. IMPRESSION: 1. No acute cardiopulmonary findings. 2. Mild bibasilar opacities favor atelectasis. Electronically signed by: Dariusz Hollins M.D. 10/28/2018 10:[address] OF THE HEAD WITHOUT CONTRAST CLINICAL HISTORY: Confusion. COMPARISON STUDY: Head CT August 03, 2018. CT DOSE: 614.27 mGy.cm TECHNIQUE: Helical axial images of the head were obtained without IV contrast. Automated exposure control was utilized for the study. A dose lowering technique was utilized adhering to the principles of ALARA. FINDINGS: No acute intracranial hemorrhage, midline shift or mass effect is present. Ventricular dilatation is unchanged. The basilar cisterns are patent. There are no extra axial collections. White matter hypodensities are unchanged. There are no findings to suggest acute dural sinus thrombosis or acute territorial infarct. There is no calvarial fracture. IMPRESSION: No acute intracranial findings. No change in appearance of the brain. Electronically signed by: Dariusz Hollins M.D. 10/28/2018 12:05 PM ECG Data Attestation: I personally reviewed and interpreted this ECG as follows: Indication: altered mental status Rate (beats per minute): 61 Rhythm: sinus rhythm Findings: + PVC; no ST depression and no ST elevation Blood Pressure Blood Pressure Findings: Elevated blood pressure Blood Pressure Disposition: further management by hospitalist MDM Narrative Patient is an 83-year-old female with GI bleed, UTIs, chronic kidney disease, pneumonia, hypothyroidism, hypertension, and some dementia presenting today with worsening mental status according to family. Currently being treated for a urinary tract infection with pansensitive Klebsiella coming back on the available urinary culture. Patient afebrile without tachycardia upon arrival. Patient's states she is more confused and was noted to be in proving with outpatient antibiotics for her reported urinary infection. Started on ciprofloxacin 3 days ago. Worsening now does not know her way around the condo they live in. Acute change in confusion. No fevers the patient denies any pain. Given the sensitivity on the urine culture less likely be worsening infection but basic labs and lactate were checked and cultures were sent. CT the head was completed look for any intracranial abnormality. EKG and troponin were checked but have a lower suspicion this is acute ACS or cardiac in nature. Chest x-ray without acute findings. Thyroid level was checked. Ammonia level sent. Labs reassuring. Symptoms could also be related to the ciprofloxacin versus worsening of her underlying dementia status. CT the head was without acute intracranial abnormality. No evidence of hyperammonemia and the urinalysis appears clear at this point. No significant leukocytosis. Discussed with them change antibiotics and their feelings on going home. has concerns given her confusion and did not feel comfortable with taking her home. Given this, discussed with hospitalist. Impression & Plan Altered mental status Discharge Plan Visit Data *Final* Discharge Date/Time: 10/28/18 14:38 Chief Complaint: Confusion Stated Complaint: AMS, KIDNEY INFECTION ED Provider: Kurt Elias Discharge Problem: Altered mental status Patient Disposition: Admitted As Inpatient Discharge Instructions Interventions: ED Discharge Assessment Last Done: 10/28/18 14:38 Discharge Problem: Altered mental status Qualifiers: Altered mental status type: unspecified Qualified Code(s): R41.82 - Altered mental status, unspecified The scribe's documentation has been prepared under my direction and personally reviewed by me in its entirety. I confirm that the note above accurately reflects all work, treatment, procedures, and medical decision making performed by me.
--- NOTE | 2018-10-28 14:21 | History & Physical Report ---
Date of Service October 28, 2018 Assessment & Plan (1) Toxic encephalopathy: Admit med/ surg obs Likely secondary initially to the UTI and then subsequently the ciprofloxacin - will change antibiotic to cefuroxime PT/OT - patient currently lives at home with (2) UTI (urinary tract infection): Urinalysis in ED without abnormality, patient has been afebrile UC, BC pending Will change antibiotic to renally dosed cefuroxime - culture and sensitivity 10/23 grew Klebsiella pansensitive. CBC am (3) HTN (hypertension): continue furosemide (4) HLD (hyperlipidemia): continue simvastatin (5) CKD (chronic kidney disease), stage III: Creat 1.68 which does not appear to be far from her baseline. LR @ 80 mls/hr x 1L Repeat prp am (6) Depression: continue venlafaxine, mirtazepine (7) Cognitive decline: continue donepazil (8) DVT prophylaxis: heparin subq, scds History of Present Illness Primary Care Provider: Daniel Vincent MD Ms. Saldivar presents with her after confusion starting a week ago. On she was diagnosed with a UTI that day and started on Cipro. She has had a number of UTIs in the last few months. She herself is calm but confused and unable to provide history which comes from her . Her says she has not been formally diagnosed with dementia but does say that he thinks "that's coming". Ms. Saldivar denies n/v/d, dysuria, aches chills or fevers. She has not had any cough or sob. Per her , the redness around her groin /belly is much improved over a few weeks ago as they have been using barrier creams. Allergies Allergy/AdvReac Type Severity Reaction Status Date / Time celecoxib Allergy Severe THROAT Verified 10/28/18 10:37 TIGHTENS pregabalin Allergy Severe altered Verified 10/28/18 10:37 mental status amitriptyline Allergy Intermediate NERVOUSNESS Verified 10/28/18 10:37 amlodipine Allergy Intermediate HEAD FILLS Verified 10/28/18 10:37 UP, ABD PAIN gabapentin Allergy Intermediate HIVES Verified 10/28/18 10:37 metoprolol Allergy Intermediate HEAD FILLS Verified 10/28/18 10:37 UP atenolol Allergy Unknown Unknown Verified 10/28/18 10:37 chlorthalidone Allergy Unknown CAN'T Verified 10/28/18 10:37 REMEMBER clonazepam Allergy Unknown CAN'T Verified 10/28/18 10:37 REMEMBER Estrogens Allergy Unknown CAN'T Verified 10/28/18 10:37 REMEMBER hydrochlorothiazide Allergy Unknown CAN'T Verified 10/28/18 10:37 REMEMBER methyltestosterone Allergy Unknown CAN'T Verified 10/28/18 10:37 REMEMBER Progestins Allergy Unknown CAN'T Verified 10/28/18 10:37 REMEMBER Sulfa (Sulfonamide Allergy Unknown CAN'T Verified 10/28/18 10:37 Antibiotics) REMEMBER prednisone AdvReac Intermediate [place]ACHE,FL Verified 10/28/18 10:37 USHING Home Medications Home Medications Medication Instructions Recorded Confirmed Type levothyroxine 75 mcg PO QAM #0 tab 10/08/16 10/28/18 History simvastatin 20 mg PO QAM #0 tab 10/08/16 10/28/18 History donepezil 10 mg PO QAM #0 tab 07/14/17 10/28/18 History potassium chloride 10 meq PO QPM #0 cap 08/12/17 10/28/18 History mirtazapine 15 mg PO HS 04/16/18 10/28/18 History pantoprazole 40 mg PO QAM 04/16/18 10/28/18 History furosemide 40 mg PO QAM 08/03/18 10/28/18 History venlafaxine 150 mg PO QAM 08/03/18 10/28/18 History acetaminophen 325 mg PO Q6H PRN 10/28/18 10/28/18 History ciprofloxacin HCl 250 mg PO BID 10/28/18 10/28/18 History glucosamine-chondroitin [Osteo 1 tab PO QAM 10/28/18 10/28/18 History Bi-Flex] iron,carbonyl-vitamin C [Vitron-C] 1 tab PO DAILY 10/28/18 10/28/18 History brdiijtx-nor-HZ-lycopen-lutein 1 tab PO DAILY 10/28/18 10/28/18 History [Centrum Silver] tramadol 50 mg PO DAILY PRN 10/28/18 10/28/18 History vit C-E-zinc zbz-dszkma-yxeedg 1 tab PO DAILY 10/28/18 10/28/18 [facility] Past Med/Surg History Medical History GI bleed UTI (urinary tract infection) LORNA (acute kidney injury) Infection HTN (hypertension) HLD (hyperlipidemia) Hypothyroidism CKD (chronic kidney disease), stage III Chronic cellulitis Iron deficiency anemia Pneumonia (Acute) Cognitive decline Toxic encephalopathy CKD (chronic kidney disease), stage III Cataract Chronic anemia Dementia Depression HLD (hyperlipidemia) HTN (hypertension) Iron deficiency anemia Lumbar spinal stenosis Osteoarthritis Surgical History H/O laminectomy History of carpal tunnel release History of thyroidectomy History of total knee arthroplasty S/P lumpectomy of breast Family History Unknown No problems noted. Social History Preferred Language: Yi Communication Ability: Effective Communication Ability Comment: alert to person only Customer Service Specialist Required: No Beliefs That Will Affect Care: None marital status: Current Living Situation: Spouse and Family current occupational status: retired Other Information That Helps Us Care for You: No Feels Safe at Home: Yes Safety Concerns: Feels Safe At This Time Smoking Status: Never smoker Do You Dip or Chew Tobacco: No Second Hand Exposure: No Tobacco Cessation Education Requested by Patient: No Hx Alcohol Use: No Hx Substance Use: No Review of Systems Review of Systems: All systems reviewed & are unremarkable except as noted in HPI & below Physical Exam Physical Exam: General: no distress Eyes: normal inspection, PERLL Respiratory: chest non tender, clear to auscultation, normal breath sounds, no respiratory distress, no accessory muscle use Cardiac: irregular rate and rhythm, no rub or gallop, no murmur, no edema, no jvd GI/: active bowel sounds, no abd pain or tenderness, soft, non distended Extremities: normal range of motion, normal strength, non tender Neuro:oriented to self, moves all extremities Psych: alert, normal mood and affect, CN II - XII intact, no drift Skin: normal color, dry, non tender erythema around groin/lower belly, brown discoloration of ankles Results & Data Vital Signs (Past 12 Hours) Vital Signs Temp Pulse Pulse Resp BP BP Pulse Ox 10/28/18 13:00 62 17 10/28/18 12:31 60 14 158/89 H 99 10/28/18 12:01 62 15 167/88 H 99 10/28/18 11:49 64 17 174/77 H 100 10/28/18 11:46 63 19 178/72 H 99 10/28/18 11:31 61 13 170/76 H 98 10/28/18 11:16 64 15 166/84 H 10/28/18 11:03 63 17 149/81 H 98 10/28/18 11:02 67 19 149/81 H 98 10/28/18 10:48 98 10/28/18 10:45 68 18 149/79 H 97 10/28/18 10:12 36.4 C L 72 20 136/84 98 Code Status & VTE Plan Code Status full code VTE Prophylaxis Plan VTE Prophylaxis will be ordered: Yes Supervising Physician Co-Signing Physician Notes The patient was seen and examined by me. I agree with the assessment and plan. Lungs clear to auscultation percussion. Cardiac rhythm regular with normal S1 and S2. Abdomen soft and benign with active bowel sounds. No tenderness rebound or guarding extremities without cyanosis clubbing or edema . Neurologically grossly intact PG Care Time/CCT Total # of Minutes Spent Total Time Spent with Patient: Total time spent is greater than 50% in coordination of care (as documented) at patient's floor/unit and/or counseling patient:
[2018-10-28] MEDS ORDERED: ACETAMINOPHEN 325 MG TAB PO PRN (15:06)
[2018-10-28] MEDS ORDERED: POLYETHYLENE (MIRALAX) 17 GM PACK PO PRN (15:06)
[2018-10-28] MEDS ORDERED: TRAMADOL HCL 50 MG TABLET PO PRN (15:06)
[2018-10-28] MEDS ORDERED: LACTATED RINGER'S 1,000 ML IV SCH (15:06)
[2018-10-28 15:51] LABS: Prothrombin Time 10.7 Seconds (9.0-12.0)
[2018-10-28] MEDS: cefUROXime axetil 500 MG TAB PO SCH (15:52)
[2018-10-28] MEDS ORDERED: MICONAZOLE NITRATE POWDER 43 GM EXT PRN (15:54)
[2018-10-28] MEDS ORDERED: COUGH DROP (SUGAR FREE) LOZ 24 LOZ/1 BOX BUCCAL PRN (15:55)
[2018-10-28] MEDS: ACETAMINOPHEN 325 MG TAB PO PRN (16:20)
[2018-10-28] MEDS: MIRTAZAPINE TAB 15 MG TAB PO SCH (20:15)
[2018-10-28] MEDS: HEPARIN SOD 5,000 UNIT/0.5 ML VIAL SQ SCH (20:16)
[2018-10-28] MEDS: POTASSIUM CHLORIDE 10 MEQ TABCR PO SCH (20:16)
[2018-10-29] MEDS: LEVOTHYROXINE SODIUM 75 MCG TABLET PO SCH (05:25)
[2018-10-29 07:04] LABS: Hematocrit (blood only) 39.5 % (37-47); Hemoglobin 13.1 g/dL (12.0-16.0); Mean Corpuscular Hgb Conc 33.2 g/dL (32-36); Mean Corpuscular Volume 97.1 fL (80-100); Mean Platelet Volume 10.1 fL (7.4-10.4); Platelet Count 209 K/uL (130-400); RDW Standard Deviation 45.6 fL (36.4-46.3); Red Blood Count 4.07 M/uL (4.2-5.4)
[2018-10-29 07:36] LABS: BUN Creatinine Ratio 19.9 (10-20); Calcium 9.5 mg/dl (8.5-10.1); Creatinine Clr Calc Pharmacy 24.1 ml/min; Est GFR (African American) 31.3; Potassium 4.2 mmol/L (3.5-5.1)
[2018-10-29] MEDS: cefUROXime axetil 500 MG TAB PO SCH (08:08)
[2018-10-29] MEDS: HEPARIN SOD 5,000 UNIT/0.5 ML VIAL SQ SCH ×2 (08:08→20:12)
[2018-10-29] MEDS: DONEPEZIL HCL 10 MG TAB PO SCH (08:09)
[2018-10-29] MEDS: FUROSEMIDE 40 MG TAB PO SCH (08:09)
[2018-10-29] MEDS: SIMVASTATIN 20 MG TAB PO SCH (08:09)
[2018-10-29] MEDS: VENLAFAXINE HCL XR 150 MG CAPXR PO SCH (08:10)
[2018-10-29] MEDS: PANTOprazole 40 MG TAB PO SCH (08:10)
[2018-10-29] MEDS: CEROVITE ADV FORMULA TAB PO SCH (08:10)
[2018-10-29] MEDS ORDERED: NON-FORMULARY MEDICATION (Glucosamine-Chondroitin [Osteo Bi-Flex] 1 TAB) PO SCH (09:00)
[2018-10-29] MEDS ORDERED: NON-FORMULARY MEDICATION (Iron,Carbonyl-Vitamin C [Vitron-C] 1 TAB) PO SCH (09:00)
[2018-10-29] MEDS ORDERED: NON-FORMULARY MEDICATION (Vit C-E-Zinc Cit-Lutein-Zeaxan [Ocuvite Eye Health] 1 TAB) PO SCH (09:00)
--- NOTE | 2018-10-29 10:42 | Hospitalist Progress Note ---
Date of Service October 29, 2018 Assessment & Plan (1) Toxic encephalopathy: - Likely secondary to Ciprofloxacin therapy in setting of UTI. - Confusion slightly improving after holding medication; will continue to monitor. - Blood cultures pending; CXR negative. Ammonia level WNL. - UC negative to date -- converted to Cefuroxime PO for treatment course. - PT/OT evaluation for discharge planning. (2) UTI (urinary tract infection): - Repeat UC negative to date. - Converted to PO Cefuroxime for treatment course -- per previous UC on 10/23 positive for Klebsiella. (3) HTN (hypertension): - Continue Lasix 40 mg qAM. - BP has been elevated -- consider adding additional agent. (4) HLD (hyperlipidemia): - Continue statin as prescribed. (5) CKD (chronic kidney disease), stage III: - Baseline Creat 1.6-1.8; currently at baseline. - Received IV fluids on admission. - Continue home Lasix with close monitoring of renal function. (6) Depression: - Continue Effexor and Remeron as prescribed. (7) Cognitive decline: - Continue Aricept as prescribed. (8) Hypothyroidism: - Continue Synthroid 75 mcg daily. - Most recent TSH was 0.3. (9) DVT prophylaxis: - Heparin q12hr. Dispo: Discharge pending PT/OT evaluation and improvement in acute encephalopathy. Convert to full admit. Subjective Pt. is doing well overall. She is still slightly confused - not alert to person or place. Denies dysuria, abd pain, N/V, SOB. PT/OT evaluation is pending. Review of Systems Review of Systems: All systems reviewed & are unremarkable except as noted in HPI & below Constitutional: no fever, no chills, no fatigue, no weakness and no anorexia Respiratory: no cough, no dyspnea and no dyspnea on exertion Cardiovascular: no chest pain, no palpitations and no edema Gastrointestinal: no abdominal pain, no nausea, no vomiting, no constipation and no diarrhea/loose stools Genitourinary: no dysuria Musculoskeletal: no back pain and no joint pain Integumentary: no non-healing lesions Neurologic: + confusion Allergy / Immunological: no rash Physical Exam Physical Exam: General: Resting comfortably in no apparent distress HEENT: NC/AT; PERRLA with EOMI; [place] conjunctiva, MMM. No erythema of posterior pharynx Neck: Supple and nontender Cardiac: RRR Lungs: CTA bilaterally Abdomen: Bowel normoactive X 4; Nontender to palpation Extremities: Warm. No edema present Neuro: No focal weakness; not alert to person or place. Skin: No rash Results & Data Vital Signs (Past 12 Hours) Vital Signs Temp Pulse Resp BP Pulse Ox 10/29/18 07:26 36.3 C L 75 18 171/62 H 97 10/28/18 23:00 36.7 C 74 18 129/74 96 Laboratory Results 10/29/18 10/29/18 10/28/18 Range/Units 06:42 06:42 15:28 WBC 4.70 L (4.8-10.8) K/uL RBC 4.07 L (4.2-5.4) M/uL Hgb 13.1 (12.0-16.0) g/dL Hct 39.5 (37-47) % MCV 97.1 (80-100) fL MCH 32.2 (25-34) pg MCHC 33.2 (32-36) g/dL RDW Std Deviation 45.6 (36.4-46.3) fL RDW Coeff of Jeannie 13.0 (11.5-14.5) % Plt Count 209 (130-400) K/uL MPV 10.1 (7.4-10.4) fL Immature Gran % (Auto) % Neut % (Auto) % Lymph % (Auto) % [place] % (Auto) % Eos % (Auto) % Baso % (Auto) % Immature Gran # (Auto) (0.00-0.02) K/uL Neut # (Auto) (1.4-6.5) K/uL Lymph # (Auto) (1.2-3.4) K/uL [place] # (Auto) (0.11-0.59) K/uL Eos # (Auto) (0-0.5) K/uL Baso # (Auto) (0-0.2) K/uL PT 10.7 (9.0-12.0) Seconds INR 1.0 (0.9-1.1) Sodium 141 (136-145) mmol/L Potassium 4.2 (3.5-5.1) mmol/L Chloride 105 (98-107) mmol/L Carbon Dioxide 30 (21-32) mmol/L Anion Gap 6.0 (3-11) BUN 34 H (7-18) mg/dl Creatinine 1.72 H (0.6-1.2) mg/dl Est Cr Clr Drug Dosing 24.1 Est GFR ( Amer) 31.3 Est GFR (Non-Af Amer) 27.0 BUN/Creatinine Ratio 19.9 (10-20) Glucose 88 (70-99) mg/dl POC Lactic Acid Darryl (0.90-1.70) mmol/L Calcium 9.5 (8.5-10.1) mg/dl Total Bilirubin (0.2-1) mg/dl AST (15-37) U/L ALT (12-78) U/L Alkaline Phosphatase (45-117) U/L Ammonia (11-32) umol/L Troponin I (0-0.045) ng/ml Total Protein (6.4-8.2) gm/dl Albumin (3.4-5.0) gm/dl Globulin (2.5-4.0) gm/dl Albumin/Globulin Ratio (0.9-2) TSH (0.300-4.500) uIu/ml 10/28/18 10/28/18 10/28/18 Range/Units 11:08 11:03 11:03 WBC (4.8-10.8) K/uL RBC (4.2-5.4) M/uL Hgb (12.0-16.0) g/dL Hct (37-47) % MCV (80-100) fL MCH (25-34) pg MCHC (32-36) g/dL RDW Std Deviation (36.4-46.3) fL RDW Coeff of Jeannie (11.5-14.5) % Plt Count (130-400) K/uL MPV (7.4-10.4) fL Immature Gran % (Auto) % Neut % (Auto) % Lymph % (Auto) % [place] % (Auto) % Eos % (Auto) % Baso % (Auto) % Immature Gran # (Auto) (0.00-0.02) K/uL Neut # (Auto) (1.4-6.5) K/uL Lymph # (Auto) (1.2-3.4) K/uL [place] # (Auto) (0.11-0.59) K/uL Eos # (Auto) (0-0.5) K/uL Baso # (Auto) (0-0.2) K/uL PT (9.0-12.0) Seconds INR (0.9-1.1) Sodium (136-145) mmol/L Potassium (3.5-5.1) mmol/L Chloride (98-107) mmol/L Carbon Dioxide (21-32) mmol/L Anion Gap (3-11) BUN (7-18) mg/dl Creatinine (0.6-1.2) mg/dl Est Cr Clr Drug Dosing Est GFR ( Amer) Est GFR (Non-Af Amer) BUN/Creatinine Ratio (10-20) Glucose (70-99) mg/dl POC Lactic Acid Darryl 1.57 (0.90-1.70) mmol/L Calcium (8.5-10.1) mg/dl Total Bilirubin (0.2-1) mg/dl AST (15-37) U/L ALT (12-78) U/L Alkaline Phosphatase (45-117) U/L Ammonia 14.0 (11-32) umol/L Troponin I < 0.015 (0-0.045) ng/ml Total Protein (6.4-8.2) gm/dl Albumin (3.4-5.0) gm/dl Globulin (2.5-4.0) gm/dl Albumin/Globulin Ratio (0.9-2) TSH (0.300-4.500) uIu/ml 10/28/18 10/28/18 Range/Units 11:03 11:03 WBC 5.32 (4.8-10.8) K/uL RBC 3.85 L (4.2-5.4) M/uL Hgb 12.7 (12.0-16.0) g/dL Hct 37.3 (37-47) % MCV 96.9 (80-100) fL MCH 33.0 (25-34) pg MCHC 34.0 (32-36) g/dL RDW Std Deviation 46.1 (36.4-46.3) fL RDW Coeff of Jeannie 13.1 (11.5-14.5) % Plt Count 212 (130-400) K/uL MPV 9.9 (7.4-10.4) fL Immature Gran % (Auto) 0.2 % Neut % (Auto) 64.4 % Lymph % (Auto) 22.0 % [place] % (Auto) 9.2 % Eos % (Auto) 3.6 % Baso % (Auto) 0.6 % Immature Gran # (Auto) 0.01 (0.00-0.02) K/uL Neut # (Auto) 3.43 (1.4-6.5) K/uL Lymph # (Auto) 1.17 L (1.2-3.4) K/uL [place] # (Auto) 0.49 (0.11-0.59) K/uL Eos # (Auto) 0.19 (0-0.5) K/uL Baso # (Auto) 0.03 (0-0.2) K/uL PT (9.0-12.0) Seconds INR (0.9-1.1) Sodium 141 (136-145) mmol/L Potassium 4.0 (3.5-5.1) mmol/L Chloride 104 (98-107) mmol/L Carbon Dioxide 29 (21-32) mmol/L Anion Gap 8.0 (3-11) BUN 33 H (7-18) mg/dl Creatinine 1.68 H (0.6-1.2) mg/dl Est Cr Clr Drug Dosing Not Reportable Est GFR ( Amer) 32.2 Est GFR (Non-Af Amer) 27.8 BUN/Creatinine Ratio 19.5 (10-20) Glucose 98 (70-99) mg/dl POC Lactic Acid Darryl (0.90-1.70) mmol/L Calcium 9.4 (8.5-10.1) mg/dl Total Bilirubin 0.4 (0.2-1) mg/dl AST 23 (15-37) U/L ALT 25 (12-78) U/L Alkaline Phosphatase 116 (45-117) U/L Ammonia (11-32) umol/L Troponin I (0-0.045) ng/ml Total Protein 7.6 (6.4-8.2) gm/dl Albumin 3.5 (3.4-5.0) gm/dl Globulin 4.1 H (2.5-4.0) gm/dl Albumin/Globulin Ratio 0.9 (0.9-2) TSH 0.348 (0.300-4.500) uIu/ml PG Care Time/CCT Total # of Minutes Spent Total Time Spent with Patient: Total time spent is greater than 50% in coordination of care (as documented) at patient's floor/unit and/or counseling patient:
[2018-10-29] MEDS: POTASSIUM CHLORIDE 10 MEQ TABCR PO SCH (20:11)
[2018-10-29] MEDS: MIRTAZAPINE TAB 15 MG TAB PO SCH (20:11)
[2018-10-29] MEDS: ACETAMINOPHEN 325 MG TAB PO PRN (23:38)
[2018-10-30] MEDS: LEVOTHYROXINE SODIUM 75 MCG TABLET PO SCH (06:12)
[2018-10-30 06:59] LABS: Hematocrit (blood only) 37.2 % (37-47); Hemoglobin 12.5 g/dL (12.0-16.0); Mean Corpuscular Hgb Conc 33.6 g/dL (32-36); Mean Corpuscular Volume 94.9 fL (80-100); Mean Platelet Volume 10.2 fL (7.4-10.4); Platelet Count 187 K/uL (130-400); RDW Coefficient of Variation 12.8 % (11.5-14.5); RDW Standard Deviation 44.6 fL (36.4-46.3); Red Blood Count 3.92 M/uL (4.2-5.4); White Blood Count 3.94 K/uL (4.8-10.8)
[2018-10-30] MEDS: SIMVASTATIN 20 MG TAB PO SCH (07:45)
[2018-10-30] MEDS: VENLAFAXINE HCL XR 150 MG CAPXR PO SCH (07:45)
[2018-10-30] MEDS: DONEPEZIL HCL 10 MG TAB PO SCH (07:45)
[2018-10-30] MEDS: PANTOprazole 40 MG TAB PO SCH (07:45)
[2018-10-30] MEDS: HEPARIN SOD 5,000 UNIT/0.5 ML VIAL SQ SCH (07:45)
[2018-10-30] MEDS: CEROVITE ADV FORMULA TAB PO SCH (07:45)
[2018-10-30] MEDS: FUROSEMIDE 40 MG TAB PO SCH (07:45)
[2018-10-30] MEDS: cefUROXime axetil 500 MG TAB PO SCH (07:45)
[2018-10-30 07:46] LABS: BUN Creatinine Ratio 18.9 (10-20); Calcium 9.4 mg/dl (8.5-10.1); Creatinine Clr Calc Pharmacy 23.3 ml/min; Est GFR (Non-African American) 25.9; Potassium 3.6 mmol/L (3.5-5.1)
--- NOTE | 2018-10-30 17:45 | Discharge Summary ---
Date of Service October 30, 2018 Admission HPI Per Admitting Provider Ms. Saldivar presents with her after confusion starting a week ago. On she was diagnosed with a UTI that day and started on Cipro. She has had a number of UTIs in the last few months. She herself is calm but confused and unable to provide history which comes from her . Her says she has not been formally diagnosed with dementia but does say that he thinks "that's coming". Ms. Saldivar denies n/v/d, dysuria, aches chills or fevers. She has not had any cough or sob. Per her , the redness around her groin/belly is much improved over a few weeks ago as they have been using barrier creams. Principal Diagnosis Toxic vs Metabolic Encephalopathy Discharge Exam Constitutional + frail appearing; no acute distress and not ill appearing Eyes + anicteric sclerae ENMT Ears: no hearing impairment Neck trachea midline Respiratory normal respiratory effort, lungs clear to auscultation Cardiovascular Rate/Rhythm: regular rate and regular rhythm Gastrointestinal (Abdomen) Inspection/Auscultation: normal bowel sounds Percussion/Palpation: abdomen soft; abdomen nontender Musculoskeletal Head/Neck/Chest: normocephalic and head atraumatic Skin no rashes, warm and dry Neurologic moves all extremities Psychiatric Orientation: alert, oriented to person and oriented to place Discharge Data Allergies Allergy/AdvReac Type Severity Reaction Status Date / Time celecoxib Allergy Severe THROAT Verified 10/28/18 10:37 TIGHTENS pregabalin Allergy Severe altered Verified 10/28/18 10:37 mental status amitriptyline Allergy Intermediate NERVOUSNESS Verified 10/28/18 10:37 amlodipine Allergy Intermediate HEAD FILLS Verified 10/28/18 10:37 UP, ABD PAIN gabapentin Allergy Intermediate HIVES Verified 10/28/18 10:37 metoprolol Allergy Intermediate HEAD FILLS Verified 10/28/18 10:37 UP atenolol Allergy Unknown Unknown Verified 10/28/18 10:37 chlorthalidone Allergy Unknown CAN'T Verified 10/28/18 10:37 REMEMBER clonazepam Allergy Unknown CAN'T Verified 10/28/18 10:37 REMEMBER Estrogens Allergy Unknown CAN'T Verified 10/28/18 10:37 REMEMBER hydrochlorothiazide Allergy Unknown CAN'T Verified 10/28/18 10:37 REMEMBER methyltestosterone Allergy Unknown CAN'T Verified 10/28/18 10:37 REMEMBER Progestins Allergy Unknown CAN'T Verified 10/28/18 10:37 REMEMBER Sulfa (Sulfonamide Allergy Unknown CAN'T Verified 10/28/18 10:37 Antibiotics) REMEMBER prednisone AdvReac Intermediate HEADACHE,FL Verified 10/28/18 10:37 USHING Consultations 10/28/18 12:59 ED Decision to Admit Stat 10/28/18 15:06 Consult Case Management - Discharge Planning Routine Ordered Studies 10/28/18 10:20 CT head/brain wo con Stat Hospital Course (1) Toxic encephalopathy: - Possibility of toxic due to Ciprofloxacin vs Metabolic due to UTI - Repeat UA without growth on culture and Cipro was sensitive; maybe even just a component of dehydration as states she doesn't eat or drink much; as well this is all superimposed on what appears to be a baseline dementia - Confusion did improve with medication adjustments and feels she is almost baseline but reporting fatigue from lack of sleep - did discuss PT/OT findings and they do have [employer] helpers and are planning to continue those as well as they have a lift chair at home - No other direct source identified for acute encephalopathy; Other home medications like Lasix (dehydration), Remeron, Tramadol could play a role but this can be addressed if ongoing issues after UTI treatment completed - Will continue Cefuroxime with renal dosing until 11/02 as Cipro did cover per culture (2) UTI (urinary tract infection): - Repeat UC negative to date. - Converted to PO Cefuroxime for treatment course -- per previous UC on 10/23 positive for pansensitive Klebsiella. (3) HTN (hypertension): - Continue Lasix 40 mg daily - will need to watch as she does not drink much and maybe a component of dehydration affected presentation - Does have intermittent high BP but largely 150-160 systolic - will not add an additional agent at this time to prevent hypotension (4) HLD (hyperlipidemia): - Continue statin as prescribed. (5) CKD (chronic kidney disease), stage III: - Baseline Creat 1.6-1.8; currently at baseline. - Received IV fluids on admission. - Continue home Lasix with close monitoring of renal function. (6) Depression: - Continue Effexor and Remeron as prescribed. (7) Cognitive decline: - Continue Aricept as prescribed. (8) Hypothyroidism: - Continue Synthroid 75 mcg daily. - Most recent TSH was 0.3. Total Time Total Time Spent Total Time Spent (In Minutes): Greater than 30 minutes Discharge Plan Discharge Items Patient Disposition: Home - Home Health Services Reason For Visit: TOXIC ENCEPHALOPATHY Discharge Diagnosis: Urinary Tract Infection/Medication Induced Confusion Discharge Goals: Decrease discomfort, Improve disease control and Increase independence Activity: Resume your previous activity Non-emergency contact: Primary Care Provider Call non-emergency contact if: you have any medication questions, your symptoms worsen and you have a fever Follow-up/Referrals: Daniel Vincent MD [Primary Care Provider] - Diet: Regular Addtl Provider Instructions: Confusion: - This is likely some from her recent diagnosis of urinary tract infection and may also be worsened by Ciprofloxacin. The antibiotic was a good choice to cover the infection but sometimes this medication can cause confusion in some people. - Did switch the antibiotic to Cefuroxime 500 mg daily which according to the most recent urine sample will work for the initial UTI. We will cover until November 02. We did do another urine sample here which did not grow anything which is another good sign the Ciprofloxacin was working but the confusion could have been more from the medication itself. - She may be a little more tired since she just had a UTI but do encourage to get up and move as much as possible to keep strength up. However, if tired or fatigued do recommend to take breaks and rest as needed - Her confusion should get back to baseline as she finishes up the treatment. If it seems like the confusion is worsening it is always worth having her checked out. - Thankfully while she has been here her kidney numbers have been stable. She hasn't had any fevers. - Since she is not a big eater or drinker, dehydration could have caused some of this as well especially while on Lasix. The best thing to monitor is urine color with the goal that it will be pale yellow. Some of her other medications that could cause confusion is Tramadol or Remeron but if she has been on these awhile we would recommend to continue these. If confusion continues, these medicatiosn can be discussed with your family doctor to see if adjustments need to be made. Home Medications: - Continue your home medications as previously prescribed. We did not make changes to these Prescriptions: New cefuroxime axetil 500 mg Tablet 500 mg PO DAILY Qty: 3 RF: 0 Continued levothyroxine 75 mcg Tablet 75 mcg PO QAM Qty: 0 RF: 3 simvastatin 20 mg Tablet 20 mg PO QAM Qty: 0 RF: 0 donepezil 10 mg Tablet 10 mg PO QAM Qty: 0 RF: 0 potassium chloride 10 mEq Capsule, Extended Release 10 meq PO QPM Qty: 0 RF: 0 acetaminophen 325 mg Tablet 325 mg PO Q6H PRN (Reason: Pain) RF: 0 tramadol 50 mg tablet 50 mg PO DAILY PRN (Reason: Pain) RF: 0 glucosamine-chondroitin [Osteo Bi-Flex] 250-200 mg Tablet 1 tab PO QAM RF: 0 Centrum Silver 0.4-300-250 mg-mcg-mcg Tablet 1 tab PO DAILY RF: 0 Vitron-C 65 mg iron- 125 mg Tablet,Delayed Release (Dr/Ec) 1 tab PO DAILY RF: 0 Ocuvite Eye Health 50 mg-15 unit- 4.5 mg-2.5 mg Tablet,Chewable 1 tab PO DAILY RF: 0 pantoprazole 40 mg Tablet,Delayed Release (Dr/Ec) 40 mg PO QAM RF: 0 mirtazapine 15 mg Tablet 15 mg PO HS RF: 0 furosemide 40 mg Tablet 40 mg PO QAM RF: 0 venlafaxine 150 mg capsule,extended release 24hr 150 mg PO QAM RF: 0 Discontinued ciprofloxacin HCl 250 mg tablet 250 mg PO BID RF: 0 Stand-Alone Forms: [facility] Discharge Orders: Discharge Order (Routine); Ordered 10/30/18 Ordered By: Ida Jimenez Admission Data Admit Date/Time: 10/29/18 11:17 Attending Provider: Gabriele Bennett Admit Provider: Gilbert Segura Primary Care Provider: Daniel Vincent Other Providers: Gilbert Segura Service: Medical Other Interventions: Discharge Summary Assessment (RN) Last Done: 10/30/18 15:32 Pending Studies at Discharge: No DC Date/Time DO NOT enter until pt leaves facility: 10/30/18 15:56 Supervising Physician Co-Signing Physician Notes Attending note: patient seen and examined with Ida Jimenez PA-C. I agree with her discharge summary. - UTI and weakness patient treated appropriately with IV antibiotics and transition to PO on discharge patient is close to baseline for mobility, patient's feels confident that he can care for her at home reviewed chart, including labs and imaging and culture findings discussed discharge with patient and family at the bedside
== END 2018-10-30 15:56 | disposition home or self-care (01) | DRG 91 ==
LOC: 2W 10:03 → ED 10:03 → SUATTDRO 14:27 → 2W 14:38

== ENCOUNTER 2019-01-11 05:17 | Observation (INO) ==
[2019-01-11] MEDS ORDERED: SODIUM CHLORIDE 0.9% 1000ML 1,000 ML IV SCH (05:30)
[2019-01-11 06:04] LABS: Basophils # (auto) 0.03 K/uL (0-0.2); Basophils % (auto) 0.5 %; Eosinophils # (auto) 0.11 K/uL (0-0.5); Hematocrit (blood only) 32.4 % (37-47); Hemoglobin 10.8 g/dL (12.0-16.0); Immature Granulocytes # (auto) 0.01 K/uL (0.00-0.02); Immature Granulocytes % (auto) 0.2 %; Lymphocytes # (auto) 1.42 K/uL (1.2-3.4); Lymphocytes % (auto) 25.8 %; Mean Corpuscular Hgb Conc 33.3 g/dL (32-36); Mean Corpuscular Volume 95.9 fL (80-100); Mean Platelet Volume 9.6 fL (7.4-10.4); Monocytes # (auto) 0.44 K/uL (0.11-0.59); Neutrophils # (auto) 3.49 K/uL (1.4-6.5); Neutrophils % (auto) 63.5 %; Platelet Count 285 K/uL (130-400); RDW Coefficient of Variation 13.9 % (11.5-14.5); RDW Standard Deviation 48.5 fL (36.4-46.3); Red Blood Count 3.38 M/uL (4.2-5.4)
[2019-01-11 06:12] LABS: Appearance Urine Clear (Clear); Bacteria Urine Automated Negative (Negative); Bilirubin Urine Negative (Negative); Blood Urine Negative (Negative); Color Urine Yellow; Epithelial Cell Urine Auto >30 /lpf (0-5); Glucose Urine UA Negative (Negative); Ketones Urine Negative (Negative); Leukocyte Esterase Urine 1+ (Negative); Nitrite Urine Negative (Negative); Protein Urine Negative (Negative); RBC Urine Automated 0-4 /hpf (0-4); Specific Gravity Urine 1.021 (1.000-1.030); Urobilinogen Urine Negative (Negative)
[2019-01-11 06:19] LABS: Alanine Aminotransferase 16 U/L (12-78); Albumin Level 2.9 gm/dl (3.4-5.0); Blood Urea Nitrogen 35 mg/dl (7-18); Calcium 8.3 mg/dl (8.5-10.1); Carbon Dioxide 25 mmol/L (21-32); Chloride 114 mmol/L (98-107); Creatinine Clr Calc Pharmacy 29.1 ml/min; Est GFR (African American) 38.2; Est GFR (Non-African American) 32.9; Glucose 102 mg/dl (70-99); Magnesium 2.3 mg/dl (1.8-2.4); Potassium 4.5 mmol/L (3.5-5.1); Sodium 143 mmol/L (136-145)
[2019-01-11 06:30] LABS: Albumin Globulin Ratio 0.8 (0.9-2); Alkaline Phosphatase 90 U/L (45-117); Aspartate Aminotransferase 16 U/L (15-37); Bilirubin,Total 0.2 mg/dl (0.2-1); Globulin 3.8 gm/dl (2.5-4.0); Total Protein 6.7 gm/dl (6.4-8.2); Troponin I < 0.015 ng/ml (0-0.045)
--- NOTE | 2019-01-11 06:43 | XRay Report ---
XR chest 1V portable HISTORY: 83 years-old Female weakness acute weakness COMPARISON: Chest radiograph 01/06/2019 TECHNIQUE: Portable AP view of the chest FINDINGS: Cardiomediastinal and hilar silhouettes are within normal limits. Chronic biapical pleural-parenchyma l scarring. Chronic interstitial opacities of the lung bases with hyperinflation. No pneumothorax, pl eural effusion, focal airspace consolidation or overt pulmonary edema. Degenerative changes of the sh oulders and spine. Mild convex right curvature of the midthoracic spine. IMPRESSION: No acute process. The above report was generated using voice recognition software. It may contain grammatical, syntax o r spelling errors. Electronically signed by: Ever Morris M.D. 01/11/2019 6:42 AM
--- NOTE | 2019-01-11 07:10 | CT Scan Report ---
CT SCAN OF THE BRAIN WITHOUT IV CONTRAST CLINICAL HISTORY: Change in mental status. COMPARISON STUDY: CT of the brain dated 01/06/2019. TECHNIQUE: Unenhanced axial CT scan of the brain is performed from the vertex to the skull base. A do se lowering technique was utilized adhering to the principles of ALARA. CT DOSE: 537.48 mGy.cm FINDINGS: Brain parenchyma: There are age-related involutional changes noting advanced confluent subcortical a nd periventricular microangiopathic change. There is no hemorrhage, mass effect, or evidence of acute territorial ischemia by CT criteria. Briceño-white matter differentiation is preserved. No extra-axial fluid collection is seen. Ventricles, sulci, cisterns: Prominent secondary to involutional change. Intracranial vasculature: There is atherosclerotic calcification of the cavernous carotid and vertebr al arteries. Calvarium: Unremarkable. Sinuses and mastoids: The visualized paranasal sinuses are clear. The mastoid air cells are well pneu matized. Orbits: The bony orbits are grossly intact. There are bilateral ocular lens implants. IMPRESSION: Senescent changes as above with no hemorrhage, mass effect, or evidence of acute territor ial ischemia by CT criteria. Electronically signed by: Julian Green M.D. 01/11/2019 7:09 AM
[2019-01-11] MEDS ORDERED: ONDANSETRON INJ 2 MG/ML 2 ML VIAL IV PRN (09:03)
[2019-01-11] MEDS: SODIUM CHLORIDE 0.9% 1000ML 1,000 ML IV SCH ×2 (09:56→18:18)
[2019-01-11] MEDS: LEVOTHYROXINE SODIUM 75 MCG TABLET PO SCH (10:09)
[2019-01-11] MEDS: ACETAMINOPHEN 325 MG TAB PO PRN ×2 (10:09→23:21)
[2019-01-11] MEDS: VENLAFAXINE HCL XR 150 MG CAPXR PO SCH (10:09)
[2019-01-11] MEDS: DONEPEZIL HCL 10 MG TAB PO SCH (10:09)
[2019-01-11] MEDS: VALACYCLOVIR HCL 500 MG TABLET PO SCH ×3 (10:10→21:06)
[2019-01-11] MEDS: PANTOprazole 40 MG TAB PO SCH (10:10)
[2019-01-11] MEDS: cefTRIAXone SODIUM 1,000 MG in DEXTROSE 5% 50 ML IV SCH (11:06)
[2019-01-11] MEDS: HEPARIN SOD 5,000 UNIT/0.5 ML VIAL SQ SCH ×2 (14:11→21:06)
--- NOTE | 2019-01-11 16:26 | History & Physical Report ---
Date of Service January 11, 2019 Assessment & Plan (1) Acute dehydration: NSS at 80cc/hr repeat labs tomorrow, today her BUN is up slightly but Cr at baseline (2) Acute UTI: Klebsiella pneumoniae on outpatient urine culture continue to treat with Rocephin no signs of sepsis, WBC normal, afebrile (3) Confusion: likely due to UTI and dehydration acute metabolic encephalopathy should improve with therapy (4) Generalized weakness: consult PT/OT to make sure she is strong enough to return home History of Present Illness Chief Complaint: I feel weak Primary Care Provider: Daniel Vincent MD 83 yo female with recent history of UTI that has been treated with Cipro and Cefdinir but she has not been doing well. She says that she was diagnosed with Klebsiella UTI on 01/02/19. Initially given Cefdinir but she returned to the ED because she was feeling weak and light headed. Thought that maybe she was having an adverse reaction to the Cefdinir so she was changed to Cipro. This did not change anything. Her history is slightly limited due to being tired and unwilling to really expand further on her answers, most of them were simply yes or no. She admitted to light headed feeling when standing but did not say if she actually felt dizzy. No falls but she was close to falling at one point. She denies fever, chills, sweats. Denies chest pain, dyspnea, palpitations. Denies nausea, vomiting, diarrhea, abdominal pain. Her appetite has been diminished. No rash. Diffuse muscle aches but no severe joint pain. Generalized weakness. Allergies Allergy/AdvReac Type Severity Reaction Status Date / Time celecoxib Allergy Severe THROAT Verified 01/11/19 06:09 TIGHTENS pregabalin Allergy Severe altered Verified 01/11/19 06:09 mental status amitriptyline Allergy Intermediate NERVOUSNESS Verified 01/11/19 06:09 amlodipine Allergy Intermediate HEAD FILLS Verified 01/11/19 06:09 UP, ABD PAIN gabapentin Allergy Intermediate HIVES Verified 01/11/19 06:09 metoprolol Allergy Intermediate HEAD FILLS Verified 01/11/19 06:09 UP atenolol Allergy Unknown Unknown Verified 01/11/19 06:09 chlorthalidone Allergy Unknown CAN'T Verified 01/11/19 06:09 REMEMBER clonazepam Allergy Unknown CAN'T Verified 01/11/19 06:09 REMEMBER Estrogens Allergy Unknown CAN'T Verified 12/01/18 15:46 REMEMBER hydrochlorothiazide Allergy Unknown CAN'T Verified 10/28/18 10:37 REMEMBER methyltestosterone Allergy Unknown CAN'T Verified 10/28/18 10:37 REMEMBER Progestins Allergy Unknown CAN'T Verified 10/28/18 10:37 REMEMBER Sulfa (Sulfonamide Allergy Unknown CAN'T Verified 10/28/18 10:37 Antibiotics) REMEMBER prednisone AdvReac Intermediate [place]AC[place],FL Verified 10/28/18 10:37 USHING Home Medications Home Medications Medication Instructions Recorded Confirmed Type levothyroxine [Levoxyl] 75 mcg PO QAM #0 tab 10/08/16 01/11/19 History simvastatin [Zocor] 20 mg PO QAM #0 tab 10/08/16 01/11/19 History donepezil [Aricept] 10 mg PO QAM #0 tab 07/14/17 01/11/19 History potassium chloride 10 meq PO QPM #0 cap 08/12/17 01/11/19 History mirtazapine [Remeron] 7.5 mg PO HS 04/16/18 01/11/19 History pantoprazole [Protonix] 40 mg PO QAM 04/16/18 01/11/19 History furosemide [Lasix] 40 mg PO Q2D 08/03/18 01/11/19 History venlafaxine [Effexor XR] 150 mg PO QAM 08/03/18 01/11/19 History Centrum Silver 1 tab PO DAILY 10/28/18 01/11/19 History Ocuvite Eye Health 1 tab PO DAILY 10/28/18 01/11/19 History Vitron-C 1 tab PO DAILY 10/28/18 01/11/19 History acetaminophen [Tylenol] 325 mg PO Q6H PRN 10/28/18 01/11/19 History glucosamine-chondroitin [Osteo 1 tab PO QAM 10/28/18 01/11/19 History Bi-Flex] tramadol [Ultram] 50 mg PO DAILY PRN 10/28/18 01/11/19 History cefdinir 300 mg PO BID 10 Days #20 cap 01/06/19 01/11/19 Rx ciprofloxacin HCl 250 mg PO BID 01/06/19 01/11/19 History cranberry 500 mg PO PM 01/06/19 01/11/19 History valacyclovir [Valtrex] 1,000 mg PO TID 7 Days #21 tab 01/06/19 01/11/19 Rx Past Med/Surg History Medical History GI bleed UTI (urinary tract infection) LORNA (acute kidney injury) Infection HTN (hypertension) HLD (hyperlipidemia) Hypothyroidism CKD (chronic kidney disease), stage III Chronic cellulitis Iron deficiency anemia Pneumonia (Acute) CKD (chronic kidney disease), stage III Cataract Chronic anemia Cognitive decline Dementia Depression HLD (hyperlipidemia) HTN (hypertension) Iron deficiency anemia Lumbar spinal stenosis Osteoarthritis Toxic encephalopathy Surgical History H/O laminectomy History of carpal tunnel release History of thyroidectomy History of total knee arthroplasty S/P lumpectomy of breast Family History Unknown No problems noted. Other Heart disease Hypertension Social History Preferred Language: Sami Communication Ability: Effective Domestic Laundry Worker Required: No Beliefs That Will Affect Care: None marital status: Current Living Situation: Spouse current occupational status: retired Other Information That Helps Us Care for You: No Feels Safe at Home: Yes Safety Concerns: Feels Safe At This Time Smoking Status: Never smoker Second Hand Exposure: No ; Hx Alcohol Use: No Hx Substance Use: No Review of Systems Review of Systems: All systems reviewed & are unremarkable except as noted in HPI & below Physical Exam Constitutional: WD/WN, vitals as above + ill appearing and + lethargic Eyes: PERRL, conjunctivae normal, anicteric sclerae ENMT: external ear and nose normal, oropharynx normal Neck: trachea midline, no thyromegaly Respiratory: normal respiratory effort, lungs clear to auscultation Cardiovascular: RRR, no murmur, no edema Gastrointestinal (Abdomen): normal bowel sounds, soft, nontender, no hepatosplenomegaly Musculoskeletal: no cyanosis or clubbing, extremities motor strength 5/5 Skin: no rashes, warm and dry Neurologic: patellar DTR's 2+ bilat, sensation intact and PERRL, EOMI, accommodation nl, no face palsy, no dysarthria Psychiatric: A+Ox3, euthymic affect Lymphatic: no cervical or axillary lymphadenopathy Results & Data Vital Signs (Past 12 Hours) Vital Signs Temp Pulse Pulse Resp BP BP BP 01/11/19 15:38 36.5 C 74 18 177/95 H 01/11/19 13:05 169/83 H 01/11/19 11:21 36.5 C 65 16 190/76 H 01/11/19 08:35 36.6 C 78 18 178/96 H 01/11/19 08:00 74 16 174/104 H 01/11/19 06:01 80 18 129/97 01/11/19 05:26 36.7 C 75 16 177/118 H Pulse Ox 01/11/19 15:38 98 01/11/19 13:05 01/11/19 11:21 95 01/11/19 08:35 97 01/11/19 08:00 96 01/11/19 06:01 96 01/11/19 05:26 96 Laboratory Results Laboratory Results - last 24 hr 01/11/19 01/11/19 01/11/19 05:48 05:48 05:48 WBC 5.50 RBC 3.38 L Hgb 10.8 L Hct 32.4 L MCV 95.9 MCH 32.0 MCHC 33.3 RDW Std Deviation 48.5 H RDW Coeff of Jeannie 13.9 Plt Count 285 MPV 9.6 Immature Gran % (Auto) 0.2 Neut % (Auto) 63.5 Lymph % (Auto) 25.8 [place] % (Auto) 8.0 Eos % (Auto) 2.0 Baso % (Auto) 0.5 Immature Gran # (Auto) 0.01 Neut # (Auto) 3.49 Lymph # (Auto) 1.42 [place] # (Auto) 0.44 Eos # (Auto) 0.11 Baso # (Auto) 0.03 Sodium 143 Potassium 4.5 Chloride 114 H Carbon Dioxide 25 Anion Gap 4.0 BUN 35 H Creatinine 1.46 H Est Cr Clr Drug Dosing 29.1 Est GFR ( Amer) 38.2 Est GFR (Non-Af Amer) 32.9 BUN/Creatinine Ratio 24.0 H Glucose 102 H POC Lactic Acid Darryl Calcium 8.3 L Magnesium 2.3 Total Bilirubin 0.2 AST 16 ALT 16 Alkaline Phosphatase 90 Troponin I < 0.015 Total Protein 6.7 Albumin 2.9 L Globulin 3.8 Albumin/Globulin Ratio 0.8 L Lipase 434 H Procalcitonin < 0.05 TSH 2.350 Urine Color Urine Appearance Urine pH Ur Specific [place] Urine Protein Urine Glucose (UA) Urine Ketones Urine Blood Urine Nitrite Urine Bilirubin Urine Urobilinogen Ur Leukocyte Esterase Urine WBC (Auto) Urine RBC (Auto) U Hyaline Cast (Auto) U Epithel Cells (Auto) Urine Bacteria (Auto) 01/11/19 01/11/19 05:55 06:13 WBC RBC Hgb Hct MCV MCH MCHC RDW Std Deviation RDW Coeff of Jeannie Plt Count MPV Immature Gran % (Auto) Neut % (Auto) Lymph % (Auto) [place] % (Auto) Eos % (Auto) Baso % (Auto) Immature Gran # (Auto) Neut # (Auto) Lymph # (Auto) [place] # (Auto) Eos # (Auto) Baso # (Auto) Sodium Potassium Chloride Carbon Dioxide Anion Gap BUN Creatinine Est Cr Clr Drug Dosing Est GFR ( Amer) Est GFR (Non-Af Amer) BUN/Creatinine Ratio Glucose POC Lactic Acid Darryl 1.21 Calcium Magnesium Total Bilirubin AST ALT Alkaline Phosphatase Troponin I Total Protein Albumin Globulin Albumin/Globulin Ratio Lipase Procalcitonin TSH Urine Color Yellow Urine Appearance Clear Urine pH 5.0 Ur Specific [place] 1.021 Urine Protein Negative Urine Glucose (UA) Negative Urine Ketones Negative Urine Blood Negative Urine Nitrite Negative Urine Bilirubin Negative Urine Urobilinogen Negative Ur Leukocyte Esterase 1+ H Urine WBC (Auto) 10-30 H Urine RBC (Auto) 0-4 U Hyaline Cast (Auto) 1-5 U Epithel Cells (Auto) >30 H Urine Bacteria (Auto) Negative Diagnostic Findings CT HEAD IMPRESSION: Senescent changes as above with no hemorrhage, mass effect, or evidence of acute territorial ischemia by CT criteria. CXR IMPRESSION: No acute process. Code Status & VTE Plan Code Status FULL CODE VTE Prophylaxis Plan VTE Prophylaxis will be ordered: Yes PG Care Time/CCT Total # of Minutes Spent Total Time Spent with Patient: Total time spent is greater than 50% in coordination of care (as documented) at patient's floor/unit and/or counseling patient:
[2019-01-11] MEDS: HydrALAZINE HCL 20 MG/ML VIAL IV PRN (18:23)
[2019-01-11] MEDS: SIMVASTATIN 20 MG TAB PO SCH (21:07)
[2019-01-11] MEDS: MIRTAZAPINE TAB 15 MG TAB PO SCH (21:07)
[2019-01-11] MEDS: POTASSIUM CHLORIDE 10 MEQ TABCR PO SCH (21:07)
[2019-01-12] MEDS ORDERED: TRAMADOL HCL 50 MG TABLET PO STA (01:16)
[2019-01-12] MEDS: SODIUM CHLORIDE 0.9% 1000ML 1,000 ML IV SCH ×3 (02:28→19:34)
[2019-01-12] MEDS: PANTOprazole 40 MG TAB PO SCH (05:59)
[2019-01-12] MEDS: HEPARIN SOD 5,000 UNIT/0.5 ML VIAL SQ SCH ×3 (05:59→21:14)
[2019-01-12] MEDS: LEVOTHYROXINE SODIUM 75 MCG TABLET PO SCH (05:59)
[2019-01-12] MEDS ORDERED: MICONAZOLE NITRATE POWDER 43 GM EXT PRN (06:20)
[2019-01-12 08:14] LABS: Basophils % (auto) 0.4 %; Eosinophils % (auto) 3.5 %; Hematocrit (blood only) 30.3 % (37-47); Hemoglobin 9.9 g/dL (12.0-16.0); Immature Granulocytes % (auto) 0.4 %; Lymphocytes % (auto) 34.4 %; Mean Corpuscular Hgb Conc 32.7 g/dL (32-36); Mean Corpuscular Volume 95.6 fL (80-100); Mean Platelet Volume 9.6 fL (7.4-10.4); Monocytes % (auto) 8.8 %; Neutrophils # (auto) 2.58 K/uL (1.4-6.5); Neutrophils % (auto) 52.5 %; Platelet Count 248 K/uL (130-400); RDW Coefficient of Variation 14.1 % (11.5-14.5); RDW Standard Deviation 49.1 fL (36.4-46.3); Red Blood Count 3.17 M/uL (4.2-5.4); White Blood Count 4.91 K/uL (4.8-10.8)
[2019-01-12 08:15] LABS: Basophils # (auto) 0.02 K/uL (0-0.2); Eosinophils # (auto) 0.17 K/uL (0-0.5); Immature Granulocytes # (auto) 0.02 K/uL (0.00-0.02); Lymphocytes # (auto) 1.69 K/uL (1.2-3.4); Monocytes # (auto) 0.43 K/uL (0.11-0.59)
[2019-01-12] MEDS: cefTRIAXone SODIUM 1,000 MG in DEXTROSE 5% 50 ML IV SCH (08:26)
[2019-01-12] MEDS: VENLAFAXINE HCL XR 150 MG CAPXR PO SCH (08:26)
[2019-01-12] MEDS: VALACYCLOVIR HCL 500 MG TABLET PO SCH ×2 (08:26→21:13)
[2019-01-12] MEDS: DONEPEZIL HCL 10 MG TAB PO SCH (08:27)
[2019-01-12 08:44] LABS: BUN Creatinine Ratio 29.5 (10-20); Creatinine Clr Calc Pharmacy 33.5 ml/min; Est GFR (African American) 44.8; Est GFR (Non-African American) 38.6; Potassium 4.1 mmol/L (3.5-5.1)
[2019-01-12] MEDS: HydrALAZINE HCL 20 MG/ML VIAL IV PRN (09:04)
--- NOTE | 2019-01-12 10:01 | Emergency Department Note ---
Entered by Chitra Luke acting as a scribe for History of Present Illness General Chief complaint: Syncope Stated complaint: SYNCOPE Time Seen by Provider: 01/11/19 05:18 Source: patient History of Present Illness Onset (ago): day(s) (several) Location: head (general) Severity: similar to prior episodes Pain Consistency: + other (persistent ) Quality: + other ("spacey") Associated symptoms: + other (negative abdominal pain; negative changes in bowel movements; negative changes in urinatioin; negative changes in appetite); no chest pain, no cough, no fever/chills, no headaches and no shortness of breath The patient is a 83 year old female with PMHx of hypothyroidism, HTN, HLD, and CKD who presents to the Emergency Room with complaints of a persistent "spacey" feeling that began several days prior to arrival. The patient states that she is unsure if she is confused and states that she does not know how this feeling s tarted. She states that this is similar to a prior episode of this feeling, but states that she does not know what came of this previous episode. The patient denies fever, chills, shortness of breath, cough, chest pain, abdominal pain, headache, changes in bowel movements, changes in urination, and changes in appetite. The patient states that she is off balance at baseline and uses a walker. The patient's history and physical are limited secondary to altered mental status. Home Medications Home Medications Medication Instructions Recorded Confirmed Type levothyroxine [Levoxyl] 75 mcg PO QAM #0 tab 10/08/16 01/11/19 History simvastatin [Zocor] 20 mg PO QAM #0 tab 10/08/16 01/11/19 History donepezil [Aricept] 10 mg PO QAM #0 tab 07/14/17 01/11/19 History potassium chloride 10 meq PO QPM #0 cap 08/12/17 01/11/19 History mirtazapine [Remeron] 7.5 mg PO HS 04/16/18 01/11/19 History pantoprazole [Protonix] 40 mg PO QAM 04/16/18 01/11/19 History furosemide [Lasix] 40 mg PO Q2D 08/03/18 01/11/19 History venlafaxine [Effexor XR] 150 mg PO QAM 08/03/18 01/11/19 History Centrum Silver 1 tab PO DAILY 10/28/18 01/11/19 History Ocuvite Eye Health 1 tab PO DAILY 10/28/18 01/11/19 History Vitron-C 1 tab PO DAILY 10/28/18 01/11/19 History acetaminophen [Tylenol] 325 mg PO Q6H PRN 10/28/18 01/11/19 History glucosamine-chondroitin [Osteo 1 tab PO QAM 10/28/18 01/11/19 History Bi-Flex] tramadol [Ultram] 50 mg PO DAILY PRN 10/28/18 01/11/19 History cefdinir 300 mg PO BID 10 Days #20 cap 01/06/19 01/11/19 Rx ciprofloxacin HCl 250 mg PO BID 01/06/19 01/11/19 History cranberry 500 mg PO PM 01/06/19 01/11/19 History valacyclovir [Valtrex] 1,000 mg PO TID 7 Days #21 tab 01/06/19 01/11/19 Rx Allergies Allergy/AdvReac Type Severity Reaction Status Date / Time celecoxib Allergy Severe THROAT Verified 01/11/19 06:09 TIGHTENS pregabalin Allergy Severe altered Verified 01/11/19 06:09 mental status amitriptyline Allergy Intermediate NERVOUSNESS Verified 01/11/19 06:09 amlodipine Allergy Intermediate HEAD FILLS Verified 01/11/19 06:09 UP, ABD PAIN gabapentin Allergy Intermediate HIVES Verified 01/11/19 06:09 metoprolol Allergy Intermediate HEAD FILLS Verified 01/11/19 06:09 UP atenolol Allergy Unknown Unknown Verified 01/11/19 06:09 chlorthalidone Allergy Unknown CAN'T Verified 01/11/19 06:09 REMEMBER clonazepam Allergy Unknown CAN'T Verified 01/11/19 06:09 REMEMBER Estrogens Allergy Unknown CAN'T Verified 12/01/18 15:46 REMEMBER hydrochlorothiazide Allergy Unknown CAN'T Verified 10/28/18 10:37 REMEMBER methyltestosterone Allergy Unknown CAN'T Verified 10/28/18 10:37 REMEMBER Progestins Allergy Unknown CAN'T Verified 10/28/18 10:37 REMEMBER Sulfa (Sulfonamide Allergy Unknown CAN'T Verified 10/28/18 10:37 Antibiotics) REMEMBER prednisone AdvReac Intermediate HEADACHE,FL Verified 10/28/18 10:37 USHING Past Med/Surg History Medical History GI bleed UTI (urinary tract infection) LORNA (acute kidney injury) Infection HTN (hypertension) HLD (hyperlipidemia) Hypothyroidism CKD (chronic kidney disease), stage III Chronic cellulitis Iron deficiency anemia Pneumonia (Acute) CKD (chronic kidney disease), stage III Cataract Chronic anemia Cognitive decline Dementia Depression HLD (hyperlipidemia) HTN (hypertension) Iron deficiency anemia Lumbar spinal stenosis Osteoarthritis Toxic encephalopathy Surgical History H/O laminectomy History of carpal tunnel release History of thyroidectomy History of total knee arthroplasty S/P lumpectomy of breast Family History Unknown No problems noted. Other Heart disease Hypertension Social History Preferred Language: Czech Communication Ability: Effective Administrator Pesticide Required: No Beliefs That Will Affect Care: None marital status: Current Living Situation: Spouse current occupational status: retired Other Information That Helps Us Care for You: No Feels Safe at Home: Yes Safety Concerns: Feels Safe At This Time Smoking Status: Never smoker Second Hand Exposure: No ; Hx Alcohol Use: No Hx Substance Use: No Review of Systems The patient's history and physical are limited secondary to altered mental status. Physical Exam Vital Signs Vital Signs - 24 hr 01/11/19 05:26 01/11/19 06:01 Temperature 98.1 F Temperature Source Oral Sepsis Recent Fever Within 48 Hours No Sepsis Action Taken by Nursing No Action Required Pulse Rate 75 Pulse Rate [Right Finger] 80 Respiratory Rate 16 18 Respiratory Effort / Characteristics Non-Labored Spontaneous Non-Labored Spontaneous Respiratory Depth Normal Normal Respiratory Pattern Regular Regular Blood Pressure 177/118 H Blood Pressure [Right Arm] 129/97 Blood Pressure Mean 137 Blood Pressure Mean [Right Arm] 107 Blood Pressure Position Lying Blood Pressure Position [Right Arm] Lying Pulse Oximetry 96 96 Oxygen Delivery Method Room Air Room Air GENERAL: alert, well appearing, well nourished, no distress, non-toxic EYE EXAM: normal conjunctiva, PERRL and EOM's grossly intact OROPHARYNX: no exudate, no erythema, lips, buccal mucosa, and tongue normal and mucous membranes are moist NECK: supple, no nuchal rigidity, no adenopathy, non-tender LUNGS: Clear to auscultation. Normal chest wall mechanics, no w/r/r HEART: no murmurs, S1 normal and S2 normal ABDOMEN: abdomen soft, non-tender, normo-active bowel sounds, no masses, no rebound or guarding. BACK: Back is symmetrical on inspection and there is no deformity, no midline tenderness, no CVA tenderness. SKIN: no rashes and no bruising UPPER EXTREMITIES: upper extremities are grossly normal. FROM, nml pulses b/l. LOWER EXTREMITIES: No pitting edema. FROM, nml pulses b/l. NEURO EXAM: Confused to date and time. Normal sensorium, cranial nerves II-XII grossly intact, normal speech, no gross weakness of arms, no gross weakness of legs. Course 05: Past medical records reviewed. The patient was evaluated in room A11B. A complete history and physical exam was performed. 0526: Review of EMR shows that the patient had a urine culture on 01/02 that grew out Klebsiella that was pemberton sensitive. I reviewed the ER evaluation from 01/06 where the patient was switched to Cefdinir. 0642: Upon reevaluation, the patient states that she still feels "spacey". I talked to the patient's who states that the patient had multiple episodes of near syncope that occurred last night. The patient and her are in agreement with a plan for further evaluation in the hospital. 0705: [facility] further evaluation. Consultations Consultation #1: I [facility] the [facility] for further evaluation. Time: 07:05 Administered Medications Acetaminophen (Tylenol) 650 mg PO Q4H PRN PRN Reason: Pain or Fever Stop: 02/10/19 09:02 Last Admin: 01/11/19 23:21 Dose: 650 mg Documented by: [id number] Admin: 01/11/19 10:09 Dose: 650 mg Documented by: [id number] Donepezil HCl (Aricept) 10 mg PO QAM [facility] Stop: 02/10/19 09:02 Last Admin: 01/12/19 08:27 Dose: 10 mg Documented by: [id number] Admin: 01/11/19 10:09 Dose: 10 mg Documented by: [id number] Heparin Sodium (Porcine) (Heparin Sodium (Porcine)) 5,000 units SQ Q8 NEHAL Stop: 02/10/19 13:59 Last Admin: 01/12/19 05:59 Dose: 5,000 units Documented by: [id number] Cosigned by: [id number] Admin: 01/11/19 21:06 Dose: 5,000 units Documented by: [id number] Cosigned by: [id number] Admin: 01/11/19 14:11 Dose: 5,000 units Documented by: [id number] Cosigned by: [id number] Hydralazine HCl (Hydralazine Hcl) 10 mg IV Q6 PRN PRN Reason: Blood Pressure - High Stop: 02/10/19 16:21 Last Admin: 01/12/19 09:04 Dose: 10 mg Documented by: [id number] Admin: 01/11/19 18:23 Dose: 10 mg Documented by: [id number] Ceftriaxone Sodium 1,000 mg/ (Dextrose) 50 mls @ 100 mls/hr IV DAILY@0900 [facility]; Protocol Stop: 01/21/19 09:59 Last Infusion: 01/12/19 09:16 Dose: 0 mls/hr Documented by: [id number] Admin: 01/12/19 08:26 Dose: 100 mls/hr Documented by: [id number] Infusion: 01/11/19 11:40 Dose: 0 mls/hr Documented by: [id number] Admin: 01/11/19 11:06 Dose: 100 mls/hr Documented by: [id number] Sodium Chloride (Nss 1000ml) 1,000 mls @ 125 mls/hr IV .Q8H [facility] Stop: 02/10/19 09:29 Last Admin: 01/12/19 02:28 Dose: 125 mls/hr Documented by: [id number] Infusion: 01/12/19 02:18 Dose: 125 mls/hr Documented by: [id number] Infusion: 01/11/19 22:02 Dose: 125 mls/hr Documented by: [id number] Admin: 01/11/19 18:18 Dose: 125 mls/hr Documented by: [id number] Infusion: 01/11/19 17:56 Dose: 125 mls/hr Documented by: [id number] Admin: 01/11/19 09:56 Dose: 125 mls/hr Documented by: [id number] Levothyroxine Sodium (Synthroid) 75 mcg PO DAILYBB [facility] Stop: 02/10/19 09:29 Last Admin: 09/06/19 05:59 Dose: 75 mcg Documented by: [id number] Admin: 01/11/19 10:09 Dose: 75 mcg Documented by: [id number] Mirtazapine (Remeron) 7.5 mg PO HS [facility] Stop: 02/10/19 20:59 Last Admin: 01/11/19 21:07 Dose: 7.5 mg Documented by: [id number] Pantoprazole Sodium (Protonix) 40 mg PO DAILYBB [facility] Stop: 02/10/19 09:02 Last Admin: 01/12/19 05:59 Dose: 40 mg Documented by: [id number] Admin: 01/11/19 10:10 Dose: 40 mg Documented by: [id number] Potassium Chloride (Klor-Con M10) 10 meq PO QPM [facility] Stop: 02/10/19 20:59 Last Admin: 01/11/19 21:07 Dose: 10 meq Documented by: [id number] Simvastatin (Zocor) 20 mg PO QPM [facility] Stop: 02/10/19 20:59 Last Admin: 01/11/19 21:07 Dose: 20 mg Documented by: [id number] Valacyclovir HCl (Valtrex) 1,000 mg PO BID [facility]; Protocol Stop: 01/12/19 23:59 Last Admin: 01/12/19 08:26 Dose: 1,000 mg Documented by: [id number] Admin: 01/11/19 21:06 Dose: 1,000 mg Documented by: [id number] Venlafaxine HCl (Effexor Extended Release) 150 mg PO QAM [facility] Stop: 02/10/19 09:02 Last Admin: 01/12/19 08:26 Dose: 150 mg Documented by: [id number] Admin: 01/11/19 10:09 Dose: 150 mg Documented by: [id number] Discontinued Medications Sodium Chloride (Nss 1000ml) 1,000 mls @ 250 mls/hr IV .Q4H [facility] Stop: 01/11/19 09:29 Last Infusion: 01/11/19 10:14 Dose: 0 mls/hr Documented by: [id number] Admin: 01/11/19 06:02 Dose: 250 mls/hr Documented by: [id number] Tramadol HCl (Ultram) 50 mg PO NOW STA Stop: 01/12/19 01:17 Last Admin: 01/12/19 02:28 Dose: 50 mg Documented by: [id number] Valacyclovir HCl (Valtrex) 1,000 mg PO TID [facility] Stop: 01/21/19 09:02 Last Admin: 01/11/19 14:11 Dose: 1,000 mg Documented by: [id number] Admin: 01/11/19 10:10 Dose: 1,000 mg Documented by: [id number] Medical Decision Making Differential Diagnosis Differential diagnoses includes but is not limited to toxic, metabolic, infectious, traumatic, cardiac, neurologic, hematologic, psychiatric and inflam matory etiologies. Medical Records Attestation: I reviewed the patient's medical records. Home Medications Current Medication List: was personally reviewed by me Laboratory Data Attestation: I reviewed the patient's lab results. Result diagrams: 01/12/19 07:42 01/12/19 07:42 Lab Results 01/11/19 01/11/19 01/11/19 Range/Units 05:48 05:48 05:48 WBC 5.50 (4.8-10.8) K/uL RBC 3.38 L (4.2-5.4) M/uL Hgb 10.8 L (12.0-16.0) g/dL Hct 32.4 L (37-47) % MCV 95.9 (80-100) fL MCH 32.0 (25-34) pg MCHC 33.3 (32-36) g/dL RDW Std Deviation 48.5 H (36.4-46.3) fL RDW Coeff of Jeannie 13.9 (11.5-14.5) % Plt Count 285 (130-400) K/uL MPV 9.6 (7.4-10.4) fL Immature Gran % (Auto) 0.2 % Neut % (Auto) 63.5 % Lymph % (Auto) 25.8 % [place] % (Auto) 8.0 % Eos % (Auto) 2.0 % Baso % (Auto) 0.5 % Immature Gran # (Auto) 0.01 (0.00-0.02) K/uL Neut # (Auto) 3.49 (1.4-6.5) K/uL Lymph # (Auto) 1.42 (1.2-3.4) K/uL [place] # (Auto) 0.44 (0.11-0.59) K/uL Eos # (Auto) 0.11 (0-0.5) K/uL Baso # (Auto) 0.03 (0-0.2) K/uL Sodium 143 (136-145) mmol/L Potassium 4.5 (3.5-5.1) mmol/L Chloride 114 H (98-107) mmol/L Carbon Dioxide 25 (21-32) mmol/L Anion Gap 4.0 (3-11) BUN 35 H (7-18) mg/dl Creatinine 1.46 H (0.6-1.2) mg/dl Est Cr Clr Drug Dosing 29.1 ml/min Est GFR ( Amer) 38.2 Est GFR (Non-Af Amer) 32.9 BUN/Creatinine Ratio 24.0 H (10-20) Glucose 102 H (70-99) mg/dl POC Lactic Acid Darryl (0.90-1.70) mmol/L Calcium 8.3 L (8.5-10.1) mg/dl Magnesium 2.3 (1.8-2.4) mg/dl Total Bilirubin 0.2 (0.2-1) mg/dl AST 16 (15-37) U/L ALT 16 (12-78) U/L Alkaline Phosphatase 90 (45-117) U/L Troponin I < 0.015 (0-0.045) ng/ml Total Protein 6.7 (6.4-8.2) gm/dl Albumin 2.9 L (3.4-5.0) gm/dl Globulin 3.8 (2.5-4.0) gm/dl Albumin/Globulin Ratio 0.8 L (0.9-2) Lipase 434 H (73-393) U/L Procalcitonin < 0.05 (0-0.5) ng/ml TSH 2.350 (0.300-4.500) uIu/ml Urine Color Urine Appearance (Clear) Urine pH (4.5-7.5) Ur Specific [place] (1.000-1.030) Urine Protein (Negative) Urine Glucose (UA) (Negative) Urine Ketones (Negative) Urine Blood (Negative) Urine Nitrite (Negative) Urine Bilirubin (Negative) Urine Urobilinogen (Negative) Ur Leukocyte Esterase (Negative) Urine WBC (Auto) (0-5) /hpf Urine RBC (Auto) (0-4) /hpf U Hyaline Cast (Auto) (0-5) /lpf U Epithel Cells (Auto) (0-5) /lpf Urine Bacteria (Auto) (Negative) 01/11/19 01/11/19 Range/Units 05:55 06:13 WBC (4.8-10.8) K/uL RBC (4.2-5.4) M/uL Hgb (12.0-16.0) g/dL Hct (37-47) % MCV (80-100) fL MCH (25-34) pg MCHC (32-36) g/dL RDW Std Deviation (36.4-46.3) fL RDW Coeff of Jeannie (11.5-14.5) % Plt Count (130-400) K/uL MPV (7.4-10.4) fL Immature Gran % (Auto) % Neut % (Auto) % Lymph % (Auto) % [place] % (Auto) % Eos % (Auto) % Baso % (Auto) % Immature Gran # (Auto) (0.00-0.02) K/uL Neut # (Auto) (1.4-6.5) K/uL Lymph # (Auto) (1.2-3.4) K/uL [place] # (Auto) (0.11-0.59) K/uL Eos # (Auto) (0-0.5) K/uL Baso # (Auto) (0-0.2) K/uL Sodium (136-145) mmol/L Potassium (3.5-5.1) mmol/L Chloride (98-107) mmol/L Carbon Dioxide (21-32) mmol/L Anion Gap (3-11) BUN (7-18) mg/dl Creatinine (0.6-1.2) mg/dl Est Cr Clr Drug Dosing ml/min Est GFR ( Amer) Est GFR (Non-Af Amer) BUN/Creatinine Ratio (10-20) Glucose (70-99) mg/dl POC Lactic Acid Darryl 1.21 (0.90-1.70) mmol/L Calcium (8.5-10.1) mg/dl Magnesium (1.8-2.4) mg/dl Total Bilirubin (0.2-1) mg/dl AST (15-37) U/L ALT (12-78) U/L Alkaline Phosphatase (45-117) U/L Troponin I (0-0.045) ng/ml Total Protein (6.4-8.2) gm/dl Albumin (3.4-5.0) gm/dl Globulin (2.5-4.0) gm/dl Albumin/Globulin Ratio (0.9-2) Lipase (73-393) U/L Procalcitonin (0-0.5) ng/ml TSH (0.300-4.500) uIu/ml Urine Color Yellow Urine Appearance Clear (Clear) Urine pH 5.0 (4.5-7.5) Ur Specific [place] 1.021 (1.000-1.030) Urine Protein Negative (Negative) Urine Glucose (UA) Negative (Negative) Urine Ketones Negative (Negative) Urine Blood Negative (Negative) Urine Nitrite Negative (Negative) Urine Bilirubin Negative (Negative) Urine Urobilinogen Negative (Negative) Ur Leukocyte Esterase 1+ H (Negative) Urine WBC (Auto) 10-30 H (0-5) /hpf Urine RBC (Auto) 0-4 (0-4) /hpf U Hyaline Cast (Auto) 1-5 (0-5) /lpf U Epithel Cells (Auto) >30 H (0-5) /lpf Urine Bacteria (Auto) Negative (Negative) Imaging Data Attestation: I personally reviewed and interpreted this imaging study as follows: My Impression: 1V CHEST X-RAY: No cardiomegaly. No effusions. No wide mediastinum. No focal consolidation. Unch anged compared to prior. Radiologist's Impression: Radiology results as stated below per my review and the radiologist's interpretation: CT SCAN OF THE BRAIN WITHOUT IV CONTRAST CLINICAL HISTORY: Change in mental status. COMPARISON STUDY: CT of the brain dated 01/06/2019. TECHNIQUE: Unenhanced axial CT scan of the brain is performed from the vertex to the skull base. A dose lowering technique was utilized adhering to the principles of ALARA. CT DOSE: 537.48 mGy.cm FINDINGS: Brain parenchyma: There are age-related involutional changes noting advanced confluent subcortical and periventricular microangiopathic change. There is no hemorrhage, mass effect, or evidence of acute territorial ischemia by CT criteria. Briceño-white matter differentiation is preserved. No extra-axial fluid collection is seen. Ventricles, sulci, cisterns: Prominent secondary to involutional change. Intracranial vasculature: There is atherosclerotic calcification of the cavernous carotid and vertebral arteries. Calvarium: Unremarkable. Sinuses and mastoids: The visualized paranasal sinuses are clear. The mastoid air cells are well pneumatized. Orbits: The bony orbits are grossly intact. There are bilateral ocular lens implants. IMPRESSION: Senescent changes as above with no hemorrhage, mass effect, or evidence of acute territorial ischemia by CT criteria. Electronically signed by: Julian Green M.D. 01/11/2019 7:09 AM ECG Data Attestation: I personally reviewed and interpreted this ECG as follows: Indication: weakness Rate (beats per minute): 88 Rhythm: sinus rhythm Findings: + other (normal axis; normal intervals ); no PAC, no PVC, no ST depression, no ST elevation, no acute ischemic change and no ectopy Blood Pressure Blood Pressure Findings: Normal blood pressure MDM Narrative Patient presenting here with concerns of feeling slightly confused and fatigue. Patient was disoriented on bedside questioning. Patient did have recent urinary tract infection and initial thought on first ER visit was that perhaps she was having a bad reaction to the antibiotic Cipro. Following evaluation of the initial urine culture, she was changed to Ceftin ear and states she has been continuing this at home without any improvement in her symptoms. Patient's other labs are reassuring and do appear improved even compared to several days ago on her ER visit. I do not suspect bacteremia/sepsis, patient hemodynamically stable. Due to concern for confusion which is new for the stef ent and 's report of near syncopal events due to weakness at home, discussed with them additional inpatient management and they were in agreement. Case discussed with hospitalist. No ectopy or dysrhythmia noted on telemetry, no acute focal neuro deficit noted on bedside exam and head CT unremarkable for acute pathology. Patient was started on gentle IV fluid rehydration. It is not clear if this is a true failed outpatient treatment of her urinary tract infection, a medication reaction, or other etiology of her disorientation and weakness. Impression & Plan Confusion, Generalized weakness, Acute UTI, Chronic kidney disease, Anemia Discharge Plan Visit Data *Final* Discharge Date/Time: 01/11/19 08:21 Chief Complaint: Syncope Stated Complaint: SYNCOPE ED Provider: Karla Judd Discharge Problem: Confusion, Generalized weakness, Acute UTI, Chronic kidney disease, Anemia Patient Disposition: Admitted As Inpatient Discharge Instructions Interventions: ED Discharge Assessment Last Done: 01/11/19 08:21 Discharge Problem: Chronic kidney disease Qualifiers: Chronic kidney disease stage: unspecified stage Qualified Code(s): N18.9 - Chronic kidney disease, unspecified Anemia Qualifiers: Anemia type: unspecified type Qualified Code(s): D64.9 - Anemia, unspecified The scribe's documentation has been prepared under my direction and personally reviewed by me in its entirety. I confirm that the note above accurately reflects all work, treatment, procedures, and medical decision making performed by me.
[2019-01-12] MEDS: ACETAMINOPHEN 325 MG TAB PO PRN (12:51)
--- NOTE | 2019-01-12 16:37 | Hospitalist Progress Note ---
Date of Service January 12, 2019 Assessment & Plan (1) Acute dehydration: NSS at 80cc/hr for 24 hours, stop today BUN and Cr at baseline (2) Acute UTI: Klebsiella pneumoniae on outpatient urine culture continue to treat with Rocephin no signs of sepsis, WBC normal, afebrile no growth on repeat urine culture (3) Confusion: likely due to UTI and dehydration acute metabolic encephalopathy minimal improvement thus far, she does have a degree of dementia which is playing a role (4) Generalized weakness: consult PT/OT to make sure she is strong enough to return home will try to discharge tomorrow if strong enough Subjective not much history again from the patient she says she is feeling okay, no specific complaints except that she misses her talked with her Benjamín over the phone he described several episodes where she seemed to get herself worked up, she passed out he thinks this happened twice discussed that this had not happened while here her BP has been elevated, never low rhythm stable on monitor will see how she does with therapy, may go home tomorrow Review of Systems Review of Systems: Unobtainable due to cognitive status Physical Exam Constitutional: WD/WN, vitals as above + ill appearing and + lethargic Eyes: PERRL, conjunctivae normal, anicteric sclerae ENMT: external ear and nose normal, oropharynx normal Neck: trachea midline, no thyromegaly Respiratory: normal respiratory effort, lungs clear to auscultation Cardiovascular: RRR, no murmur, no edema Gastrointestinal (Abdomen): normal bowel sounds, soft, nontender, no hepatosplenomegaly Musculoskeletal: no cyanosis or clubbing, extremities motor strength 5/5 Skin: no rashes, warm and dry Neurologic: patellar DTR's 2+ bilat, sensation intact and PERRL, EOMI, accommodation nl, no face palsy, no dysarthria Psychiatric: Orientation: alert, oriented to person and cooperative; + not oriented to place and + not oriented to time Lymphatic: no cervical or axillary lymphadenopathy Results & Data Vital Signs (Past 12 Hours) Vital Signs Temp Pulse Resp BP BP Pulse Ox 01/12/19 15:22 36.4 C L 77 18 184/84 H 100 01/12/19 11:45 36.5 C 86 19 130/78 97 01/12/19 09:03 184/77 H 01/12/19 07:23 36.4 C L 77 16 180/90 H 94 Laboratory Results Laboratory Results - last 24 hr 01/12/19 01/12/19 01/12/19 07:42 07:42 11:21 WBC 4.91 RBC 3.17 L Hgb 9.9 L Hct 30.3 L MCV 95.6 MCH 31.2 MCHC 32.7 RDW Std Deviation 49.1 H RDW Coeff of Jeannie 14.1 Plt Count 248 MPV 9.6 Immature Gran % (Auto) 0.4 Neut % (Auto) 52.5 Lymph % (Auto) 34.4 Collier % (Auto) 8.8 Eos % (Auto) 3.5 Baso % (Auto) 0.4 Immature Gran # (Auto) 0.02 Neut # (Auto) 2.58 Lymph # (Auto) 1.69 Collier # (Auto) 0.43 Eos # (Auto) 0.17 Baso # (Auto) 0.02 Sodium 144 Potassium 4.1 Chloride 118 H Carbon Dioxide 20 L Anion Gap 6.0 BUN 38 H Creatinine 1.28 H Est Cr Clr Drug Dosing 33.5 Est GFR ( Amer) 44.8 Est GFR (Non-Af Amer) 38.6 BUN/Creatinine Ratio 29.5 H Glucose 98 POC Glucose 113 H Calcium 8.0 L Medications Administered Current Inpatient Medications Acetaminophen (Tylenol) 650 mg PO Q4H PRN PRN Reason: Pain or Fever Stop: 02/10/19 09:02 Last Admin: 01/12/19 12:51 Dose: 650 mg Documented by: Donepezil HCl (Aricept) 10 mg PO QAM [facility] Stop: 02/10/19 09:02 Last Admin: 01/12/19 08:27 Dose: 10 mg Documented by: Heparin Sodium (Porcine) (Heparin Sodium (Porcine)) 5,000 units SQ Q8 [facility] Stop: 02/10/19 13:59 Last Admin: 01/12/19 14:11 Dose: 5,000 units Documented by: Hydralazine HCl (Hydralazine Hcl) 10 mg IV Q6 PRN PRN Reason: Blood Pressure - High Stop: 02/10/19 16:21 Last Admin: 01/12/19 09:04 Dose: 10 mg Documented by: Ceftriaxone Sodium 1,000 mg/ (Dextrose) 50 mls @ 100 mls/hr IV DAILY@0900 [facility]; Protocol Stop: 01/21/19 09:59 Last Infusion: 01/12/19 09:16 Dose: Infused Documented by: Sodium Chloride (Nss 1000ml) 1,000 mls @ 125 mls/hr IV .Q8H [facility] Stop: 02/10/19 09:29 Last Admin: 01/12/19 11:09 Dose: 125 mls/hr Documented by: Levothyroxine Sodium (Synthroid) 75 mcg PO DAILYBB [facility] Stop: 02/10/19 09:29 Last Admin: 01/12/19 05:59 Dose: 75 mcg Documented by: Miconazole Nitrate (Desenex) 1 appln EXT PRN PRN PRN Reason: Affected Skin Folds Stop: 02/11/19 06:19 Mirtazapine (Remeron) 7.5 mg PO HS [facility] Stop: 02/10/19 20:59 Last Admin: 01/11/19 21:07 Dose: 7.5 mg Documented by: Ondansetron HCl (Zofran) 4 mg IV Q6H PRN PRN Reason: Nausea Stop: 02/10/19 09:02 Pantoprazole [facility]ix) [facility] Stop: 02/10/19 09:02 Last Admin: 01/12/19 05:59 Dose: 40 mg Documented by: Potassium Chloride (Klor-Con M10) 10 meq PO QPM [facility] Stop: 02/10/19 20:59 Last Admin: 01/11/19 21:07 Dose: 10 meq Documented by: Simvastatin (Zocor) 20 mg PO QPM [facility] Stop: 02/10/19 20:59 Last Admin: 01/11/19 21:07 Dose: 20 mg Documented by: Valacyclovir HCl (Valtrex) 1,000 mg PO BID [facility]; Protocol Stop: 01/12/19 23:59 Last Admin: 01/12/19 08:26 Dose: 1,000 mg Documented by: Venlafaxine HCl (Effexor Extended Release) [facility] [place] Stop: 02/10/19 09:02 Last Admin: 01/12/19 08:26 Dose: 150 mg Documented by: PG Care Time/CCT Total # of Minutes Spent Total Time Spent with Patient: Total time spent is greater than 50% in coordination of care (as documented) at patient's floor/unit and/or counseling patient:
[2019-01-12] MEDS: POTASSIUM CHLORIDE 10 MEQ TABCR PO SCH (21:11)
[2019-01-12] MEDS: MIRTAZAPINE TAB 15 MG TAB PO SCH (21:12)
[2019-01-12] MEDS: SIMVASTATIN 20 MG TAB PO SCH (21:13)
[2019-01-13] MEDS ORDERED: TRAMADOL HCL 50 MG TABLET PO STA (01:15)
[2019-01-13] MEDS: SODIUM CHLORIDE 0.9% 1000ML 1,000 ML IV SCH (03:58)
[2019-01-13] MEDS: HEPARIN SOD 5,000 UNIT/0.5 ML VIAL SQ SCH (06:00)
[2019-01-13] MEDS: PANTOprazole 40 MG TAB PO SCH (06:00)
[2019-01-13] MEDS: LEVOTHYROXINE SODIUM 75 MCG TABLET PO SCH (06:00)
[2019-01-13] MEDS: DONEPEZIL HCL 10 MG TAB PO SCH (08:29)
[2019-01-13] MEDS: VENLAFAXINE HCL XR 150 MG CAPXR PO SCH (08:29)
[2019-01-13] MEDS: ACETAMINOPHEN 325 MG TAB PO PRN (08:32)
[2019-01-13] MEDS: cefTRIAXone SODIUM 1,000 MG in DEXTROSE 5% 50 ML IV SCH (08:56)
[2019-01-13] MEDS ORDERED: HydrALAZINE TAB 50 MG TAB PO SCH (09:30)
[2019-01-13] MEDS ORDERED: TRAMADOL HCL 50 MG TABLET PO PRN (09:31)
--- NOTE | 2019-01-15 22:21 | Discharge Summary ---
Date of Service January 13, 2019 Admission HPI Per Admitting Provider 83 yo female with recent history of UTI that has been treated with Cipro and Cefdinir but she has not been doing well. She says that she was diagnosed with Klebsiella UTI on 01/02/19. Initially given Cefdinir but she returned to the ED because she was feeling weak and light headed. Thought that maybe she was having an adverse reaction to the Cefdinir so she was changed to Cipro. This did not change anything. Her history is slightly limited due to being tired and unwilling to really expand further on her answers, most of them were simply yes or no. She admitted to light headed feeling when standing but did not say if she actually felt dizzy. No falls but she was close to falling at one point. She denies fever, chills, sweats. Denies chest pain, dyspnea, palpitations. Denies nausea, vomiting, diarrhea, abdominal pain. Her appetite has been diminished. No rash. Diffuse muscle aches but no severe joint pain. Generalized weakness. Principal Diagnosis Acute metabolic encephalopathy due to UTI and dehydration Discharge Exam Constitutional WD/WN, vitals as above Eyes PERRL, conjunctivae normal, anicteric sclerae ENMT external ear and nose normal, oropharynx normal Neck trachea midline, no thyromegaly Respiratory normal respiratory effort, lungs clear to auscultation Cardiovascular RRR, no murmur, no edema Gastrointestinal (Abdomen) normal bowel sounds, soft, nontender, no hepatosplenomegaly Musculoskeletal no cyanosis or clubbing, extremities motor strength 5/5 Skin no rashes, warm and dry Neurologic patellar DTR's 2+ bilat, sensation intact and PERRL, EOMI, accommodation nl, no face palsy, no dysarthria Psychiatric A+Ox3, euthymic affect Orientation: alert, oriented to person and cooperative; + not oriented to place and + not oriented to time Lymphatic no cervical or axillary lymphadenopathy Discharge Data Allergies Allergy/AdvReac Type Severity Reaction Status Date / Time celecoxib Allergy Severe THROAT Verified 01/17/19 14:43 TIGHTENS pregabalin Allergy Severe altered Verified 01/17/19 14:43 mental status amitriptyline Allergy Intermediate NERVOUSNESS Verified 01/17/19 14:43 amlodipine Allergy Intermediate HEAD FILLS Verified 01/17/19 14:43 UP, ABD PAIN gabapentin Allergy Intermediate HIVES Verified 01/17/19 14:43 metoprolol Allergy Intermediate HEAD FILLS Verified 01/17/19 14:43 UP atenolol Allergy Unknown Unknown Verified 01/17/19 14:43 chlorthalidone Allergy Unknown CAN'T Verified 01/17/19 14:43 REMEMBER clonazepam Allergy Unknown CAN'T Verified 01/17/19 14:43 REMEMBER Estrogens Allergy Unknown CAN'T Verified 01/17/19 14:43 REMEMBER hydrochlorothiazide Allergy Unknown CAN'T Verified 01/17/19 14:43 REMEMBER methyltestosterone Allergy Unknown CAN'T Verified 01/17/19 14:43 REMEMBER Progestins Allergy Unknown CAN'T Verified 01/17/19 14:43 REMEMBER Sulfa (Sulfonamide Allergy Unknown CAN'T Verified 01/17/19 14:43 Antibiotics) REMEMBER prednisone AdvReac Intermediate HEADACHE,FL Verified 01/17/19 14:43 USHING Consultations 01/11/19 07:06 ED Decision to Admit Stat Ordered Studies 01/11/19 05:27 CT head/brain wo con Urgent Hospital Course (1) Acute dehydration: NSS at 80cc/hr for 24 hours BUN and Cr at baseline (2) Acute UTI: Klebsiella pneumoniae on outpatient urine culture continue to treat with Rocephin no signs of sepsis, WBC normal, afebrile no growth on repeat urine culture (3) Confusion: likely due to UTI and dehydration acute metabolic encephalopathy much more pleasant, ready to go home, wants to go home more alert and oriented to person (4) Generalized weakness: consult PT/OT to make sure she is strong enough to return home (5) Hypertension: BP elevated during stay started on Hydralazine 25mg TID as other medications were listed as allergies increased to 50mg TID with better BP control follow up with PCP Total Time Total Time Spent Total Time Spent (In Minutes): 25 minutes Total Time Includes: Examination of the Patient, Discharge Planning and Medication Reconciliation Discharge Plan Discharge Items Patient Disposition: Home - Self-Care Reason For Visit: PRE SYNCOPE, UTI, DEHYDRATION Condition on Discharge: Good Activity: Resume your previous activity Non-emergency contact: Primary Care Provider Follow-up/Referrals: Daniel Vincent MD [Primary Care Provider] - 01/19/19 11:15 am (Please, follow up with Dr. Rangel Guerra on TuesdayJanuary 19 at 11:15 am. *If you need to change this appointment, call the office at [phone].) Addtl Cnc Supervisor Provider Instructions: Medications: - stop all antibiotics, you have completed enough treatment, no more Cefdinir or Cipro - HYDRALAZINE: new blood pressure medication, 50mg three times a day, script sent to pharmacy In summary, it is unclear what caused your syncopal episodes no events documented on the monitor treated you for dehydration and UTI your blood has been elevated at times, started on Hydralazine 25mg three times a day, dose increased to 50mg, tolerating well recommend that you continue on this medication close follow up with Dr. Rangel Guerra this week on 01/19 Stand-Alone Forms: My [facility] Medications and DC Order Prescriptions: New hydralazine 50 mg Tablet 50 mg PO TID 30 Days Qty: 90 RF: 1 Continued levothyroxine [Levoxyl] 75 mcg Tablet 75 mcg PO QAM Qty: 0 RF: 3 simvastatin [Zocor] 20 mg Tablet 20 mg PO QAM Qty: 0 RF: 0 donepezil [Aricept] 10 mg Tablet 10 mg PO QAM Qty: 0 RF: 0 potassium chloride 10 mEq Capsule, Extended Release 10 meq PO QPM Qty: 0 RF: 0 acetaminophen [Tylenol] 325 mg Tablet 325 mg PO Q6H PRN (Reason: Pain) RF: 0 tramadol [Ultram] 50 mg tablet 50 mg PO DAILY PRN (Reason: Pain) RF: 0 glucosamine-chondroitin [Osteo Bi-Flex] 250-200 mg Tablet 1 tab PO QAM RF: 0 Vitron-C 65 mg iron- 125 mg Tablet,Delayed Release (Dr/Ec) 1 tab PO DAILY RF: 0 Ocuvite Eye Health 50 mg-15 unit- 4.5 mg-2.5 mg Tablet,Chewable 1 tab PO DAILY RF: 0 pantoprazole [Protonix] 40 mg Tablet,Delayed Release (Dr/Ec) 40 mg PO QAM RF: 0 mirtazapine [Remeron] 15 mg Tablet 7.5 mg PO HS RF: 0 furosemide [Lasix] 40 mg Tablet 40 mg PO Q2D RF: 0 venlafaxine [Effexor XR] 150 mg capsule,extended release 24hr 150 mg PO QAM RF: 0 Discontinued ciprofloxacin HCl 250 mg tablet 250 mg PO BID RF: 0 cefdinir 300 mg capsule 300 mg PO BID 10 Days Qty: 20 RF: 0 No Action thiamine HCl (vitamin B1) 100 mg tablet 200 mg PO BID 30 Days Qty: 120 RF: 0 Discharge Orders: Discharge Order (Routine); Ordered 01/13/19 Ordered By: Gabriele Bennett Admission Data Admit Date/Time: 01/11/19 07:14 Attending Provider: Gabriele Bennett Admit Provider: Gabriele Bennett Primary Care Provider: Daniel Vincent Other Providers: Gabriele Bennett Other Interventions: Discharge Summary Assessment (RN) Last Done: 01/13/19 10:32 DC Date/Time DO NOT enter until pt leaves facility: 01/13/19 11:52
== END 2019-01-13 11:52 | disposition home or self-care (01) ==
LOC: ED 05:17 → 2W 05:17
DX: M19.90 Unspecified osteoarthritis, unspecified site; E86.0 Dehydration; N39.0 Urinary tract infection, site not specified; R53.1 Weakness; E78.5 Hyperlipidemia, unspecified; F32.9 Major depressive disorder, single episode, unspecified; R41.0 Disorientation, unspecified; Z79.899 Other long term (current) drug therapy; Z88.2 Allergy status to sulfonamides; I12.9 Hypertensive chronic kidney disease with stage 1 through stage 4 chronic kidney disease, or unspecified chronic kidney disease; N18.3 Chronic kidney disease, stage 3 (moderate); F03.90 Unspecified dementia, unspecified severity, without behavioral disturbance, psychotic disturbance, mood disturbance, and anxiety; Z88.8 Allergy status to other drugs, medicaments and biological substances

== ENCOUNTER 2019-01-17 11:56 | Observation (INO) ==
[2019-01-17] MEDS ORDERED: SODIUM CHLORIDE 0.9% 1000ML 500 ML IV ONE (12:17)
--- NOTE | 2019-01-17 12:35 | XRay Report ---
XR chest 1V portable CLINICAL HISTORY: Chest Pain dyspnea COMPARISON STUDY: 01/11/2019 FINDINGS: Mild stable cardiomegaly. Fixed hiatal hernia. Diaphragms are smooth. Lungs are clear. IMPRESSION: No acute process. Small hiatal hernia. The above report was generated using voice recognition software. It may contain grammatical, syntax or spelling errors. Electronically signed by: Sotero Hogan M.D. 01/17/2019 12:34 PM
[2019-01-17 12:37] LABS: Basophils # (auto) 0.02 K/uL (0-0.2); Basophils % (auto) 0.3 %; Eosinophils # (auto) 0.11 K/uL (0-0.5); Eosinophils % (auto) 1.8 %; Hematocrit (blood only) 34.8 % (37-47); Hemoglobin 11.6 g/dL (12.0-16.0); Immature Granulocytes # (auto) 0.01 K/uL (0.00-0.02); Immature Granulocytes % (auto) 0.2 %; Lymphocytes # (auto) 1.26 K/uL (1.2-3.4); Lymphocytes % (auto) 21.2 %; Mean Corpuscular Hgb Conc 33.3 g/dL (32-36); Mean Corpuscular Volume 98.3 fL (80-100); Mean Platelet Volume 9.4 fL (7.4-10.4); Monocytes # (auto) 0.44 K/uL (0.11-0.59); Monocytes % (auto) 7.4 %; Neutrophils # (auto) 4.11 K/uL (1.4-6.5); Neutrophils % (auto) 69.1 %; Platelet Count 308 K/uL (130-400); RDW Coefficient of Variation 16.1 % (11.5-14.5); RDW Standard Deviation 50.8 fL (36.4-46.3); Red Blood Count 3.54 M/uL (4.2-5.4); White Blood Count 5.95 K/uL (4.8-10.8)
[2019-01-17 12:45] LABS: Prothrombin Time 10.4 Seconds (9.0-12.0)
[2019-01-17 12:55] LABS: Albumin Level 3.4 gm/dl (3.4-5.0); BUN Creatinine Ratio 13.5 (10-20); Calcium 8.5 mg/dl (8.5-10.1); Est GFR (African American) 32.9; Est GFR (Non-African American) 28.4; Magnesium 2.1 mg/dl (1.8-2.4); Potassium 3.7 mmol/L (3.5-5.1)
[2019-01-17 13:10] LABS: Albumin Globulin Ratio 0.8 (0.9-2); Bilirubin,Total 0.3 mg/dl (0.2-1); Globulin 4.1 gm/dl (2.5-4.0); Phosphorus 4.4 mg/dl (2.5-4.9); Total Protein 7.5 gm/dl (6.4-8.2); Troponin I 0.097 ng/ml (0-0.045)
[2019-01-17 13:37] LABS: Appearance Urine Turbid (Clear); Bacteria Urine Automated Negative (Negative); Bilirubin Urine Negative (Negative); Blood Urine 2+ (Negative); Color Urine Yellow; Epithelial Cell Urine Auto >30 /lpf (0-5); Glucose Urine UA Negative (Negative); Ketones Urine Negative (Negative); Leukocyte Esterase Urine 3+ (Negative); Nitrite Urine Negative (Negative); Protein Urine Negative (Negative); Specific Gravity Urine 1.013 (1.000-1.030); Urobilinogen Urine Negative (Negative); WBC Urine Automated >30 /hpf (0-5); pH Urine 5.5 (4.5-7.5)
--- NOTE | 2019-01-17 14:56 | History & Physical Report ---
Date of Service January 17, 2019 Assessment & Plan (1) Generalized weakness: Patient with generalized weakness, difficulty rising from a chair today requiring two people to assist. On physical exam she has equal strength bilaterally 5/5. Gait not assessed. Patient is living in a condo with her at present, [employer] 3x weekly. It was recommended by [facility] that she be evaluated by PT/OT for possible rehabilitation placement. Suspect that dehydration and deconditioning are contributing significantly to patient's overall weakness. Also some -Observation to medical floor with telemetry monitoring -Check ESR and CRP - ?PMR in 83yo female with difficulty rising from chair, although no limb girdle weakness appreciated on exam -Fall precautions -PT/OT evaluation, possible placement Present on Admission?: Yes (2) Elevated troponin: Patient denies chest discomfort, palpitations, SOB. No prior history of CAD or AK. Troponin x 1 mildly elevated at 0.097 in setting of elevated BUN and Cr. Patient also with some EKG changes from prior study that may suggest prior ischemic event. -Telemetry monitoring -Trend troponin q 8 hours -2D echocardiogram -Consider cardiology consultation pending results of above. -Continue Simvastatin Present on Admission?: Yes (3) Acute dehydration: Patient with poor PO intake per , appears dry on clinical exam. Labs suggestive of hemoconcentration and elevated BUN/Cr. -NSS at 100mL/hr x 2 liters -Encourage PO intake -Continue Remeron which may assist with appetite as well Present on Admission?: Yes (4) Chronic kidney disease: Patient with CKD stage III, mildly elevated BUN and Cr now in setting of poor PO intake, dehydration -Hold Lasix for now -Avoid nephrotoxic agents -Renal dosing where appropriate -IVF - NSS at 100mL/hr x 2 liters -Repeat labs in AM Present on Admission?: Yes (5) Dementia: Patient is fairly functional at home. Had what sounds to be acute delirium/confusion during last admission -Continue Aricept -Delirium prevention strategies, frequent orientation, maintain sleep/wake cycle where able, ambulation with assistance as needed Present on Admission?: Yes (6) Anemia: Patient with normochromic/normocytic anemia with Hg=11.6, Hct=34.8. This is up from prior values of 9.9 and 30.3, respectively (on 01/12/19), ?hemoconcentration in setting of dehydration -IVF as above -Repeat CBC in AM -No indication for transfusion Present on Admission?: Yes (7) Hypertension: Blood pressure mildly elevated -Continue Hydralazine -Continue to monitor Present on Admission?: Yes (8) Hypothyroidism: Chronic. Well controlled. TSH=2.76 -Continue Synthroid F/E/N - NSS at 100mL/hr x 2 liters, montior electrolytes and replete as needed, regular diet as tolerated, encourage PO intake. Continue MVI Ppx -Lovenox 30mg, continue home Protonix Code - Full per discussion with patient, at bedside Disposition - Admit to medical floor with telemetry Present on Admission?: Yes History of Present Illness Chief Complaint: weakness Primary Care Provider: Daniel Vincent MD Dee Saldivar is a david 83yo C female with multiple medical comorbidities to include HTN/HLP/CKD III and Dementia. She presents today with weakness, inability to get up from a chair. Her is at bedside and provides the majority of the story. Patient lives in a condominium with her . They have Home Health services on / from 09:00 - 13:00 and are in the process of trying to obtain services on as well. They have family nearby and supportive neighbors as well. Patient ambulates in the home with a walker. Patient with dementia. reports that she is lucid most of the time and is able to have conversations, go to dinner and take trips. She has infrequent episodes of confusion. Patient was admitted to [facility] from 01/11 - 01/15 for dehydration, Klebsiella UTI and confusion as well as generalized weakness. She was discharged home in stable condition on 01/15/19. reports that yesterday she was doing well and ambulating in the home. This morning she walked to the bathroom without difficulty. The [employer]ORBIKE [employer]ER came later in the day and was having a difficult time getting the patient up from a chair to go shopping. Her assisted and it took him and the aide 45 minutes to get the patient up from a chair. She reports that she felt weak and unable to stand. Later in the day she was watching TV, she ate dinner and her attempted to get her up and assist her to the bathroom but was again unable to do so. Patient with no additional complaints. Specifically denies chest pain/palpitations/SOB or diaphoresis. She denies fevers/chills/nausea/vomiting/abdominal pain. She denies dysuria but has some urinary frequency. She has occasional episodes of dizziness and feeling "spaced out". Her also reports that she is a poor eater and does not drink much during the day. ER Course: NSS x 500mL Allergies Allergy/AdvReac Type Severity Reaction Status Date / Time celecoxib Allergy Severe THROAT Verified 01/17/19 14:43 TIGHTENS pregabalin Allergy Severe altered Verified 01/17/19 14:43 mental status amitriptyline Allergy Intermediate NERVOUSNESS Verified 01/17/19 14:43 amlodipine Allergy Intermediate HEAD FILLS Verified 01/17/19 14:43 UP, ABD PAIN gabapentin Allergy Intermediate HIVES Verified 01/17/19 14:43 metoprolol Allergy Intermediate HEAD FILLS Verified 01/17/19 14:43 UP atenolol Allergy Unknown Unknown Verified 01/17/19 14:43 chlorthalidone Allergy Unknown CAN'T Verified 01/17/19 14:43 REMEMBER clonazepam Allergy Unknown CAN'T Verified 01/17/19 14:43 REMEMBER Estrogens Allergy Unknown CAN'T Verified 01/17/19 14:43 REMEMBER hydrochlorothiazide Allergy Unknown CAN'T Verified 01/17/19 14:43 REMEMBER methyltestosterone Allergy Unknown CAN'T Verified 01/17/19 14:43 REMEMBER Progestins Allergy Unknown CAN'T Verified 01/17/19 14:43 REMEMBER Sulfa (Sulfonamide Allergy Unknown CAN'T Verified 01/17/19 14:43 Antibiotics) REMEMBER prednisone AdvReac Intermediate HEADACHE,FL Verified 01/17/19 14:43 USHING Home Medications Home Medications Medication Instructions Recorded Confirmed Type levothyroxine [Levoxyl] 75 mcg PO QAM #0 tab 10/08/16 01/17/19 History simvastatin [Zocor] 20 mg PO QAM #0 tab 10/08/16 01/17/19 History donepezil [Aricept] 10 mg PO QAM #0 tab 07/14/17 01/17/19 History potassium chloride 10 meq PO QPM #0 cap 08/12/17 01/17/19 History mirtazapine [Remeron] 7.5 mg PO HS 04/16/18 01/17/19 History pantoprazole [Protonix] 40 mg PO QAM 04/16/18 01/17/19 History furosemide [Lasix] 40 mg PO Q2D 08/03/18 01/17/19 History venlafaxine [Effexor XR] 150 mg PO QAM 08/03/18 01/17/19 History Ocuvite Eye Health 1 tab PO DAILY 10/28/18 01/17/19 History Vitron-C 1 tab PO DAILY 10/28/18 01/17/19 History acetaminophen [Tylenol] 325 mg PO Q6H PRN 10/28/18 01/17/19 History glucosamine-chondroitin [Osteo 1 tab PO QAM 10/28/18 01/17/19 History Bi-Flex] tramadol [Ultram] 50 mg PO DAILY PRN 10/28/18 01/17/19 History hydralazine 50 mg PO TID 30 Days #90 tab 01/13/19 01/17/19 Rx Past Med/Surg History Medical History GI bleed LORNA (acute kidney injury) Chronic cellulitis CKD (chronic kidney disease), stage III Cataract Chronic anemia Dementia Depression HLD (hyperlipidemia) HTN (hypertension) Iron deficiency anemia Lumbar spinal stenosis Osteoarthritis Surgical History H/O laminectomy History of carpal tunnel release History of thyroidectomy History of total knee arthroplasty S/P lumpectomy of breast Family History Unknown No problems noted. 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 Beliefs That Will Affect Care: None marital status: Current Living Situation: Spouse current occupational status: retired Feels Safe at Home: Yes Smoking Status: Never smoker Second Hand Exposure: No ; Hx Alcohol Use: No Hx Substance Use: No Review of Systems Review of Systems: All systems reviewed & are unremarkable except as noted in HPI & below Physical Exam Physical Exam: General: frail elderly female, resting comfortably, NAD, non- toxic in appearance Skin: warm, dry, intact, no rashes or lesions HEENT: NC/AT, PERRL, EOMI, anicteric sclera, conjunctiva without injection, external ear normal to inspection and nontender, nares patent, moist mucus membranes, dentition intact, no oropharyngeal lesions, neck supple, trachea midline, no LAD, no thyromegaly, no JVD Heart: +S1/S2, regular, no m/r/g Lungs: equal air entry bilaterally, no rales/rhonchi/wheezes Abd: +BS, soft, NT/ND, no masses/organomegaly/ascites Ext: warm, 2+ pulses in UE/LE bilaterally, no clubbing/cyanosis or edema Neuro: nonfocal, speech intact, no facial droop, moving all extremities on command with equal strength 5/5 Results & Data Vital Signs (Past 12 Hours) Vital Signs Temp Pulse Resp BP Pulse Ox 01/17/19 13:08 68 15 177/89 H 99 01/17/19 13:00 67 12 01/17/19 12:33 70 20 01/17/19 12:26 36.5 C 79 16 173/97 H 96 01/17/19 12:02 73 17 173/97 H Laboratory Results Lab Results 01/17/19 01/17/19 01/17/19 Range/Units 12:20 12:20 12:20 WBC 5.95 (4.8-10.8) K/uL RBC 3.54 L (4.2-5.4) M/uL Hgb 11.6 L (12.0-16.0) g/dL Hct 34.8 L (37-47) % MCV 98.3 (80-100) fL MCH 32.8 (25-34) pg MCHC 33.3 (32-36) g/dL RDW Std Deviation 50.8 H (36.4-46.3) fL RDW Coeff of Jeannie 16.1 H (11.5-14.5) % Plt Count 308 (130-400) K/uL MPV 9.4 (7.4-10.4) fL Immature Gran % (Auto) 0.2 % Neut % (Auto) 69.1 % Lymph % (Auto) 21.2 % Norman % (Auto) 7.4 % Eos % (Auto) 1.8 % Baso % (Auto) 0.3 % Immature Gran # (Auto) 0.01 (0.00-0.02) K/uL Neut # (Auto) 4.11 (1.4-6.5) K/uL Lymph # (Auto) 1.26 (1.2-3.4) K/uL Norman # (Auto) 0.44 (0.11-0.59) K/uL Eos # (Auto) 0.11 (0-0.5) K/uL Baso # (Auto) 0.02 (0-0.2) K/uL PT 10.4 (9.0-12.0) Seconds INR 1.0 (0.9-1.1) Sodium 141 (136-145) mmol/L Potassium 3.7 (3.5-5.1) mmol/L Chloride 106 (98-107) mmol/L Carbon Dioxide 27 (21-32) mmol/L Anion Gap 8.0 (3-11) BUN 22 H (7-18) mg/dl Creatinine 1.65 H (0.6-1.2) mg/dl Est Cr Clr Drug Dosing 26.0 ml/min Est GFR ( Amer) 32.9 Est GFR (Non-Af Amer) 28.4 BUN/Creatinine Ratio 13.5 (10-20) Glucose 110 H (70-99) mg/dl Calcium 8.5 (8.5-10.1) mg/dl Phosphorus 4.4 (2.5-4.9) mg/dl Magnesium 2.1 (1.8-2.4) mg/dl Total Bilirubin 0.3 (0.2-1) mg/dl AST 29 (15-37) U/L ALT 30 (12-78) U/L Alkaline Phosphatase 113 (45-117) U/L Troponin I 0.097 H* (0-0.045) ng/ml Total Protein 7.5 (6.4-8.2) gm/dl Albumin 3.4 (3.4-5.0) gm/dl Globulin 4.1 H (2.5-4.0) gm/dl Albumin/Globulin Ratio 0.8 L (0.9-2) Lipase 276 (73-393) U/L TSH 2.760 (0.300-4.500) uIu/ml Urine Color Urine Appearance (Clear) Urine pH (4.5-7.5) Ur Specific Logan (1.000-1.030) Urine Protein (Negative) Urine Glucose (UA) (Negative) Urine Ketones (Negative) Urine Blood (Negative) Urine Nitrite (Negative) Urine Bilirubin (Negative) Urine Urobilinogen (Negative) Ur Leukocyte Esterase (Negative) Urine WBC (Auto) (0-5) /hpf Urine RBC (Auto) (0-4) /hpf U Hyaline Cast (Auto) (0-5) /lpf U Epithel Cells (Auto) (0-5) /lpf Urine Bacteria (Auto) (Negative) Ur Renal Epithelial Cell (0-5) /lpf Urine Yeast (None Prsent) 01/17/19 Range/Units 13:15 WBC (4.8-10.8) K/uL RBC (4.2-5.4) M/uL Hgb (12.0-16.0) g/dL Hct (37-47) % MCV (80-100) fL MCH (25-34) pg MCHC (32-36) g/dL RDW Std Deviation (36.4-46.3) fL RDW Coeff of Jeannie (11.5-14.5) % Plt Count (130-400) K/uL MPV (7.4-10.4) fL Immature Gran % (Auto) % Neut % (Auto) % Lymph % (Auto) % Norman % (Auto) % Eos % (Auto) % Baso % (Auto) % Immature Gran # (Auto) (0.00-0.02) K/uL Neut # (Auto) (1.4-6.5) K/uL Lymph # (Auto) (1.2-3.4) K/uL Norman # (Auto) (0.11-0.59) K/uL Eos # (Auto) (0-0.5) K/uL Baso # (Auto) (0-0.2) K/uL PT (9.0-12.0) Seconds INR (0.9-1.1) Sodium (136-145) mmol/L Potassium (3.5-5.1) mmol/L Chloride (98-107) mmol/L Carbon Dioxide (21-32) mmol/L Anion Gap (3-11) BUN (7-18) mg/dl Creatinine (0.6-1.2) mg/dl Est Cr Clr Drug Dosing ml/min Est GFR ( Amer) Est GFR (Non-Af Amer) BUN/Creatinine Ratio (10-20) Glucose (70-99) mg/dl Calcium (8.5-10.1) mg/dl Phosphorus (2.5-4.9) mg/dl Magnesium (1.8-2.4) mg/dl Total Bilirubin (0.2-1) mg/dl AST (15-37) U/L ALT (12-78) U/L Alkaline Phosphatase (45-117) U/L Troponin I (0-0.045) ng/ml Total Protein (6.4-8.2) gm/dl Albumin (3.4-5.0) gm/dl Globulin (2.5-4.0) gm/dl Albumin/Globulin Ratio (0.9-2) Lipase (73-393) U/L TSH (0.300-4.500) uIu/ml Urine Color Yellow Urine Appearance Turbid A (Clear) Urine pH 5.5 (4.5-7.5) Ur Specific Logan 1.013 (1.000-1.030) Urine Protein Negative (Negative) Urine Glucose (UA) Negative (Negative) Urine Ketones Negative (Negative) Urine Blood 2+ H (Negative) Urine Nitrite Negative (Negative) Urine Bilirubin Negative (Negative) Urine Urobilinogen Negative (Negative) Ur Leukocyte Esterase 3+ H (Negative) Urine WBC (Auto) >30 H (0-5) /hpf Urine RBC (Auto) 10-30 H (0-4) /hpf U Hyaline Cast (Auto) 1-5 (0-5) /lpf U Epithel Cells (Auto) >30 H (0-5) /lpf Urine Bacteria (Auto) Negative (Negative) Ur Renal Epithelial Cell 5-10 H (0-5) /lpf Urine Yeast Budding A (None Prsent) Diagnostic Findings XR chest 1V portable CLINICAL HISTORY: Chest Pain dyspnea COMPARISON STUDY: 01/11/2019 FINDINGS: Mild stable cardiomegaly. Fixed hiatal hernia. Diaphragms are smooth. Lungs are clear. IMPRESSION: No acute process. Small hiatal hernia. The above report was generated using voice recognition software. It may contain grammatical, syntax or spelling errors. Electronically signed by: Sotero Hogan M.D. 01/17/2019 12:34 PM Dictated: 01/17/19 1233 Transcribed: 01/17/19 1233 ECG Additional Comments: The study shows NSR at 69bpm, normal axis, WW=742, QRS=88, SVk=149, inferior Q-waves, poor R wave progression and TW flattening on anterior leads new from prior study Code Status & VTE Plan Code Status FULL VTE Prophylaxis Plan VTE Prophylaxis will be ordered: Yes PG Care Time/CCT Total # of Minutes Spent Total Time Spent with Patient: Total time spent is greater than 50% in coordination of care (as documented) at patient's floor/unit and/or counseling patient: (1) Anemia Anemia type: unspecified type Qualified Code(s): D64.9 - Anemia, unspecified (2) Dementia Dementia behavioral disturbance: without behavioral disturbance Dementia type: unspecified type Qualified Code(s): F03.90 - Unspecified dementia without behavioral disturbance (3) Hypothyroidism Hypothyroidism type: unspecified Qualified Code(s): E03.9 - Hypothyroidism, unspecified (4) Chronic kidney disease Chronic kidney disease stage: unspecified stage Qualified Code(s): N18.9 - Chronic kidney disease, unspecified (5) Hypertension Hypertension type: essential hypertension Qualified Code(s): I10 - Essential (primary) hypertension
[2019-01-17] MEDS ORDERED: TRAMADOL HCL 50 MG TABLET PO PRN (16:42)
[2019-01-17] MEDS ORDERED: ACETAMINOPHEN 325 MG TAB PO PRN (16:42)
[2019-01-17] MEDS: ENOXAPARIN INJ 30 MG/0.3 ML SYR SQ SCH (18:01)
[2019-01-17] MEDS: SODIUM CHLORIDE 0.9% 1000ML 1,000 ML IV SCH (18:01)
[2019-01-17] MEDS: HydrALAZINE TAB 50 MG TAB PO SCH (20:45)
[2019-01-17] MEDS: SIMVASTATIN 20 MG TAB PO SCH (20:46)
[2019-01-17] MEDS: MIRTAZAPINE TAB 15 MG TAB PO SCH (20:46)
--- NOTE | 2019-01-17 22:28 | Emergency Department Note ---
Entered by Shruthi Miguel acting as a scribe for Guanakito Velasquez MD History of Present Illness General Chief complaint: Weakness Time Seen by Provider: 01/17/19 12:10 Source: patient Mode of arrival: EMS Limitations: altered mental status History of Present Illness Onset (ago): day(s) Location: head (Weakness) Pain Consistency: + other (Persistent) Quality: + other (Weakness) Associated symptoms: + confusion; no fever/chills, no nausea/vomiting and no other (Diarrhea, Dysuria) The patient is an 83 year old female presenting to the Emergency Department via EMS complaining of persistent weakness starting a few days ago. The patient reports that she feels weak. She states that she is confused. She explains that she has no pain but just feels weak all over. She denies fevers, chills, cough, nausea, vomiting, diarrhea and dysuria. The HPI and ROS are limited due to confusion. Home Medications Home Medications Medication Instructions Recorded Confirmed Type levothyroxine [Levoxyl] 75 mcg PO QAM #0 tab 10/08/16 01/17/19 History simvastatin [Zocor] 20 mg PO QAM #0 tab 10/08/16 01/17/19 History donepezil [Aricept] 10 mg PO QAM #0 tab 07/14/17 01/17/19 History potassium chloride 10 meq PO QPM #0 cap 08/12/17 01/17/19 History mirtazapine [Remeron] 7.5 mg PO HS 04/16/18 01/17/19 History pantoprazole [Protonix] 40 mg PO QAM 04/16/18 01/17/19 History furosemide [Lasix] 40 mg PO Q2D 08/03/18 01/17/19 History venlafaxine [Effexor XR] 150 mg PO QAM 08/03/18 01/17/19 History Ocuvite [facility] 1 tab PO DAILY 10/28/18 01/17/19 History Vitron-C 1 tab PO DAILY 10/28/18 01/17/19 History acetaminophen [Tylenol] 325 mg PO Q6H PRN 10/28/18 01/17/19 History glucosamine-chondroitin [Osteo 1 tab PO QAM 10/28/18 01/17/19 History Bi-Flex] tramadol [Ultram] 50 mg PO DAILY PRN 10/28/18 01/17/19 History hydralazine 50 mg PO TID 30 Days #90 tab 01/13/19 01/17/19 Rx Allergies Allergy/AdvReac Type Severity Reaction Status Date / Time celecoxib Allergy Severe THROAT Verified 01/17/19 14:43 TIGHTENS pregabalin Allergy Severe altered Verified 01/17/19 14:43 mental status amitriptyline Allergy Intermediate NERVOUSNESS Verified 01/17/19 14:43 amlodipine Allergy Intermediate HEAD FILLS Verified 01/17/19 14:43 UP, ABD PAIN gabapentin Allergy Intermediate HIVES Verified 01/17/19 14:43 metoprolol Allergy Intermediate HEAD FILLS Verified 01/17/19 14:43 UP atenolol Allergy Unknown Unknown Verified 01/17/19 14:43 chlorthalidone Allergy Unknown CAN'T Verified 01/17/19 14:43 REMEMBER clonazepam Allergy Unknown CAN'T Verified 01/17/19 14:43 REMEMBER Estrogens Allergy Unknown CAN'T Verified 01/17/19 14:43 REMEMBER hydrochlorothiazide Allergy Unknown CAN'T Verified 01/17/19 14:43 REMEMBER methyltestosterone Allergy Unknown CAN'T Verified 01/17/19 14:43 REMEMBER Progestins Allergy Unknown CAN'T Verified 01/17/19 14:43 REMEMBER Sulfa (Sulfonamide Allergy Unknown CAN'T Verified 01/17/19 14:43 Antibiotics) REMEMBER prednisone AdvReac Intermediate [place] Verified 01/17/19 14:43 USHING Past Med/Surg History Medical History GI bleed LORNA (acute kidney injury) Chronic cellulitis CKD (chronic kidney disease), stage III Cataract Chronic anemia Dementia Depression HLD (hyperlipidemia) HTN (hypertension) Iron deficiency anemia Lumbar spinal stenosis Osteoarthritis Surgical History H/O laminectomy History of carpal tunnel release History of thyroidectomy History of total knee arthroplasty S/P lumpectomy of breast Family History Unknown No problems noted. Other Heart disease Hypertension Social History Preferred Language: Tajik Communication Ability: Effective Client Support Representative Required: No Beliefs That Will Affect Care: None marital status: Current Living Situation: Spouse current occupational status: retired Other Information That Helps Us Care for You: No Feels Safe at Home: Yes Safety Concerns: Feels Safe At This Time Smoking Status: Never smoker Second Hand Exposure: No ; Hx Alcohol Use: No Hx Substance Use: No Review of Systems The HPI and ROS are limited due to confusion. Physical Exam Vital Signs Vital Signs - 24 hr 01/17/19 12:02 01/17/19 12:26 01/17/19 12:33 Temperature 36.5 C Temperature Source Oral Sepsis Recent Fever Within 48 Hours No Sepsis Action Taken by Nursing No Action Required Pulse Rate 73 79 70 Pulse Rate from SpO2 Sensor Respiratory Rate 17 16 20 Respiratory Effort / Characteristics Non-Labored Spontaneous Respiratory Depth Normal Respiratory Pattern Regular Blood Pressure 173/97 H 173/97 H Blood Pressure Mean 122 122 Pulse Oximetry 96 Oxygen Delivery Method Room Air 01/17/19 13:00 01/17/19 13:08 01/17/19 13:30 Temperature Temperature Source Sepsis Recent Fever Within 48 Hours Sepsis Action Taken by Nursing Pulse Rate 67 68 73 Pulse Rate from SpO2 Sensor 68 Respiratory Rate 12 15 17 Respiratory Effort / Characteristics Respiratory Depth Respiratory Pattern Blood Pressure 177/89 H 185/85 H Blood Pressure Mean 118 118 Pulse Oximetry 99 Oxygen Delivery Method 01/17/19 14:00 01/17/19 14:02 Temperature Temperature Source Sepsis Recent Fever Within 48 Hours Sepsis Action Taken by Nursing Pulse Rate 90 81 Pulse Rate from SpO2 Sensor Respiratory Rate 17 14 Respiratory Effort / Characteristics Respiratory Depth Respiratory Pattern Blood Pressure 192/114 H 170/140 H Blood Pressure Mean 140 150 Pulse Oximetry Oxygen Delivery Method GENERAL: Awake, alert, fatigued-appearing, in no distress HENT: Normocephalic, atraumatic. Oropharynx with dry mucous membranes and otherwise unremarkable. EYES: Normal conjunctiva. Sclera non-icteric. EOMI. No nystamgus. PEARRL. NECK: Supple. No nuchal rigidity. FROM. No JVD. RESPIRATORY: CTAB. CARDIAC: Regular rate, normal rhythm. Extremities warm and well perfused. Pulses equal. ABDOMEN: Soft, non-distended. No tenderness to palpation. No rebound or guarding. No masses. RECTAL: Deferred. MUSCULOSKELETAL: Chest examination reveals no tenderness. The back is symmetrical on inspection without obvious abnormality. There is no CVA tenderness to palpation. No joint edema. LOWER EXTREMITIES: Calves are equal size bilaterally and non-tender. No edema. No discoloration. NEURO: Normal sensorium. No sensory or motor deficits noted. Moving all extremities equally with 4/5 strength. SKIN: No rash or jaundice noted. Course 1212: The patient was evaluated in room C9, and a complete history and physical examination were performed. 1219: EMR reviewed. The patient was admitted from 01/11/19 to 01/13/19 for dehydration and UTI. 1325: I discussed the patients case with Dr. Fausto MAZARIEGOS Hospitalist. She will evaluate the patient for further management. 1327: I updated the patient at this time. Consultations Consultation #1: I discussed the patients case with Dr. Fausto MAZARIEGOS spitalist. She will evaluate the patient for further management. Time: 13:25 Administered Medications Enoxaparin Sodium (Lovenox) 30 mg SQ Q24H NEHAL Stop: 02/16/19 16:59 Last Admin: 01/17/19 18:01 Dose: 30 mg Documented by: [id number] Hydralazine HCl (Apresoline) 50 mg PO TID NEHAL Stop: 02/16/19 20:59 Last Admin: 01/17/19 20:45 Dose: 50 mg Documented by: [id number] Sodium Chloride (Nss 1000ml) 1,000 mls @ 80 mls/hr IV .[id number] NEHAL Stop: 01/18/19 17:22 Last Admin: 01/17/19 18:01 Dose: 80 mls/hr Documented by: [id number] Mirtazapine (Remeron) 7.5 mg PO HS NEHAL Stop: 02/16/19 20:59 Last Admin: 01/17/19 20:46 Dose: 7.5 mg Documented by: [id number] Simvastatin (Zocor) 20 mg PO QPM NEHAL Stop: 02/16/19 20:59 Last Admin: 01/17/19 20:46 Dose: 20 mg Documented by: [id number] Discontinued Medications Sodium Chloride (Nss 1000ml) 500 mls @ 999 mls/hr IV .Q31M ONE Stop: 01/17/19 12:47 Last Infusion: 01/17/19 13:45 Dose: 0 mls/hr Documented by: [id number] Admin: 01/17/19 13:08 Dose: 999 mls/hr Documented by: [id number] Medical Decision Making Differential Diagnosis Differential Diagnosis includes but is not limited to dehydration, stroke, anemia, hypoglycemia, hyponatremia, hypernatremia, urinary tract infection, pneumonia, bronchitis, sepsis, gastroenteritis, additional abdominal pathology, metabolic abnormalities and infections. Medical Records Attestation: I reviewed the patient's medical records. Home Medications Current Medication List: was personally reviewed by me Laboratory Data Attestation: I reviewed the patient's lab results. Result diagrams: 01/17/19 12:20 01/17/19 12:20 Lab Results 01/17/19 01/17/19 01/17/19 Range/Units 12:20 12:20 12:20 WBC 5.95 (4.8-10.8) K/uL RBC 3.54 L (4.2-5.4) M/uL Hgb 11.6 L (12.0-16.0) g/dL Hct 34.8 L (37-47) % MCV 98.3 (80-100) fL MCH 32.8 (25-34) pg MCHC 33.3 (32-36) g/dL RDW Std Deviation 50.8 H (36.4-46.3) fL RDW Coeff of Jeannie 16.1 H (11.5-14.5) % Plt Count 308 (130-400) K/uL MPV 9.4 (7.4-10.4) fL Immature Gran % (Auto) 0.2 % Neut % (Auto) 69.1 % Lymph % (Auto) 21.2 % [place] % (Auto) 7.4 % Eos % (Auto) 1.8 % Baso % (Auto) 0.3 % Immature Gran # (Auto) 0.01 (0.00-0.02) K/uL Neut # (Auto) 4.11 (1.4-6.5) K/uL Lymph # (Auto) 1.26 (1.2-3.4) K/uL [place] # (Auto) 0.44 (0.11-0.59) K/uL Eos # (Auto) 0.11 (0-0.5) K/uL Baso # (Auto) 0.02 (0-0.2) K/uL PT 10.4 (9.0-12.0) Seconds INR 1.0 (0.9-1.1) Sodium 141 (136-145) mmol/L Potassium 3.7 (3.5-5.1) mmol/L Chloride 106 (98-107) mmol/L Carbon Dioxide 27 (21-32) mmol/L Anion Gap 8.0 (3-11) BUN 22 H (7-18) mg/dl Creatinine 1.65 H (0.6-1.2) mg/dl Est Cr Clr Drug Dosing 26.0 ml/min Est GFR ( Amer) 32.9 Est GFR (Non-Af Amer) 28.4 BUN/Creatinine Ratio 13.5 (10-20) Glucose 110 H (70-99) mg/dl Calcium 8.5 (8.5-10.1) mg/dl Phosphorus 4.4 (2.5-4.9) mg/dl Magnesium 2.1 (1.8-2.4) mg/dl Total Bilirubin 0.3 (0.2-1) mg/dl AST 29 (15-37) U/L ALT 30 (12-78) U/L Alkaline Phosphatase 113 (45-117) U/L Troponin I 0.097 H* (0-0.045) ng/ml Total Protein 7.5 (6.4-8.2) gm/dl Albumin 3.4 (3.4-5.0) gm/dl Globulin 4.1 H (2.5-4.0) gm/dl Albumin/Globulin Ratio 0.8 L (0.9-2) Lipase 276 (73-393) U/L TSH 2.760 (0.300-4.500) uIu/ml Urine Color Urine Appearance (Clear) Urine pH (4.5-7.5) Ur Specific [place] (1.000-1.030) Urine Protein (Negative) Urine Glucose (UA) (Negative) Urine Ketones (Negative) Urine Blood (Negative) Urine Nitrite (Negative) Urine Bilirubin (Negative) Urine Urobilinogen (Negative) Ur Leukocyte Esterase (Negative) Urine WBC (Auto) (0-5) /hpf Urine RBC (Auto) (0-4) /hpf U Hyaline Cast (Auto) (0-5) /lpf U Epithel Cells (Auto) (0-5) /lpf Urine Bacteria (Auto) (Negative) Ur Renal Epithelial Cell (0-5) /lpf Urine Yeast (None Prsent) 01/17/19 Range/Units 13:15 WBC (4.8-10.8) K/uL RBC (4.2-5.4) M/uL Hgb (12.0-16.0) g/dL Hct (37-47) % MCV (80-100) fL MCH (25-34) pg MCHC (32-36) g/dL RDW Std Deviation (36.4-46.3) fL RDW Coeff of Jeannie (11.5-14.5) % Plt Count (130-400) K/uL MPV (7.4-10.4) fL Immature Gran % (Auto) % Neut % (Auto) % Lymph % (Auto) % [place] % (Auto) % Eos % (Auto) % Baso % (Auto) % Immature Gran # (Auto) (0.00-0.02) K/uL Neut # (Auto) (1.4-6.5) K/uL Lymph # (Auto) (1.2-3.4) K/uL [place] # (Auto) (0.11-0.59) K/uL Eos # (Auto) (0-0.5) K/uL Baso # (Auto) (0-0.2) K/uL PT (9.0-12.0) Seconds INR (0.9-1.1) Sodium (136-145) mmol/L Potassium (3.5-5.1) mmol/L Chloride (98-107) mmol/L Carbon Dioxide (21-32) mmol/L Anion Gap (3-11) BUN (7-18) mg/dl Creatinine (0.6-1.2) mg/dl Est Cr Clr Drug Dosing ml/min Est GFR ( Amer) Est GFR (Non-Af Amer) BUN/Creatinine Ratio (10-20) Glucose (70-99) mg/dl Calcium (8.5-10.1) mg/dl Phosphorus (2.5-4.9) mg/dl Magnesium (1.8-2.4) mg/dl Total Bilirubin (0.2-1) mg/dl AST (15-37) U/L ALT (12-78) U/L Alkaline Phosphatase (45-117) U/L Troponin I (0-0.045) ng/ml Total Protein (6.4-8.2) gm/dl Albumin (3.4-5.0) gm/dl Globulin (2.5-4.0) gm/dl Albumin/Globulin Ratio (0.9-2) Lipase (73-393) U/L TSH (0.300-4.500) uIu/ml Urine Color Yellow Urine Appearance Turbid A (Clear) Urine pH 5.5 (4.5-7.5) Ur Specific [place] 1.013 (1.000-1.030) Urine Protein Negative (Negative) Urine Glucose (UA) Negative (Negative) Urine Ketones Negative (Negative) Urine Blood 2+ H (Negative) Urine Nitrite Negative (Negative) Urine Bilirubin Negative (Negative) Urine Urobilinogen Negative (Negative) Ur Leukocyte Esterase 3+ H (Negative) Urine WBC (Auto) >30 H (0-5) /hpf Urine RBC (Auto) 10-30 H (0-4) /hpf U Hyaline Cast (Auto) 1-5 (0-5) /lpf U Epithel Cells (Auto) >30 H (0-5) /lpf Urine Bacteria (Auto) Negative (Negative) Ur Renal Epithelial Cell 5-10 H (0-5) /lpf Urine Yeast Budding A (None Prsent) Imaging Data Radiologist's Impression: Radiology results as stated below per my review and the radiologist's interpretation: XR chest 1V portable CLINICAL HISTORY: Chest Pain dyspnea COMPARISON STUDY: 01/11/2019 FINDINGS: Mild stable cardiomegaly. Fixed hiatal hernia. Diaphragms are smooth. Lungs are clear. IMPRESSION: No acute process. Small hiatal hernia. The above report was generated using voice recognition software. It may contain grammatical, syntax or spelling errors. Electronically signed by: Sotero Hogan M.D. 01/17/2019 12:34 PM ECG Data Attestation: I personally reviewed and interpreted this ECG as follows: Indication: weakness Rate (beats per minute): 69 Rhythm: sinus rhythm Findings: + other (Possible inferior infarct. Non-specific T wave abnormality anteriorly. ); no ST elevation Blood Pressure Blood Pressure Findings: Elevated blood pressure Blood Pressure Disposition: further management by hospitalist MDM Narrative The patient is a pleasant 83 y/o woman with a pmhx of dementia, ckd, htn, hypothyroidism who presents to the emergency department with generalized weakness and confusion over the past 48 hours per HPI. Of note, patient was admitted on 01/11-01/13 for similar symptoms diagnosed with UTI and associated dehydration. On arrival the patient is fatigued appearing but in NAD, AFVSS. Patient appears clinically dry. She is pleasantly confused, alert to self. Moving all extremities equally without focal deficits. EKG without nonspecific TWA anterior without VAZQUEZ. CXR negative for PNA. WBC and platelets wnl. H/H 11.6/34.8 improved from recent. Chemistry without acidosis. Cr. 1.6 similar to prior range of values. LFTs and electrolytes unremarkable. Troponin 0.09 new from pior however likely related to dehydration in the setting of patient's CKD. UA pending. Given patient's troponin elevation, reasonable to admit for further management/hydration and likely placement. Case was discussed with Dr. Lambert, [facility] hospitalist, who will evaluate the patient for admission. Impression & Plan Acute dehydration, Generalized weakness, Elevated troponin Discharge Plan Visit Data *Final* Discharge Date/Time: 01/17/19 16:04 Chief Complaint: Weakness ED Provider: Guanakito Velasquez Discharge Problem: Acute dehydration, Generalized weakness, Elevated troponin Patient Disposition: Admitted As Inpatient Discharge Instructions Interventions: ED Discharge Assessment Last Done: 01/17/19 16:04 The scribe's documentation has been prepared under my direction and personally reviewed by me in its entirety. I confirm that the note above accurately reflects all work, treatment, procedures, and medical decision making performed by me.
[2019-01-18 03:07] LABS: Basophils # (auto) 0.01 K/uL (0-0.2); Basophils % (auto) 0.2 %; Eosinophils # (auto) 0.18 K/uL (0-0.5); Eosinophils % (auto) 3.7 %; Hemoglobin 9.7 g/dL (12.0-16.0); Immature Granulocytes # (auto) 0.01 K/uL (0.00-0.02); Immature Granulocytes % (auto) 0.2 %; Lymphocytes # (auto) 1.67 K/uL (1.2-3.4); Mean Corpuscular Hgb Conc 33.4 g/dL (32-36); Mean Platelet Volume 9.2 fL (7.4-10.4); Monocytes # (auto) 0.44 K/uL (0.11-0.59); Neutrophils % (auto) 52.9 %; Platelet Count 251 K/uL (130-400); RDW Coefficient of Variation 15.7 % (11.5-14.5); RDW Standard Deviation 49.5 fL (36.4-46.3); Red Blood Count 2.99 M/uL (4.2-5.4); White Blood Count 4.91 K/uL (4.8-10.8)
[2019-01-18 03:28] LABS: BUN Creatinine Ratio 14.1 (10-20); Blood Urea Nitrogen 19 mg/dl (7-18); Calcium 7.8 mg/dl (8.5-10.1); Carbon Dioxide 27 mmol/L (21-32); Chloride 109 mmol/L (98-107); Est GFR (African American) 41.6; Est GFR (Non-African American) 35.9; Glucose 102 mg/dl (70-99); Potassium 3.5 mmol/L (3.5-5.1); Sodium 143 mmol/L (136-145)
[2019-01-18 03:41] LABS: C Reactive Protein < 0.29 mg/dl (0-0.29); Troponin I 0.064 ng/ml (0-0.045)
[2019-01-18] MEDS: SODIUM CHLORIDE 0.9% 1000ML 1,000 ML IV SCH (05:00)
[2019-01-18] MEDS: ACETAMINOPHEN 325 MG TAB PO PRN ×2 (05:04→14:39)
[2019-01-18] MEDS: LEVOTHYROXINE SODIUM 75 MCG TABLET PO SCH (05:33)
[2019-01-18] MEDS: PANTOprazole 40 MG TAB PO SCH (08:23)
[2019-01-18] MEDS: CEROVITE ADV FORMULA TAB PO SCH (08:23)
[2019-01-18] MEDS: HydrALAZINE TAB 50 MG TAB PO SCH ×3 (08:23→20:50)
[2019-01-18] MEDS: DONEPEZIL HCL 10 MG TAB PO SCH (08:23)
[2019-01-18] MEDS: VENLAFAXINE HCL XR 150 MG CAPXR PO SCH (08:23)
[2019-01-18] MEDS: ENOXAPARIN INJ 30 MG/0.3 ML SYR SQ SCH (18:35)
[2019-01-18] MEDS: MIRTAZAPINE TAB 15 MG TAB PO SCH (20:50)
[2019-01-18] MEDS: SIMVASTATIN 20 MG TAB PO SCH (20:53)
--- NOTE | 2019-01-18 21:08 | Hospitalist Progress Note ---
Date of Service January 18, 2019 Assessment & Plan (1) Generalized weakness: Transient, resolved. Etiology?? No infectious etiology found. Nothing metabolic found. Neuro exam normal today. Sed rate and crp wnl. Deconditioning in light of recent hospitalization for UTI? Other etiology? Observe on tele. PT, OT. Rehab at [facility] post-d/c. (2) Elevated troponin: Troponin minimally elevated. No ischemic symptoms. Echo w/o wall motion abnormalities. Doubt ACS. Suspect Myocardial demand ischemia - however, uncertain what caused the demand, however. Observe on tele. (3) Acute dehydration: Resolved. Now eating well. Stop fluids. Repeat BMP am. (4) Chronic kidney disease: Creatinine minimally elevated above baseline. At baseline has stage 3 CKD. Does not appear volume contracted today but at presentation may have been modestly dehydrated. Stop fluids. Repeat BMP am. (5) Dementia: Continue Aricept "Spacey spells" - uncertain etiology. Dementia is known risk factor for seizures. Thus, obtain routine EEG. Observe on tele. Echo noted to be normal. (6) Anemia: H/H stable. Has had anemia for much of this summer. Previous iron studies wnl. Previous b12 level in 2018 was >800. Consider checking folate level. Anemia could be 2nd to CKD. (7) Hypertension: continue home meds (8) Hypothyroidism: TSH wnl recently cont synthroid (9) DVT prophylaxis: lovenox renally dosed observe overnight; EEG in am; if normal can d/c to [facility] Subjective patient sitting in chair comfortably during the visit. when asked what she thought happened at home when she was weak and couldn't get up from the chair she said "I don't know - I just was weak." she mentions episodes of "feeling spacey" at home when she doesn't respond. she could not give details or elaborate on those spells. staff report no issues. tele normal since admission. patient hoping for d/c soon. Review of Systems Respiratory: no dyspnea Cardiovascular: no chest pain Gastrointestinal: no abdominal pain Physical Exam Constitutional: well developed, well nourished, cooperative and comfortable; no acute distress ENMT: external ear and nose normal, oropharynx normal Respiratory: normal respiratory effort, lungs clear to auscultation Cardiovascular: RRR, no murmur, no edema Heart Sounds: normal S1 and normal S2 Vessels: posterior tibial pulses present and dorsalis pedis pulses present; no JVD Gastrointestinal (Abdomen): normal bowel sounds, soft, nontender, no hepatosplenomegaly Skin: no rashes, warm and dry Neurologic: moves all extremities; no focal motor deficits Speech / Cognition: normal speech gait not tested Psychiatric: Orientation: alert, oriented to person and oriented to place Results & Data Vital Signs (Past 12 Hours) Vital Signs Temp Pulse Pulse Resp BP Pulse Ox 01/18/19 19:24 37.1 C 74 18 177/72 H 94 01/18/19 15:54 84 01/18/19 14:48 36.6 C 79 20 126/79 98 01/18/19 11:28 36.5 C 73 18 159/80 H 97 Laboratory Results Laboratory Results - last 24 hr 01/18/19 01/18/19 01/18/19 02:49 02:49 02:49 WBC 4.91 RBC 2.99 L Hgb 9.7 L Hct 29.0 L MCV 97.0 MCH 32.4 MCHC 33.4 RDW Std Deviation 49.5 H RDW Coeff of Jeannie 15.7 H Plt Count 251 MPV 9.2 Immature Gran % (Auto) 0.2 Neut % (Auto) 52.9 Lymph % (Auto) 34.0 [place] % (Auto) 9.0 Eos % (Auto) 3.7 Baso % (Auto) 0.2 Immature Gran # (Auto) 0.01 Neut # (Auto) 2.60 Lymph # (Auto) 1.67 [place] # (Auto) 0.44 Eos # (Auto) 0.18 Baso # (Auto) 0.01 ESR 22 H Sodium 143 Potassium 3.5 Chloride 109 H Carbon Dioxide 27 Anion Gap 7.0 BUN 19 H Creatinine 1.36 H Est Cr Clr Drug Dosing 31.0 Est GFR ( Amer) 41.6 Est GFR (Non-Af Amer) 35.9 BUN/Creatinine Ratio 14.1 Glucose 102 H Calcium 7.8 L Troponin I 0.064 H* C-Reactive Protein < 0.29 PG Care Time/CCT Total # of Minutes Spent Total Time Spent with Patient: Total time spent is greater than 50% in coordination of care (as documented) at patient's floor/unit and/or counseling patient: (1) Chronic kidney disease Chronic kidney disease stage: unspecified stage Qualified Code(s): N18.9 - Chronic kidney disease, unspecified (2) Dementia Dementia type: unspecified type Dementia behavioral disturbance: without behavioral disturbance Qualified Code(s): F03.90 - Unspecified dementia without behavioral disturbance (3) Anemia Anemia type: unspecified type Qualified Code(s): D64.9 - Anemia, unspecified (4) Hypertension Hypertension type: essential hypertension Qualified Code(s): I10 - Essential (primary) hypertension (5) Hypothyroidism Hypothyroidism type: unspecified Qualified Code(s): E03.9 - Hypothyroidism, unspecified
[2019-01-19] MEDS: LEVOTHYROXINE SODIUM 75 MCG TABLET PO SCH (05:31)
[2019-01-19 07:04] LABS: BUN Creatinine Ratio 12.4 (10-20); Calcium 8.8 mg/dl (8.5-10.1); Creatinine Clr Calc Pharmacy 29.5 ml/min; Est GFR (African American) 38.8; Est GFR (Non-African American) 33.5; Potassium 3.6 mmol/L (3.5-5.1)
[2019-01-19] MEDS: VENLAFAXINE HCL XR 150 MG CAPXR PO SCH (07:58)
[2019-01-19] MEDS: HydrALAZINE TAB 50 MG TAB PO SCH ×2 (07:58→14:27)
[2019-01-19] MEDS: CEROVITE ADV FORMULA TAB PO SCH (07:58)
[2019-01-19] MEDS: DONEPEZIL HCL 10 MG TAB PO SCH (07:58)
[2019-01-19] MEDS: PANTOprazole 40 MG TAB PO SCH (07:58)
--- NOTE | 2019-01-19 11:49 | Electroencephalogram ---
EEG Procedure Note Date of Service January 19, 2019 Start / End Times Start Time: 10:22 AM End Time: 10:39 AM Referring Physician Ra Puga MD History Episodic alteration in mental status, evaluate for seizures Home Medication List Home Medications Medication Instructions Recorded Confirmed Type levothyroxine [Levoxyl] 75 mcg PO QAM #0 tab 10/08/16 01/17/19 History simvastatin [Zocor] 20 mg PO QAM #0 tab 10/08/16 01/17/19 History donepezil [Aricept] 10 mg PO QAM #0 tab 07/14/17 01/17/19 History potassium chloride 10 meq PO QPM #0 cap 08/12/17 01/17/19 History mirtazapine [Remeron] 7.5 mg PO HS 04/16/18 01/17/19 History pantoprazole [Protonix] 40 mg PO QAM 04/16/18 01/17/19 History furosemide [Lasix] 40 mg PO Q2D 08/03/18 01/17/19 History venlafaxine [Effexor XR] 150 mg PO QAM 08/03/18 01/17/19 History Ocuvite [facility] 1 tab PO DAILY 10/28/18 01/17/19 History Vitron-C 1 tab PO DAILY 10/28/18 01/17/19 History acetaminophen [Tylenol] 325 mg PO Q6H PRN 10/28/18 01/17/19 History glucosamine-chondroitin [Osteo 1 tab PO QAM 10/28/18 01/17/19 History Bi-Flex] tramadol [Ultram] 50 mg PO DAILY PRN 10/28/18 01/17/19 History hydralazine 50 mg PO TID 30 Days #90 tab 01/13/19 01/17/19 Rx Inpatient Medication List Acetaminophen (Tylenol) 650 mg PO Q4H PRN PRN Reason: pain/fever Stop: 02/16/19 16:22 Last Admin: 01/18/19 14:39 Dose: 650 mg Documented by: [id number] Admin: 01/18/19 05:04 Dose: 650 mg Documented by: [id number] Cosigned by: [id number] Donepezil HCl (Aricept) 10 mg PO QAM [facility] Stop: 02/17/19 08:59 Last Admin: 01/19/19 07:58 Dose: 10 mg Documented by: [id number] Admin: 01/18/19 08:23 Dose: 10 mg Documented by: [id number] Enoxaparin Sodium (Lovenox) 30 mg SQ Q24H [facility] Stop: 02/16/19 16:59 Last Admin: 01/18/19 18:35 Dose: 30 mg Documented by: [id number] Admin: 01/17/19 18:01 Dose: 30 mg Documented by: [id number] Hydralazine HCl (Apresoline) 50 mg PO TID [facility] Stop: 02/16/19 20:59 Last Admin: 01/19/19 07:58 Dose: 50 mg Documented by: [id number] Admin: 01/18/19 20:50 Dose: 50 mg Documented by: [id number] Admin: 01/18/19 14:39 Dose: 50 mg Documented by: [id number] Admin: 01/18/19 08:23 Dose: 50 mg Documented by: [id number] Admin: 01/17/19 20:45 Dose: 50 mg Documented by: [id number] Levothyroxine Sodium (Synthroid) 75 mcg PO DAILYBB [facility] Stop: 02/17/19 06:29 Last Admin: 01/19/19 05:31 Dose: 75 mcg Documented by: [id number] Admin: 01/18/19 05:33 Dose: 75 mcg Documented by: [id number] Cosigned by: [id number] Mirtazapine (Remeron) 7.5 mg PO HS [facility] Stop: 02/16/19 20:59 Last Admin: 01/18/19 20:50 Dose: 7.5 mg Documented by: [id number] Admin: 01/17/19 20:46 Dose: 7.5 mg Documented by: [id number] Multivitamins/Minerals (Multivitamin W/ Minerals Tab) 1 tab PO DAILY [facility] Stop: 02/17/19 08:59 Last Admin: 01/19/19 07:58 Dose: 1 tab Documented by: [id number] Admin: 01/18/19 08:23 Dose: 1 tab Documented by: [id number] Pantoprazole Sodium (Protonix) 40 mg PO QAM [facility] Stop: 02/17/19 08:59 Last Admin: 01/19/19 07:58 Dose: 40 mg Documented by: [id number] Admin: 01/18/19 08:23 Dose: 40 mg Documented by: [id number] Simvastatin (Zocor) 20 mg PO QPM [facility] Stop: 02/16/19 20:59 Last Admin: 01/18/19 20:53 Dose: 20 mg Documented by: [id number] Admin: 01/17/19 20:46 Dose: 20 mg Documented by: [id number] Venlafaxine HCl (Effexor Extended Release) 150 mg PO QAM [facility] Stop: 02/17/19 08:59 Last Admin: 01/19/19 07:58 Dose: 150 mg Documented by: [id number] Admin: 01/18/19 08:23 Dose: 150 mg Documented by: [id number] Discontinued Medications Sodium Chloride (Nss 1000ml) 500 mls @ 999 mls/hr IV .Q31M ONE Stop: 01/17/19 12:47 Last Infusion: 01/17/19 13:45 Dose: 0 mls/hr Documented by: [id number] Admin: 01/17/19 13:08 Dose: 999 mls/hr Documented by: [id number] Sodium Chloride (Nss 1000ml) 1,000 mls @ 80 mls/hr IV .[id number] [facility] Stop: 01/18/19 17:22 Last Infusion: 01/18/19 17:37 Dose: 0 mls/hr Documented by: [id number] Admin: 01/18/19 05:00 Dose: 80 mls/hr Documented by: [id number] Cosigned by: [id number] Infusion: 01/18/19 05:00 Dose: 80 mls/hr Documented by: [id number] Cosigned by: [id number] Admin: 01/17/19 18:01 Dose: 80 mls/hr Documented by: [id number] Description This is a 21 electrode EEG with a single channel dedicated to limited EKG. The electrodes were placed in accordance with the International 10-20 system. There is a posterior dominant rhythm of 10 Hz which is symmetrically distributed and attenuates with eye opening. There is a normal anterior to posterior organization. Photic stimulation is unremarkable. Hyperventilation is not performed. There is admixed polymorphic theta activity observed throughout the majority of the study. There is no focal slowing. There are no epileptiform abnormalities. Interpretation Is awake/drowsy EEG reveals generalized admixed theta slowing suggestive of a mild to moderate nonspecific encephalopathy. Clinical Correlation Mild to moderate encephalopathy possibly related to underlying dementia or other metabolic abnormality. No supportive evidence of seizure disorder. Further clinical correlation may be needed. [facility] EEG Procedure Codes Indication for Procedure (1) Encephalopathy: (2) Seizure-like activity: Neurology Neurology: EEG include record awake & drowsy
--- NOTE | 2019-01-19 12:12 | Magnetic Resonance Report ---
MRI OF THE BRAIN WITHOUT CONTRAST CLINICAL HISTORY: altered MS spells; dementia COMPARISON STUDY: Noncontrast head CT dated 01/11/2019 FINDINGS: The study is limited from a technical standpoint. The patient was unable to cooperate with imaging an d there was moderate patient motion artifact. The study was terminated following acquisition of a sag ittal T1 sequence, axial diffusion weighted sequence, and axial T2-weighted sequences. No intra or extra-axial mass lesions are visualized. Axial diffusion-weighted images reveal no evidence of acute or subacute infarction. T2-weighted images reveal moderately extensive foci of increased T2 signal within the white matter li kitty on a small vessel basis. There is mild ventricular dilatation, finding which is felt to be secondary to volume loss. IMPRESSION: 1. Technically limited study 2. No evidence of intracranial mass 3. No evidence of acute or subacute infarction 4. White matter disease, similar to the prior CT scan and likely on a small vessel basis 5. Mild ventricular dilatation, finding which is felt to be secondary to volume loss 6. No acute intracranial findings Electronically signed by: Christiano Mena M.D. 01/19/2019 12:11 PM
[2019-01-19] MEDS: ACETAMINOPHEN 325 MG TAB PO PRN (12:31)
== END 2019-01-19 16:10 ==
LOC: 2N 11:56 → ED 11:56 → SUATTDRO 14:24 → 2N 16:04

== ENCOUNTER 2019-03-05 16:28 | Inpatient (IN) ==
[2019-03-05] MEDS ORDERED: SODIUM CHLORIDE 0.9% 1000ML 1,000 ML IV SCH (17:15)
[2019-03-05 18:46] LABS: Basophils # (auto) 0.02 K/uL (0-0.2); Basophils % (auto) 0.4 %; Eosinophils # (auto) 0.11 K/uL (0-0.5); Eosinophils % (auto) 2.3 %; Hematocrit (blood only) 38.4 % (37-47); Hemoglobin 12.4 g/dL (12.0-16.0); Lymphocytes # (auto) 1.38 K/uL (1.2-3.4); Lymphocytes % (auto) 28.7 %; Mean Corpuscular Hgb Conc 32.3 g/dL (32-36); Mean Platelet Volume 10.3 fL (7.4-10.4); Monocytes # (auto) 0.47 K/uL (0.11-0.59); Monocytes % (auto) 9.8 %; Neutrophils # (auto) 2.83 K/uL (1.4-6.5); Neutrophils % (auto) 58.8 %; Platelet Count 293 K/uL (130-400); RDW Coefficient of Variation 14.7 % (11.5-14.5); RDW Standard Deviation 50.5 fL (36.4-46.3); White Blood Count 4.81 K/uL (4.8-10.8)
[2019-03-05 19:00] LABS: Alanine Aminotransferase 17 U/L (12-78); Albumin Level 3.8 gm/dl (3.4-5.0); BUN Creatinine Ratio 15.9 (10-20); Blood Urea Nitrogen 30 mg/dl (7-18); Calcium 9.2 mg/dl (8.5-10.1); Carbon Dioxide 25 mmol/L (21-32); Chloride 101 mmol/L (98-107); Creatinine Clr Calc Pharmacy 21.2 ml/min; Est GFR (African American) 28.5; Est GFR (Non-African American) 24.6; Glucose 90 mg/dl (70-99); Sodium 136 mmol/L (136-145)
[2019-03-05 19:10] LABS: Albumin Globulin Ratio 0.9 (0.9-2); Alkaline Phosphatase 115 U/L (45-117); Bilirubin,Total 0.5 mg/dl (0.2-1); Globulin 4.4 gm/dl (2.5-4.0); Total Protein 8.2 gm/dl (6.4-8.2); Troponin I < 0.015 ng/ml (0-0.045)
--- NOTE | 2019-03-05 19:17 | CT Scan Report ---
CT head/brain wo con CLINICAL HISTORY: Acute change in mental status COMPARISON STUDY: January 11, 2019, MRI dated January 19, 2019 TECHNIQUE: Axial CT of the brain is performed from the vertex to the skull base. IV contrast was not administered for this examination. A dose lowering technique was utilized adhering to the principles of ALARA. CT DOSE: 638.56 mGycm FINDINGS: No intra or extra-axial mass lesions are visualized. There is no CT evidence of acute cortical infarc tion. There is no evidence of midline shift. There is no acute hemorrhage. No calvarial fractures ar e visualized. There are patchy white matter hypodensities likely on a small vessel basis. There is mild ventricular dilatation, unchanged from the prior study, and likely secondary to volume loss. There is a stable 11 mm calcification posterior to the pineal gland in the region of the parame sencephalic cistern to the right of midline. There is no evidence of acute sinusitis IMPRESSION: No acute intracranial findings Electronically signed by: Christiano Mena M.D. 03/05/2019 7:15 PM
[2019-03-05 19:26] LABS: Appearance Urine Clear (Clear); Bacteria Urine Automated 4+ (Negative); Bilirubin Urine Negative (Negative); Blood Urine Negative (Negative); Color Urine Yellow; Epithelial Cell Urine Auto 0-5 /lpf (0-5); Glucose Urine UA Negative (Negative); Ketones Urine Negative (Negative); Leukocyte Esterase Urine 2+ (Negative); Nitrite Urine Negative (Negative); Protein Urine Negative (Negative); RBC Urine Automated 0-4 /hpf (0-4); Specific Gravity Urine 1.012 (1.000-1.030); Urobilinogen Urine Negative (Negative)
[2019-03-05 19:58] LABS: Potassium 3.8 mmol/L (3.5-5.1)
[2019-03-05] MEDS ORDERED: cefTRIAXone SODIUM 1,000 MG/50 ML BAG IV STA (20:02)
--- NOTE | 2019-03-05 20:03 | XRay Report ---
XR chest 1V portable CLINICAL HISTORY: weakness COMPARISON STUDY: February 07, 2019 FINDINGS: The heart is normal in size. There is no failure. There is no lobar consolidation. There ar e no pleural effusions. There are linear parenchymal opacities at the left base, likely atelectatic.[ IMPRESSION: Developing left basilar opacities, statistically representing subsegmental atelectatic ch rebeka. Electronically signed by: Christiano Mena M.D. 03/05/2019 8:01 PM
[2019-03-05 20:06] LABS: Magnesium 2.4 mg/dl (1.8-2.4)
[2019-03-05] MEDS ORDERED: TRAMADOL HCL 50 MG TABLET PO STA (21:10)
--- NOTE | 2019-03-05 22:29 | History & Physical Report ---
Date of Service March 05, 2019 Assessment & Plan (1) Altered mental status: Altered mental status/metabolic encephalopathy secondary to UTI- Continue ceftriaxone 1 g IV daily begun in the ED. Present on Admission?: Yes (2) Encephalopathy: See above Present on Admission?: Yes (3) UTI (urinary tract infection): See above Present on Admission?: Yes (4) Acute dehydration: Acute dehydration continue contributing to acute kidney injury on chronic kidney disease and metabolic encephalopathy. Continue rehydration with normal saline at 80 mils per hour. Hold furosemide. Present on Admission?: Yes (5) Hypertension: Continue hydralazine with hold parameters. Present on Admission?: Yes (6) Dementia: Dementia/depression- Continue venlafaxine, donepezil. Hold mirtazapine due to lethargy. Present on Admission?: Yes (7) Generalized weakness: Secondary to above. Will require physical therapy assessment Present on Admission?: Yes (8) Hyperlipidemia: Continue simvastatin 20 mg daily Present on Admission?: Yes (9) Acute kidney injury superimposed on CKD: Creatinine 1.85 upon admission, with range 1.28-1.74. Hydrating with normal saline as noted above, follow serial laboratories. Present on Admission?: Yes (10) Depression: As above. Present on Admission?: Yes History of Present Illness Chief Complaint: Patient is brought to the emergency department by her , with concerns regarding worsening confusion and decreased cooperation over the past few days Primary Care Provider: Daniel Vincent MD The patient is an 84-year-old female with a past medical history including dementia, UTI, anemia, hypothyroidism, GI bleed and acute kidney injury, who presents emergency department with above complaints. Her was concerned that her dementia may be worsening, and whether she may need to go to a [place] [facility] [place] facility at this point. Allergies Allergy/AdvReac Type Severity Reaction Status Date / Time celecoxib Allergy Severe THROAT Verified 03/05/19 17:19 TIGHTENS pregabalin Allergy Severe altered Verified 03/05/19 17:19 mental status amitriptyline Allergy Intermediate NERVOUSNESS Verified 03/05/19 17:19 amlodipine Allergy Intermediate HEAD FILLS Verified 03/05/19 17:19 UP, ABD PAIN gabapentin Allergy Intermediate HIVES Verified 03/05/19 17:19 metoprolol Allergy Intermediate HEAD FILLS Verified 03/05/19 17:19 UP atenolol Allergy Unknown Unknown Verified 03/05/19 17:19 chlorthalidone Allergy Unknown CAN'T Verified 03/05/19 17:19 REMEMBER clonazepam Allergy Unknown CAN'T Verified 03/05/19 17:19 REMEMBER Estrogens Allergy Unknown CAN'T Verified 03/05/19 17:19 REMEMBER hydrochlorothiazide Allergy Unknown CAN'T Verified 03/05/19 17:19 REMEMBER methyltestosterone Allergy Unknown CAN'T Verified 03/05/19 17:19 REMEMBER Progestins Allergy Unknown CAN'T Verified 03/05/19 17:19 REMEMBER Sulfa (Sulfonamide Allergy Unknown CAN'T Verified 03/05/19 17:19 Antibiotics) REMEMBER prednisone AdvReac Intermediate [place] Verified 03/05/19 17:19 USHING Home Medications Home Medications Medication Instructions Recorded Confirmed Type levothyroxine [Levoxyl] 75 mcg PO QAM #0 tab 10/08/16 03/05/19 History simvastatin [Zocor] 20 mg PO QAM #0 tab 10/08/16 03/05/19 History donepezil [Aricept] 10 mg PO QAM #0 tab 07/14/17 03/05/19 History potassium chloride 10 meq PO QPM #0 cap 08/12/17 03/05/19 History mirtazapine [Remeron] 7.5 mg PO HS 04/16/18 03/05/19 History pantoprazole [Protonix] 40 mg PO QAM 04/16/18 03/05/19 History furosemide [Lasix] 40 mg PO 2XWK 08/03/18 03/05/19 History venlafaxine [Effexor XR] 150 mg PO QAM 08/03/18 03/05/19 History acetaminophen [Tylenol] 325 mg PO Q6H PRN 10/28/18 03/05/19 History tramadol [Ultram] 50 mg PO DAILY PRN 10/28/18 03/05/19 History hydralazine 50 mg PO TID 30 Days #90 tab 01/13/19 03/05/19 Rx Past Med/Surg History Medical History GI bleed LORNA (acute kidney injury) Chronic cellulitis CKD (chronic kidney disease), stage III Cataract Chronic anemia Dementia Depression HLD (hyperlipidemia) HTN (hypertension) Iron deficiency anemia Lumbar spinal stenosis Osteoarthritis Surgical History H/O laminectomy History of carpal tunnel release History of thyroidectomy History of total knee arthroplasty S/P lumpectomy of breast Family History Unknown No problems noted. Other Heart disease Hypertension Social History Preferred Language: [place] Communication Ability: Effective Route Delivery Driver Required: No Beliefs That Will Affect Care: None marital status: Current Living Situation: Spouse current occupational status: retired Other Information That Helps Us Care for You: No Feels Safe at Home: Yes Safety Concerns: Feels Safe At This Time Smoking Status: Never smoker Second Hand Exposure: No ; Hx Alcohol Use: No Hx Substance Use: No Review of Systems Review of Systems: Unobtainable due to cognitive status The patient's reports that she was in her usual state of health until the past few days when she started becoming more fatigued, more confused and less cooperative. Physical Exam Physical Exam: The patient is lethargic and sleepy, and only able to be minimally cooperative with exam. She is lying in bed, normocephalic and atraumatic, and in no acute distress. HEENT--PERRL, EOMI, mucous membranes and oropharynx dry. Neck--No JVD. No bruits. Thyroid normal, trachea midline, no adenopathy. Heart--normal S1 and S2. No murmurs, rubs or gallops. Lungs--clear bilaterally, no respiratory distress, no accessory muscle use. Abdomen--normal bowel sounds and soft. Nontender. Nondistended. Extremities--no cyanosis or clubbing. No edema. Dermatologic--normal skin turgor, normal color, no abnormal lymph nodes, no rash. Neurologic--cranial nerves II through XII grossly intact. Rheumatologic-limited exam Psychiatric--lethargic and sleepy. Results & Data Vital Signs (Past 12 Hours) Vital Signs Temp Pulse Resp BP Pulse Ox 03/05/19 22:00 65 12 145/84 H 95 03/05/19 21:30 81 17 152/98 H 03/05/19 21:00 68 13 149/86 H 96 03/05/19 20:30 68 12 151/89 H 96 03/05/19 20:00 68 13 167/92 H 96 03/05/19 19:30 70 15 147/94 H 97 03/05/19 19:25 72 29 H 163/100 H 97 03/05/19 18:56 71 20 96 03/05/19 18:31 69 14 186/105 H 98 03/05/19 18:30 74 21 96 03/05/19 18:00 67 17 160/82 H 03/05/19 17:30 66 16 155/87 H 97 03/05/19 17:01 78 17 147/80 H 96 03/05/19 17:00 71 12 96 03/05/19 16:41 69 12 95 03/05/19 16:35 98.4 F 76 20 171/72 H 96 03/05/19 16:34 72 14 171/72 H 96 Laboratory Results Laboratory Results WBC 4.81 K/uL (4.8-10.8) 03/05/19 18:22 RBC 4.00 M/uL (4.2-5.4) L 03/05/19 18:22 Hgb 12.4 g/dL (12.0-16.0) 03/05/19 18:22 Hct 38.4 % (37-47) 03/05/19 18:22 MCV 96.0 fL (80-100) 03/05/19 18:22 MCH 31.0 pg (25-34) 03/05/19 18:22 MCHC 32.3 g/dL (32-36) 03/05/19 18:22 RDW Std Deviation 50.5 fL (36.4-46.3) H 03/05/19 18:22 RDW Coeff of Jeannie 14.7 % (11.5-14.5) H 03/05/19 18:22 Plt Count 293 K/uL (130-400) 03/05/19 18:22 MPV 10.3 fL (7.4-10.4) 03/05/19 18:22 Immature Gran % (Auto) 0.0 % 03/05/19 18:22 Neut % (Auto) 58.8 % 03/05/19 18:22 Lymph % (Auto) 28.7 % 03/05/19 18:22 [place] % (Auto) 9.8 % 03/05/19 18:22 Eos % (Auto) 2.3 % 03/05/19 18:22 Baso % (Auto) 0.4 % 03/05/19 18:22 Immature Gran # (Auto) 0.00 K/uL (0.00-0.02) 03/05/19 18:22 Neut # (Auto) 2.83 K/uL (1.4-6.5) 03/05/19 18:22 Lymph # (Auto) 1.38 K/uL (1.2-3.4) 03/05/19 18:22 [place] # (Auto) 0.47 K/uL (0.11-0.59) 03/05/19 18:22 Eos # (Auto) 0.11 K/uL (0-0.5) 03/05/19 18:22 Baso # (Auto) 0.02 K/uL (0-0.2) 03/05/19 18:22 Sodium 136 mmol/L (136-145) 03/05/19 18:22 Potassium 3.8 mmol/L (3.5-5.1) 03/05/19 19:33 Chloride 101 mmol/L (98-107) 03/05/19 18:22 Carbon Dioxide 25 mmol/L (21-32) 03/05/19 18:22 Anion Gap 10.0 (3-11) 03/05/19 18:22 BUN 30 mg/dl (7-18) H 03/05/19 18:22 Creatinine 1.85 mg/dl (0.6-1.2) H 03/05/19 18:22 Est Cr Clr Drug Dosing 21.2 ml/min 03/05/19 18:22 Est GFR ( Amer) 28.5 03/05/19 18:22 Est GFR (Non-Af Amer) 24.6 03/05/19 18:22 BUN/Creatinine Ratio 15.9 (10-20) 03/05/19 18:22 Glucose 90 mg/dl (70-99) 03/05/19 18:22 Calcium 9.2 mg/dl (8.5-10.1) 03/05/19 18:22 Magnesium 2.4 mg/dl (1.8-2.4) 03/05/19 19:33 Total Bilirubin 0.5 mg/dl (0.2-1) 03/05/19 18:22 AST 15 U/L (15-37) 03/05/19 19:33 ALT 17 U/L (12-78) 03/05/19 18:22 Alkaline Phosphatase 115 U/L (45-117) 03/05/19 18:22 Total Creatine Kinase 25 U/L (26-192) L 03/05/19 19:33 Troponin I < 0.015 ng/ml (0-0.045) 03/05/19 18:22 Total Protein 8.2 gm/dl (6.4-8.2) 03/05/19 18:22 Albumin 3.8 gm/dl (3.4-5.0) 03/05/19 18:22 Globulin 4.4 gm/dl (2.5-4.0) H 03/05/19 18:22 Albumin/Globulin Ratio 0.9 (0.9-2) 03/05/19 18:22 TSH 1.610 uIu/ml (0.300-4.500) 03/05/19 18:22 Urine Color Yellow 03/05/19 18:40 Urine Appearance Clear (Clear) 03/05/19 18:40 Urine pH 6.0 (4.5-7.5) 03/05/19 18:40 Ur Specific [place] 1.012 (1.000-1.030) 03/05/19 18:40 Urine Protein Negative (Negative) 03/05/19 18:40 Urine Glucose (UA) Negative (Negative) 03/05/19 18:40 Urine Ketones Negative (Negative) 03/05/19 18:40 Urine Blood Negative (Negative) 03/05/19 18:40 Urine Nitrite Negative (Negative) 03/05/19 18:40 Urine Bilirubin Negative (Negative) 03/05/19 18:40 Urine Urobilinogen Negative (Negative) 03/05/19 18:40 Ur Leukocyte Esterase 2+ (Negative) H 03/05/19 18:40 Urine WBC (Auto) 10-30 /hpf (0-5) H 03/05/19 18:40 Urine RBC (Auto) 0-4 /hpf (0-4) 03/05/19 18:40 U Hyaline Cast (Auto) 1-5 /lpf (0-5) 03/05/19 18:40 U Epithel Cells (Auto) 0-5 /lpf (0-5) 03/05/19 18:40 Urine Bacteria (Auto) 4+ (Negative) H 03/05/19 18:40 Diagnostic Findings [facility], [place] [phone] CT Scan Report Patient: SHU STEVENS Date: 03/05/19 MR#: [id number]: [address] Acct ID:[id number]: [facility] [place] [place] [address] Age: 84Location: ED Sex: F Room/Bed: Att Phy:Diagnosis: CONFUSION Thea Phy: Daniel Albert M.D.Service Date: 03/05/19 Fam Phy: Daniel Albert M.D.Interpreting Phy: Christiano Mena MD Admit Phy: Ordering Phy: Benjamín Mina MD cc: ~ CT head/brain wo con CLINICAL HISTORY: Acute change in mental status COMPARISON STUDY: January 11, 2019, MRI dated January 19, 2019 TECHNIQUE: Axial CT of the brain is performed from the vertex to the skull base. IV contrast was not administered for this examination. A dose lowering technique was utilized adhering to the principles of ALARA. CT DOSE: 638.56 mGycm FINDINGS: No intra or extra-axial mass lesions are visualized. There is no CT evidence of acute cortical infarction. There is no evidence of midline shift. There is no acute hemorrhage. No calvarial fractures are visualized. There are patchy white matter hypodensities likely on a small vessel basis. There is mild ventricular dilatation, unchanged from the prior study, and likely secondary to volume loss. There is a stable 11 mm calcification posterior to the pineal gland in the region of the paramesencephalic cistern to the right of midline. There is no evidence of acute sinusitis IMPRESSION: No acute intracranial findings Electronically signed by: Christiano Mena M.D. 03/05/2019 7:15 PM Dictated: 03/05/191911 Transcribed: 03/05/191911 [facility], [place] [phone] XRay Report Patient: SHU STEVENS Date: 03/05/19 MR#: [id number]: [address] Acct ID:[id number]: Date: [address] [place] [address] Zip: [place] [address] Age: 84Location: ED Sex: F Room/Bed: Att Phy:Diagnosis: CONFUSION Thea Phy: Daniel Albert M.D.Service Date: 03/05/19 Fam Phy: Daniel Albert M.D.Interpreting Phy: Christiano Mena MD Admit Phy: Ordering Phy: Benjamín Mina MD cc: ~ XR chest 1V portable CLINICAL HISTORY: weakness COMPARISON STUDY: February 07, 2019 FINDINGS: The heart is normal in size. There is no failure. There is no lobar consolidation. There are no pleural effusions. There are linear parenchymal opacities at the left base, likely atelectatic.[ IMPRESSION: Developing left basilar opacities, statistically representing subsegmental atelectatic change. Electronically signed by: Christiano Mena M.D. 03/05/2019 8:01 PM Dictated: 03/05/191999 Transcribed: 03/05/191999 Code Status & VTE Plan Code Status DNR/DNI VTE Prophylaxis Plan VTE Prophylaxis will be ordered: Yes PG Care Time/CCT Total # of Minutes Spent Total Time Spent with Patient: Total time spent is greater than 50% in coordination of care (as documented) at patient's floor/unit and/or counseling patient: (1) Altered mental status Altered mental status type: unspecified Qualified Code(s): R41.82 - Altered mental status, unspecified (2) UTI (urinary tract infection) Hematuria presence: without hematuria Urinary tract infection type: site unspecified Qualified Code(s): N39.0 - Urinary tract infection, site not specified (3) Hypertension Hypertension type: essential hypertension Qualified Code(s): I10 - Essential (primary) hypertension (4) Dementia Dementia type: unspecified type Dementia behavioral disturbance: without behavioral disturbance Qualified Code(s): F03.90 - Unspecified dementia without behavioral disturbance
[2019-03-05] MEDS ORDERED: POLYETHYLENE (MIRALAX) 17 GM PACK PO PRN (23:57)
[2019-03-05] MEDS ORDERED: MAGNESIUM HYDROXIDE SUSP 30 ML UDC PO PRN (23:57)
[2019-03-05] MEDS ORDERED: ONDANSETRON INJ 2 MG/ML 2 ML VIAL IV PRN (23:57)
[2019-03-05] MEDS ORDERED: ALUMINUM/MAGNESIUM SUSP 30 ML UDC PO PRN (23:57)
--- NOTE | 2019-03-06 00:17 | Emergency Department Note ---
Entered by Lea Will acting as a scribe for ED Provider Note CHIEF COMPLAINT: Confusion HISTORY OF PRESENT ILLNESS: The patient is an 84 year old female with past medical history of dementia, UTI, anemia, hypothyroidism, GI bleed, LORNA who presents to the Emergency Room with complaints of constant confusion that started a few days ago. The patients reports the patient is usually cooperative but was not today. He notes the patient is weaker and has urinary incontinence sometimes. The additionally reports the patient recently lost her appetite and would not eat anything. Pt denies LOC, headache, fevers, chills, diaphoresis, visual changes, neck pain, chest pain, breathing difficulties, nausea, vomiting, abdominal pain, back pain, melena, hematochezia, numbness, lymphadenopathy, rash, or other complaints. REVIEW OF SYSTEMS: See HPI for pertinent positives and negatives. A total of ten systems were reviewed and were otherwise negative. PMHx/PSHx: Dementia UTI Anemia Hypothyroidism GI bleed LORNA SOCIAL HISTORY: Patient lives at home. PHYSICAL EXAM: GENERAL: Awake, alert, well-appearing, in no distress HENT: Normocephalic, atraumatic. Oropharynx unremarkable. EYES: PERRL. Normal conjunctiva. Sclera non-icteric. NECK: Inspection normal. Non-tender. Supple. No nuchal rigidity. FROM. No masses. RESPIRATORY: Clear to auscultation. No wheezes. No rales. Normal respiratory effort. CARDIAC: Normal rate. Normal rhythm. No murmurs. No rubs. Extremities warm and well perfused. Pulses equal. No JVD. GI: Soft, non-distended. No tenderness to palpation. No rebound or guarding. No masses. RECTAL: Deferred. MUSCULOSKELETAL: Atraumatic. Chest examination reveals no tenderness. The back is symmetrical on inspection without obvious abnormality. There is no CVA tende rness to palpation. No joint edema. Heel surgical scars from her prior knee replacement. LOWER EXTREMITIES: Calves are equal size bilaterally and non-tender. No edema. Chronic venous discoloration. NEURO: Demented sensorium. No sensory or motor deficits noted. SKIN: No rash or jaundice noted. EMERGENCY DEPARTMENT COURSE: 1724: Past medical records reviewed and the patient had an admission in January for weakness, dehydration, and UTI. The patient also had an enterococcus UTI on an ER visit 3 weeks ago and was treated with Cipro. The patient was evaluated in room A11A, and a complete history and physical examination were performed. 1956: I checked on the patient. 2002: I discussed the patients case with Dr. Garrett, [facility] Hospitalist. He will evaluate the patient for further management. MEDICAL DECISION MAKING: A11A Prior records/ancillary studies reviewed and summarized above. Nursing notes reviewed and agree them. Additional history obtained from the patient's . The patient's history was concerning for altered mental status. Differential diagnosis: Etiologies such as infection, hypoglycemia, electrolyte abnormalities, cardiac sources, intracerebral event, toxicologic, neurologic, as well as others were entertained. Physical examination: As above. ER treatment provided: IV Lock Normal saline hydration IV Rocephin Oral tramadol On reassessment the patient felt better. Diagnostics interpretation by me: ECG: Negative for ischemia. The labs revealed an unremarkable CBC and chemistry panel. Urinalysis concerning for infection. Imaging studies: CT imaging performed and was negative for acute process. Chest x-ray negative. Patient is not doing well at home. Case management was involved. Consultation: A consultation was placed with the hospitalist. The case was discussed and diagnostics were reviewed. The patient was evaluated in the ER for further treatment. IMPRESSION: Altered mental status UTI PLAN: Admit The scribe's documentation has been prepared under my direction and personally reviewed by me in its entirety. I confirm that the note above accurately reflects all work, treatment, procedures, and medical decision making performed by me. Impression & Plan Altered mental status, UTI (urinary tract infection) Past Med/Surg History Medical History GI bleed LORNA (acute kidney injury) Chronic cellulitis CKD (chronic kidney disease), stage III Cataract Chronic anemia Dementia Depression HLD (hyperlipidemia) HTN (hypertension) Iron deficiency anemia Lumbar spinal stenosis Osteoarthritis Surgical History H/O laminectomy History of carpal tunnel release History of thyroidectomy History of total knee arthroplasty S/P lumpectomy of breast Family History Unknown No problems noted. Other Heart disease Hypertension Social History Preferred Language: Urdu Communication Ability: Effective Manager Process Improvement Required: No Beliefs That Will Affect Care: None marital status: Current Living Situation: Spouse current occupational status: retired Feels Safe at Home: Yes Smoking Status: Never smoker Second Hand Exposure: No ; Hx Alcohol Use: No Hx Substance Use: No Results & Data Vital Signs Vital Signs - 24 hr 03/05/19 16:34 03/05/19 16:35 03/05/19 16:41 Temperature 36.9 C Temperature Source Oral Sepsis Recent Fever Within 48 Hours No Sepsis New/Unexplained Change in Mental Status No Sepsis Action Taken by Nursing No Action Required Pulse Rate 72 76 69 Pulse Rate from SpO2 Sensor 65 69 Respiratory Rate 14 20 12 Respiratory Effort / Characteristics Non-Labored Spontaneous Respiratory Depth Normal Respiratory Pattern Regular Blood Pressure 171/72 H 171/72 H Blood Pressure Mean 105 105 Pulse Oximetry 96 96 95 Oxygen Delivery Method Room Air 03/05/19 17:00 03/05/19 17:01 03/05/19 17:30 Temperature Temperature Source Sepsis Recent Fever Within 48 Hours Sepsis New/Unexplained Change in Mental Status Sepsis Action Taken by Nursing Pulse Rate 71 78 66 Pulse Rate from SpO2 Sensor 71 76 67 Respiratory Rate 12 17 16 Respiratory Effort / Characteristics Respiratory Depth Respiratory Pattern Blood Pressure 147/80 H 155/87 H Blood Pressure Mean 102 109 Pulse Oximetry 96 96 97 Oxygen Delivery Method 03/05/19 18:00 03/05/19 18:30 03/05/19 18:31 Temperature Temperature Source Sepsis Recent Fever Within 48 Hours Sepsis New/Unexplained Change in Mental Status Sepsis Action Taken by Nursing Pulse Rate 67 74 69 Pulse Rate from SpO2 Sensor 75 69 Respiratory Rate 17 21 14 Respiratory Effort / Characteristics Respiratory Depth Respiratory Pattern Blood Pressure 160/82 H 186/105 H Blood Pressure Mean 108 132 Pulse Oximetry 96 98 Oxygen Delivery Method 03/05/19 18:56 03/05/19 19:25 03/05/19 19:30 Temperature Temperature Source Sepsis Recent Fever Within 48 Hours Sepsis New/Unexplained Change in Mental Status Sepsis Action Taken by Nursing Pulse Rate 71 72 70 Pulse Rate from SpO2 Sensor 72 71 Respiratory Rate 20 29 H 15 Respiratory Effort / Characteristics Respiratory Depth Respiratory Pattern Blood Pressure 163/100 H 147/94 H Blood Pressure Mean 121 111 Pulse Oximetry 96 97 97 Oxygen Delivery Method Room Air 03/05/19 20:00 03/05/19 20:30 03/05/19 21:00 Temperature Temperature Source Sepsis Recent Fever Within 48 Hours Sepsis New/Unexplained Change in Mental Status Sepsis Action Taken by Nursing Pulse Rate 68 68 68 Pulse Rate from SpO2 Sensor 68 68 69 Respiratory Rate 13 12 13 Respiratory Effort / Characteristics Respiratory Depth Respiratory Pattern Blood Pressure 167/92 H 151/89 H 149/86 H Blood Pressure Mean 117 109 107 Pulse Oximetry 96 96 96 Oxygen Delivery Method 03/05/19 21:30 03/05/19 22:00 Temperature Temperature Source Sepsis Recent Fever Within 48 Hours Sepsis New/Unexplained Change in Mental Status Sepsis Action Taken by Nursing Pulse Rate 81 65 Pulse Rate from SpO2 Sensor 65 Respiratory Rate 17 12 Respiratory Effort / Characteristics Respiratory Depth Respiratory Pattern Blood Pressure 152/98 H 145/84 H Blood Pressure Mean 116 104 Pulse Oximetry 95 Oxygen Delivery Method Home Medications Current Medication List: was personally reviewed by me Laboratory Data Attestation: I reviewed the patient's lab results. Result diagrams: 03/05/19 18:22 03/05/19 19:33 Lab Results 03/05/19 03/05/19 03/05/19 Range/Units 18:22 18:22 18:40 WBC 4.81 (4.8-10.8) K/uL RBC 4.00 L (4.2-5.4) M/uL Hgb 12.4 (12.0-16.0) g/dL Hct 38.4 (37-47) % MCV 96.0 (80-100) fL MCH 31.0 (25-34) pg MCHC 32.3 (32-36) g/dL RDW Std Deviation 50.5 H (36.4-46.3) fL RDW Coeff of Jeannie 14.7 H (11.5-14.5) % Plt Count 293 (130-400) K/uL MPV 10.3 (7.4-10.4) fL Immature Gran % (Auto) 0.0 % Neut % (Auto) 58.8 % Lymph % (Auto) 28.7 % [place] % (Auto) 9.8 % Eos % (Auto) 2.3 % Baso % (Auto) 0.4 % Immature Gran # (Auto) 0.00 (0.00-0.02) K/uL Neut # (Auto) 2.83 (1.4-6.5) K/uL Lymph # (Auto) 1.38 (1.2-3.4) K/uL [place] # (Auto) 0.47 (0.11-0.59) K/uL Eos # (Auto) 0.11 (0-0.5) K/uL Baso # (Auto) 0.02 (0-0.2) K/uL Sodium 136 (136-145) mmol/L Potassium (3.5-5.1) mmol/L Chloride 101 (98-107) mmol/L Carbon Dioxide 25 (21-32) mmol/L Anion Gap 10.0 (3-11) BUN 30 H (7-18) mg/dl Creatinine 1.85 H (0.6-1.2) mg/dl Est Cr Clr Drug Dosing 21.2 ml/min Est GFR ( Amer) 28.5 Est GFR (Non-Af Amer) 24.6 BUN/Creatinine Ratio 15.9 (10-20) Glucose 90 (70-99) mg/dl Calcium 9.2 (8.5-10.1) mg/dl Magnesium (1.8-2.4) mg/dl Total Bilirubin 0.5 (0.2-1) mg/dl AST (15-37) U/L ALT 17 (12-78) U/L Alkaline Phosphatase 115 (45-117) U/L Total Creatine Kinase (26-192) U/L Troponin I < 0.015 (0-0.045) ng/ml Total Protein 8.2 (6.4-8.2) gm/dl Albumin 3.8 (3.4-5.0) gm/dl Globulin 4.4 H (2.5-4.0) gm/dl Albumin/Globulin Ratio 0.9 (0.9-2) TSH 1.610 (0.300-4.500) uIu/ml Urine Color Yellow Urine Appearance Clear (Clear) Urine pH 6.0 (4.5-7.5) Ur Specific [place] 1.012 (1.000-1.030) Urine Protein Negative (Negative) Urine Glucose (UA) Negative (Negative) Urine Ketones Negative (Negative) Urine Blood Negative (Negative) Urine Nitrite Negative (Negative) Urine Bilirubin Negative (Negative) Urine Urobilinogen Negative (Negative) Ur Leukocyte Esterase 2+ H (Negative) Urine WBC (Auto) 10-30 H (0-5) /hpf Urine RBC (Auto) 0-4 (0-4) /hpf U Hyaline Cast (Auto) 1-5 (0-5) /lpf U Epithel Cells (Auto) 0-5 (0-5) /lpf Urine Bacteria (Auto) 4+ H (Negative) 03/05/19 Range/Units 19:33 WBC (4.8-10.8) K/uL RBC (4.2-5.4) M/uL Hgb (12.0-16.0) g/dL Hct (37-47) % MCV (80-100) fL MCH (25-34) pg MCHC (32-36) g/dL RDW Std Deviation (36.4-46.3) fL RDW Coeff of Jeannie (11.5-14.5) % Plt Count (130-400) K/uL MPV (7.4-10.4) fL Immature Gran % (Auto) % Neut % (Auto) % Lymph % (Auto) % [place] % (Auto) % Eos % (Auto) % Baso % (Auto) % Immature Gran # (Auto) (0.00-0.02) K/uL Neut # (Auto) (1.4-6.5) K/uL Lymph # (Auto) (1.2-3.4) K/uL [place] # (Auto) (0.11-0.59) K/uL Eos # (Auto) (0-0.5) K/uL Baso # (Auto) (0-0.2) K/uL Sodium (136-145) mmol/L Potassium 3.8 (3.5-5.1) mmol/L Chloride (98-107) mmol/L Carbon Dioxide (21-32) mmol/L Anion Gap (3-11) BUN (7-18) mg/dl Creatinine (0.6-1.2) mg/dl Est Cr Clr Drug Dosing ml/min Est GFR ( Amer) Est GFR (Non-Af Amer) BUN/Creatinine Ratio (10-20) Glucose (70-99) mg/dl Calcium (8.5-10.1) mg/dl Magnesium 2.4 (1.8-2.4) mg/dl Total Bilirubin (0.2-1) mg/dl AST 15 (15-37) U/L ALT (12-78) U/L Alkaline Phosphatase (45-117) U/L Total Creatine Kinase 25 L (26-192) U/L Troponin I (0-0.045) ng/ml Total Protein (6.4-8.2) gm/dl Albumin (3.4-5.0) gm/dl Globulin (2.5-4.0) gm/dl Albumin/Globulin Ratio (0.9-2) TSH (0.300-4.500) uIu/ml Urine Color Urine Appearance (Clear) Urine pH (4.5-7.5) Ur Specific [place] (1.000-1.030) Urine Protein (Negative) Urine Glucose (UA) (Negative) Urine Ketones (Negative) Urine Blood (Negative) Urine Nitrite (Negative) Urine Bilirubin (Negative) Urine Urobilinogen (Negative) Ur Leukocyte Esterase (Negative) Urine WBC (Auto) (0-5) /hpf Urine RBC (Auto) (0-4) /hpf U Hyaline Cast (Auto) (0-5) /lpf U Epithel Cells (Auto) (0-5) /lpf Urine Bacteria (Auto) (Negative) Administered Medications Sodium Chloride (Nss 1000ml) 1,000 mls @ 125 mls/hr IV .Q8H NEHAL Stop: 03/06/19 01:14 Last Admin: 03/05/19 18:55 Dose: 125 mls/hr Documented by: [id number] Discontinued Medications Ceftriaxone Sodium (Rocephin) 1,000 mg in 50 mls @ 100 mls/hr IV NOW STA Stop: 03/05/19 20:31 Last Infusion: 03/05/19 21:04 Dose: 0 mls/hr Documented by: [id number] Admin: 03/05/19 20:13 Dose: 100 mls/hr Documented by: [id number] Tramadol HCl (Ultram) 50 mg PO NOW STA Stop: 03/05/19 21:11 Last Admin: 03/05/19 21:34 Dose: 50 mg Documented by: [id number] Imaging Data Radiologist's Impression: Radiology results as stated below per my review and the radiologist's interpretation: CT head/brain wo con CLINICAL HISTORY: Acute change in mental status COMPARISON STUDY: January 11, 2019, MRI dated January 19, 2019 TECHNIQUE: Axial CT of the brain is performed from the vertex to the skull base. IV contrast was not administered for this examination. A dose lowering technique was utilized adhering to the principles of ALARA. CT DOSE: 638.56 mGycm FINDINGS: No intra or extra-axial mass lesions are visualized. There is no CT evidence of acute cortical infarction. There is no evidence of midline shift. There is no acute hemorrhage. No calvarial fractures are visualized. There are patchy white matter hypodensities likely on a small vessel basis. There is mild ventricular dilatation, unchanged from the prior study, and likely secondary to volume loss. There is a stable 11 mm calcification posterior to the pineal gland in the region of the paramesencephalic cistern to the right of midline. There is no evidence of acute sinusitis IMPRESSION: No acute intracranial findings Electronically signed by: Christiano Mena M.D. 03/05/2019 7:15 PM XR chest 1V portable CLINICAL HISTORY: weakness COMPARISON STUDY: February 07, 2019 FINDINGS: The heart is normal in size. There is no failure. There is no lobar consolidation. There are no pleural effusions. There are linear parenchymal opacities at the left base, likely atelectatic.[ IMPRESSION: Developing left basilar opacities, statistically representing subsegmental atelectatic change. Electronically signed by: Christiano Mena M.D. 03/05/2019 8:01 PM ECG Data Attestation: I personally reviewed and interpreted this ECG as follows: Indication: weakness Rate (beats per minute): 73 Rhythm: normal sinus Findings: + other (Poor R wave progression. normal QRS) and + nonspecific-ST abn; no ST depression and no ST elevation Blood Pressure Blood Pressure Findings: Elevated blood pressure Blood Pressure Disposition: further management by hospitalist Discharge Plan Visit Data *Final* Discharge Date/Time: 03/05/19 22:57 Chief Complaint: Confusion ED Provider: Benjamín Mina Discharge Problem: Altered mental status, UTI (urinary tract infection) Patient Disposition: Admitted As Inpatient Discharge Instructions Interventions: ED Discharge Assessment Last Done: 03/05/19 22:57 Discharge Problem: Altered mental status Qualifiers: Altered mental status type: unspecified Qualified Code(s): R41.82 - Altered mental status, unspecified UTI (urinary tract infection) Qualifiers: Urinary tract infection type: site unspecified Hematuria presence: without hematuria Qualified Code(s): N39.0 - Urinary tract infection, site not specified The scribe's documentation has been prepared under my direction and personally reviewed by me in its entirety. I confirm that the note above accurately reflects all work, treatment, procedures, and medical decision making performed by me.
[2019-03-06] MEDS: ACETAMINOPHEN 325 MG TAB PO PRN (03:58)
[2019-03-06] MEDS: SODIUM CHLORIDE 0.9% 1000ML 1,000 ML IV SCH ×2 (05:41→18:18)
[2019-03-06] MEDS: LEVOTHYROXINE SODIUM 75 MCG TABLET PO SCH (05:42)
[2019-03-06] MEDS: HydrALAZINE TAB 50 MG TAB PO SCH ×3 (08:42→20:13)
[2019-03-06] MEDS: SIMVASTATIN 20 MG TAB PO SCH (08:43)
[2019-03-06] MEDS: PANTOprazole 40 MG TAB PO SCH (08:43)
[2019-03-06] MEDS: VENLAFAXINE HCL XR 150 MG CAPXR PO SCH (08:43)
[2019-03-06] MEDS: DONEPEZIL HCL 10 MG TAB PO SCH (08:43)
--- NOTE | 2019-03-06 08:57 | Family Medicine Progress Note ---
Date of Service March 06, 2019 Assessment & Plan (1) Altered mental status: Patient is a 84 year old female with PMHx dementia, HLD, Hypothyroidism, and depression that presented initially with chief complaint of altered mental status from baseline. Metabolic Encephalopathy secondary to Dehydration -Patient had noted altered mental status from baseline on initial presentation -Has happened to patient in the past, often secondary to dehydration and infections. -BUN 30, Creat 1.85 on admission -Patient was given a 1L bolus of NSS in the ED and currently is on NSS 80 mL/min. -Currently appears resolved per patients , patient back to baseline. UTI -Patient UA on admission with Leuk Esterase +2, WBC 10-30, patient experiencing incontinence -Continue IV Ceftriaxone LORNA on CKD III -Creatinine 1.85 on admission with baseline 1.28-1.74. -1L bolus NSS received in ED, gentle hydration NSS 80ml/hr -Continue to monitor Hypertension -Continue hydralazine -Holding lasix Dementia -Continue Aricept Generalized Weakness -Noted weakness that has been longstanding. -Continue PT/OT Hyperlipidemia -Continue Simvastatin Depression -Continue Venlafaxine -Restart Remeron as lethargy has resolved. FEN/GI - HH, NSS 80ml/hr DVT - SCD Code - DNR/DNI Dispo - Med/Surg (2) UTI (urinary tract infection): (3) Hypertension: (4) Dementia: (5) Depression: (6) Acute dehydration: (7) Chronic kidney disease: (8) LORNA (acute kidney injury): (9) Hypothyroidism: Supervising Physician Co-Signing Physician Notes I personally examined the patient and verified all urban points of history and exam, discussed case, and agree with decision making with Dr Thayer. Patient denies any complaints. does most of the talking. He notes that she is now back to a fairly good baseline. But notes that she has so many ups and downs that he really does not feel like they are safe at home anymore. Vitals noted, in general she is awake and alert pleasant no distress. HEENT normocephalic atraumatic mucous membranes moist. Breathing unlabored no accessory muscle use good effort. Skin shows no rashes no pallor or icterus. Metabolic/septic encephalopathyrelated to dehydration and urinary tract infection. Improving. She does appear weak, may benefit from SNF level of rehab. Dementiaseems to have progressed to where she is no longer safe at home, she and her are pursuing long-term placement at [facility] as well. Otherwise as above. Subjective Attending Physician Dr. Parker. Patient seen and examined this morning while resting in bed. Patient noted that she was feeling much more herself this morning, however, she was just incontinent with her bladder which does not typically occur for her. She denies any dysuria or hematuria. Review of Systems Constitutional: no fever, no chills and no fatigue Eyes: no eye pain Ear, Nose, Mouth, Throat: no ear pain, no tinnitus and no dizziness Respiratory: no cough, no chest congestion, no dyspnea and no pain on inspiration Cardiovascular: no chest pain, no dyspnea, no dyspnea on exertion and no palpitations Gastrointestinal: no abdominal pain, no nausea, no vomiting, no constipation and no diarrhea/loose stools Genitourinary: + urinary incontinence; no dysuria and no hematuria Musculoskeletal: no back pain Integumentary: no rash Physical Exam Constitutional: well developed and well nourished; no acute distress Eyes: PERRL, conjunctivae normal, anicteric sclerae ENMT: external ear and nose normal, oropharynx normal Neck: trachea midline, no thyromegaly Respiratory: normal respiratory effort; no respiratory distress Ausculta tion: lungs clear to auscultation bilaterally; no crackles, no rales and no wheezes Cardiovascular: Rate/Rhythm: regular rate and regular rhythm Heart Sounds: normal S1 and normal S2; no murmur Gastrointestinal (Abdomen): normal bowel sounds, soft, nontender, no hepatosplenomegaly Neurologic: CN's II-XI intact bilaterally Speech / Cognition: normal speech Motor/Sensory: no tremor, normal movement and no pronator drift Cranial Nerves: PERRL, normal accommodation, EOM intact bilaterally, tongue midline, normal hearing, able to rotate head bilaterally, able to elevate shoulders bilaterally and symmetric palate elevation Psychiatric: A+Ox3, euthymic affect Results & Data Vital Signs (Past 12 Hours) Vital Signs Temp Pulse Pulse Resp BP BP Pulse Ox 03/06/19 07:00 36.5 C 69 18 156/75 H 95 03/05/19 23:36 36.6 C 74 153/83 H 93 03/05/19 22:31 80 14 197/95 H 03/05/19 22:30 83 27 H 03/05/19 22:00 65 12 145/84 H 95 03/05/19 21:30 81 17 152/98 H 03/05/19 21:00 68 13 149/86 H 96 Laboratory Results Abnormal lab results 03/05/19 03/05/19 Range/Units 18:40 19:33 Total Creatine Kinase 25 L (26-192) U/L Ur Leukocyte Esterase 2+ H (Negative) Urine WBC (Auto) 10-30 H (0-5) /hpf Urine Bacteria (Auto) 4+ H (Negative) Medications Administered Current Inpatient Medications Acetaminophen (Tylenol) 650 mg PO Q4H PRN PRN Reason: pain/fever Stop: 04/04/19 23:56 Last Admin: 03/06/19 03:58 Dose: 650 mg Documented by: Al Hydrox/Mg Hydrox/Simethicone (Maalox) 30 ml PO Q6H PRN PRN Reason: Dyspepsia Stop: 04/04/19 23:56 Donepezil HCl (Aricept) 10 mg PO QAM [facility] Stop: 04/05/19 08:59 Last Admin: 03/06/19 08:43 Dose: 10 mg Documented by: Hydralazine HCl (Apresoline) 50 mg PO TID [facility] Stop: 04/05/19 08:59 Last Admin: 03/06/19 14:26 Dose: 50 mg Documented by: Ceftriaxone Sodium 1,000 mg/ (Dextrose) 60 mls @ 100 mls/hr IV Q24H [facility]; Protocol Stop: 03/09/19 20:35 Sodium Chloride (Nss 1000ml) 1,000 mls @ 80 mls/hr IV .[id number] [facility] Stop: 04/05/19 04:59 Last Admin: 03/06/19 18:18 Dose: 80 mls/hr Documented by: Levothyroxine Sodium (Synthroid) 75 mcg PO DAILYBB [facility] Stop: 04/05/19 06:29 Last Admin: 03/06/19 05:42 Dose: 75 mcg Documented by: Magnesium Hydroxide (Milk Of Magnesia) 30 ml PO Q6H PRN PRN Reason: Constipation Stop: 04/04/19 23:56 Ondansetron HCl (Zofran) 4 mg IV Q6H PRN PRN Reason: Nausea Stop: 04/04/19 23:56 Pantoprazole Sodium (Protonix) 40 mg PO QAM [facility] Stop: 04/05/19 08:59 Last Admin: 03/06/19 08:43 Dose: 40 mg Documented by: Polyethylene Glycol (Miralax Powder Packet) 17 gm PO DAILY PRN PRN Reason: Constipation Stop: 04/04/19 23:56 Simvastatin (Zocor) 20 mg PO QAM [facility] Stop: 04/05/19 08:59 Last Admin: 03/06/19 08:43 Dose: 20 mg Documented by: Venlafaxine HCl (Effexor Extended Release) [facility] Stop: 04/05/19 08:59 Last Admin: 03/06/19 08:43 Dose: 150 mg Documented by: PG Care Time/CCT Total # of Minutes Spent Total Time Spent with Patient: Total time spent is greater than 50% in coordination of care (as documented) at patient's floor/unit and/or counseling patient: Resident Activity Tracking Resident Involvement: Resident Care Provided Care Provided: Adult Hospital Medicine (1) Altered mental status Altered mental status type: unspecified Qualified Code(s): R41.82 - Altered mental status, unspecified (2) UTI (urinary tract infection) Hematuria presence: without hematuria Urinary tract infection type: site unspecified Qualified Code(s): N39.0 - Urinary tract infection, site not specified (3) Hypertension Hypertension type: essential hypertension Qualified Code(s): I10 - Essential (primary) hypertension (4) Dementia Dementia behavioral disturbance: without behavioral disturbance Dementia type: unspecified type Qualified Code(s): F03.90 - Unspecified dementia without behavioral disturbance (5) Chronic kidney disease Chronic kidney disease stage: unspecified stage Qualified Code(s): N18.9 - Chronic kidney disease, unspecified (6) Hypothyroidism Hypothyroidism type: unspecified Qualified Code(s): E03.9 - Hypothyroidism, unspecified
[2019-03-06] MEDS ORDERED: cefTRIAXone SODIUM 1,000 MG in DEXTROSE 5% 50 ML IV SCH ×2 (09:00→20:00)
[2019-03-06] MEDS: HEPARIN SOD 5,000 UNIT/0.5 ML VIAL SQ SCH (20:14)
[2019-03-06] MEDS: MIRTAZAPINE TAB 15 MG TAB PO SCH (20:26)
[2019-03-07] MEDS: SODIUM CHLORIDE 0.9% 1000ML 1,000 ML IV SCH (06:26)
[2019-03-07] MEDS: LEVOTHYROXINE SODIUM 75 MCG TABLET PO SCH (06:28)
[2019-03-07] MEDS: PANTOprazole 40 MG TAB PO SCH (07:47)
[2019-03-07] MEDS: SIMVASTATIN 20 MG TAB PO SCH (07:48)
[2019-03-07] MEDS: VENLAFAXINE HCL XR 150 MG CAPXR PO SCH (07:48)
[2019-03-07] MEDS: HydrALAZINE TAB 50 MG TAB PO SCH ×3 (07:49→20:40)
[2019-03-07] MEDS: HEPARIN SOD 5,000 UNIT/0.5 ML VIAL SQ SCH ×2 (07:50→20:40)
[2019-03-07 07:54] LABS: BUN Creatinine Ratio 13.6 (10-20); Calcium 8.6 mg/dl (8.5-10.1); Creatinine Clr Calc Pharmacy 28.6 ml/min; Est GFR (African American) 38.6; Est GFR (Non-African American) 33.3; Potassium 3.5 mmol/L (3.5-5.1)
[2019-03-07] MEDS: ACETAMINOPHEN 325 MG TAB PO PRN ×2 (07:59→17:48)
[2019-03-07] MEDS: DONEPEZIL HCL 10 MG TAB PO SCH (08:28)
[2019-03-07] MEDS ORDERED: cephALEXin 500 MG CAP PO SCH (09:00)
[2019-03-07] MEDS: NYSTATIN POWDER 15GM BTL EXT SCH ×2 (14:04→20:41)
--- NOTE | 2019-03-07 17:52 | Family Medicine Progress Note ---
Date of Service March 07, 2019 Assessment & Plan (1) Altered mental status: Patient is a 84 year old female with PMHx dementia, HLD, Hypothyroidism, and depression that presented initially with chief complaint of altered mental status from baseline. Metabolic Encephalopathy secondary to Dehydration and probably to a degree of effects from urinary tract infection. -Appears to be back in baseline range with dementia. Dehydration improved, UTI under treatment. Continue supportive care. See below under dementia otherwise. (2) UTI (urinary tract infection): Finish a course of antibiotics for complicated UTI. (3) Hypertension: Blood pressures show reasonable control. Continue current care. (4) Dementia: Home meds upon discharge. Does not appear safe to be home anymore. Agree wholeheartedly with patient/'s plan for discharge to SNF. (5) Depression: As above. (6) Acute dehydration: Almost certainly due to poor oral intake, will need to have close follow- up of oral intake after discharge (7) Chronic kidney disease: (8) LORNA (acute kidney injury): (9) Hypothyroidism: Subjective Overall seems to be in the same range of how she is feeling. did note that she is more out of it today, he got a phone call from her at about 620 this morning and she had been more out of sorts. With him at the bedside she is much more calm. No other new issues. Awaiting hopeful placement at [facility]. Review of Systems Review of Systems: All systems reviewed & are unremarkable except as noted in HPI & below Physical Exam Physical Exam: General she is awake and alert does not talk a whole lot but in no distress. HEENT normal cephalic atraumatic mucous members moist. Breathing unlabored no accessory muscle use good effort. Skin shows no rashes no pallor or icterus. Neuro shows no focal deficits. Results & Data Vital Signs (Past 12 Hours) Vital Signs Temp Pulse Resp BP Pulse Ox 03/07/19 15:15 94.8 F L 79 14 126/82 96 03/07/19 13:46 97.5 F L 79 14 115/76 96 03/07/19 07:19 98.2 F 63 18 177/75 H 96 PG Care Time/CCT Total # of Minutes Spent Total Time Spent with Patient: Total time spent is greater than 50% in coordination of care (as documented) at patient's floor/unit and/or counseling patient: (1) Altered mental status Altered mental status type: unspecified Qualified Code(s): R41.82 - Altered mental status, unspecified (2) UTI (urinary tract infection) Hematuria presence: without hematuria Urinary tract infection type: site unspecified Qualified Code(s): N39.0 - Urinary tract infection, site not specified (3) Hypertension Hypertension type: essential hypertension Qualified Code(s): I10 - Essential (primary) hypertension (4) Dementia Dementia type: unspecified type Dementia behavioral disturbance: without behavioral disturbance Qualified Code(s): F03.90 - Unspecified dementia without behavioral disturbance (5) Chronic kidney disease Chronic kidney disease stage: unspecified stage Qualified Code(s): N18.9 - Chronic kidney disease, unspecified (6) Hypothyroidism Hypothyroidism type: unspecified Qualified Code(s): E03.9 - Hypothyroidism, unspecified
[2019-03-07] MEDS: cephALEXin 250 MG CAP PO SCH (20:40)
[2019-03-07] MEDS: MIRTAZAPINE TAB 15 MG TAB PO SCH (20:40)
[2019-03-08] MEDS: ACETAMINOPHEN 325 MG TAB PO PRN (04:31)
[2019-03-08] MEDS: LEVOTHYROXINE SODIUM 75 MCG TABLET PO SCH (05:54)
[2019-03-08 06:18] LABS: BUN Creatinine Ratio 11.2 (10-20); Calcium 8.5 mg/dl (8.5-10.1); Creatinine Clr Calc Pharmacy 27.5 ml/min; Est GFR (African American) 36.7; Est GFR (Non-African American) 31.7; Potassium 3.4 mmol/L (3.5-5.1)
[2019-03-08 07:16] VITALS: BP 167/78; PULSE 71; TEMP 97.5; O2SAT 92
[2019-03-08] MEDS ORDERED: POTASSIUM CHLORIDE 20 MEQ TABCR PO STA ×2 (07:33→08:13)
[2019-03-08] MEDS: PANTOprazole 40 MG TAB PO SCH (09:03)
[2019-03-08] MEDS: VENLAFAXINE HCL XR 150 MG CAPXR PO SCH (09:03)
[2019-03-08] MEDS: SIMVASTATIN 20 MG TAB PO SCH (09:03)
[2019-03-08] MEDS: DONEPEZIL HCL 10 MG TAB PO SCH (09:03)
[2019-03-08] MEDS: cephALEXin 250 MG CAP PO SCH (09:04)
[2019-03-08] MEDS: HEPARIN SOD 5,000 UNIT/0.5 ML VIAL SQ SCH (09:04)
[2019-03-08] MEDS: HydrALAZINE TAB 50 MG TAB PO SCH (09:05)
[2019-03-08] MEDS: NYSTATIN POWDER 15GM BTL EXT SCH (09:12)
--- NOTE | 2019-03-08 10:03 | Discharge Summary ---
Date of Service March 08, 2019 Admission HPI Per Admitting Provider The patient is an 84-year-old female with a past medical history including dementia, UTI, anemia, hypothyroidism, GI bleed and acute kidney injury, who presents emergency department with above complaints. Her was concerned that her dementia may be worsening, and whether she may need to go to a longterm at this point. Admission Exam Per Admitting Provider The patient is lethargic and sleepy, and only able to be minimally cooperative with exam. She is lying in bed, normocephalic and atraumatic, and in no acute distress. HEENT--PERRL, EOMI, mucous membranes and oropharynx dry. Neck--No JVD. No bruits. Thyroid normal, trachea midline, no adenopathy. Heart--normal S1 and S2. No murmurs, rubs or gallops. Lungs--clear bilaterally, no respiratory distress, no accessory muscle use. Abdomen--normal bowel sounds and soft. Nontender. Nondistended. Extremities--no cyanosis or clubbing. No edema. Dermatologic--normal skin turgor, normal color, no abnormal lymph nodes, no rash. Neurologic--cranial nerves II through XII grossly intact. Rheumatologic-limited exam Psychiatric--lethargic and sleepy. Principal Diagnosis encephalopathy superimposed on dementia Discharge Exam Constitutional well developed and well nourished; no acute distress Eyes PERRL, conjunctivae normal, anicteric sclerae ENMT external ear and nose normal, oropharynx normal Neck trachea midline, no thyromegaly Respiratory normal respiratory effort; no respiratory distress Auscultation: lungs clear to auscultation bilaterally; no crackles, no rales and no wheezes Cardiovascular Rate/Rhythm: regular rate and regular rhythm Heart Sounds: normal S1 and normal S2; no murmur Gastrointestinal (Abdomen) normal bowel sounds, soft, nontender, no hepatosplenomegaly Skin no rashes, warm and dry Neurologic CN's II-XI intact bilaterally Speech / Cognition: normal speech Motor/Sensory: no tremor, normal movement and no pronator drift Cranial Nerves: PERRL, normal accommodation, EOM intact bilaterally, tongue midline, normal hearing, able to rotate head bilaterally, able to elevate shoulders bilaterally and symmetric palate elevation Psychiatric A+Ox3, euthymic affect Discharge Data Allergies Allergy/AdvReac Type Severity Reaction Status Date / Time celecoxib Allergy Severe THROAT Verified 03/05/19 17:19 TIGHTENS pregabalin Allergy Severe altered Verified 03/05/19 17:19 mental status amitriptyline Allergy Intermediate NERVOUSNESS Verified 03/05/19 17:19 amlodipine Allergy Intermediate HEAD FILLS Verified 03/05/19 17:19 UP, ABD PAIN gabapentin Allergy Intermediate HIVES Verified 03/05/19 17:19 metoprolol Allergy Intermediate HEAD FILLS Verified 03/05/19 17:19 UP atenolol Allergy Unknown Unknown Verified 03/05/19 17:19 chlorthalidone Allergy Unknown CAN'T Verified 03/05/19 17:19 REMEMBER clonazepam Allergy Unknown CAN'T Verified 03/05/19 17:19 REMEMBER Estrogens Allergy Unknown CAN'T Verified 03/05/19 17:19 REMEMBER hydrochlorothiazide Allergy Unknown CAN'T Verified 03/05/19 17:19 REMEMBER methyltestosterone Allergy Unknown CAN'T Verified 03/05/19 17:19 REMEMBER Progestins Allergy Unknown CAN'T Verified 03/05/19 17:19 REMEMBER Sulfa (Sulfonamide Allergy Unknown CAN'T Verified 03/05/19 17:19 Antibiotics) REMEMBER prednisone AdvReac Intermediate HEADACHE,FL Verified 03/05/19 17:19 USHING Consultations 03/05/19 20:25 ED Decision to Admit Stat Ordered Studies 03/05/19 17:10 CT head/brain wo con Stat Hospital Course (1) Altered mental status: Patient is a 84 year old female with PMHx dementia, HLD, Hypothyroidism, and depression that presented initially with chief complaint of altered mental status from baseline. Metabolic Encephalopathy secondary to Dehydration -Patient had noted altered mental status from baseline on initial presentation -Has happened to patient in the past, often secondary to dehydration and infections. -BUN 30, Creat 1.85 on admission -Patient was given a 1L bolus of NSS in the ED and was on NSS 80 mL/min before d/c -Resolved. UTI -Patient UA on admission with Leuk Esterase +2, WBC 10-30, patient experiencing incontinence -IV Ceftriaxone converted to PO Keflex on discharge. LORNA on CKD III -Creatinine 1.85 on admission with baseline 1.28-1.74. -1L bolus NSS received in ED, gentle hydration NSS 80ml/hr, discontinued upon discharge -Resolved on discharge. Hypertension -Continued hydralazine -Held lasix Dementia -Continued Aricept Generalized Weakness -Noted weakness that has been longstanding. -Continued PT/OT Hyperlipidemia -Continued Simvastatin Depression -Continued Venlafaxine -Continued Remeron (2) UTI (urinary tract infection): (3) Hypertension: (4) Dementia: (5) Depression: (6) Acute dehydration: (7) Chronic kidney disease: (8) LORNA (acute kidney injury): (9) Hypothyroidism: Total Time Total Time Spent Total Time Spent (In Minutes): <30 Discharge Plan Discharge Items Patient Disposition: Transfer Inpatient Rehab Fac Reason For Visit: UTI, LORNA ON CKD, ALTERED MENTAL STATUS Discharge Diagnosis: UTI Activity: Resume your previous activity Non-emergency contact: Primary Care Provider Call non-emergency contact if: you have any medication questions, your pain is worsening and your rectal temperature is above 100.4 Follow-up/Referrals: Daniel Vincent MD [Primary Care Provider] - Diet: Heart Healthy Addtl Attending Provider Instructions: acute metabolic encephalopathy superimposed on dementia -pt with history of dementia, presented with worsening behaviors/level of consciousness -had new urinary incontinence and (+) urine c/w UTI - finishing out treatment with keflex to complete 7 days -also noted to be dehydrated - lasix held (see below), initially IV fluids, followed by encouragement of PO fluids dementia -baseline dementia seems to have progressed to where home is generally unsafe -pt/ interested in senior living placement at [facility] as well weakness/deconditioning -due to both of above -would benefit from PT/OT to maximize functional status UTI -klebsiella sensitive to everything except for intermediate to unasyn -initally treated with ceftriaxone, transitioned to keflex - 5 more days of therapy (next dose tonight) to round out 7 days of treatment dehydration -poor oral intake -improved with IV fluids -will need to monitor/encourage oral intake at [facility] lasix use -unclear if she still needs this at any point or if her age/frailty/decline has brought her to where she no longer is getting benefit -- has this med listed as twice a week - did not delete it from med list so as to make sure the considerations for this are "work in progress" but would expect most likely that this will no longer be needed - ie watchful waiting but more than likely hold off on the med for indefinite future Pending Studies at Discharge: No Stand-Alone Forms: My [facility] Skilled Items Patient informed of condition?: Yes DNR: Yes Discharge Level of Care: Skilled Communicable Disease: No Discharge Prognosis: Stable Lines: None Urinary Catheter: No Medications and DC Order Prescriptions: New cephalexin 250 mg Capsule 250 mg PO BID Qty: 10 RF: 0 Continued levothyroxine [Levoxyl] 75 mcg Tablet 75 mcg PO QAM Qty: 0 RF: 3 simvastatin [Zocor] 20 mg Tablet 20 mg PO QAM Qty: 0 RF: 0 donepezil [Aricept] 10 mg Tablet 10 mg PO QAM Qty: 0 RF: 0 potassium chloride 10 mEq Capsule, Extended Release 10 meq PO QPM Qty: 0 RF: 0 acetaminophen [Tylenol] 325 mg Tablet 325 mg PO Q6H PRN (Reason: Pain) RF: 0 tramadol [Ultram] 50 mg tablet 50 mg PO DAILY PRN (Reason: Pain) RF: 0 pantoprazole [Protonix] 40 mg Tablet,Delayed Release (Dr/Ec) 40 mg PO QAM RF: 0 mirtazapine [Remeron] 15 mg Tablet 7.5 mg PO HS RF: 0 furosemide [Lasix] 40 mg Tablet 40 mg PO 2XWK RF: 0 venlafaxine [Effexor XR] 150 mg capsule,extended release 24hr 150 mg PO QAM RF: 0 hydralazine 50 mg Tablet 50 mg PO TID 30 Days Qty: 90 RF: 1 Discharge Orders: Discharge Order (Routine); Ordered 03/08/19 Ordered By: Baljinder Parker Admission Data Admit Date/Time: 03/05/19 22:28 Attending Provider: Baljinder Parker Admit Provider: Enrrique Garrett Primary Care Provider: Daniel Vincent Other Providers: Enrrique Garrett ; [facility] Other Interventions: Discharge Summary Assessment (RN) Last Done: 03/08/19 10:23 DC Date/Time DO NOT enter until pt leaves facility: 03/08/19 11:15 Supervising Physician Co-Signing Physician Notes I personally examined the patient and verified all urban points of history and exam, discussed case, and agree with decision making with Dr Thayer. No complaints, no issues, no problems. Does have the ability to go to [facility] today. Vitals noted, in general she is awake and alert pleasant no distress. HEENT normocephalic atraumatic mucous membranes moist. Breathing unlabored no accessory muscle use good effort. Skin shows no rashes no pallor or icterus. Metabolic/septic encephalopathyrelated to dehydration and urinary tract infection. Improving. Appears she would benefit from SNF level of rehab. Finish out course of antibiotics for complicated UTI, encourage oral intake and follow. Hold Lasix, although until clear exactly whether or not she still needs it I did not formally discontinue it from the medication list. Dementiaseems to have progressed to where she is no longer safe at home, she and her are pursuing long-term placement at [facility] as well. Otherwise as above. Resident Activity Tracking Resident Involvement: Resident Care Provided Care Provided: Adult Hospital Medicine
== END 2019-03-08 11:15 | DRG 689 ==
LOC: ED 16:28 → 2W 22:28 → SUATTDRO 22:28 → 2W 22:57 → 3N 03-07 22:03